=== PATIENT | male | born 1940 | race Caucasian/White ===

== ENCOUNTER 2016-10-28 19:19 | Inpatient (IN) | payer MEDICARE, OTHER ==
[2016-10-28] MEDS ORDERED: Aspirin Low Dose CHEW TAB* 81 MG PO ONE (19:44)
[2016-10-28] MEDS ORDERED: Nitroglycerin TAB 0.4 MG* 0.4 MG TAB SL ONE (19:52)
[2016-10-28] MEDS ORDERED: Nitroglycerin TAB 0.4 MG* 0.4 MG TAB ONE (19:53)
[2016-10-28 19:58] LABS: Hematocrit 48 % (42-52); Hemoglobin 15.9 g/dl (14.0-18.0); Mean Corpuscular HGB Conc 34 g/dl (31-36); Mean Corpuscular Hemoglobin 31 pg (27-31); Mean Corpuscular Volume 93 fL (80-94); Mean Platelet Volume 9 um3 (7.4-10.4); Red Blood Count 5.14 10^6/ul (4.0-5.4); Red Cell Distribution Width 14 % (10.5-15); White Blood Count 9.8 10^3/ul (3.5-10.8)
[2016-10-28] MEDS ORDERED: Nitroglycerin 2% OINT* 1 GM PAK TOPICAL ONE (19:59)
--- NOTE | 2016-10-28 20:11 | RAD ---
INDICATION: Chest pain. COMPARISON: Comparison is made with a prior study from December 14, 2010. TECHNIQUE: A portable view of the chest was obtained. FINDINGS: The patient appears to be status post coronary artery bypass surgery. The heart is within normal limits in size for this portable exam and unchanged from the prior exam. The lungs are clear. No pleural effusion is seen. IMPRESSION: POSTSURGICAL CHANGES, NO EVIDENCE FOR ACUTE FINDING.
[2016-10-28 20:13] LABS: BUN/Creatinine Ratio 23.7 (8-20); Calcium 9.1 mg/dL (8.6-10.3); EGFR Non-African American 75.5 (>60); Globulin 3.2 g/dL (2-4); Potassium 4.3 mmol/L (3.5-5.0); Total Bilirubin 0.9 mg/dL (0.2-1.0); Total Protein 7.2 g/dL (6.4-8.9)
[2016-10-28 20:16] LABS: Troponin I 0.01 ng/mL (<0.04)
[2016-10-28] MEDS ORDERED: Iodixanol* (CONTRAST) 320 MG/ML 100 ML SDV IV ONE (20:23)
--- NOTE | 2016-10-28 21:09 | RAD ---
INDICATION: Chest pain radiating to the back and jaw. COMPARISON: Comparison is made with a prior CT of the chest from December 14, 2010. TECHNIQUE: A CT scan of the chest was performed without intravenous contrast. Contiguous axial sections were obtained from the lung apices through the lung bases. Images were reconstructed in the coronal and sagittal planes. FINDINGS: There is mild to moderate centrilobular emphysematous change. There is a curvilinear irregular density present in the right upper lobe which is unchanged from the prior exam most consistent with parenchymal scarring. There are mild dependent bilateral lower lobe infiltrates most consistent with subsegmental atelectasis. No pleural effusion or pneumothorax is seen. No significant enlarged mediastinal or hilar lymph nodes are seen. The patient appears to be status post coronary artery bypass surgery. The heart is moderately enlarged. No pericardial effusion is present. The thoracic aorta is normal in caliber. There is mild calcific plaque present. Images of the upper abdomen demonstrate fatty infiltration of the liver. There is a filter partially visualized within the inferior vena cava. No significant focal osseous abnormality is seen. IMPRESSION: 1. STABLE RIGHT UPPER LOBE DENSITY CONSISTENT WITH PROBABLE SCARRING. 2. EMPHYSEMA. 3. POSTSURGICAL CHANGES AND CARDIOMEGALY, UNCHANGED. 4. HEPATIC STEATOSIS.
--- NOTE | 2016-10-28 21:10 | ED ---
Julee Fernando Rebecca, scribed for Alexandru Dubois MD on 10/28/16 at 1947 . HPI Chest Pain - HPI Summary HPI Summary: Pt is a 76 y/o M who presents to ED c/o CP. Pain began suddenly after eating and has been constant, waxing and waning in intensity. Pain is in the midsternum with radiation to the back, left arm and left jaw. Pain characterized as aching and ranges in intensity from 1/10 to 8/10. Sx aggravated and alleviated by nothing. Additionally c/o N/D. Denies cough. PMHx CAD (last catheterization and stress test many years ago). SHx former smoker. Pt takes Coumadin. Does not use O2 at home. Fusion Juncture Grinder is Dr. Amos. - History of Current Complaint Chief Complaint: EDChestPainROMI Time Seen by Provider: 10/28/16 19:44 Hx Obtained From: Patient Onset/Duration: Started Hours Ago, Still Present Time of Onset: 10:00 Timing: Constant Initial Severity: Moderate Current Severity: Mild Pain Intensity: 1 Pain Scale Used: 0-10 Numeric Chest Pain Location: Mid Sternal Chest Pain Radiates: Yes Chest Pain Radiates To:: Back, Arm - left, Jaw - left Character: Dull/Aching Aggravating Factor(s): Nothing Alleviating Factor(s): Nothing Associated Signs and Symptoms: Positive: Nausea, Other: - Diarrhea. Negative: Cough - Allergy/Home Medications Allergies/Adverse Reactions: Allergies Allergy/AdvReac Type Severity Reaction Status Date / Time Ciprofloxacin [From Cipro] Allergy Unknown Verified 10/28/16 20:25 Reaction Details Clarithromycin [From Biaxin] Allergy Unknown Verified 10/28/16 20:25 Reaction Details Heparin Allergy Unknown Verified 10/28/16 20:25 Reaction Details Iodine Allergy Unknown Verified 10/28/16 20:25 Reaction Details Mesalamine [From Asacol] Allergy Unknown Verified 10/28/16 20:25 Reaction Details Sulfamethoxazole Allergy Unknown Verified 10/28/16 20:25 w/Trimethoprim Reaction [From Bactrim] Details Home Medications: Home Medications Coumadin TAB(*) 6 mg PO SEE INSTRUCTIONS 10/28/16 [History Confirmed 10/28/16] PMH/Surg Hx/FS Hx/Imm Hx Endocrine/Hematology History: Reports: Hx Diabetes Denies: Hx Thyroid Disease Cardiovascular History: Reports: Hx Coronary Artery Disease, Hx Hypertension Respiratory History: Reports: Hx Asthma Denies: Hx Chronic Obstructive Pulmonary Disease (COPD) GI History: Denies: Hx Ulcer - Surgical History Surgery Procedure, Year, and Place: HEART CATH, PIECES BROKE OFF DURING, HAD TO OPEN UP TO GET PIECES OUT. RIGHT SIDE FACE RECONSTRUCTED. RIGHT ANKLE RECONSTRUCTION Infectious Disease History: No Infectious Disease History: Denies: Hx Hepatitis, Hx Human Immunodeficiency Virus (HIV), Traveled Outside the [place] in Last 30 Days - Social History Alcohol Use: None Substance Use Type: Reports: None Smoking Status (MU): Former Smoker Review of Systems Positive: Chest Pain Negative: Cough Positive: Diarrhea, Nausea All Other Systems Reviewed And Are Negative: Yes Physical Exam - Summary Physical Exam Summary: General: Comfortable, pleasant, alert, no distress currently HEENT: Moist mucosa, PERRL Neck: Soft, supple, no adenopathy, no edema Heart: S1, S2, RRR, no murmurs, rubs, or gallops, pulses equal and symmetric, heart sounds distant Lungs: Clear to auscultation, breathing comfortable, no wheezes or rales Abdominal: Soft, flat, nontender Extremities: No pitting edema, no calf tenderness Neuro: Alert and oriented x 3 Psych: Logical, coherent Triage Information Reviewed: Yes Vital Signs On Initial Exam: Initial Vitals Temp Pulse Resp BP Pulse Ox 99.6 F 95 16 125/57 100 10/28/16 19:22 10/28/16 19:22 10/28/16 19:22 10/28/16 19:22 10/28/16 19:22 Vital Signs Reviewed: Yes Diagnostics - Vital Signs Vital Signs Temp Pulse Resp BP Pulse Ox 10/28/16 19:22 99.6 F 95 16 125/57 100 - Laboratory Lab Results: Lab Results 10/28/16 10/28/16 Range/Units 19:45 19:45 WBC 9.8 (3.5-10.8) 10^3/ul RBC 5.14 (4.0-5.4) 10^6/ul Hgb 15.9 (14.0-18.0) g/dl Hct 48 (42-52) % MCV 93 (80-94) fL MCH 31 (27-31) pg MCHC 34 (31-36) g/dl RDW 14 (10.5-15) % Plt Count 134 L (150-450) 10^3/ul MPV 9 (7.4-10.4) um3 Neut % (Auto) 87.1 H (38-83) % Lymph % (Auto) 4.6 L (25-47) % [place] % (Auto) 5.2 (1-9) % Eos % (Auto) 2.7 (0-6) % Baso % (Auto) 0.4 (0-2) % Absolute Neuts (auto) 8.5 H (1.5-7.7) 10^3/ul Absolute Lymphs (auto) 0.5 L (1.0-4.8) 10^3/ul Absolute Monos (auto) 0.5 (0-0.8) 10^3/ul Absolute Eos (auto) 0.3 (0-0.6) 10^3/ul Absolute Basos (auto) 0 (0-0.2) 10^3/ul Absolute Nucleated RBC 0.02 10^3/ul Nucleated RBC % 0.2 Sodium 135 (133-145) mmol/L Potassium 4.3 (3.5-5.0) mmol/L Chloride 103 (101-111) mmol/L Carbon Dioxide 24 (22-32) mmol/L Anion Gap 8 (2-11) mmol/L BUN 23 (6-24) mg/dL Creatinine 0.97 (0.67-1.17) mg/dL Est GFR ( Amer) 97.0 (>60) Est GFR (Non-Af Amer) 75.5 (>60) BUN/Creatinine Ratio 23.7 H (8-20) Glucose 121 H (70-100) mg/dL Calcium 9.1 (8.6-10.3) mg/dL Total Bilirubin 0.90 (0.2-1.0) mg/dL AST 19 (13-39) U/L ALT 20 (7-52) U/L Alkaline Phosphatase 85 (34-104) U/L Troponin I 0.01 (<0.04) ng/mL Total Protein 7.2 (6.4-8.9) g/dL Albumin 4.0 (3.2-5.2) g/dL Globulin 3.2 (2-4) g/dL Albumin/Globulin Ratio 1.3 (1-3) Result Diagrams: 10/28/16 19:45 10/28/16 19:45 Lab Statement: Any lab studies that have been ordered have been reviewed, and results considered in the medical decision making process. - Radiology CXR Xray Interpretation: No Acute Changes - POSTSURGICAL CHANGES, NO EVIDENCE FOR ACUTE FINDING. Radiology Interpretation Completed By: Radiologist - EKG 1925 Cardiac Rate: NL - 89 bpm EKG Interpretation: Chronic RBBB EKG Comparison: No Significant Change - Unchanged from 2010 1955 Cardiac Rate: NL - 92 bpm EKG Rhythm: Sinus Rhythm - normal EKG Interpretation: Repeat EKG unchanged from EKG at 192 today Chest Pain Course/Dx - Course Assessment/Plan: He has many risk factors for heart and coronary artery disease. Has been doing well under the care of Dr. Amos and has not had a stress test or heart catheterization in many years. Has had no symptoms in preceding years but suddenly today developed CP. It involved the neck, shoulder and at one point radiated to the back. No SOB or tachycardia to warrant pursuit of PE. We did consider aneurysm of the aorta, but I obtain my widest dimension of the ascending aorta of 36 mm. Currently asymptomatic, no tearing pain to suggest dissection. Vital signs remain stable. Will be admitted to Dr. Larsen for further workup and to rule out CAD. - Chest Pain Differential Diagnosis/HQI/PQRI: Acute MO, ACS, Angina, Aortic Aneurysm, Chest Wall, GI Disease, Lower Respiratory Infection, Pulmonary Edema, Pulmonary Embolism - Diagnoses Provider Diagnoses: Chest pain - Provider Notifications Discussed Care Of Patient With: Dr. Larsen, hospitalist, who agrees to admit pt. Time Discussed With Above Provider: 21:01 Discharge - Discharge Plan Condition: Good Disposition: ADMITTED TO [facility] Referrals: Pam Perea MD [Primary Care Provider] - The documentation as recorded by the Julee levi Rebecca accurately reflects the service I personally performed and the decisions made by me, Alexandru Dubois MD.
[2016-10-28] MEDS ORDERED: Dextrose 50% Syringe 50 ML* 25 GM/50 ML SYRINGE IV PUSH PRN (21:58)
[2016-10-28] MEDS ORDERED: Acetaminophen TAB* 325 MG PO PRN (21:59)
[2016-10-28] MEDS ORDERED: NS 0.9% 1000 ML* 1,000 ML IV SCH (22:00)
--- NOTE | 2016-10-28 23:30 | HP ---
ADMISSION HISTORY AND PHYSICAL: DATE OF ADMISSION: 10/28/16 PRIMARY CARE PROVIDER: Pam Perea MD. PRIMARY WHARF LABORER: Olga Amos MD. ADMITTING PROVIDER: AMELIA Cruz. SUPERVISING PHYSICIAN: Dandy Larsen MD. * (DICTATED BY AMELIA CRUZ) CHIEF COMPLAINT: Chest pain. HISTORY OF PRESENT ILLNESS: This is a 76-year-old gentleman with extensive cardiac history as well as ulcerative colitis, history of DVTs, chronically anticoagulated on Coumadin, as well as non-insulin dependent diabetes who presented to the emergency department with complaints of chest pain that started earlier today. The patient states that he felt well when he awoke this morning and then became acutely ill after a ham and cheese omelet. The patient had sudden onset of abdominal pain and diarrhea as well as vomiting. The chest pain started a couple of hours later and waxed and waned throughout the day. He states that there were no specific inciting symptoms. He described an associated epigastric discomfort and described the chest pain as a pressure sensation. He became concerned when the chest pain began to radiate to his jaw and shoulder, which he has had similar experiences with his prior AZ's. He states that later in the day, he became short of breath with the chest pain and states that there was a somewhat pleuritic component to the chest pain with deep inspiration but those complaints have resolved with the use of nitroglycerin since arriving in the emergency department. The patient denies any other recent illness. He states that his last stress test was 1 [address] Amos's office and reportedly within normal limits. He denies any history of chronic angina. Today's symptoms are quite abnormal for him. PAST MEDICAL HISTORY: 1. Coronary artery disease status post 4 acute AZ's and prior CABG. He has had multiple complications surrounding prior catheterizations and his CABG procedure. 2. History of multiple DVT's for which he is anticoagulated with Coumadin and has a Berlin filter in place. 3. Ulcerative colitis. 4. Non-insulin dependent diabetes. 5. History of lung tumor. PAST SURGICAL HISTORY: 1. CABG. 2. Right ankle ORIF. 3. [place] filter. 4. Facial reconstruction. HOME MEDICATIONS: 1. Nitroglycerin 0.4 mg sublingual as needed for chest pain. 2. Coumadin 6 mg p.o. daily. 3. Lipitor 20 mg p.o. daily. 4. Lisinopril 5 mg p.o. daily. 5. Metoprolol succinate 25 mg p.o. daily. 6. Omeprazole 20 mg p.o. daily. 7. Glipizide 10 mg p.o. daily. SOCIAL HISTORY: The patient lives at home with his . He has a smoking history but quit in 1984. No regular alcohol consumption. REVIEW OF SYSTEMS: As noted above in the HPI, otherwise negative. PHYSICAL EXAMINATION GENERAL: This is a very pleasant elderly gentleman in no acute distress, accompanied by his and daughter. VITAL SIGNS: Temperature 99.6 degrees Fahrenheit, pulse 95 beats per minute, respiratory rate of 16 per minute, oxygen saturation is 100% on room air, blood pressure 125/57 mmHg. HEENT: Head is normocephalic and atraumatic. Mucous membranes are pink and moist. NECK: Supple and free of lymphadenopathy without evidence of JVD. RESPIRATORY: Lungs clear to auscultation without wheezes, crackles or rhonchi. CARDIOVASCULAR: Heart has a regular rate and rhythm without murmurs, rubs or gallops. ABDOMEN: Soft and nontender to palpation. Specifically no tenderness in the right upper quadrant. EXTREMITIES: No lower extremity edema. SKIN: Limited exam shows no rashes or lesions. PSYCH: The patient is alert and appropriately oriented. DIAGNOSTIC STUDIES/LAB DATA: CBC is unremarkable with a white blood cell count of 9800, hemoglobin 15.9 g/dL, platelet count slightly low at 134,000. Comprehensive metabolic panel is also unremarkable with the sodium of 135 mmol/L , potassium 4.3 mmol/L, BUN of 23, and creatinine of 0.97 with the respective estimated GFR of 75. Random glucose of 121 mg/dL. Total bilirubin and transaminases within normal limits. Troponin is negative at 0.01. IMAGING: Chest x-ray shows some mild cardiomegaly but no evidence of pulmonary venous congestion or other acute findings. EKG shows a sinus rhythm with the right bundle branch block unchanged from prior. CT of the chest without contrast shows emphysematous changes and scarring in the right upper lobe that seems to be chronic and stable. Last echocardiogram available for review is from 2003 and shows a preserved ejection fraction. Last nuclear stress test available for review is in 2007 and shows a fixed anterior wall defect but no reversible ischemia at that time. ASSESSMENT AND PLAN: This is a 76-year-old gentleman with extensive cardiac history as well as prior deep vein thrombosis for which he is chronically anticoagulated and non-insulin dependent diabetes mellitus who presents with complaints of chest pain, nausea, vomiting and diarrhea. 1. Chest pain. The patient is a high risk cardiac patient. No EKG changes or a more elevated troponin at this time. We will admit to observation for continuous telemetry and trending troponins. Continue home cardiac medications including aspirin, statin and beta jazmine. 2. Nausea, vomiting, and diarrhea. This could certainly be due to a cardiac cause that seems to be rather onset after having a fatty meal. Consider gallbladder pathology as an explanation for all of his symptoms. He is nontender on exam and transaminases and total bilirubin are within normal limits at this time. Obtain a gallbladder ultrasound. 3. History of deep vein thrombosis. Chronically anticoagulated on Coumadin and INR was not completed. This will be checked with tomorrow's labs. Plan to continue current dose of Coumadin. 4. Non-insulin dependent diabetes. We will plan to hold his glipizide at this time. Monitor mealtime glucose and cover with sliding scale insulin as necessary. 5. Ulcerative colitis. 6. DVT prophylaxis. The patient is anticoagulated with Coumadin and does not require further medical therapy. 7. Healthcare proxy is his . 8. Code status is full. 9. Disposition. The patient is being admitted to observation status for complaints of chest pain. If cycled troponins are negative, can likely be discharged tomorrow morning with close followup with Dr. Olga Amos, for repeat stress testing as an outpatient. AMELIA CRUZ CC: Olga Amos MD; Pam Perea MD * [id number]/[facility] #: [id number] MTDD
[2016-10-29] MEDS: Ondansetron INJ* 2 MG/ML VIAL IV PRN ×2 (00:13→08:34)
[2016-10-29 06:11] LABS: Albumin 3.4 g/dL (3.2-5.2); BUN/Creatinine Ratio 22.7 (8-20); Calcium 8.4 mg/dL (8.6-10.3); EGFR Non-African American 75.5 (>60); Globulin 2.7 g/dL (2-4); Potassium 4.1 mmol/L (3.5-5.0); Total Bilirubin 0.7 mg/dL (0.2-1.0); Total Protein 6.1 g/dL (6.4-8.9)
[2016-10-29] MEDS: Insulin LISPRO* 1 UNITS UNIT SUBCUT SCH ×3 (08:00→17:19)
[2016-10-29] MEDS: Omeprazole CAP* 20 MG PO SCH (08:37)
[2016-10-29] MEDS: Metoprolol Succinate XL TAB* 25 MG PO SCH (08:37)
[2016-10-29] MEDS: Lisinopril TAB* 5 MG PO SCH (08:37)
--- NOTE | 2016-10-29 09:49 | RAD ---
INDICATION: Nausea and vomiting. COMPARISON: Comparison is made with a prior right upper quadrant ultrasound from December 16, 2010 and in a prior CT of the chest from October 28, 2016. TECHNIQUE: Multiple real-time images of the right upper quadrant were obtained. FINDINGS: The gallbladder appear normal. No gallbladder wall thickening or pericholecystic fluid is present. No intra or extrahepatic ductal distention is present. The common bile duct measured 0.3 cm in diameter. The liver is normal in size and increased in echogenicity most consistent with fatty infiltration. No significant focal abnormality is seen. The pancreas is partially by overlying bowel gas. The right kidney is normal in size without evidence for hydronephrosis. There is a 4.0 x 3.6 cm cyst in the lower pole of the right kidney. IMPRESSION: 1. NO EVIDENCE FOR GALLBLADDER PATHOLOGY. 2. HEPATIC STEATOSIS. 3. RIGHT RENAL CYST.
[2016-10-29] MEDS ORDERED: Loperamide CAP* 2 MG PO PRN (16:21)
--- NOTE | 2016-10-29 16:26 | PN ---
Subjective Date of Service: 10/29/16 Interval History: Patient seen this morning and again in the evening. Chest pain resolved yesterday no recurrence overnight or today. Tolerated breakfast and lunch, however after lunch had 3 more episodes of diarrhea. Mild nausea. No vomiting. Family History: Unchanged from Admission Social History: Unchanged from Admission Past Medical History: Unchanged from Admission Objective Active Medications: Acetaminophen (Tylenol Tab*) 650 mg PO Q4H PRN Atorvastatin Calcium (Lipitor*) 20 mg PO 2100 [facility] Dextrose (D50w Syringe 50 Ml*) 12.5 gm IV PUSH .FOR FS < 60 - SS PRN Insulin Human Lispro (Humalog*) 0 units SUBCUT AC [facility] Lisinopril (Prinivil Tab*) 5 mg PO DAILY [facility] Metoprolol Succinate (Toprol Xl Tab*) 25 mg PO DAILY RED Omeprazole (Prilosec Cap*) 20 mg PO DAILY@0730 [facility] Ondansetron HCl (Zofran Inj*) 4 mg IV Q4H PRN Pharmacy Profile Note (Coumadin Daily Reminder*) 1 note FOLLOW UP 1700 [facility] Warfarin Sodium (Coumadin Tab(*)) 4 mg PO 1700 [facility] Vital Signs 10/28/16 10/28/16 10/29/16 23:27 23:40 04:00 Temperature 97.8 F 98.3 F Pulse Rate 88 78 Respiratory 18 16 16 Rate Blood Pressure 100/55 106/54 (mmHg) O2 Sat by Pulse 97 89 Oximetry 10/29/16 07:20 Temperature 98.4 F Pulse Rate 75 Respiratory 16 Rate Blood Pressure 102/46 (mmHg) O2 Sat by Pulse 97 Oximetry Oxygen Devices in Use Now: None Appearance: Elderly, M, laying in bed in NAD Eyes: No Scleral Icterus Ears/Nose/Mouth/Throat: Mucous Membranes Moist Neck: NL Appearance and Movements; NL JVP Respiratory: Symmetrical Chest Expansion and Respiratory Effort, Clear to Auscultation Cardiovascular: NL Sounds; No Murmurs; No JVD, RRR Abdominal: NL Sounds; No Tenderness; No Distention Lymphatic: No Cervical Adenopathy Extremities: No Edema Skin: No Rash or Ulcers Neurological: Alert and Oriented x 3 Result Diagrams: 10/28/16 19:45 10/29/16 05:30 Additional Lab and Data: Lab Results 10/28/16 10/28/16 Range/Units 19:45 19:45 WBC 9.8 (3.5-10.8) 10^3/ul RBC 5.14 (4.0-5.4) 10^6/ul Hgb 15.9 (14.0-18.0) g/dl Hct 48 (42-52) % MCV 93 (80-94) fL MCH 31 (27-31) pg MCHC 34 (31-36) g/dl RDW 14 (10.5-15) % Plt Count 134 L (150-450) 10^3/ul MPV 9 (7.4-10.4) um3 Neut % (Auto) 87.1 H (38-83) % Lymph % (Auto) 4.6 L (25-47) % [place] % (Auto) 5.2 (1-9) % Eos % (Auto) 2.7 (0-6) % Baso % (Auto) 0.4 (0-2) % Absolute Neuts (auto) 8.5 H (1.5-7.7) 10^3/ul Absolute Lymphs (auto) 0.5 L (1.0-4.8) 10^3/ul Absolute Monos (auto) 0.5 (0-0.8) 10^3/ul Absolute Eos (auto) 0.3 (0-0.6) 10^3/ul Absolute Basos (auto) 0 (0-0.2) 10^3/ul Absolute Nucleated RBC 0.02 10^3/ul Nucleated RBC % 0.2 Sodium 135 (133-145) mmol/L Potassium 4.3 (3.5-5.0) mmol/L Chloride 103 (101-111) mmol/L Carbon Dioxide 24 (22-32) mmol/L Anion Gap 8 (2-11) mmol/L BUN 23 (6-24) mg/dL Creatinine 0.97 (0.67-1.17) mg/dL Est GFR ( Amer) 97.0 (>60) Est GFR (Non-Af Amer) 75.5 (>60) BUN/Creatinine Ratio 23.7 H (8-20) Glucose 121 H (70-100) mg/dL Calcium 9.1 (8.6-10.3) mg/dL Total Bilirubin 0.90 (0.2-1.0) mg/dL AST 19 (13-39) U/L ALT 20 (7-52) U/L Alkaline Phosphatase 85 (34-104) U/L Troponin I 0.01 (<0.04) ng/mL Total Protein 7.2 (6.4-8.9) g/dL Albumin 4.0 (3.2-5.2) g/dL Globulin 3.2 (2-4) g/dL Albumin/Globulin Ratio 1.3 (1-3) Assess/Plan/Problems-Billing Assessment: Chest pain after nausea and diarrhea likely 2/2 viral gastroenteritis in a 76 yo M with hx of CAD s/p attempted stenting with multiple complications, CABG, DVTs on coumadin, UC, DM - Patient Problems (1) Viral gastroenteritis Current Visit: Yes Comment: Nausea seems improved but still with frequent diarrhea today. Will trial imodium. Continue IVF for now. Monitor I/O (2) Chest pain Current Visit: Yes Comment: Troponins negative x3, no events on tele. Will keep the patient an additional night and do stress test in AM if diarrhea improves. NPO after MN. (3) CAD (coronary artery disease) Current Visit: Yes Comment: Continue metoprolol, ACEI, statin (4) Diabetes Current Visit: Yes Comment: Continue HISS (5) DVT prophylaxis Current Visit: Yes Comment: Coumadin
[2016-10-29] MEDS ORDERED: Warfarin TAB(*) 4 MG PO SCH (17:00)
[2016-10-29] MEDS ORDERED: Atorvastatin* 20 MG TAB PO SCH (21:00)
[2016-10-30] MEDS: Insulin LISPRO* 1 UNITS UNIT SUBCUT SCH ×2 (07:55→14:31)
[2016-10-30 10:46] VITALS: BP 108/57
[2016-10-30] MEDS: Metoprolol Succinate XL TAB* 25 MG PO SCH (10:48)
[2016-10-30] MEDS: Lisinopril TAB* 5 MG PO SCH (10:48)
[2016-10-30] MEDS: Omeprazole CAP* 20 MG PO SCH (10:48)
--- NOTE | 2016-10-30 13:03 | RAD ---
Edited for charges. Indication: Chest pain. Myocardial perfusion scan was performed utilizing 1 day protocol. Rest myocardial perfusion was performed after intravenous injection of 10.04 mCi of technetium 99 and tetrofosmin. 25.5 mCi of technetium 99m tetrofosmin was then injected for the stress portion of the study. Pharmacological stress was used. There is photopenia in the anterior wall. This appears to reverse on the rest images and this may represent reversible change in the anterior wall. This is most prominent near the base of the heart. Otherwise the left ventricle is normal in size. There is a appears to be a short and septum noted. The ejection fraction at stress is 66%. Evaluation of wall motion demonstrates no focal wall motion abnormality. IMPRESSION: Reversible change in the anterior wall at the base of the heart. This is a small to moderate size. No other areas of reversible change is noted. ASSESSMENT: Intermediate risk Based on imaging criteria from ACC/AHA 2002 Guideline Update for the Management of Patients With Chronic Stable Angina Table 23. Noninvasive Risk Stratification. Reference. HIGH-RISK (GREATER THAN 3% ANNUAL MORTALITY RATE) - Severe resting left ventricular dysfunction (LVEF < 35%) - Severe exercise left ventricular dysfunction (exercise LVEF < 35%) - Stress-induced large perfusion defect (particularly if anterior) - Stress-induced multiple perfusion defects of moderate size - Large, fixed perfusion defect with LV dilation or increased lung uptake ( thallium-201) - Stress-induced moderate perfusion defect with LV dilation or increased lung uptake (thallium-201) INTERMEDIATE-RISK (1%-3% ANNUAL MORTALITY RATE) - Mild/moderate resting left ventricular dysfunction (LVEF = 35% to 49%) - Stress-induced moderate perfusion defect without LV dilation or increased lung intake (thallium-201) LOW-RISK (LESS THAN 1% ANNUAL MORTALITY RATE) - Normal or small myocardial perfusion defect at rest or with stress MTDD
[2016-10-30] MEDS ORDERED: Regadenoson* 0.4 MG/5 ML SYRINGE ONE (13:25)
--- NOTE | 2016-10-30 14:15 | DCNOTE ---
Patient seen this morning. Says he feels very well today. Diarrhea has resolved. Tolerated food last night. No further chest pain. On exam, RRR, s1 and s2 present, no m/g/r, abd soft, NTND, BS+, lungs CTA B/L, no w/r/r Stress test reviewed with Dr. Richard, did not feel any interventions or adjustments needed at this time. F/U with Dr. Amos as an outpatient.
--- NOTE | 2016-10-31 09:17 | DS ---
DISCHARGE SUMMARY: DATE OF ADMISSION: 10/28/16 DATE OF DISCHARGE: 10/30/16 PRIMARY CARE PROVIDER: Pam Perea MD CARDIOLOGY: Olga Amos MD PRINCIPAL DISCHARGE DIAGNOSES: 1. Viral gastroenteritis. 2. Chest pain. SECONDARY DIAGNOSES: 1. History of coronary artery disease, status post CABG. 2. Gastroesophageal reflux disease. 3. Diabetes. 4. Deep vein thromboses, on Coumadin. STUDIES DONE DURING HOSPITALIZATION: Chest x-ray, impression: Post-surgical changes. No evidence for acute findings. CT of the chest without contrast, impression: Stable right upper lobe density consistent with probable scarring, emphysema, post-surgical changes and cardiomegaly unchanged, hepatic steatosis. Gallbladder ultrasound, impression: No evidence for gallbladder pathology, hepatic steatosis, right renal cyst. Nuclear cardiac stress test, impression: Reversible change in the anterior wall at the base of the heart. This is a uxdeu-et-[id number] size. No other areas of reversible changes noted. Assessment: Intermediate risk. HISTORY OF PRESENT ILLNESS AND HOSPITAL SUMMARY: Please see the full history and physical by AMELIA Rey, for full details. Briefly, Mr. Calvo is a 76-year-old male with a past medical history as above who presented to the hospital after he developed mid sternal chest pain that radiated down the arm after a number of episodes of diarrhea earlier that day. The patient likely had a viral gastroenteritis. He was given IV fluids in the hospital and symptoms improved. In regards to his chest pain, his troponins were trended and all remained negative. He had no concerning changes on his EKG. The patient underwent a nuclear cardiac stress test as above. I discussed the findings with Dr. Richard who felt that there was no interventions or any changes in the patient's medications needed at this time. He will be continued on his previous medications and follow up with Dr. Amos as an outpatient. TIME SPENT: Total time spent on this discharge, 40 minutes. This is a summary of the hospitalization, please see full medical records for further details. CC: Dr. Perea; Olga Amos MD* [id number] #: [id number] MTDD
== END 2016-10-30 15:15 | disposition home or self-care (01) | DRG 392 ==
LOC: ED 19:19 → MEDTELE 21:59 → OBSVTOIN 10-29 16:20
PROVIDERS: ADMIT Hospitalist; ATTEND Hospitalist
DX: A08.4 Viral intestinal infection, unspecified (principal); K51.90 Ulcerative colitis, unspecified, without complications; K76.0 Fatty (change of) liver, not elsewhere classified; J43.9 Emphysema, unspecified; I25.10 Atherosclerotic heart disease of native coronary artery without angina pectoris; E11.9 Type 2 diabetes mellitus without complications; I10 Essential (primary) hypertension; J45.909 Unspecified asthma, uncomplicated; R07.9 Chest pain, unspecified; K21.9 Gastro-esophageal reflux disease without esophagitis; I51.7 Cardiomegaly; N28.1 Cyst of kidney, acquired; Z87.891 Personal history of nicotine dependence; Z88.1 Allergy status to other antibiotic agents; Z88.2 Allergy status to sulfonamides; Z88.8 Allergy status to other drugs, medicaments and biological substances; Z91.041 Radiographic dye allergy status; Z86.718 Personal history of other venous thrombosis and embolism; I25.2 Old myocardial infarction; Z95.1 Presence of aortocoronary bypass graft; Z95.828 Presence of other vascular implants and grafts; Z85.118 Personal history of other malignant neoplasm of bronchus and lung
CPT/HCPCS: 36415; 71010; 71250; 76705; 78452; 80053; 84484; 85025; 85610; 93005; 93017; A9270-GY; A9502; J2405; J2785

== ENCOUNTER 2017-02-03 04:26 | Emergency (ER) | payer MEDICARE, OTHER ==
[2017-02-03] MEDS ORDERED: Aspirin Low Dose CHEW TAB* 81 MG PO ONE (04:30)
[2017-02-03] MEDS ORDERED: Amiodarone 150 MG IVPREMIX* 150 MG/100 ML BAG IV ONE ×3 (04:43→05:38)
[2017-02-03 04:58] LABS: Hematocrit 48 % (42-52); Hemoglobin 15.5 g/dl (14.0-18.0); Mean Corpuscular HGB Conc 33 g/dl (31-36); Mean Corpuscular Hemoglobin 30 pg (27-31); Mean Corpuscular Volume 93 fL (80-94); Mean Platelet Volume 9 um3 (7.4-10.4); Red Blood Count 5.13 10^6/ul (4.0-5.4); Red Cell Distribution Width 14 % (10.5-15); White Blood Count 10.1 10^3/ul (3.5-10.8)
[2017-02-03] MEDS ORDERED: Amiodarone 360 MG IVPREMIX* 360 MG/200 ML BAG IV ONE (05:09)
[2017-02-03 05:12] LABS: Albumin 4.1 g/dL (3.2-5.2); BUN/Creatinine Ratio 20.8 (8-20); Calcium 9.8 mg/dL (8.6-10.3); EGFR African American 54.9 (>60); EGFR Non-African American 42.7 (>60); Globulin 3.3 g/dL (2-4); Potassium 4.6 mmol/L (3.5-5.0); Total Bilirubin 0.7 mg/dL (0.2-1.0); Total Protein 7.4 g/dL (6.4-8.9)
[2017-02-03] MEDS ORDERED: NS 0.9% 1000 ML* 250 ML IV ONE (05:14)
[2017-02-03] MEDS ORDERED: KCL 20 MEQ/100 ML IVPREMIX* 20 MEQ/100 ML BAG IV ONE (05:15)
[2017-02-03 05:16] LABS: Troponin I 0.59 ng/mL (<0.04)
[2017-02-03] MEDS ORDERED: Rivaroxaban TAB(*) 10 MG PO ONE (05:26)
[2017-02-03 05:28] LABS: Magnesium 2.1 mg/dL (1.9-2.7)
--- NOTE | 2017-02-03 05:56 | ED ---
Julee Fernando Rebecca, scribed for Janice Good MD on 02/03/17 at 0447 . Palpitations / Dysrhythmia - HPI Summary HPI Summary: Pt is a 76 y/o M who presents to ED c/o palpitations, SOB and CP. Sx began suddenly at 1900 tonight and have been constant since onset. Palpitations characterized as fast. CP is currently severe, ranked 7/10 and characterized as pressure. SOB characterized as dyspnea at rest. Sx aggravated and alleviated by nothing. Is on Coumadin for PE. PMHx CAD, [place], PE. Reports in 1998 he experienced a "sudden episode." - History of Current Complaint Chief Complaint: EDChestPainROMI Hx Obtained From: Patient Onset/Duration: Sudden Onset, Lasting Hours - 10 hours, Still Present Timing: Constant Severity Initially: Moderate Severity Currently: Moderate Character: Fast Aggravating: Nothing Alleviating: Nothing Associated Signs & Symptoms: Chest Pain, Shortness of Breath - Allergy/Home Medications Allergies/Adverse Reactions: Allergies Allergy/AdvReac Type Severity Reaction Status Date / Time Ciprofloxacin [From Cipro] Allergy Unknown Verified 10/28/16 20:25 Reaction Details Clarithromycin [From Biaxin] Allergy Unknown Verified 10/28/16 20:25 Reaction Details Heparin Allergy Unknown Verified 10/28/16 20:25 Reaction Details Iodine Allergy Unknown Verified 10/28/16 20:25 Reaction Details Mesalamine [From Asacol] Allergy Unknown Verified 10/28/16 20:25 Reaction Details Sulfamethoxazole Allergy Unknown Verified 10/28/16 20:25 w/Trimethoprim Reaction [From Bactrim] Details PMH/Surg Hx/FS Hx/Imm Hx Endocrine/Hematology History: Reports: Hx Blood Transfusions, Hx Diabetes Denies: Hx Thyroid Disease Cardiovascular History: Reports: Hx Angina, Hx Cardiac Arrest, Hx Coronary Artery Disease, Hx Hypercholesterolemia, Hx Hypertension, Hx Myocardial Infarction Denies: Hx Valvular Heart Disease Respiratory History: Reports: Hx Asthma, Hx Pulmonary Embolism - Right lung, Hx Seasonal Allergies, Other Respiratory Problems/Disorders - 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 RIGHT SIDE FACE RECONSTRUCTED. RIGHT ANKLE RECONSTRUCTION - Immunization History Date of Influenza Vaccine: Fall 2015 Infectious Disease History: Denies: Hx Hepatitis, Hx Human Immunodeficiency Virus (HIV), Traveled Outside the [place] in Last 30 Days - Family History Known Family History: Positive: Cardiac Disease - father (70 y/o) - Social History Lives: With Family Alcohol Use: None Substance Use Type: Reports: None Smoking Status (MU): Former Smoker Review of Systems Positive: Palpitations, Chest Pain Positive: Shortness Of Breath All Other Systems Reviewed And Are Negative: Yes Physical Exam - Summary Physical Exam Summary: General: Well appearing, no pain distress Skin: Warm, Skin Color Reflects Adequate Perfusion, Dry Eyes: EOMI, ALETHEA ENT: Pharynx normal, TMs normal Neck: Supple, nontender Respiratory: CTA, breath sounds present, no rhonchi, no wheezes, no rales Cardiovascular: RRR, no murmur, no rub, no gallop Abdomen: Soft, nontender, Non-distended, no guarding, no rebound Bowel: Present Musculoskeletal: REENA, No edema Neuro: Sensory/motor intact, A&Ox3, CN intact 2-12 Psych: Affect/mood appropriate Triage Information Reviewed: Yes Vital Signs On Initial Exam: Initial Vitals Temp Pulse Resp BP Pulse Ox 98 F 110 24 91/68 100 02/03/17 04:31 02/03/17 04:31 02/03/17 04:31 02/03/17 04:31 02/03/17 04:31 Vital Signs Reviewed: Yes Diagnostics - Vital Signs Vital Signs Temp Pulse Resp BP Pulse Ox 02/03/17 04:31 98 F 110 24 91/68 100 - Laboratory Lab Results: Lab Results 02/03/17 02/03/17 02/03/17 Range/Units 04:45 04:45 04:45 WBC 10.1 (3.5-10.8) 10^3/ul RBC 5.13 (4.0-5.4) 10^6/ul Hgb 15.5 (14.0-18.0) g/dl Hct 48 (42-52) % MCV 93 (80-94) fL MCH 30 (27-31) pg MCHC 33 (31-36) g/dl RDW 14 (10.5-15) % Plt Count 161 (150-450) 10^3/ul MPV 9 (7.4-10.4) um3 Neut % (Auto) 54.7 (38-83) % Lymph % (Auto) 27.5 (25-47) % [place] % (Auto) 12.8 H (1-9) % Eos % (Auto) 4.3 (0-6) % Baso % (Auto) 0.7 (0-2) % Absolute Neuts (auto) 5.5 (1.5-7.7) 10^3/ul Absolute Lymphs (auto) 2.8 (1.0-4.8) 10^3/ul Absolute Monos (auto) 1.3 H (0-0.8) 10^3/ul Absolute Eos (auto) 0.4 (0-0.6) 10^3/ul Absolute Basos (auto) 0.1 (0-0.2) 10^3/ul Absolute Nucleated RBC 0 10^3/ul Nucleated RBC % 0 INR (Anticoag Therapy) (0.89-1.11) Sodium 137 (133-145) mmol/L Potassium 4.6 (3.5-5.0) mmol/L Chloride 105 (101-111) mmol/L Carbon Dioxide 22 (22-32) mmol/L Anion Gap 10 (2-11) mmol/L BUN 33 H (6-24) mg/dL Creatinine 1.59 H (0.67-1.17) mg/dL Est GFR ( Amer) 54.9 (>60) Est GFR (Non-Af Amer) 42.7 (>60) BUN/Creatinine Ratio 20.8 H (8-20) Glucose 205 H (70-100) mg/dL Lactic Acid 2.3 H* (0.5-2.0) mmol/L Calcium 9.8 (8.6-10.3) mg/dL Magnesium 2.1 (1.9-2.7) mg/dL Total Bilirubin 0.70 (0.2-1.0) mg/dL AST 28 (13-39) U/L ALT 33 (7-52) U/L Alkaline Phosphatase 102 (34-104) U/L Troponin I 0.59 H* (<0.04) ng/mL Total Protein 7.4 (6.4-8.9) g/dL Albumin 4.1 (3.2-5.2) g/dL Globulin 3.3 (2-4) g/dL Albumin/Globulin Ratio 1.2 (1-3) // Range/Units 04:45 WBC (3.5-10.8) 10^3/ul RBC (4.0-5.4) 10^6/ul Hgb (14.0-18.0) g/dl Hct (42-52) % MCV (80-94) fL MCH (27-31) pg MCHC (31-36) g/dl RDW (10.5-15) % Plt Count (150-450) 10^3/ul MPV (7.4-10.4) um3 Neut % (Auto) (38-83) % Lymph % (Auto) (25-47) % [place] % (Auto) (1-9) % Eos % (Auto) (0-6) % Baso % (Auto) (0-2) % Absolute Neuts (auto) (1.5-7.7) 10^3/ul Absolute Lymphs (auto) (1.0-4.8) 10^3/ul Absolute Monos (auto) (0-0.8) 10^3/ul Absolute Eos (auto) (0-0.6) 10^3/ul Absolute Basos (auto) (0-0.2) 10^3/ul Absolute Nucleated RBC 10^3/ul Nucleated RBC % INR (Anticoag Therapy) 1.60 H (0.89-1.11) Sodium (133-145) mmol/L Potassium (3.5-5.0) mmol/L Chloride (101-111) mmol/L Carbon Dioxide (22-32) mmol/L Anion Gap (2-11) mmol/L BUN (6-24) mg/dL Creatinine (0.67-1.17) mg/dL Est GFR ( Amer) (>60) Est GFR (Non-Af Amer) (>60) BUN/Creatinine Ratio (8-20) Glucose (70-100) mg/dL Lactic Acid (0.5-2.0) mmol/L Calcium (8.6-10.3) mg/dL Magnesium (1.9-2.7) mg/dL Total Bilirubin (0.2-1.0) mg/dL AST (13-39) U/L ALT (7-52) U/L Alkaline Phosphatase (34-104) U/L Troponin I (<0.04) ng/mL Total Protein (6.4-8.9) g/dL Albumin (3.2-5.2) g/dL Globulin (2-4) g/dL Albumin/Globulin Ratio (1-3) Result Diagrams: 02/03/17 04:45 02/03/17 04:45 Lab Statement: Any lab studies that have been ordered have been reviewed, and results considered in the medical decision making process. - Radiology No standard instances Xray Interpretation: No Acute Changes Radiology Interpretation Completed By: ED Physician - EKG No standard instances Cardiac Rate: Tachycardia EKG Rhythm: V-Tachycardia Ectopy: None EKG Comparison: Other - wide complex tachycardia with left howe axis most consistent with vtach, but rapid aftib with abberrancy can not be excluded rate of 175 Course/Dx - Course Course Of Treatment: 76 yo male with cad hx with cabg as well as afib on coumadin (allergy to heparin) comes in with palpitations with wide complex tachycardia at a rate of 175. Pt given 150 mg IV bolus of amiodarone, (there was a concern at the end that there was some subcutaneous infitration) this was repeated and an order has been placed for 1mg/min of amiodarone. Pt has so far remained quite stable with a bp that has hovered in the low 90's, given his afib history at inr of only 1.6 after talking with Aniyah several times the decision was made to hold off on cardioversion in case the pt was in a fib with abberrancy, given that pt can not take heparin he was started on xarelto and he is currently awaiting the arrival of dr. Ayala - Diagnoses Provider Diagnoses: Wide QRS ventricular tachycardia - Physician Notifications Discussed Care Of Patient With: Dr. Larsen, hospitalist, who believes sx may be due to STEMI. Advised consult with Dr. Ayala. Dr. Ayala at 0503 who recommended the consideration of a cardioversion after an extensive duscission of the case. Dr. Ayala at 0520 who stated that he does not recommend cardioversion due to INR. States that he will admit pt. Time Discussed With Above Provider: 04:56 - Critical Care Time Critical Care Time: 30-74 min Discharge - Discharge Plan Condition: Fair Disposition: ADMITTED TO [facility] Referrals: Pam Perea MD [Primary Care Provider] - The documentation as recorded by the Julee levi Rebecca accurately reflects the service I personally performed and the decisions made by me, Janice Good MD.
[2017-02-03] MEDS ORDERED: Rivaroxaban TAB(*) 20 MG TAB PO ONE (06:00)
[2017-02-03] MEDS ORDERED: Midazolam concentrated* 5 MG/ML 1 ml VIAL ONE (06:21)
[2017-02-03] MEDS ORDERED: fentaNYL* 50 MCG/ML 2 ML VIAL (100 MCG VIAL) ONE (06:22)
[2017-02-03] MEDS ORDERED: Magnesium Sulfate 2 GM IV* 2 GM/50 ML BAG ONE (06:29)
--- NOTE | 2017-02-03 06:34 | ED ---
Julee Fernando Rebecca, scribed for Janice Good MD on 02/03/17 at 0608 . Progress - Progress Note Progress Note: Physical exam altered from previous PE: General: Well appearing, no pain distress Skin: Warm, Skin Color Reflects Adequate Perfusion, Dry Eyes: EOMI, ALETHEA ENT: Pharynx normal, TMs normal Neck: Supple, nontender Respiratory: CTA, breath sounds present, no rhonchi, no wheezes, no rales Cardiovascular: No murmur, no rub, no gallop. V tach - extremely regular heart rate but tachycardic Abdomen: Soft, nontender, Non-distended, no guarding, no rebound Bowel: Present Musculoskeletal: REENA, No edema Neuro: Sensory/motor intact, A&Ox3, CN intact 2-12 Psych: Affect/mood appropriate Course/Dx - Diagnoses Provider Diagnoses: Wide QRS ventricular tachycardia - Critical Care Time Critical Care Time: 30-74 min The documentation as recorded by the Julee levi Rebecca accurately reflects the service I personally performed and the decisions made by , Janice Good MD.
[2017-02-03] MEDS ORDERED: Magnesium Sulfate 2 GM IV* 2 GM/50 ML BAG IVPB ONE (07:03)
[2017-02-03] MEDS ORDERED: Midazolam* 1 MG/ML 5 ML VIAL (5 MG) SLOW PUSH ONE (07:04)
[2017-02-03] MEDS ORDERED: fentaNYL* 50 MCG/ML 2 ML VIAL (100 MCG VIAL) IV SCH (07:04)
--- NOTE | 2017-02-03 07:53 | PN ---
IFilomena SooYoung, scribed for Ovidio Fry MD on 02/03/17 at 0736 . Progress Note - Progress Note Note: SIGN-OUT FROM DR. ZAYAS DUE TO SHIFT CHANGE. PT WAS IN VT, HX: CORONARY ARTERY DIESEASE. PT WAS UNSTABLE AND CARDIOVERTED IN ED. PT SEEN BY DR. MCCANN, CARDIOLOGY, AND ARRANGED TO TRANS TO [facility] UNDER CARE OF DR. MURILLO. WILL RECEIVED ICD AND SEE AN CUSTOMER SOLUTIONS REPRESENTATIVE. DX: VT. The documentation as recorded by the Filomena levi SooYoung accurately reflects the service I personally performed and the decisions made by me, Ovidio Fry MD.
[2017-02-03 08:19] VITALS: BP 93/55
--- NOTE | 2017-02-03 09:45 | RAD ---
Indication: Tachycardia, shortness of breath, LEFT-sided jaw pain. History of coronary artery disease and LEFT lung carcinoma. Comparison: October 28, [address] and chest radiograph. Technique: Upright AP 0452 hours Report: Cardiomegaly. Mild prominence of the central pulmonary vasculature with cephalization. Grossly clear lungs and pleural spaces accounting for superimposed soft tissues with large body habitus. Negative for pneumothorax. Median sternotomy wires and mediastinal vascular clips. IMPRESSION: Probable mild pulmonary vascular congestion.
--- NOTE | 2017-02-03 11:57 | CARD ---
CC: Dr. Perea; Dr. Amos; Dr. Larsen; Dr. Ayala PROCEDURE REPORT: DATE OF PROCEDURE: 02/03/17 PROCEDURE: Cardioversion. INDICATION: The patient is a 76-year-old male patient with extensive cardiac history, coronary artery disease, CABG, history of PE, and right bundle branch block, who presented with wide-complex tachycardia consistent with ventricular tachycardia at heart rate of 175 beats per minute, systolic blood pressure 90 mmHg, and received bolus amiodarone and IV drip amiodarone without responding to amiodarone treatment. Based on the above, current cardioversion was further requested. DESCRIPTION OF PROCEDURE: After informed written consent had been obtained and with continuous blood pressure, pulse oximetry, and heart rate monitoring, after the patient received a total dose of Versed 4 mg intravenously and 50 mcg of fentanyl intravenously, synchronized biphasic 200 joules was delivered once at bedside in ER, and converted the patient successfully to normal sinus rhythm. There were no complications and the patient tolerated the procedure very well. CONCLUSION: Successful cardioversion as above for ventricular tachycardia. The patient is in normal sinus rhythm and right bundle branch block which is his baseline rhythm. [id number]/CPS #: [id number] MTDD
--- NOTE | 2017-02-03 13:29 | CONS ---
CC: Dr. Amos; Dr. Latisha Burrell; Dr. Perea, Dr. Larsen CARDIOLOGY CONSULTATION REPORT: DATE OF CONSULT: 02/03/17 PRIMARY CARE PHYSICIAN: Dr. Perea. ER PHYSICIAN: Dr. Good. HOSPITALIST: Dr. Larsen. REASON FOR CONSULT: I was asked to see this patient for ventricular tachycardia in the emergency room. HISTORY OF PRESENT ILLNESS: I was asked by Dr. Good and Dr. Larsen from the emergency room and hospitalist service respectively to see this 76-year -old male patient with complex and extensive cardiac history that goes back to 1998 when he had his coronary artery bypass grafting for severe coronary artery disease. Apparently, at that time, he had a cardiac catheterization and complications happened then. There were some reports of ruptured right coronary artery and underwent coronary artery bypass grafting there. The details of the information as per Dr. Amos's notes including ROMERO to the LAD and saphenous venous graft sequential to acute marginal and OM. 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 He cannot take heparin. He had a [place] filter and he is on Coumadin treatment. There were also some complications reported of the right ventricle. There is an echo from last one in the system from . At that time, his EF 55% to 60%, enlarged right ventricle, mild mitral insufficiency, mild tricuspid insufficiency, [id number] pulmonary insufficiency. In October of this year, he was hospitalized with symptoms of chest pain. He ruled out for myocardial infarction and he had and a nuclear Myoview stress test that was reported to have small-to- moderate size of reversible ischemia of the anterior wall. As I understand, that was discussed with Cardiology at that time with recommendation for medical treatment. No cardiac catheterization was done. The calculated ejection fraction by the nuclear was 66%. So, the patient apparently last night presented with symptoms of some chest pain , throat pain, tachycardia, palpitations. In the emergency room, he was found to be in wide complex tachycardia with a heart rate of 175 beats per minute. The morphology of it all consistent with ventricular tachycardia. The patient' s baseline EKG is sinus rhythm, right bundle branch block, and left posterior fascicular block. In the emergency room, he did receive loading with amiodarone , then IV drip, but he continued to be in the wide complex ventricular tachycardia with the heart rate of about 170. His blood pressure was about 85 to 90 systolic. Reviewing his labs, his magnesium was 2 or so, his potassium was 4.6, his troponin was 0.5, and Cardiology consult was further requested to evaluate and further management in his ventricular tachycardia. In the emergency room, upon arrival immediately after the call, he was alert, oriented. He had minimal episode of some what he called chest pressure and feeling in his throat, he is in wide complex tachycardia consistent with V-tach about 170 beats per minute. His blood pressure was 90 systolic. After further discussion with the patient and his who was available at the bedside and Dr. Larsen, hospitalist service; Dr. Good, ER physician, I decided to proceed with direct current cardioversion for this patient. I did after sedating him using synchronized 200 joules was delivered and successfully converted him to his baseline EKG with normal sinus rhythm, right bundle branch block, and left posterior fascicular block. He had no nausea, no vomiting, no hematochezia, no skin rash, no abdominal pain, no syncope, no swelling of the lower extremities, no hematochezia. He was supposed to follow up after [place] [facility] [place], but apparently that never occurred. His CABG and his cardiac cath were done at [facility] [place] at that time. 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 PAST SURGICAL HISTORY: Includes [place] filter, 1998; history of DVT and PE ; CABG on 06/09/99 at [facility], urgent from the pathology laboratory aide, ruptured right coronary artery; ROMERO to the LAD, sequential saphenous venous graft to acute marginal and OM. MEDICATIONS: As an outpatient include: 1. Lipitor 20 mg daily. 2. Coumadin adjusted to his INR. 3. Glipizide 10 mg twice a day. 4. Lisinopril 10 mg daily. 5. Metoprolol 25 mg daily. 6. He is also on nitro 0.4 mg sublingual p.r.n. 7. Omeprazole 1 p.o. daily. ALLERGIES: He had a history of allergies to HEPARIN, IODINE, CIPRO, PENICILLIN , BACTRIM, BETA BLOCKERS, BIAXIN. SOCIAL HISTORY: He used to smoke, he quit many years ago in March 1985. Rarely drinks alcohol. No history of illicit drug. He lives with his . PHYSICAL EXAM: He is awake, alert, and oriented. His blood pressure is 90 systolic. He is in a wide complex tachycardia consistent with V-tach. He is afebrile. Head and Neck Exam: Normocephalic, atraumatic head. Ears, nose, and throat essentially benign. Neck: Supple. JVP is not elevated. No carotid bruits. No masses in the neck are appreciated. Chest: Clear to auscultation. No rales, no wheeze, no added sounds appreciated. Heart: Normal. Regular S1, S2. No added sounds, no gallops, no rubs. Abdomen: Benign , soft. Positive bowel sounds. Extremities: No edema, no cyanosis, no clubbing. Skin exam is normal. Psych: Normal affect and mood. FLOOR COVERER APPRENTICE: No focal deficit is appreciated. DIAGNOSTIC STUDIES/LAB DATA: His EKG is as described. His labs showed the following: His CBC showed the following: , hemoglobin 15.5 , hematocrit 48, and platelets 161. His INR 1.60. His sodium 137, potassium 4.6, chloride 105, BUN 33, creatinine 1.59, glucose 205, lactic acid 2.3, magnesium 2.1. LFT is normal. Troponin 0.59. His chest x-ray: I do not have the report yet ready. IMPRESSION: The patient is a 76-year-old with: 1. Presentation with wide complex rapid tachycardia consistent with ventricular tachycardia, heart rate 175 beats per minute. 2. Known history of complex coronary artery disease with history of ruptured right coronary artery in the pathology laboratory aide, immediate CABG with ROMERO to the LAD, saphenous venous graft sequential to acute marginal and OM on 06/09/99, at [facility] in [place]. 3. Systemic arterial hypertension. 4. Hyperlipidemia. 5. Obesity. 6. 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 7. Complication after his coronary artery bypass graft with deep venous thrombosis, pulmonary embolism, he is on Coumadin treatment. 8. [place] filter insertion in 1998. 9. Abnormal baseline EKG with right bundle branch block, left posterior fascicular block. 10. Abnormal nuclear stress test, done October 2016 with aqvsk-zu-zsqiqfyt size of reversible ischemia of the anterior wall. 11. History of mild mitral insufficiency. 12. History of normal left ventricular systolic function; however, his last echo was in 2014. There is no followup echo since then. PLAN: This patient is very critical patient, very complex based on his comorbidities, complex CAD, and complications related to allergy to HEPARIN and DVT and pulmonary embolism. In the emergency room, I proceeded with cardioversion which successfully converted him to his baseline sinus rhythm, right bundle branch block, left posterior fascicular block. He is to continue on amiodarone IV drip. He is to have magnesium 2 g IV which we did. Regarding further management for this patient, I had lengthy discussion with the patient himself, his , as well as with the ER physician, the hospitalist service, and I did actually discuss him via phone with Dr. Ibarra, from the interventional cardiology services, who reviewed the patient's history and also the EKG presentation and the EKG after the cardioversion. After our lengthy talk and discussion with all of the above, the patient will be transferred to [facility] [place] for further evaluation and management based on his extensive complex cardiac history and ventricular tachycardia. I have discussed him with the Dr. Quintanilla at [facility], he is a waste minimization technician who kindly accepted him immediately. The patient will be transferred via ambulance by ACLS protocol. I have discussed him with Dr. Fry , the emergency room physician for today, who is aware of the transfer for this patient. I have discussed this again with the patient as well as the whom they also requested [facility] in [place], specifically, they asked for Dr. To at [facility], to see this patient. TIME SPENT: Total critical care time taking care of this patient and the emergency room physician managing him and making arrangements for his transfer is 2-1/2 hours without the cardioversion time for him. [id number]/CPS #: [id number] MTDD
== END 2017-02-03 07:52 | disposition short-term general hospital (02) ==
LOC: ED 04:26
DX: I47.2 Ventricular tachycardia (principal); R07.9 Chest pain, unspecified; R06.02 Shortness of breath; Z87.891 Personal history of nicotine dependence; R00.2 Palpitations
CPT/HCPCS: 36415; 71010; 80053; 83605; 83735; 84484; 85025; 85610; 93005; 96365; 96375; 99285; A9270-GY; J0282; J3010

== ENCOUNTER 2017-02-07 18:05 | Observation (INO) | payer MEDICARE, OTHER ==
[2017-02-07 19:19] LABS: Hematocrit 47 % (42-52); Hemoglobin 15.6 g/dl (14.0-18.0); Mean Corpuscular HGB Conc 33 g/dl (31-36); Mean Corpuscular Hemoglobin 31 pg (27-31); Mean Corpuscular Volume 93 fL (80-94); Mean Platelet Volume 10 um3 (7.4-10.4); Red Blood Count 5.08 10^6/ul (4.0-5.4); Red Cell Distribution Width 14 % (10.5-15); White Blood Count 11.5 10^3/ul (3.5-10.8)
[2017-02-07 19:34] LABS: Albumin 4.2 g/dL (3.2-5.2); BUN/Creatinine Ratio 20.8 (8-20); Calcium 9.9 mg/dL (8.6-10.3); EGFR African American 69.2 (>60); EGFR Non-African American 53.8 (>60); Globulin 3.9 g/dL (2-4); Total Bilirubin 0.9 mg/dL (0.2-1.0); Total Protein 8.1 g/dL (6.4-8.9)
[2017-02-07 19:37] LABS: Potassium 4.8 mmol/L (3.5-5.0)
--- NOTE | 2017-02-07 19:40 | RAD ---
INDICATION: Hemoptysis. COMPARISON: Comparison is made with a prior study from February 03, 2017. TECHNIQUE: Dual-energy PA and lateral views of the chest were obtained. FINDINGS: The patient is status post sternotomy. There is a transvenous cardiac pacemaker present. The heart is mildly enlarged and decreased in size from the prior study. The lungs are hyperinflated and clear with flattening of the diaphragms. No pleural effusion is seen. IMPRESSION: 1. FINDINGS CONSISTENT WITH COPD, NO EVIDENCE FOR ACUTE FINDING. 2. POSTSURGICAL CHANGES.
[2017-02-07 20:15] LABS: Troponin I 0.27 ng/mL (<0.04)
[2017-02-07] MEDS ORDERED: Acetaminophen TAB* 325 MG PO PRN (21:46)
[2017-02-07] MEDS ORDERED: Ondansetron INJ* 2 MG/ML VIAL IV PRN (21:46)
[2017-02-07] MEDS ORDERED: Dextrose 50% Syringe 50 ML* 25 GM/50 ML SYRINGE IV PUSH PRN (21:46)
[2017-02-07] MEDS ORDERED: Fondaparinux* 2.5 MG/0.5 ML SYRINGE SUBCUT SCH (23:00)
[2017-02-07] MEDS ORDERED: diPHENhydraMINE PO* 50 MG PO ONE (23:00)
[2017-02-07] MEDS ORDERED: predniSONE TAB* 50 MG PO ONE (23:00)
[2017-02-07] MEDS ORDERED: Enoxaparin(*) 30 MG/0.3 ML SYR SUBCUT SCH (23:00)
--- NOTE | 2017-02-07 23:10 | ED ---
Naveen Fernando Erika, scribed for Kelvin Hawley MD on 02/07/17 at 2048 . Complex/Multi-Sys Presentation - HPI Summary HPI Summary: Patient is a 76-year-old male presenting to the ED with a CC of hemoptysis. Patient reports that he was in the [facility] ED on 02/03/2017, and was in ventricular tachycardia so was cardioverted by Dr. Ayala then transferred to [facility]. Pt reports he had a cardiac catheterization and ICD placement at [facility]. He states he was discharged from [facility] today, but had a syncopal episode prior to discharge. He states he felt nauseated and weak at discharge. He reports en route home, he felt as if he was going to have diarrhea , but was unable to have a BM when he arrived home. He felt dehydrated, so drank Gatorade, and symptoms of nausea and weakness resolved. Then, pt states he coughed up 2 blood clots, the larger of which was about the size of his thumb nail. Pt reports SOB as well, and states he was started on Lasix a few days ago. Daughter reports that pt sounds like he has chest congestion. Currently, patient reports he feels sore and fatigued, but not as bad as earlier today. - History Of Current Complaint Chief Complaint: EDGeneral Time Seen by Provider: 02/07/17 18:23 Hx Obtained From: Patient, Family/Telegraphic Instrument Supervisor - Daughter Onset/Duration: Resolved Timing: Constant Severity Initially: Moderate Associated Signs And Symptoms: Positive: Weakness, Syncope, SOB, Hemoptysis, Nausea - Allergies/Home Medications Allergies/Adverse Reactions: Allergies Allergy/AdvReac Type Severity Reaction Status Date / Time Ciprofloxacin [From Cipro] Allergy Unknown Verified 10/28/16 20:25 Reaction Details Clarithromycin [From Biaxin] Allergy Unknown Verified 10/28/16 20:25 Reaction Details Heparin Allergy Unknown Verified 10/28/16 20:25 Reaction Details Iodine Allergy Unknown Verified 10/28/16 20:25 Reaction Details Mesalamine [From Asacol] Allergy Unknown Verified 10/28/16 20:25 Reaction Details Sulfamethoxazole Allergy Unknown Verified 10/28/16 20:25 w/Trimethoprim Reaction [From Bactrim] Details Home Medications: Home Medications Acetaminophen TAB* [Tylenol TAB*] 650 mg PO Q6H PRN 02/07/17 [History Confirmed 02/07/17] Aspirin EC Low Dose* [Ecotrin EC Low Dose 81 MG*] 81 mg PO DAILY 02/07/17 [ History Confirmed 02/07/17] Atorvastatin* [Lipitor*] 40 mg PO DAILY 02/07/17 [History Confirmed 02/07/17] Exenatide VIAL (NF) [Bydureon (NF)] 2 mg SUBCUT WEEKLY 02/07/17 [History Confirmed 02/07/17] Fexofenadine (NF) [Chloé 180 (NF)] 180 mg PO DAILY 02/07/17 [History Confirmed 02/07/17] Fluticasone NASAL SPRAY 50MCG* [Flonase NASAL SPRAY 50MCG*] 2 spray BOTH NARES DAILY PRN 02/07/17 [History Confirmed 02/07/17] Furosemide TAB* [Lasix TAB*] 20 mg PO DAILY PRN 02/07/17 [History Confirmed 12/22] Lisinopril TAB* [Prinivil TAB*] 10 mg PO DAILY 02/07/17 [History Confirmed 02/07] Metoprolol Tartrate TAB* [Lopressor TAB*] 25 mg PO BID 02/07/17 [History Confirmed 02/07/17] Pioglitazone HCl [Actos] 30 mg PO DAILY 02/07/17 [History Confirmed 02/07/17] Potassium Chlor TAB* [Klor Con ER TAB*] 20 meq PO DAILY PRN 02/07/17 [History Confirmed 02/07/17] PMH/Surg Hx/FS Hx/Imm Hx Endocrine/Hematology History: Reports: Hx Blood Transfusions, Hx Diabetes Denies: Hx Thyroid Disease Cardiovascular History: Reports: Hx Angina, Hx Cardiac Arrest, Hx Coronary Artery Disease, Hx Hypercholesterolemia, Hx Hypertension, Hx Myocardial Infarction, Hx Pacemaker/ICD Respiratory History: Reports: Hx Asthma, Hx Pulmonary Embolism - Right lung, Hx Seasonal Allergies, Other Respiratory Problems/Disorders - 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 RIGHT SIDE FACE RECONSTRUCTED. RIGHT ANKLE RECONSTRUCTION - Immunization History Date of Influenza Vaccine: Fall 2015 Infectious Disease History: Denies: Hx Hepatitis, Hx Human Immunodeficiency Virus (HIV), Traveled Outside the [place] in Last 30 Days - Family History Known Family History: Positive: Cardiac Disease - father (70 y/o) - Social History Alcohol Use: None Hx Substance Use: No Substance Use Type: Reports: None Hx Tobacco Use: Yes Smoking Status (MU): Former Smoker Review of Systems Positive: Fatigue Cardiovascular: Other - chest congestion Positive: Shortness Of Breath, Cough - with hemoptysis Positive: Nausea Positive: Myalgia Positive: Weakness, Syncope All Other Systems Reviewed And Are Negative: Yes Physical Exam Triage Information Reviewed: Yes Vital Signs On Initial Exam: Initial Vitals Temp Pulse Resp BP Pulse Ox 98.1 F 80 18 143/74 100 02/07/17 18:13 02/07/17 18:13 02/07/17 18:13 02/07/17 18:13 02/07/17 18:13 Vital Signs Reviewed: Yes Appearance: Positive: Well-Appearing, No Pain Distress Skin: Positive: Warm, Skin Color Reflects Adequate Perfusion, Dry Head/Face: Positive: Normal Head/Face Inspection Eyes: Positive: Normal ENT: Positive: Normal ENT inspection Neck: Positive: Supple, Nontender Respiratory/Lung Sounds: Positive: Breath Sounds Present, Other - Few crackles in the left upper lung field Cardiovascular: Positive: RRR Abdomen Description: Positive: Nontender, Soft Bowel Sounds: Positive: Present Musculoskeletal: Positive: Normal Neurological: Positive: Normal Psychiatric: Positive: Affect/Mood Appropriate Diagnostics - Vital Signs Vital Signs Temp Pulse Resp BP Pulse Ox 02/07/17 18:13 98.1 F 80 18 143/74 100 - Laboratory Lab Results: Lab Results 02/07/17 02/07/17 02/07/17 Range/Units 18:35 18:35 18:35 WBC 11.5 H (3.5-10.8) 10^3/ul RBC 5.08 (4.0-5.4) 10^6/ul Hgb 15.6 (14.0-18.0) g/dl Hct 47 (42-52) % MCV 93 (80-94) fL MCH 31 (27-31) pg MCHC 33 (31-36) g/dl RDW 14 (10.5-15) % Plt Count 168 (150-450) 10^3/ul MPV 10 (7.4-10.4) um3 Neut % (Auto) 71.8 (38-83) % Lymph % (Auto) 18.1 L (25-47) % [place] % (Auto) 8.9 (1-9) % Eos % (Auto) 0.9 (0-6) % Baso % (Auto) 0.3 (0-2) % Absolute Neuts (auto) 8.3 H (1.5-7.7) 10^3/ul Absolute Lymphs (auto) 2.1 (1.0-4.8) 10^3/ul Absolute Monos (auto) 1.0 H (0-0.8) 10^3/ul Absolute Eos (auto) 0.1 (0-0.6) 10^3/ul Absolute Basos (auto) 0 (0-0.2) 10^3/ul Absolute Nucleated RBC 0.01 10^3/ul Nucleated RBC % 0.1 INR (Anticoag Therapy) (0.89-1.11) APTT (26.0-36.3) seconds Sodium 133 (133-145) mmol/L Potassium 4.8 (3.5-5.0) mmol/L Chloride 100 L (101-111) mmol/L Carbon Dioxide 22 (22-32) mmol/L Anion Gap 11 (2-11) mmol/L BUN 27 H (6-24) mg/dL Creatinine 1.30 H (0.67-1.17) mg/dL Est GFR ( Amer) 69.2 (>60) Est GFR (Non-Af Amer) 53.8 (>60) BUN/Creatinine Ratio 20.8 H (8-20) Glucose 208 H (70-100) mg/dL Lactic Acid 2.2 H* (0.5-2.0) mmol/L Calcium 9.9 (8.6-10.3) mg/dL Total Bilirubin 0.90 (0.2-1.0) mg/dL AST 24 (13-39) U/L ALT 24 (7-52) U/L Alkaline Phosphatase 99 (34-104) U/L Troponin I 0.27 H* (<0.04) ng/mL Total Protein 8.1 (6.4-8.9) g/dL Albumin 4.2 (3.2-5.2) g/dL Globulin 3.9 (2-4) g/dL Albumin/Globulin Ratio 1.1 (1-3) 05/03/17 Range/Units 18:35 WBC (3.5-10.8) 10^3/ul RBC (4.0-5.4) 10^6/ul Hgb (14.0-18.0) g/dl Hct (42-52) % MCV (80-94) fL MCH (27-31) pg MCHC (31-36) g/dl RDW (10.5-15) % Plt Count (150-450) 10^3/ul MPV (7.4-10.4) um3 Neut % (Auto) (38-83) % Lymph % (Auto) (25-47) % [place] % (Auto) (1-9) % Eos % (Auto) (0-6) % Baso % (Auto) (0-2) % Absolute Neuts (auto) (1.5-7.7) 10^3/ul Absolute Lymphs (auto) (1.0-4.8) 10^3/ul Absolute Monos (auto) (0-0.8) 10^3/ul Absolute Eos (auto) (0-0.6) 10^3/ul Absolute Basos (auto) (0-0.2) 10^3/ul Absolute Nucleated RBC 10^3/ul Nucleated RBC % INR (Anticoag Therapy) 1.07 (0.89-1.11) APTT 28.9 (26.0-36.3) seconds Sodium (133-145) mmol/L Potassium (3.5-5.0) mmol/L Chloride (101-111) mmol/L Carbon Dioxide (22-32) mmol/L Anion Gap (2-11) mmol/L BUN (6-24) mg/dL Creatinine (0.67-1.17) mg/dL Est GFR ( Amer) (>60) Est GFR (Non-Af Amer) (>60) BUN/Creatinine Ratio (8-20) Glucose (70-100) mg/dL Lactic Acid (0.5-2.0) mmol/L Calcium (8.6-10.3) mg/dL Total Bilirubin (0.2-1.0) mg/dL AST (13-39) U/L ALT (7-52) U/L Alkaline Phosphatase (34-104) U/L Troponin I (<0.04) ng/mL Total Protein (6.4-8.9) g/dL Albumin (3.2-5.2) g/dL Globulin (2-4) g/dL Albumin/Globulin Ratio (1-3) Result Diagrams: 02/07/17 18:35 02/07/17 18:35 Lab Statement: Any lab studies that have been ordered have been reviewed, and results considered in the medical decision making process. - Radiology CXR Radiology Interpretation Completed By: Radiologist - IMPRESSION: 1. FINDINGS CONSISTENT WITH COPD, NO EVIDENCE FOR ACUTE FINDING. 2. POSTSURGICAL CHANGES. - EKG 18:20 Cardiac Rate: NL - at 72 bpm EKG Rhythm: Sinus Rhythm ST Segment: Non-Specific EKG Interpretation: RBBB EKG Comparison: No Significant Change - From 02/03/2017 Re-Evaluation - Re-Evaluation First Eval Re-Evaluation Time: 21:28 Comment: Discussed need for admission with patient. Complex Multi-Symp Course/Dx - Diagnoses Provider Diagnoses: Hemoptysis, Leukocytosis - Physician Notifications Discussed Care Of Patient With: Dr. Amos (cardiology) at 20:48 - discussed case. Recommends admission. Dr. Ochoa (hospitalist) at 21:09 - agrees to admit. Discharge - Discharge Plan Condition: Stable Disposition: ADMITTED TO [facility] documentation as recorded by the Naveen levi Erika accurately reflects the service I personally performed and the decisions made by me, Kelvin Hwaley MD.
[2017-02-08] MEDS: Metoprolol Tartrate TAB* 25 MG PO SCH ×2 (01:21→08:07)
--- NOTE | 2017-02-08 03:04 | HP ---
HISTORY AND PHYSICAL: DATE OF ADMISSION: 02/07/17 PRIMARY CARE PROVIDER: Dr. Perea. PRIMARY SCHOOL SPEECH THERAPIST: Dr. Amos. ATTENDING PHYSICIAN WHILE IN THE HOSPITAL: Dr. Mireya Ochoa *(report dictated by Preston Soliz NP). CHIEF COMPLAINT: 1. Hemoptysis. 2. Syncope. HISTORY OF PRESENTING ILLNESS: Mr. Calvo is a 76-year-old male patient, who was just here on 03 of February, unfortunately he was in ventricular tachycardia and required cardioversion and this was performed by Dr. Ayala. He was sent emergently to [facility]. He unfortunately was on Coumadin, so he could not have the ICD placed urgently. He was kept there until this morning when he was discharged. He underwent heart catheterization on Sunday. He was going to go down to have the ICD placed at [facility] and it was noted that his INR was supratherapeutic. This was reversed, yesterday he had the ICD placed and he was discharged today. Before being discharged, he was getting up to go to the bathroom and shave, while shaving he started feeling lightheaded, he felt tingling, he got sweaty, he started feeling like he was going to faint. He grabbed the towel bar in the bathroom, he went down, and then the next thing he knew, he was in his bed. He was evaluated at [facility] for this and was discharged home. Unfortunately, on his way home, he had 2 episodes where he was coughing quite significantly, he brought up two fresh blood clots. He was no longer on Coumadin and the Coumadin had been discontinued altogether in collaboration with his PCP and [facility]. The patient called his PCP, Dr. Perea, who was concerned and asked him to come to the ER to be evaluated. He denies any chest pain now. He denies having any abdominal discomfort. He denies having any shortness of breath. He states he is feeling better. He said he felt a little dehydrated at home today. He drank a bottle of Gatorade and since then, he has been feeling quite well. He denies having anymore episodes of feeling like he his lightheaded. He denies having any chest pain. He denies having any orthopnea. He was evaluated in the ED. It was noted that his troponin was mildly elevated, but it is trending down from the last troponin that we have. In addition to this, there was a concern because of the hemoptysis and we were asked to evaluate for admission. PAST MEDICAL HISTORY: Significant for: 1. Coronary artery disease. 2. VT. 3. History of CHF. 4. COPD. 5. Diabetes. 6. Ulcerative colitis. 7. History of DVTs. 8. Lung tumor. 9. Ventricular tachycardia. PAST SURGICAL HISTORY: 1. He just had an ICD placed over at [facility]. 2. CABG. 3. IVC. 4. ORIF, right ankle. 5. Facial reconstruction. MEDICATIONS: His home medications according to the discharge paperwork from [facility] include: 1. Lipitor 40 mg daily. 2. Actos 30 mg daily. 3. Lisinopril 10 mg daily. 4. Klor-Con 20 mEq p.o. daily as needed. 5. Lasix 20 mg p.o. daily as needed. 6. Tylenol 650 mg p.o. every 6 hours as needed. 7. Prilosec 20 mg daily. 8. Aspirin 81 mg daily. 9. Glipizide 10 mg p.o. b.i.d. 10. Nitro 0.4 sublingual q.5 minutes p.r.n. chest pain x3. 11. Flonase 2 sprays both nares daily as needed. 12. Fexofenadine 180 mg p.o. daily. 13. Exenatide 2 mg subcu weekly. 14. Lopressor 25 mg p.o. b.i.d. ALLERGIES TO MEDICATIONS: Include CIPRO, BIAXIN, HEPARIN, IODINE, MESALAMINE, and SULFA. FAMILY HISTORY: Reviewed and noncontributory. SOCIAL HISTORY: He is a former smoker. He does not drink alcohol. He lives with his . Surrogate decision maker is his . REVIEW OF SYSTEMS: There is no documented fever. He denied any significant weight change. There was no double vision. He denies having any ear discharge. There was no rhinorrhea. No sore throat. No thyroid enlargement. Denies having any chest pain. There was no orthopnea. No nocturnal dyspnea. There was no abdominal pain. There was no nausea, no vomiting. No dysuria, no frequency. No seizure. There was a loss of consciousness at [facility]. Review of 14 systems completed, all others negative. PHYSICAL EXAMINATION GENERAL: At this time, Mr. Calvo is a 76-year-old male patient; appears well- developed, well-nourished, sitting in the ER stretcher. VITAL SIGNS: Reveal blood pressure 135/72, pulse 76, respirations 22, O2 sat 96 %, temperature 98.3. HEENT: Head is atraumatic and normocephalic. Eyes: EOMs are intact. Sclerae anicteric and not pale. Throat: Oral mucosa appears to be moist. No oropharyngeal erythema. NECK: Supple. LUNGS: Clear to auscultation bilaterally. No wheezes, rales, or rhonchi. HEART: Sounds S1, S2. Regular rate and rhythm. No murmurs, rubs, or gallops were appreciated. ABDOMEN: Soft, flat, nontender. Bowel sounds present. EXTREMITIES: Pulses were 2+ throughout. NEUROLOGICAL: He is awake, he is alert, he is oriented x3. SKIN: Intact. He does have an incision noted to the left chest well, which was covered with a dressing. There does appear to be some old serosanguineous drainage, but otherwise there does not appear to be any erythema surrounding the site, I did not remove the dressing. DIAGNOSTIC STUDIES/LAB DATA: Today revealed WBC 11.5, RBC of 5.08, hemoglobin 15.6, hematocrit 47, and platelet count of 168. INR of 1.07, PTT of 28.9. Sodium 133; potassium 4.8; chloride 100; bicarb 22; BUN 27; creatinine 1.30, which is near his baseline; glucose 208; lactate 2.2; calcium 9.9. Total bili 0.9, AST 24, ALT 24, alk phos 99. Troponin 0.27, which is down from his last troponin of 0.50. His albumin was 4.2. The patient did have a chest x-ray obtained today, impression: Postsurgical changes, findings consistent with COPD. No evidence for acute finding. He had an EKG obtained today as well, which showed a right bundle branch block, it was a rate of 72, no ST elevations or T-wave inversions. It was reviewed to the previous EKG, it appears to be similar. Old medical records were reviewed. ASSESSMENT AND PLAN: Mr. Calvo is a 76-year-old male patient coming into the ER today with complaints of hemoptysis and a syncopal episode after implantable cardioverter-defibrillator placed. He will be admitted under observation status for: 1. Hemoptysis. Again, etiology is unclear. It could be simple trauma from him being possibly intubated from the implantable cardioverter-defibrillator placement. It could also be related to pulmonary embolism, although I suspect less likely, he was just on Coumadin. In addition to this, he does have a history of a lung tumor, so I think a CTA is appropriate following his H and H and continuing to follow him and monitor him overnight. 2. Syncope. He will be placed on telemetry. The patient was evaluated at [facility] , apparently had the implantable cardioverter-defibrillator interrogated over there. We are getting records to see what was done and I will check orthostatic blood pressures and we will continue to follow. 3. Coronary artery disease. He just had a heart catheterization over at [facility]. We will try to get those records they are being sent by Dr. Amos. We will continue his aspirin, statin, and beta jazmine. 4. History of chronic obstructive pulmonary disease. Currently not on any nebulizers, he does not wish to take any nebulizers as he feels that his gave him his tumor. We will continue to monitor. 5. History of deep venous thrombosis. He has a [place] filter while he is here. He will be placed on SCDs and I will place him on Lovenox. 6. Ulcerative colitis. Continue to follow. 7. History of diabetes. He will be on the lispro sliding scale. 8. History of lung tumor. Again, we will reevaluate with a CTA tomorrow. 9. History of ventricular tachycardia. He has an implantable cardioverter- defibrillator placed, we will follow. 10. History of congestive heart failure. We will diurese as needed. 11. Code status. Full code. 12. Fluid, electrolytes, and nutrition. He will continue with heart-healthy diet. 13. DVT prophylaxis. SCDs and Lovenox. TIME SPENT: On the admission was approximately 70 minutes, greater than half the time spent [id number] with the patient obtaining my history and physical, the other half the time was spent going over the plan of care with the patient and implementing plan of care. I did discuss the plan of care with my attending physician, Dr. Ochoa; she is in agreement. PRESTON SOLIZ NP CC: Dr. Perea; Dr. Amos* [id number]/CPS #: [id number] [email or web address]
[2017-02-08 04:15] LABS: Hematocrit 43 % (42-52); Hemoglobin 14.5 g/dl (14.0-18.0); Mean Corpuscular HGB Conc 34 g/dl (31-36); Mean Corpuscular Hemoglobin 31 pg (27-31); Mean Corpuscular Volume 92 fL (80-94); Mean Platelet Volume 9 um3 (7.4-10.4); Red Blood Count 4.71 10^6/ul (4.0-5.4); Red Cell Distribution Width 14 % (10.5-15); White Blood Count 10.1 10^3/ul (3.5-10.8)
[2017-02-08 04:29] LABS: BUN/Creatinine Ratio 20.4 (8-20); Calcium 9.4 mg/dL (8.6-10.3); EGFR African American 85.7 (>60); EGFR Non-African American 66.7 (>60); Potassium 4.8 mmol/L (3.5-5.0)
[2017-02-08 04:34] LABS: Troponin I 0.2 ng/mL (<0.04)
[2017-02-08] MEDS ORDERED: predniSONE TAB* 20 MG PO ONE (05:00)
[2017-02-08] MEDS ORDERED: diPHENhydraMINE PO* 25 MG PO ONE ×2 (05:00→11:00)
[2017-02-08] MEDS: Insulin LISPRO* 1 UNITS UNIT SUBCUT SCH ×2 (08:07→13:04)
[2017-02-08] MEDS ORDERED: Lisinopril TAB* 10 MG PO SCH (09:00)
[2017-02-08] MEDS ORDERED: Aspirin EC Low Dose* 81 MG TAB.EC PO SCH (09:00)
[2017-02-08] MEDS ORDERED: Atorvastatin* 40 MG TAB PO SCH (09:00)
[2017-02-08] MEDS ORDERED: Omeprazole CAP* 20 MG PO SCH (09:00)
[2017-02-08] MEDS ORDERED: predniSONE TAB* 10 MG PO ONE (11:00)
[2017-02-08] MEDS ORDERED: Iodixanol* (CONTRAST) 320 MG/ML 100 ML SDV IV ONE (12:24)
--- NOTE | 2017-02-08 12:59 | RAD ---
HISTORY: Cough, hemoptysis COMPARISONS: October 28, 2016 TECHNIQUE: Multiple contiguous axial CT scans of the chest were obtained after the administration of nonionic intravenous contrast, timed to the pulmonary arterial phase of contrast enhancement.. Coronal and sagittal multiplanar reformations are also submitted for review. FINDINGS: NECK AND THYROID: The lower neck and thyroid are unremarkable. CHEST WALL: There is no lower cervical, axillary, or supraclavicular lymphadenopathy by size criteria. HEART AND PERICARDIUM: The heart is unremarkable. AORTA AND PULMONARY VASCULATURE: There is no pulmonary arterial filling defect to suggest pulmonary embolism. There is no linear filling defect within the aorta to suggest aortic dissection. MEDIASTINUM: There is no mediastinal lymphadenopathy by size criteria. SARKIS: There is no hilar lymphadenopathy by size criteria. AIRWAY AND ESOPHAGUS: The airway is unremarkable, without endobronchial filling defect. The esophagus is grossly normal. LUNG PARENCHYMA: There is extensive centrilobular and panacinar emphysematous change. There is stable pleuroparenchymal scarring of the right upper lobe. PLEURA: No pleural abnormalities are noted. UPPER ABDOMEN: An IVC filter is noted BONES AND SOFT TISSUES: Degenerative changes are noted. There is a scoliotic curvature of the spine. The patient is status post median sternotomy. OTHER: A left-sided pacemaker is noted IMPRESSION: 1. EMPHYSEMA. 2. NO PULMONARY ARTERIAL FILLING DEFECT TO SUGGEST PULMONARY EMBOLISM.
[2017-02-08 13:51] VITALS: BP 127/58
--- NOTE | 2017-02-08 22:32 | DS ---
MEDICATION ADDENDUM NOW INCLUDED ON THIS REPORT DISCHARGE SUMMARY: DATE OF ADMISSION: 02/07/17 DATE OF DISCHARGE: 02/08/17 PRIMARY CARE PROVIDER: Dr. Perea. DISCHARGING PROVIDER: AMELIA Cruz. SUPERVISING PHYSICIAN: Basia Shen DO.* (DICTATED BY AMELIA CRUZ) PRIMARY DISCHARGE DIAGNOSES: 1. Syncope. 2. Acute kidney injury - prerenal. 3. Hemoptysis. SECONDARY DISCHARGE DIAGNOSES: 1. Coronary artery disease. 2. History of congestive heart failure - unknown ejection fraction. 3. Chronic obstructive pulmonary disease. 4. Diabetes. 5. Ulcerative colitis. 6. History of deep venous thrombosis. 7. History of lung tumor. 8. History of ventricular tachycardia. HOSPITAL IMAGIN. Chest x-ray demonstrated findings consistent with COPD. No other acute findings. Evidence of postsurgical changes. 2. CTA of the chest shows no evidence of PE. No mass or other acute changes. Diffuse emphysematous changes present. 3. EKG demonstrates a sinus rhythm with rather diffuse ST segment changes and a right bundle-branch block that appears unchanged from prior. HOSPITAL COURSE: This is a 76-year-old gentleman with an extensive cardiac history including prior RI, history of V-tach for which he was recently transferred to [facility] for ICD placement as well as history of CHF without known recent echocardiogram, diabetes, ulcerative colitis, history of prior DVTs who presented yesterday to the emergency department with complaints of syncope and hemoptysis. Approximately 3 days ago, the patient was seen in our emergency department with ventricular tachycardia that required cardioversion. The patient was emergently transferred to [facility] , at which point an ICD device was placed. The patient was discharged from [facility] yesterday, but prior to discharge he experienced a syncopal episode, but despite this, was discharged to home. The patient reported feeling very nauseated throughout the drive home and when he got to home he had 2 episodes of hemoptysis with a dark red clot that he coughed up. He contacted his primary care provider who recommended him to be evaluated in the emergency department. Initial labs demonstrated a mild leukocytosis with white blood cell count of 11, 000. Chemistries demonstrated BUN of 27 and creatinine of 1.3 with a lactic acid of 2.2 and an elevated troponin to 0.27. Of note, the patient's troponin from 4 days prior when he presented with V-tach was 0.5. The patient had multiple allergies listed prompting the necessity to pre-treat prior to CTA to avoid a potential contrast reaction. The patient was admitted to observation status and received IV fluids and appropriate pre-treatment regimen for CT contrast. He underwent CTA, which did not demonstrate a PE or recurrent lung mass. The patient reported that he had no further complaints of hemoptysis and his complaints of syncope, presyncope or generalized dizziness had resolved. The patient reported that during his 3-day stay at [facility], he had been treated with IV Lasix, which is a new medication for him and his episode of syncope occurred while in the standing position and he felt quietly lightheaded proceeding. The patient's syncopal episodes appeared to be secondary to orthostasis related to hypovolemia. His hemoptysis is most likely due to recent intubation as he did undergo general anesthesia for his ICD placement. He is asymptomatic at the time of discharge. Also of note, the patient has been on Coumadin therapy for approximately 17 years for history of multiple DVTs. Apparently, there was a conversation between [facility] physician and Dr. Pam Perea, his primary care provider, in regards to the necessity to continue his anticoagulation and the decision was made not to continue to anticoagulate him. The patient has multiple questions regarding this, but recommend that those be directed to Dr. Perea as her knowledge of his history of prior DVTs is superior. DISPOSITION: The patient is being discharged to home. Recommend no further use of Lasix. No other medication changes made. The patient is instructed to follow up with Dr. Perea in the near future regarding this hospitalization. ADDENDUM: DATE OF ADMISSION: 02/07/17 DATE OF DISCHARGE: 02/08/17 DISCHARGE MEDICATIONS: As follows: 1. Aspirin 81 mg p.o. daily. 2. Atorvastatin 40 mg p.o. daily. 3. Exenatide 2 mg subcu weekly. 4. Chloé 180 mg p.o. daily. 5. Fluticasone nasal spray 2 sprays in each nose daily. 6. Lisinopril 10 mg p.o. daily. 7. Metoprolol tartrate 25 mg p.o. twice daily. 8. Nitroglycerin 0.4 mg sublingual q.5 minutes as needed for chest pain. 9. Omeprazole 20 mg p.o. daily. 10. Actos 30 mg p.o. daily. 11. Glipizide 10 mg p.o. twice daily. MEDICATION CHANGES: Discontinue p.r.n. Lasix. AMELIA CRUZ CC: Dr. Perea* [id number]/CPS #: [id number]/CPS #: [id number] [facility]ITAL[facility]
--- NOTE | 2017-02-08 23:06 | DS ---
CC: Dr. Perea* DISCHARGE SUMMARY: ADDENDUM: DATE OF ADMISSION: 02/07/17 DATE OF DISCHARGE: 02/08/17 DISCHARGE MEDICATIONS: As follows: 1. Aspirin 81 mg p.o. daily. 2. Atorvastatin 40 mg p.o. daily. 3. Exenatide 2 mg subcu weekly. 4. Chloé 180 mg p.o. daily. 5. Fluticasone nasal spray 2 sprays in each nose daily. 6. Lisinopril 10 mg p.o. daily. 7. Metoprolol tartrate 25 mg p.o. twice daily. 8. Nitroglycerin 0.4 mg sublingual q.5 minutes as needed for chest pain. 9. Omeprazole 20 mg p.o. daily. 10. Actos 30 mg p.o. daily. 11. Glipizide 10 mg p.o. twice daily. MEDICATION CHANGES: Discontinue p.r.n. Lasix. AMELIA CRUZ [id number]/[facility] #: [id number] MTDD
== END 2017-02-08 14:30 | disposition home or self-care (01) ==
LOC: ED 18:05 → MEDTELE 21:44
PROVIDERS: ADMIT Pediatrics; ATTEND Hospitalist
DX: R55 Syncope and collapse (principal); N17.9 Acute kidney failure, unspecified; R04.2 Hemoptysis; I25.10 Atherosclerotic heart disease of native coronary artery without angina pectoris; J44.9 Chronic obstructive pulmonary disease, unspecified; E11.9 Type 2 diabetes mellitus without complications; Z86.718 Personal history of other venous thrombosis and embolism; I25.2 Old myocardial infarction; Z95.810 Presence of automatic (implantable) cardiac defibrillator; I50.9 Heart failure, unspecified; R94.31 Abnormal electrocardiogram [ECG] [EKG]; I45.10 Unspecified right bundle-branch block; Z87.891 Personal history of nicotine dependence; Z79.84 Long term (current) use of oral hypoglycemic drugs; Z79.899 Other long term (current) drug therapy; Z88.1 Allergy status to other antibiotic agents; Z88.8 Allergy status to other drugs, medicaments and biological substances; Z88.2 Allergy status to sulfonamides
CPT/HCPCS: 36415; 71020; 71275; 80048; 80053; 83605; 84484; 85025; 85610; 85730; 87040; 93005; 96372; 99284; A9270-GY; G0378; J7512; Q9967

== ENCOUNTER 2017-04-19 13:43 | Emergency (ER) | payer MEDICARE, OTHER ==
[2017-04-19 16:34] LABS: Hematocrit 43 % (42-52); Hemoglobin 14.6 g/dl (14.0-18.0); Mean Corpuscular HGB Conc 34 g/dl (31-36); Mean Corpuscular Hemoglobin 32 pg (27-31); Mean Corpuscular Volume 96 fL (80-94); Mean Platelet Volume 9 um3 (7.4-10.4); Red Cell Distribution Width 14 % (10.5-15); White Blood Count 7.8 10^3/ul (3.5-10.8)
[2017-04-19 16:49] LABS: BUN/Creatinine Ratio 17.9 (8-20); Calcium 9.6 mg/dL (8.6-10.3); EGFR African American 99.4 (>60); EGFR Non-African American 77.3 (>60); Globulin 3.1 g/dL (2-4); Potassium 4.2 mmol/L (3.5-5.0); Total Bilirubin 0.5 mg/dL (0.2-1.0); Total Protein 7.1 g/dL (6.4-8.9)
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
[2017-04-19 19:03] VITALS: BP 146/72
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
== END 2017-04-19 19:02 | disposition home or self-care (01) ==
LOC: ED 13:43
DX: R07.9 Chest pain, unspecified (principal); R51 Headache; Z87.891 Personal history of nicotine dependence; M54.2 Cervicalgia; Z04.1 Encounter for examination and observation following transport accident
CPT/HCPCS: 36415; 70450; 71020; 72125; 80053; 83605; 85025; 93005; 99283

== ENCOUNTER 2017-09-10 12:09 | Emergency (ER) | payer MEDICARE, OTHER ==
--- NOTE | 2017-09-10 13:11 | RAD ---
HISTORY: Chest pain COMPARISONS: April 19, 2017 VIEWS: 4: Frontal dual-energy and lateral views of the chest. FINDINGS: CARDIOMEDIASTINAL SILHOUETTE: The cardiomediastinal silhouette is normal. SARKIS: The sarkis are normal. PLEURA: The costophrenic angles are sharp. No pleural abnormalities are noted. LUNG PARENCHYMA: There is hyperinflation with flattening of the diaphragm and expansion of the AP diameter of the chest. ABDOMEN: The upper abdomen is clear. There is no subphrenic gas. BONES AND SOFT TISSUES: Degenerative changes are noted. The patient is status post median sternotomy. OTHER: An AICD is noted IMPRESSION: HYPERINFLATION. NO ACTIVE CARDIOPULMONARY DISEASE.
[2017-09-10 13:32] LABS: Hematocrit 44 % (42-52); Hemoglobin 14.6 g/dl (14.0-18.0); Mean Corpuscular HGB Conc 33 g/dl (31-36); Mean Corpuscular Hemoglobin 31 pg (27-31); Mean Corpuscular Volume 95 fL (80-94); Mean Platelet Volume 10 um3 (7.4-10.4); Red Blood Count 4.67 10^6/ul (4.0-5.4); Red Cell Distribution Width 14 % (10.5-15); White Blood Count 11.8 10^3/ul (3.5-10.8)
[2017-09-10 13:48] LABS: T4 6.87 mcg/mL (6.09-12.23)
[2017-09-10 13:52] LABS: TSH (Thyroid Stimulating Horm) 2.01 mcIU/mL (0.34-5.60)
[2017-09-10 14:19] LABS: Albumin 4.1 g/dL (3.2-5.2); BUN/Creatinine Ratio 23.1 (8-20); Calcium 9.5 mg/dL (8.6-10.3); EGFR African American 89.3 (>60); EGFR Non-African American 69.4 (>60); Globulin 2.7 g/dL (2-4); Potassium 4.5 mmol/L (3.5-5.0); Total Bilirubin 0.6 mg/dL (0.2-1.0); Total Protein 6.8 g/dL (6.4-8.9)
[2017-09-10 16:12] VITALS: BP 132/76
--- NOTE | 2017-09-11 15:30 | ED ---
Shavon Fernando Edward, scribed for Danilo Brunner MD on 09/10/17 at 1218 . HPI Chest Pain - HPI Summary HPI Summary: 77 y/o male presents to the ED c/o constant CP starting at 04:00 this morning. The pain is rated 5/10 in severity. The CP is aggravated with deep breaths. Associated sx: nausea, SOB, VUONG at the back of the head, and a pain behind his R ear. The pain awoke him from his sleep. PMHx pacemaker. Sx 2 open heart surgeries. - History of Current Complaint Hx Obtained From: Patient Onset/Duration: Started Hours Ago Timing: Constant Initial Severity: Moderate Current Severity: Moderate Pain Intensity: 5 Pain Scale Used: 0-10 Numeric Chest Pain Location: Mid Sternal Aggravating Factor(s): Deep Breaths Alleviating Factor(s): Nothing Associated Signs and Symptoms: Positive: Headaches, Shortness of Breath, Nausea , Other: - pain behind R ear - Additional Pertinent History Primary Care Physician: JOHNNY - Allergy/Home Medications Allergies/Adverse Reactions: Allergies Allergy/AdvReac Type Severity Reaction Status Date / Time Ciprofloxacin [From Cipro] Allergy Unknown Verified 10/28/16 20:25 Reaction Details Clarithromycin [From Biaxin] Allergy Unknown Verified 10/28/16 20:25 Reaction Details Heparin Allergy Unknown Verified 10/28/16 20:25 Reaction Details Iodine Allergy Unknown Verified 10/28/16 20:25 Reaction Details Mesalamine [From Asacol] Allergy Unknown Verified 10/28/16 20:25 Reaction Details Sulfamethoxazole Allergy Unknown Verified 10/28/16 20:25 w/Trimethoprim Reaction [From Bactrim] Details Home Medications: Home Medications Atorvastatin* [Lipitor*] 20 mg PO DAILY 09/10/17 [History Confirmed 09/10/17] Lisinopril TAB* [Prinivil TAB*] 5 mg PO DAILY 09/10/17 [History Confirmed ] Pioglitazone TAB* [Actos TAB*] 45 mg PO DAILY 09/10/17 [History Confirmed ] PMH/Surg Hx/FS Hx/Imm Hx Endocrine/Hematology History: Reports: Hx Blood Transfusions, Hx Diabetes Denies: Hx Thyroid Disease Cardiovascular History: Reports: Hx Angina, Hx Cardiac Arrest, Hx Coronary Artery Disease, Hx Hypercholesterolemia, Hx Hypertension, Hx Myocardial Infarction, Hx Pacemaker/ICD Denies: Hx Valvular Heart Disease Respiratory History: Reports: Hx Asthma, Hx Pulmonary Embolism - Right lung, Hx Seasonal Allergies, Other Respiratory Problems/Disorders - 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 RIGHT SIDE FACE RECONSTRUCTED. RIGHT ANKLE RECONSTRUCTION - Immunization History Date of Influenza Vaccine: Fall 2015 Infectious Disease History: Denies: Hx Hepatitis, Hx Human Immunodeficiency Virus (HIV) - Family History Known Family History: Positive: Cardiac Disease - father (70 y/o) - Social History Alcohol Use: None Hx Substance Use: No Substance Use Type: Reports: None Hx Tobacco Use: Yes Smoking Status (MU): Former Smoker Review of Systems Constitutional: Negative Eyes: Negative ENT: Negative Positive: Chest Pain Positive: Shortness Of Breath Positive: Nausea Genitourinary: Negative Musculoskeletal: Negative Skin: Negative Positive: Headache - back of head and pain behind R ear Psychological: Normal All Other Systems Reviewed And Are Negative: Yes Physical Exam - Summary Physical Exam Summary: VITAL SIGNS: Reviewed. GENERAL: ~Patient is a well-developed and nourished male who is lying comfortable in the stretcher. ~Patient is not in any acute respiratory distress. HEAD AND FACE: No signs of trauma. ~No ecchymosis, hematomas or skull depressions. No sinus tenderness. EYES: PERRLA, EOMI x 2, No injected conjunctiva, no nystagmus. EARS: Hearing grossly intact. Ear canals and tympanic membranes are within normal limits. MOUTH: Oropharynx within normal limits. NECK: Supple, trachea is midline, no adenopathy, no JVD, no carotid bruit, no c- spine tenderness, neck with full ROM. CHEST: Symmetric, no tenderness at palpation LUNGS: Clear to auscultation bilaterally. No wheezing or crackles. CVS: Regular rate and rhythm, S1 and S2 present, no murmurs or gallops appreciated. ABDOMEN: Soft, non-tender. No signs of distention. No rebound no guarding, and no masses palpated. Bowel sounds are normal. EXTREMITIES: FROM in all major joints, no edema, no cyanosis or clubbing. NEURO: Alert and oriented x 3. No acute neurological deficits. Speech is normal and follows commands. SKIN: Dry and warm Triage Information Reviewed: Yes Vital Signs Reviewed: Yes Diagnostics - Laboratory Result Diagrams: 09/10/17 12:28 09/10/17 12:28 Lab Statement: Any lab studies that have been ordered have been reviewed, and results considered in the medical decision making process. - Radiology CXR Xray Interpretation: Positive (See Comments) - HYPERINFLATION. NO ACTIVE CARDIOPULMONARY DISEASE. Radiology Interpretation Completed By: Radiologist - ED PHYSICIAN REVIEWS AND AGREES - EKG 1 EKG Interpretation: 12:28 - AFIB @ 79 BPM. RBBB. EKG Comparison: No Significant Change - 04/19/17 Chest Pain Course/Dx - Course Assessment/Plan: 77 y/o male presents to the ED c/o constant CP starting at 04: 00 this morning. The pain is rated 5/10 in severity. The CP is aggravated with deep breaths. Associated sx: nausea, SOB, VUONG at the back of the head, and a pain behind his R ear. The pain awoke him from his sleep. PMHx pacemaker. Sx 2 open heart surgeries. EKG @ 12:28 - AFIB @ 79 BPM. RBBB. CXR SHOWS HYPERINFLATION. NO ACTIVE CARDIOPULMONARY DISEASE. Test results without significant abnormalities except WBC 11.8. Trop 0.00. second troponin is also 0.00. The pt reports that he has a stress test tomorrow and wants to go home and doesnt want to stay in the hospital at his time. Therefore the pt wants to be d/c home and understand that if he develops other CP the pt must return for further workup and management. The pt is A&Ox3 and understands the plan. - Diagnoses Provider Diagnoses: Chest pain Discharge - Discharge Plan Condition: Stable Disposition: HOME Patient Education Materials: Chest Pain (ED) Referrals: Pam Perea MD [Primary Care Provider] - Additional Instructions: PLEASE F/U WITH YOUR ENVIRONMENTAL SAMPLING TECHNICIAN TOMORROW FOR YOUR STRESS TEST The documentation as recorded by the Shavon levi Edward accurately reflects the service I personally performed and the decisions made by me, Danilo Brunner MD.
== END 2017-09-10 16:11 | disposition home or self-care (01) ==
LOC: ED 12:09
DX: R07.9 Chest pain, unspecified (principal); R51 Headache; R06.02 Shortness of breath; R11.0 Nausea; H92.01 Otalgia, right ear; Z87.891 Personal history of nicotine dependence
CPT/HCPCS: 36415; 71020; 80053; 82550; 82553; 83605; 83735; 83880; 84436; 84443; 84484; 85025; 85730; 93005; 99282

== ENCOUNTER 2017-11-12 12:13 | Inpatient (IN) | payer MEDICARE, OTHER ==
[2017-11-12] MEDS ORDERED: Metoprolol Tartrate IV* 1 MG/ML 5 ML VIAL IV ONE (12:36)
[2017-11-12] MEDS ORDERED: NS 0.9% 1000 ML* 1,000 ML IV SCH (12:45)
[2017-11-12 13:03] LABS: ABS Basophils 0 10^3/ul (0-0.2); ABS Eosinophils 0.3 10^3/ul (0-0.6); ABS Lymphocytes 2.1 10^3/ul (1.0-4.8); ABS Monocytes 0.6 10^3/ul (0-0.8); ABS Neutrophils 3.7 10^3/ul (1.5-7.7); ABS Nucleated RBC 0 10^3/ul; Eosinophil % 4.4 % (0-6); Hematocrit 46 % (42-52); Hemoglobin 15.4 g/dl (14.0-18.0); Mean Corpuscular HGB Conc 34 g/dl (31-36); Mean Corpuscular Hemoglobin 32 pg (27-31); Mean Corpuscular Volume 95 fL (80-94); Mean Platelet Volume 9 um3 (7.4-10.4); Nucleated Red Blood Cells % 0.1; Platelet Count 147 10^3/ul (150-450); Red Blood Count 4.83 10^6/ul (4.0-5.4); Red Cell Distribution Width 14 % (10.5-15); White Blood Count 6.8 10^3/ul (3.5-10.8)
--- NOTE | 2017-11-12 13:03 | RAD ---
HISTORY: Syncope COMPARISONS: September 10, 2017 VIEWS: 1: frontal portable view of the chest at 12:44 PM FINDINGS: LINES AND TUBES: A left-sided pacemaker is noted. CARDIOMEDIASTINAL SILHOUETTE: The cardiomediastinal silhouette is stable. PLEURA: The costophrenic angles are sharp. No pleural abnormalities are noted. LUNG PARENCHYMA: There is hyperinflation. ABDOMEN: The upper abdomen is clear. There is no subphrenic gas. BONES AND SOFT TISSUES: The patient is status post median sternotomy. IMPRESSION: HYPERINFLATION. NO ACTIVE CARDIOPULMONARY DISEASE.
[2017-11-12 13:24] LABS: EGFR Non-African American 67.9 (>60)
[2017-11-12] MEDS ORDERED: Fluticasone NASAL SPRAY 50MCG* 16 gm SPRAY BTL BOTH NARES PRN (13:43)
[2017-11-12] MEDS ORDERED: Dextrose 50% Syringe 50 ML* 25 GM/50 ML SYRINGE IV PUSH PRN (14:59)
[2017-11-12] MEDS ORDERED: Acetaminophen TAB* 325 MG PO PRN (15:01)
[2017-11-12 16:04] LABS: INR 0.97 (0.77-1.02)
--- NOTE | 2017-11-12 16:15 | ED ---
Jerry Fernando Jennifer, scribed for Jad Foy MD on 11/12/17 at 1232 . HPI Cardiac - HPI Summary HPI Summary: The patient is a 77 year old male who was sent to the ED by Dr. Ulloa, cardiology, with ventricular tachycardia that caused him to faint three times today. His last syncope episode was about 45 minutes ago. The patient went to [place] last week but was unable to do an ablation because of a filter in his leg. Dr. Ulloa is trying to change the patients medications, but hes been off his current meds for two days now. - History of Current Complaint Chief Complaint: EDChestPainROMI Stated Complaint: FALL/SENT BY DR ULLOA Hx Obtained From: Patient Onset/Duration: Started Hours Ago, Still Present Timing: Constant Initial Severity: Mild Current Severity: Mild Pain Intensity: 0 Pain Scale Used: 0-10 Numeric Aggravating Factor(s): Nothing Alleviating Factor(s): Nothing Associated Signs and Symptoms: Positive: Chest Pain, Syncope - Additional Pertinent History Primary Care Physician: JOHNNY - Allergy/Home Medications Allergies/Adverse Reactions: Allergies Allergy/AdvReac Type Severity Reaction Status Date / Time heparin Allergy Severe Bleeding Verified 11/12/17 13:45 ciprofloxacin Allergy Unknown Unknown Verified 11/12/17 15:05 Reaction Details clarithromycin Allergy Unknown Verified 11/12/17 15:06 Reaction Details iodine Allergy Unknown Verified 11/12/17 15:07 Reaction Details mesalamine Allergy Unknown Verified 11/12/17 15:06 Reaction Details sulfamethoxazole Allergy Unknown Verified 11/12/17 15:08 [From Bactrim] Reaction Details trimethoprim [From Bactrim] Allergy Unknown Verified 11/12/17 15:08 Reaction Details PMH/Surg Hx/FS Hx/Imm Hx Endocrine/Hematology History: Reports: Hx Blood Transfusions, Hx Diabetes Denies: Hx Thyroid Disease Cardiovascular History: Reports: Hx Angina, Hx Cardiac Arrest, Hx Coronary Artery Disease, Hx Hypercholesterolemia, Hx Hypertension, Hx Myocardial Infarction, Hx Pacemaker/ICD Denies: Hx Valvular Heart Disease Respiratory History: Reports: Hx Asthma, Hx Pulmonary Embolism - Right lung, Hx Seasonal Allergies, Other Respiratory Problems/Disorders - 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 RIGHT SIDE FACE RECONSTRUCTED. RIGHT ANKLE RECONSTRUCTION - Immunization History Date of Influenza Vaccine: Fall 2015 Infectious Disease History: No Infectious Disease History: Denies: Hx Hepatitis, Hx Human Immunodeficiency Virus (HIV), Traveled Outside the [place] in Last 30 Days - Family History Known Family History: Positive: Cardiac Disease - father (70 y/o) - Social History Alcohol Use: None Hx Substance Use: No Substance Use Type: Reports: None Hx Tobacco Use: Yes Smoking Status (MU): Former Smoker Review of Systems Positive: Chest Pain Positive: Syncope All Other Systems Reviewed And Are Negative: Yes Physical Exam - Summary Physical Exam Summary: General: well-appearing, no pain distress Skin: warm, color reflects adequate perfusion, dry Head: normal Eyes: EOMI, ALETHEA ENT: normal Neck: supple, nontender Respiratory: CTA, breath sounds present Cardiovascular: RRR Abdomen: soft, nontender Bowel: present Musculoskeletal: normal, strength/ROM intact Neurological: normal, sensory/motor intact, A&O x3 Psychological: affect/mood appropriate Triage Information Reviewed: Yes Vital Signs On Initial Exam: Initial Vitals Temp Pulse Resp BP Pulse Ox 97.5 F 76 18 139/72 98 11/12/17 12:15 11/12/17 12:15 11/12/17 12:15 11/12/17 12:15 11/12/17 12:15 Vital Signs Reviewed: Yes Diagnostics - Vital Signs Vital Signs Temp Pulse Resp BP Pulse Ox 11/12/17 12:15 97.5 F 76 18 139/72 98 - Laboratory Lab Results: Lab Results 11/12/17 11/12/17 11/12/17 Range/Units 12:35 12:35 12:35 WBC 6.8 (3.5-10.8) 10^3/ul RBC 4.83 (4.0-5.4) 10^6/ul Hgb 15.4 (14.0-18.0) g/dl Hct 46 (42-52) % MCV 95 H (80-94) fL MCH 32 H (27-31) pg MCHC 34 (31-36) g/dl RDW 14 (10.5-15) % Plt Count 147 L (150-450) 10^3/ul MPV 9 (7.4-10.4) um3 Neut % (Auto) 54.3 (38-83) % Lymph % (Auto) 31.0 (25-47) % Cavalier % (Auto) 9.6 H (1-9) % Eos % (Auto) 4.4 (0-6) % Baso % (Auto) 0.7 (0-2) % Absolute Neuts (auto) 3.7 (1.5-7.7) 10^3/ul Absolute Lymphs (auto) 2.1 (1.0-4.8) 10^3/ul Absolute Monos (auto) 0.6 (0-0.8) 10^3/ul Absolute Eos (auto) 0.3 (0-0.6) 10^3/ul Absolute Basos (auto) 0 (0-0.2) 10^3/ul Absolute Nucleated RBC 0 10^3/ul Nucleated RBC % 0.1 Sodium 134 (133-145) mmol/L Potassium 4.3 (3.5-5.0) mmol/L Chloride 104 (101-111) mmol/L Carbon Dioxide 25 (22-32) mmol/L Anion Gap 5 (2-11) mmol/L BUN 28 H (6-24) mg/dL Creatinine 1.06 (0.67-1.17) mg/dL Est GFR ( Amer) 87.4 (>60) Est GFR (Non-Af Amer) 67.9 (>60) BUN/Creatinine Ratio 26.4 H (8-20) Glucose 152 H (70-100) mg/dL Lactic Acid (0.5-2.0) mmol/L Calcium 9.5 (8.6-10.3) mg/dL Magnesium 2.0 (1.9-2.7) mg/dL Total Bilirubin 0.40 (0.2-1.0) mg/dL AST 17 (13-39) U/L ALT 21 (7-52) U/L Alkaline Phosphatase 89 (34-104) U/L Total Creatine Kinase 52 (10-223) U/L CK-MB (CK-2) 1.4 (0.6-6.3) ng/mL Troponin I 0.01 (<0.04) ng/mL B-Natriuretic Peptide 54 ( - 100) pg/mL Total Protein 7.4 (6.4-8.9) g/dL Albumin 4.1 (3.2-5.2) g/dL Globulin 3.3 (2-4) g/dL Albumin/Globulin Ratio 1.2 (1-3) Lipase 63 (11.0-82.0) U/L TSH 3.28 (0.34-5.60) mcIU/mL 11/12/17 Range/Units 12:35 WBC (3.5-10.8) 10^3/ul RBC (4.0-5.4) 10^6/ul Hgb (14.0-18.0) g/dl Hct (42-52) % MCV (80-94) fL MCH (27-31) pg MCHC (31-36) g/dl RDW (10.5-15) % Plt Count (150-450) 10^3/ul MPV (7.4-10.4) um3 Neut % (Auto) (38-83) % Lymph % (Auto) (25-47) % Cavalier % (Auto) (1-9) % Eos % (Auto) (0-6) % Baso % (Auto) (0-2) % Absolute Neuts (auto) (1.5-7.7) 10^3/ul Absolute Lymphs (auto) (1.0-4.8) 10^3/ul Absolute Monos (auto) (0-0.8) 10^3/ul Absolute Eos (auto) (0-0.6) 10^3/ul Absolute Basos (auto) (0-0.2) 10^3/ul Absolute Nucleated RBC 10^3/ul Nucleated RBC % Sodium (133-145) mmol/L Potassium (3.5-5.0) mmol/L Chloride (101-111) mmol/L Carbon Dioxide (22-32) mmol/L Anion Gap (2-11) mmol/L BUN (6-24) mg/dL Creatinine (0.67-1.17) mg/dL Est GFR ( Amer) (>60) Est GFR (Non-Af Amer) (>60) BUN/Creatinine Ratio (8-20) Glucose (70-100) mg/dL Lactic Acid 1.2 (0.5-2.0) mmol/L Calcium (8.6-10.3) mg/dL Magnesium (1.9-2.7) mg/dL Total Bilirubin (0.2-1.0) mg/dL AST (13-39) U/L ALT (7-52) U/L Alkaline Phosphatase (34-104) U/L Total Creatine Kinase (10-223) U/L CK-MB (CK-2) (0.6-6.3) ng/mL Troponin I (<0.04) ng/mL B-Natriuretic Peptide ( - 100) pg/mL Total Protein (6.4-8.9) g/dL Albumin (3.2-5.2) g/dL Globulin (2-4) g/dL Albumin/Globulin Ratio (1-3) Lipase (11.0-82.0) U/L TSH (0.34-5.60) mcIU/mL Result Diagrams: 11/12/17 12:35 11/12/17 12:35 Lab Statement: Any lab studies that have been ordered have been reviewed, and results considered in the medical decision making process. - Radiology CXR Xray Interpretation: No Acute Changes - HYPERINFLATION. NO ACTIVE CARDIOPULMONARY DISEASE. Dr. Foy has reviewed this report. Radiology Interpretation Completed By: Radiologist - EKG 12:23 Cardiac Rate: NL EKG Rhythm: Sinus Rhythm - 75 BPM EKG Interpretation: Multipls PVCs, RBBB Disposition - Course Course Of Treatment: BP noted and advised to follow up with PCP. Allergies noted. Medications reviewed. [facility] PACEMAKER/DEFIBRILLATOR INTEROGATED SHOWING EPISODES OF VTACH. DISCUSSED WITH DR ULLOA AND DR HASSAN, CARDIOLOGY. ADMIT HOSPITALIST. CRITICAL CARE TIME LESS THAN 30 MINUTES. - Diagnoses Provider Diagnoses: Uncontrolled hypertension, Ventricular tachycardia, Syncope Discharge - Discharge Plan Condition: Stable Disposition: ADMITT[facility] TO [facility] The documentation as recorded by the Jerry levi Jennifer accurately reflects the service I personally performed and the decisions made by , Jad Foy MD.
[2017-11-12] MEDS: Insulin LISPRO* 1 UNITS UNIT SUBCUT SCH (18:28)
--- NOTE | 2017-11-12 20:57 | HP ---
CC: Dr. Perea * [facility] MEDICINE HISTORY AND PHYSICAL: DATE OF ADMISSION: 11/12/17 PRIMARY CARE PHYSICIAN: Dr. Perea. ATTENDING PHYSICIAN: Dr. Art Shook * (dictation provided by Gisella Chatman NP). HISTORY OF PRESENT ILLNESS: Mr. Calvo is a 77-year-old male with a past medical history of coronary artery disease with CABG in 1998, ischemic cardiomyopathy, history of V-tach with pacemaker ICD, diabetes, hypertension, who presents to the hospital today with concern for episodes of syncope. Mr. Calvo last followed up with Dr. Olmedo at the [facility] for his perianesthesia nurse. On 11/07/17, the patient was noted to have some episodes of lightheadedness though no brigitte syncope related to his V-tach. The patient had been on propafenone for control of V-tach, which appeared to be insufficient to manage symptoms. Recommendation from Dr. Olmedo was that the patient should be transitioned from propafenone over to sotalol. The patient followed up with Dr. Amos's office today regarding this transition. In the meantime, the patient had of his own accord stopped propafenone on Sunday, 11/11; therefore, his last dose of propafenone was actually Sunday morning, 12/23. With this, the patient had 3 syncopal episodes today, 2 of which were at home and 1 of which was at [facility] while he was waiting to hear back from Dr. Amos. The patient states he did not injure himself with any of these syncopal episodes. He does not think that his defibrillator went off, but he thinks that his pacemaker kicked in. He denies any other recent illnesses and states he has been feeling well. He has no fever, no chills, no chest pain, no shortness of breath. No nausea, vomiting, diarrhea, or abdominal pain. In the emergency room, Mr. Calvo had labs, which showed he had potassium of 4.3 and magnesium of 2.0. His TSH is 3.28. His chest x-ray showed no acute cardiopulmonary disease. Recommendation from Dr. Richard and Dr. Olmedo, his perianesthesia nurse, is to hold the propafenone with plans to start sotalol, I believe, after 4 days of propafenone washout. PAST MEDICAL HISTORY: 1. Coronary artery disease with CABG in 1998. 2. Ischemic cardiomyopathy with last known ejection fraction of 50% to 55%, January 2017. 3. COPD. 4. Type 2 diabetes, non-insulin dependent. 5. Ulcerative colitis. 6. History of DVT/PE, which were provoked, not currently on anticoagulation. 7. History of lung tumor. 8. History of V-tach with ICD. 9. History of heparin-induced thrombocytopenia. 10. Hypertension. 11. Hyperlipidemia. 12. Right bundle branch block. 13. History of basal cell carcinoma. MEDICATIONS: 1. Exenatide 2 mg subcutaneously weekly. 2. Glipizide 10 mg p.o. b.i.d. 3. Nitroglycerin sublingually as needed. 4. Pioglitazone 30 mg p.o. daily. 5. Aspirin 81 mg p.o. daily. 6. Atorvastatin 20 mg p.o. daily. 7. Flonase 2 sprays both nares daily p.r.n. 8. Lisinopril 5 mg p.o. daily. 9. Metoprolol tartrate 25 mg p.o. daily. 10. Omeprazole 20 mg p.o. daily. ALLERGIES: HEPARIN, CIPROFLOXACIN, CLARITHROMYCIN, IODINE, MESALAMINE, and SULFAMETHOXAZOLE with TRIMETHOPRIM. FAMILY HISTORY: The patient reports his mother and father are both alcoholics and mother in her 70s. She had multiple problems, which he is not able to define. His dad had heart trouble and carotid artery disease. SOCIAL HISTORY: The patient quit smoking in 1984. No report of alcohol or drug use. He lives with his who is healthcare proxy. REVIEW OF SYSTEMS: A 14-point review of systems was completed with Mr. Calvo and all those not mentioned above were negative. PHYSICAL EXAMINATION GENERAL: Mr. Calvo is sitting up in the bed. He is in no acute distress. VITAL SIGNS: Temperature 98, pulse rate 74, respiratory rate 16, O2 saturation 99% on 1 L nasal cannula, blood pressure 155/75. LUNGS: Clear to auscultation bilaterally with no accessory muscle use and good aeration. HEART: S1, S2. No murmur, rub, or gallop, and regular. ABDOMEN: Soft, nontender with bowel sounds positive x4. EXTREMITIES: No cyanosis or edema. NEURO: He is alert, he is oriented x3. He moves all extremities equally. There is no facial asymmetry or focal weakness. Extraocular movements are intact. SKIN: Intact. LABORATORY DATA: Sodium 134, potassium 4.3, chloride 104, serum bicarbonate 25 , BUN 28, creatinine 1.06, glucose 152, lactic acid 1.2. TSH 3.28. WBC 6.8, hemoglobin 15.4, hematocrit 46, platelet count 147. ASSESSMENT AND PLAN: Mr. Calvo is a 77-year-old male with a past medical history of coronary artery disease with coronary artery bypass grafting in 1998 as well as ischemic cardiomyopathy and episodes of ventricular tachycardia resulting in syncope, who presents today to hospital with the plan for washout of propafenone in preparation for starting sotalol. Our plans are for inpatient admission as expected length of stay to be greater than 2 days for the followin. Ventricular tachycardia with syncope: I appreciate the support from Dr. Richard. The patient has held propafenone and did not take a dose yesterday. His last dose was on 11/10/17 in the a.m. We will need to hold the propafenone for 3 days under direction of Dr. Richard and then start sotalol with monitoring for 3 days. The patient will be on the telemetry monitoring. His electrolytes are repleted appropriately with the potassium of 4.3 and a magnesium of 2.0. 2. Type 2 diabetes. Plan to hold his home medications of exenatide, glipizide , and pioglitazone. He will have blood glucoses q.a.c. with lispro sliding scale. 3. Hypertension. Plan to continue the patient's lisinopril and metoprolol. 4. Gastroesophageal reflux disease. Continue omeprazole. 5. Chronic obstructive pulmonary disease. No evidence of exacerbation. 6. Code status is DNR. MOLST form has been filled out with the patient. TIME SPENT: Approximately 60 minutes was spent on the admission of this patient , more than half the time was spent with patient at the bedside reviewing the events leading up to this hospitalization, performing the physical examination, and reviewing my plan of care. GISELLA CHATMAN, REBECCA [id number]/[facility] #: [id number] KENNETH
[2017-11-12] MEDS: Insulin GLARGINE(*) 1 UNITS UNIT SUBCUT SCH (21:11)
--- NOTE | 2017-11-13 00:27 | CONS ---
CC: Pam Perea MD; Olga Amos MD * CARDIOLOGY CONSULTATION: DATE OF CONSULT: 11/12/17 INDICATION FOR CONSULT: Ventricular tachycardia. HISTORY OF PRESENT ILLNESS: The patient is a 77-year-old gentleman with a history of ischemic cardiomyopathy, history of ICD implantation who has been having increasing episodes of ventricular tachycardia. The patient was seen by his primary vocational training teacher Dr. Amos who referred him out to Dr. Solange Olmedo, an street light lamp cleaner in [place]. The consultation was done on 11/07/17. At that time, he was fully evaluated, his ICD was interrogated, he has a [employer] single chamber ICD. At that time, the decision was to stop propafenone and start sotalol as an outpatient. The patient was at home this weekend. He stopped the propafenone on his own yesterday. This morning he had 2 episodes of feeling lightheaded and near syncopal and decided to come to the emergency room. His ICD interrogation demonstrates runs of ventricular tachycardia at a rate of 150. He was treated with antitachycardic pacing. The patient never received a full defibrillation from his ICD. In speaking with the patient today, he denies any symptoms. He denies any chest pain. He denies any orthopnea. He denies any anginal type symptoms. PAST MEDICAL HISTORY: Significant for: 1. Coronary artery disease. 2. Coronary artery bypass surgery in 1998. 3. Ischemic cardiomyopathy. 4. COPD. 5. ICD implantation for ventricular tachycardia. 6. Heparin-induced thrombocytopenia. 7. Hypertension. 8. Hyperlipidemia. PAST SURGICAL HISTORY: Coronary artery bypass surgery and ICD implantation. OUTPATIENT MEDICATIONS: 1. Exenatide 2 mg subcutaneously weekly. 2. Glipizide 10 mg b.i.d. 3. Actos 30 mg daily. 4. Aspirin 81 mg a day. 5. Simvastatin 20 mg a day. 6. Lisinopril 5 mg a day. 7. Metoprolol tartrate 25 mg b.i.d. 8. Omeprazole 20 mg a day. ALLERGIES: Deathly allergic to HEPARIN with heparin-induced thrombocytopenia. Also history of allergies to CIPRO, CLARITHROMYCIN, SULFA MEDICATIONS. FAMILY HISTORY: Mother in her 70s of liver cirrhosis. Father of heart attack in his 70s. SOCIAL HISTORY: The patient quit smoking in 1984, does not drink any alcohol. He is . He lives with his . He is retired. PHYSICAL EXAM: Vital Signs: Height is 5 feet 10 inches, weight is 198 pounds. Temperature is 97.1, heart rate is 78 and regular, blood pressure 136/58, respiratory rate is 16, and oxygen saturation is 95% on room air. Sclerae anicteric. Oropharynx is pink without erythema. Carotids are 2+ without any bruits. Lungs are clear to auscultation. There is no dullness to percussion. Cardiac Exam: S1 and S2 without any murmurs, rubs, or gallops. Extremities: Show no edema. He has 2+ pulses throughout. The patient is awake and alert and oriented. He moves all 4 extremities equally. He does have an ICD in his left upper chest. EKG demonstrates normal sinus rhythm with a right bundle branch block. IMPRESSION: This is a 77-year-old gentleman with a history of ischemic cardiomyopathy, history of ICD implantation who is now having increasing episodes of ventricular tachycardia. The patient was on propafenone for suppression of his arrhythmias; however, this appears to be less effective than it was before. PLAN/RECOMMENDATIONS: My recommendation is the patient be stopped off his propafenone. He will need at least 3 days off his propafenone before starting a new antiarrhythmic. My recommendation is the patient start sotalol 80 mg b.i.d. After a washout of his propafenone, the patient will be observed in the hospital for the sotalol initiation. He will get 5 doses with close observation of his QT intervals, his laboratory work, and his arrhythmias. [id number]/[facility] #: [id number] [facility]
[2017-11-13] MEDS: Insulin LISPRO* 1 UNITS UNIT SUBCUT SCH ×3 (08:57→16:54)
[2017-11-13] MEDS: Atorvastatin* 20 MG TAB PO SCH (08:58)
[2017-11-13] MEDS: Omeprazole CAP* 20 MG PO SCH (08:58)
[2017-11-13] MEDS: Lisinopril TAB* 5 MG PO SCH (08:58)
[2017-11-13] MEDS: Aspirin EC Low Dose* 81 MG TAB.EC PO SCH (08:58)
[2017-11-13] MEDS ORDERED: Metoprolol Tartrate TAB* 25 MG PO SCH (09:00)
[2017-11-13] MEDS ORDERED: Metoprolol Tartrate TAB* 25 MG PO ONE (11:30)
[2017-11-13] MEDS ORDERED: Sertraline* 50 MG TAB PO PRN (12:26)
--- NOTE | 2017-11-13 12:27 | PN ---
Subjective Date of Service: 11/13/17 Interval History: Mr. Calvo reports two episodes today where he felt a bit lightheaded and was noted to be in vtach. He denies any other complaint including chest pain, SOB, nausea, or abdominal pain. Objective Active Medications: Acetaminophen (Tylenol Tab*) 650 mg PO Q6H PRN Aspirin (Aspirin Ec Low Dose*) 81 mg PO DAILY [facility] Atorvastatin Calcium (Lipitor*) 20 mg PO DAILY [facility] Dextrose (D50w Syringe 50 Ml*) 12.5 gm IV PUSH .FOR FS < 60 - SS PRN Fluticasone Propionate (Flonase Nasal [place] 50mcg*) 2 spray BOTH NARES DAILY PRN Insulin Glargine (Lantus(*)) 10 units SUBCUT Q24H RED Insulin Human Lispro (Humalog*) 0 units SUBCUT AC RED Lisinopril (Prinivil Tab*) 5 mg PO DAILY [facility] Metoprolol Tartrate (Lopressor Tab*) 25 mg PO BID RED Omeprazole (Prilosec Cap*) 20 mg PO DAILY RED Vital Signs: Temp Pulse Resp BP Pulse Ox 98.4 F 85 16 105/86 96 11/13/17 11:37 11/13/17 11:37 11/13/17 11:37 11/13/17 11:37 11/13/17 11:37 Oxygen Devices in Use Now: None Appearance: Male sitting up in chair in NAD Eyes: No Scleral Icterus Ears/Nose/Mouth/Throat: Mucous Membranes Moist Neck: Trachea Midline Respiratory: Symmetrical Chest Expansion and Respiratory Effort, Clear to Auscultation Cardiovascular: NL Sounds; No Murmurs; No JVD, No Edema Abdominal: NL Sounds; No Tenderness; No Distention Lymphatic: No Cervical Adenopathy Extremities: No Edema Skin: No Rash or Ulcers Neurological: Alert and Oriented x 3, NL Muscle Strength and Tone Nutrition: Taking PO's Result Diagrams: 11/12/17 12:35 11/12/17 12:35 Additional Lab and Data: . Assess/Plan/Problems-Billing Assessment: Mr. Calvo is a 77 yo male with a PMH of CAD with CABG, ischemic cardiomyopathy, and vtach with pacemaker/ICD who was admitted on 11/12/17 after multiple syncopal episodes secondary to vtach with plan to switch from propafenone to sotalolol. - Patient Problems (1) V-tach Comment: - Appreciate cardiology consult. - Patient off propafenone since 11/11/17, Dr. Richard anticipates starting sotalol tonight. Will need approx 3 days of monitoring of qt intevals and labs. (2) CAD (coronary artery disease) Comment: - No symptoms of ischemia. - Continue metoprolol, lisinopril, aspirin, atorvastatin. (3) Diabetes Comment: - BGs 150s. - Continue lantus with lispro SSI coverage for meals. - Hold glipizide, pioglitazone, and exanitide. (4) GERD (gastroesophageal reflux disease) Comment: - Continue omeprazole. (5) DVT prophylaxis Comment: - History of heparin induced thrombocytopenia. - SCDs only. (6) DNR (do not resuscitate) Comment: Status and Disposition: Inpatient. Anticipate discharge to home when medically stable.
[2017-11-13] MEDS: Metoprolol Tartrate TAB* 25 MG PO SCH (20:43)
[2017-11-13] MEDS: Sotalol TAB* 80 MG PO SCH (20:43)
[2017-11-13] MEDS: Insulin GLARGINE(*) 1 UNITS UNIT SUBCUT SCH (20:43)
[2017-11-14 07:04] LABS: EGFR Non-African American 71.8 (>60)
[2017-11-14] MEDS: Insulin LISPRO* 1 UNITS UNIT SUBCUT SCH ×3 (09:14→17:15)
[2017-11-14] MEDS: Aspirin EC Low Dose* 81 MG TAB.EC PO SCH (09:14)
[2017-11-14] MEDS: Sotalol TAB* 80 MG PO SCH ×2 (09:15→20:41)
[2017-11-14] MEDS: Metoprolol Tartrate TAB* 25 MG PO SCH ×2 (09:15→20:41)
[2017-11-14] MEDS: Omeprazole CAP* 20 MG PO SCH (09:15)
[2017-11-14] MEDS: Atorvastatin* 20 MG TAB PO SCH (09:15)
[2017-11-14] MEDS: Lisinopril TAB* 5 MG PO SCH (09:15)
--- NOTE | 2017-11-14 18:47 | PN ---
Subjective Date of Service: 11/14/17 Interval History: Patient has no complaints except for occasional PVC and dizziness when leaning forward during exam. Patient denies F/C, CP, SOB, N/V, orthostasis, diarrhea, constipation, dysuria, abdominal pain, palpitations, or other pain. Family History: Unchanged from Admission Social History: Unchanged from Admission Past Medical History: Unchanged from Admission Objective Active Medications: Acetaminophen (Tylenol Tab*) 650 mg PO Q6H PRN PRN Reason: PAIN Aspirin (Aspirin Ec Low Dose*) 81 mg PO DAILY [facility] Last Admin: 11/14/17 09:14 Dose: 81 mg Atorvastatin Calcium (Lipitor*) 20 mg PO DAILY [facility] Last Admin: 11/14/17 09:15 Dose: 20 mg Dextrose (D50w Syringe 50 Ml*) 12.5 gm IV PUSH .FOR FS < 60 - SS PRN PRN Reason: FS < 60 Fluticasone Propionate (Flonase Nasal [place] 50mcg*) 2 spray BOTH NARES DAILY PRN PRN Reason: CONGESTION Insulin Glargine (Lantus(*)) 10 units SUBCUT Q24H [facility] Last Admin: 11/13/17 20:43 Dose: 10 unit Insulin Human Lispro (Humalog*) 0 units SUBCUT AC [facility] PRN Reason: Protocol Last Admin: 11/14/17 17:15 Dose: 1 units Lisinopril (Prinivil Tab*) 5 mg PO DAILY [facility] Last Admin: 11/14/17 09:15 Dose: 5 mg Metoprolol Tartrate (Lopressor Tab*) 25 mg PO BID [facility] Last Admin: 11/14/17 09:15 Dose: 25 mg Omeprazole (Prilosec Cap*) 20 mg PO DAILY [facility] Last Admin: 11/14/17 09:15 Dose: 20 mg Sertraline HCl (Zoloft*) 50 mg PO DAILY PRN PRN Reason: Deppresed Sotalol HCl (Betapace Tab*) 80 mg PO BID [facility] Last Admin: 11/14/17 09:15 Dose: 80 mg Vital Signs - 8 hr 11/14/17 11/14/17 10:58 15:14 Temperature 97.6 F Pulse Rate 68 65 Respiratory 20 20 Rate Blood Pressure 109/62 106/55 (mmHg) O2 Sat by Pulse 97 96 Oximetry Oxygen Devices in Use Now: None Appearance: Patient is a 77yo male who appears stated age and is sitting in the bed in NAD. Eyes: No Scleral Icterus, PERRLA Ears/Nose/Mouth/Throat: NL Teeth, Lips, Gums, Clear Oropharnyx, Mucous Membranes Moist Neck: NL Appearance and Movements; NL JVP, Trachea Midline Respiratory: Symmetrical Chest Expansion and Respiratory Effort, Clear to Auscultation Cardiovascular: NL Sounds; No Murmurs; No JVD, RRR, No Edema, - - Widely split S1 and S2. Abdominal: NL Sounds; No Tenderness; No Distention, No Hepatosplenomegaly Lymphatic: No Cervical Adenopathy Extremities: No Edema, No Clubbing, Cyanosis Skin: No Rash or Ulcers, No Nodules or Sclerosis Neurological: Alert and Oriented x 3, NL Sensation, NL Muscle Strength and Tone Result Diagrams: 11/12/17 12:35 11/14/17 06:34 Additional Lab and Data: . Assess/Plan/Problems-Billing Assessment: Mr. Calvo is a 77 yo male with a PMH of CAD with CABG, ischemic cardiomyopathy, and vtach with pacemaker/ICD who was admitted on 11/12/17 after multiple syncopal episodes secondary to vtach with plan to switch from propafenone to sotalol which he is currently tolerating well. - Patient Problems (1) V-tach Current Visit: Yes Status: Acute Code(s): I47.2 - VENTRICULAR TACHYCARDIA SNOMED Code(s): 12442685 Comment: Appreciate cardiology consult. Patient off propafenone since 11/11/17, Started Sotalol in PM of 11/13. Will need approx 3 days of monitoring of qt intevals and labs. Repeat BMP, Mag and EKG in AM. (2) Diabetes Current Visit: No Status: Acute Code(s): E11.9 - TYPE 2 DIABETES MELLITUS WITHOUT COMPLICATIONS SNOMED Code(s): 84047337 Comment: BGs 150s. Continue lantus with lispro SSI coverage for meals. Hold glipizide, pioglitazone, and exanitide. (3) GERD (gastroesophageal reflux disease) Current Visit: Yes Status: Acute Code(s): K21.9 - GASTRO-ESOPHAGEAL REFLUX DISEASE WITHOUT ESOPHAGITIS SNOMED Code(s): 533051657 Comment: Continue omeprazole. (4) CAD (coronary artery disease) Current Visit: No Status: Acute Code(s): I25.10 - ATHSCL HEART DISEASE OF [place] CORONARY ARTERY W/O ANG PCTRS SNOMED Code(s): 12950288 Comment: No symptoms of ischemia. Continue metoprolol, lisinopril, aspirin, atorvastatin. (5) Cardiomyopathy Current Visit: Yes Status: Acute Code(s): I42.9 - CARDIOMYOPATHY, UNSPECIFIED SNOMED Code(s): 29657222 Comment: Unknown EF, no signs of CHF exacerbation. (6) DVT prophylaxis Current Visit: No Status: Acute Code(s): [id number] - SNOMED Code(s): 125769589 Comment: History of heparin induced thrombocytopenia. SCDs only. (7) DNR (do not resuscitate) Current Visit: Yes Status: Acute Comment: Status and Disposition: Inpatient. Anticipate discharge to home when medically stable.
[2017-11-14] MEDS: Insulin GLARGINE(*) 1 UNITS UNIT SUBCUT SCH (20:42)
[2017-11-15 07:53] LABS: EGFR Non-African American 75.2 (>60)
[2017-11-15] MEDS: Lisinopril TAB* 5 MG PO SCH (08:35)
[2017-11-15] MEDS: Insulin LISPRO* 1 UNITS UNIT SUBCUT SCH ×3 (08:35→17:30)
[2017-11-15] MEDS: Metoprolol Tartrate TAB* 25 MG PO SCH (08:35)
[2017-11-15] MEDS: Aspirin EC Low Dose* 81 MG TAB.EC PO SCH (08:35)
[2017-11-15] MEDS: Atorvastatin* 20 MG TAB PO SCH (08:35)
[2017-11-15] MEDS: Omeprazole CAP* 20 MG PO SCH (08:36)
[2017-11-15] MEDS: Sotalol TAB* 80 MG PO SCH ×2 (08:36→22:59)
[2017-11-15] MEDS ORDERED: Potassium Chloride LIQUID* 20 MEQ PACKET PO ONE (11:00)
--- NOTE | 2017-11-15 12:38 | PN ---
Subjective Date of Service: 11/15/17 Interval History: Patient complains of occasional skipped beat sensation and one spisode of dizziness on standing. Patient states this is stable from yesterday and that he didn't feel like he was going to pass out. Patient denies CP, SOB, abdominal pain, diarrhea, constipation, dysuria, palpitations, or other pain. Patient's telemetry shows no Vtach and occasional PVCs. Family History: Unchanged from Admission Social History: Unchanged from Admission Past Medical History: Unchanged from Admission Objective Active Medications: Acetaminophen (Tylenol Tab*) 650 mg PO Q6H PRN PRN Reason: PAIN Aspirin (Aspirin Ec Low Dose*) 81 mg PO DAILY [facility] Last Admin: 11/15/17 08:35 Dose: 81 mg Atorvastatin Calcium (Lipitor*) 20 mg PO DAILY [facility] Last Admin: 11/15/17 08:35 Dose: 20 mg Dextrose (D50w Syringe 50 Ml*) 12.5 gm IV PUSH .FOR FS < 60 - SS PRN PRN Reason: FS < 60 Fluticasone Propionate (Flonase Nasal [place] 50mcg*) 2 spray BOTH NARES DAILY PRN PRN Reason: CONGESTION Insulin Glargine (Lantus(*)) 10 units SUBCUT Q24H [facility] Last Admin: 11/14/17 20:42 Dose: 10 unit Insulin Human Lispro (Humalog*) 0 units SUBCUT AC [facility] PRN Reason: Protocol Last Admin: 11/15/17 08:35 Dose: 1 units Lisinopril (Prinivil Tab*) 2.5 mg PO DAILY [facility] Metoprolol Succinate (Toprol Xl Tab*) 12.5 mg PO DAILY [facility] Omeprazole (Prilosec Cap*) 20 mg PO DAILY [facility] Last Admin: 11/15/17 08:36 Dose: 20 mg Sertraline HCl (Zoloft*) 50 mg PO DAILY PRN PRN Reason: Deppresed Sotalol HCl (Betapace Tab*) 80 mg PO BID [facility] Last Admin: 11/15/17 08:36 Dose: 80 mg Vital Signs - 8 hr 11/15/17 11/15/17 11/15/17 07:49 07:50 08:00 Temperature 97.2 F Pulse Rate 70 66 Respiratory 16 20 Rate Blood Pressure 115/65 (mmHg) O2 Sat by Pulse 98 Oximetry 11/15/17 11:51 Temperature Pulse Rate 69 Respiratory Rate Blood Pressure 111/56 (mmHg) O2 Sat by Pulse 96 Oximetry Oxygen Devices in Use Now: None Appearance: Patient is a 77yo male who appears stated age and is sitting in the bed in NAD. Eyes: No Scleral Icterus, PERRLA Ears/Nose/Mouth/Throat: NL Teeth, Lips, Gums, Clear Oropharnyx, Mucous Membranes Moist Neck: NL Appearance and Movements; NL JVP, Trachea Midline Respiratory: Symmetrical Chest Expansion and Respiratory Effort, Clear to Auscultation Cardiovascular: NL Sounds; No Murmurs; No JVD, RRR, No Edema Abdominal: NL Sounds; No Tenderness; No Distention, No Hepatosplenomegaly Lymphatic: No Cervical Adenopathy Extremities: No Edema, No Clubbing, Cyanosis Skin: No Rash or Ulcers, No Nodules or Sclerosis Neurological: Alert and Oriented x 3, NL Sensation, NL Muscle Strength and Tone Result Diagrams: 11/12/17 12:35 11/15/17 07:25 Additional Lab and Data: . Assess/Plan/Problems-Billing Assessment: Mr. Calvo is a 77 yo male with a PMH of CAD with CABG, ischemic cardiomyopathy, and vtach with pacemaker/ICD who was admitted on 11/12/17 after multiple syncopal episodes secondary to vtach with plan to switch from propafenone to sotalol which he is currently tolerating well. - Patient Problems (1) V-tach Current Visit: Yes Status: Acute Code(s): I47.2 - VENTRICULAR TACHYCARDIA SNOMED Code(s): 10397515 Comment: Appreciate cardiology consult. Patient off propafenone since 11/11/17, Started Sotalol in PM of 11/13. Plan for 5 doses of supervised sotalol. Fifth dose will be tonight. Plan for D/C in AM if stable. Repeat BMP, Mag and EKG in AM. All well WNL this AM. QTc 496. (2) Diabetes Current Visit: No Status: Acute Code(s): E11.9 - TYPE 2 DIABETES MELLITUS WITHOUT COMPLICATIONS SNOMED Code(s): 64033969 Comment: BGs 150s. Continue lantus with lispro SSI coverage for meals. Hold glipizide, pioglitazone, and exanitide. (3) GERD (gastroesophageal reflux disease) Current Visit: Yes Status: Acute Code(s): K21.9 - GASTRO-ESOPHAGEAL REFLUX DISEASE WITHOUT ESOPHAGITIS SNOMED Code(s): 785585792 Comment: Continue omeprazole. (4) CAD (coronary artery disease) Current Visit: No Status: Acute Code(s): I25.10 - ATHSCL HEART DISEASE OF [place] CORONARY ARTERY W/O ANG PCTRS SNOMED Code(s): 48286267 Comment: No symptoms of ischemia. Continue metoprolol, lisinopril, aspirin, atorvastatin. Decreased lisinopril due to relative hypotension. (5) Cardiomyopathy Current Visit: Yes Status: Acute Code(s): I42.9 - CARDIOMYOPATHY, UNSPECIFIED SNOMED Code(s): 48753390 Comment: Unknown EF, no signs of CHF exacerbation. (6) DVT prophylaxis Current Visit: No Status: Acute Code(s): CYC2600 - SNOMED Code(s): 720882208 Comment: History of heparin induced thrombocytopenia. SCDs only. (7) DNR (do not resuscitate) Current Visit: Yes Status: Acute Comment: Status and Disposition: Inpatient. Plan to discharge in AM if stable.
[2017-11-15] MEDS: Insulin GLARGINE(*) 1 UNITS UNIT SUBCUT SCH (22:59)
[2017-11-16 06:53] LABS: ABS Basophils 0 10^3/ul (0-0.2); ABS Eosinophils 0.4 10^3/ul (0-0.6); ABS Lymphocytes 2.3 10^3/ul (1.0-4.8); ABS Monocytes 0.9 10^3/ul (0-0.8); ABS Neutrophils 4.6 10^3/ul (1.5-7.7); ABS Nucleated RBC 0 10^3/ul; Eosinophil % 5.3 % (0-6); Hematocrit 44 % (42-52); Hemoglobin 15.4 g/dl (14.0-18.0); Lymphocyte % 27.6 % (25-47); Mean Corpuscular HGB Conc 35 g/dl (31-36); Mean Corpuscular Hemoglobin 32 pg (27-31); Mean Corpuscular Volume 93 fL (80-94); Mean Platelet Volume 9 um3 (7.4-10.4); Nucleated Red Blood Cells % 0.1; Platelet Count 133 10^3/ul (150-450); Red Blood Count 4.76 10^6/ul (4.0-5.4); Red Cell Distribution Width 13 % (10.5-15); White Blood Count 8.2 10^3/ul (3.5-10.8)
[2017-11-16] MEDS: Insulin LISPRO* 1 UNITS UNIT SUBCUT SCH ×2 (08:23→12:25)
[2017-11-16] MEDS: Atorvastatin* 20 MG TAB PO SCH (08:24)
[2017-11-16] MEDS: Sotalol TAB* 80 MG PO SCH (08:24)
[2017-11-16] MEDS: Omeprazole CAP* 20 MG PO SCH (08:24)
[2017-11-16] MEDS: Aspirin EC Low Dose* 81 MG TAB.EC PO SCH (08:25)
[2017-11-16] MEDS ORDERED: Metoprolol Succinate XL TAB* 25 MG PO SCH (09:00)
[2017-11-16] MEDS ORDERED: Lisinopril TAB* 5 MG PO SCH (09:00)
[2017-11-16] MEDS ORDERED: NS 0.9% 250 ML* 250 ML IV ONE ×2 (12:32→14:35)
[2017-11-16 16:05] VITALS: BP 131/50
--- NOTE | 2017-11-18 00:33 | DS ---
CC: Pam Perea MD; Eulogio Richard MD; Minh Ridley MD; Olga Amos MD * DISCHARGE SUMMARY: DATE OF ADMISSION: 11/12/17 DATE OF DISCHARGE: 11/16/17 PRIMARY CARE PROVIDER: Pam Perea MD MY ATTENDING WHILE IN THE HOSPITAL: Dr. Jessica Rhodes.* (DICTATED BY AMELIA KWON) CONSULTING CARDIOLOGISTS: Eulogio Richard MD, and Minh Ridley MD Patient's outpatient bureau chief is Dr. Olga Amos. PRIMARY DISCHARGE DIAGNOSIS: Ventricular tachycardia. SECONDARY DISCHARGE DIAGNOSES: 1. Coronary artery disease with CABG in 1998. 2. Ischemic cardiomyopathy, ejection fraction 50% to 55%, January 2017. 3. Chronic obstructive pulmonary disease. 4. Non-insulin dependent type 2 diabetes mellitus. 5. Ulcerative colitis. 6. History of deep vein thrombosis and pulmonary embolism, provoked. 7. Lung tumor. 8. Heparin-induced thrombocytopenia. 9. Hypertension. 10. Hyperlipidemia. 11. Right bundle branch block. 12. Basal cell carcinoma, recently removed. STUDIES DONE WHILE IN THE HOSPITAL: Chest x-ray from 11/12/17, read as hyperinflation, no active cardiopulmonary disease. EKG from 11/12/17 shows normal sinus rhythm, bundle branch block, multifocal PVCs. ST segments not interpretable due to right bundle branch block. QTc 465 . Normal axis. No other abnormalities. EKG from 11/13/17 shows frequent PVCs. No other significant changes from previous EKG, QTc of 472. EKG from 11/14/17 shows persistent PVCs. No other significant changes from previous exam, QTc of 495. EKG from 11/15/17, shows PVCs 2 on this 12- lead, QTc 494. No other significant changes. EKG from 11/16/17 shows single PVC, baseline wandering in the inferior leads, QTc of 474, no other abnormalities. MEDICATIONS: At discharge: 1. Glipizide 10 mg p.o. b.i.d. 2. Omeprazole 20 mg p.o. daily. 3. Nitroglycerin 0.4 mg sublingually q.5 minutes as needed for chest pain. 4. Aspirin 81 mg p.o. daily. 5. Fluticasone nasal spray 2 sprays both nares daily as needed. 6. Exenatide 2 mg subcutaneously weekly. 7. Atorvastatin 20 mg p.o. daily. 8. Pioglitazone 30 mg p.o. daily. 9. Sertraline 50 mg p.o. daily. 10. Gaviscon 2 tablets chew p.o. at bedtime. 11. Tylenol 650 mg p.o. q.6 hours as needed. 12. Sotalol 80 mg p.o. b.i.d. New medications at discharge: 1. Tylenol. 2. Sotalol. Medications discontinued at discharge. 1. Lisinopril. 2. Metoprolol. HOSPITAL COURSE: This is a brief summary of the patient's presentation. For more details, please see the history and physical from Gisella Chatman NP from 11/12. In brief, the patient is a 77-year-old male with a past medical history significant for the above, who presents with lightheadedness without brigitte syncope. The patient has a history of V-tach, has a pacemaker ICD and was previously on propafenone. The patient follows with Dr. Olmedo, an drafter heating and ventilating at [facility]. The patient was seen in Dr. Amos's office on 11/12/17, and had been having episodes of lightheadedness since 11/07/17. The plan was to switch patient from propafenone to sotalol. The patient stopped his propafenone of his own accord on 11/10/17 and then had 3 single episodes on 11/12/17. He had no injuries with these and did not feel his defibrillator go off, but felt his pacemaker kick in. This was confirmed on both interrogation of his pacemaker that he had antiarrhythmic pacing, but no defibrillation. The plan was to start sotalol after 4 days off of propafenone. The patient was seen in consultation by Dr. Richard. The patient's laboratory data while in the emergency department was negative for elevated troponins and no increased BNP. No anemia. Platelet count 147. Potassium 4.3 and magnesium of 2.0. The patient had his first dose of sotalol in the evening of 11/13/17 with a plan of 5 doses of close observation while in the hospital with EKG and BMPs, magnesium every morning. The patient's electrocardiograms every morning as above. His QTc stayed below 500. His potassium stayed above 4, and his magnesium stayed above 2 for the duration of his hospital stay. The patient had no other electrolyte abnormalities. The patient's blood sugars are well controlled between 135 and 223 on sliding scale insulin with 10 units of Lantus daily holding his home oral antihyperglycemic medications. The patient had several episodes of dizziness while in the hospital. The patient's systolic blood pressure occasionally dropped into the high 90s, usually staying between 100 and 120. The patient was occasionally dizzy upon standing. The patient's BUN and creatinine ratio was elevated. The patient's urine was dark colored. I believe the patient was dehydrated and he corroborated that he has not drank very much at home. The patient was encouraged to drink more. However, the patient continued to be mildly orthostatic in his blood pressure readings up until the day of discharge. The patient's metoprolol was initially increased to 25 mg p.o. b.i.d., but then was decreased to 12.5 mg b.i.d., and eventually stopped completely due to symptomatic orthostasis. The patient was not symptomatic with his orthostasis on the day of discharge. The plan was to stop patient's metoprolol entirely and his lisinopril, continue only on the Betapace and have him follow closely with his primary care provider and Dr. Amos to ensure that he is not having symptomatic orthostasis as this could confuse the picture of whether or not his ventricular tachycardia was well controlled, which had been on his telemetry monitoring with persistent ectopy but significantly decreased over the course of his hospitalization with no episodes of V-tach in the last 3 days of his hospitalization. The patient received 500 mL of fluid IV on his day of discharge which did not help with his orthostatic hypotension. PHYSICAL EXAM DAY OF DISCHARGE: General: The patient is 77-year-old male, who appears stated age and sitting comfortably in the chair in no acute distress. Vital signs at time of discharge, temperature 97.7, heart rate 56, respiratory rate 20, oxygen saturation 98% on room air, blood pressure 125/46. HEENT: Head normocephalic, atraumatic. Sclerae anicteric. No conjunctival injection. Nasal mucosa moist. Oral mucosa moist. No pharyngeal erythema, exudates or discharge. Neck: Supple, nontender, no lymphadenopathy. No carotid bruit auscultated. Cardiac: Regular rate and rhythm except for occasional irregular beats corresponding with known PVCs on telemetry. No clicks, murmurs, gallops or rubs. Pulse is 2+ in the bilateral dorsalis pedis, posterior tibialis and radial areas. No edema in bilateral lower extremities. Respiratory: Clear to auscultation bilaterally. No wheezes, rales or rhonchi. Good air exchange bilaterally. Abdomen: Soft, nontender, nondistended. Bowel sounds present. Normoactive in all 4 quadrants. No hepatospleno-megaly, no abdominal bruits auscultated. Genitourinary: No suprapubic tenderness or CVA tenderness. Skin: Clean, dry and intact except for an area of scabbing on his left chin which he states corresponds with a previous removal of a basal cell carcinoma. Neuro : Cranial nerves II through XII intact. Strength 5/5 in the upper and lower extremities distally and proximally. Sensation to light touch intact in bilateral upper and lower extremities. Normal gait. Alert and oriented x3. Psychiatric: Pleasant and cooperative. LABORATORY DATA ON DAY OF DISCHARGE: Hemoglobin 15.4, platelet count 133, potassium 4.6, chloride 104, carbon dioxide 23, anion gap 6, BUN 26, creatinine 0.94. Glucose 148, calcium 9.6, magnesium 2.0. DISCHARGE PLAN: The patient will be discharged home. The patient will have close followup regarding his orthostatic hypotension, which is asymptomatic at this time with his bureau chief, Dr. Olga Amos, and his primary care provider , Dr. Marguerite Sharp. The patient states understanding of this. The patient was instructed to sit for a little while before standing up and to stand still before walking to avoid symptomatic orthostatic hypotension and possible syncope and fall. The patient should follow up with his drafter heating and ventilating, continue management of his ventricular tachycardia as scheduled. The patient should be encouraged to drink significant fluids to avoid orthostatic hypotension. The patient should return to the hospital for any alarming symptoms such as chest pain, shortness of breath or syncope. The patient should engage in activities as tolerated with the above stipulations that he should be careful to avoid excessive exercise and standing up too quickly. The patient should have a heart healthy diet without caffeine. TIME SPENT: Approximately 60 minutes were spent on this discharge, 30 of which was spent [id number] with the patient obtaining history and physical and discussing the treatment plan. AMELIA KWON [id number]/HANNA #: [id number] KENNETH
== END 2017-11-16 14:00 | disposition home or self-care (01) | DRG 309 ==
LOC: ED 12:13 → MEDTELE 12:57
PROVIDERS: ADMIT Internal Medicine; ATTEND Internal Medicine
DX: I47.2 Ventricular tachycardia (principal); K51.90 Ulcerative colitis, unspecified, without complications; D69.59 Other secondary thrombocytopenia; I25.5 Ischemic cardiomyopathy; J44.9 Chronic obstructive pulmonary disease, unspecified; I25.10 Atherosclerotic heart disease of native coronary artery without angina pectoris; I95.1 Orthostatic hypotension; I11.9 Hypertensive heart disease without heart failure; E11.9 Type 2 diabetes mellitus without complications; C44.319 Basal cell carcinoma of skin of other parts of face; E78.5 Hyperlipidemia, unspecified; I45.10 Unspecified right bundle-branch block; Z66 Do not resuscitate; Z86.718 Personal history of other venous thrombosis and embolism; Z95.1 Presence of aortocoronary bypass graft; Z86.711 Personal history of pulmonary embolism; Z79.84 Long term (current) use of oral hypoglycemic drugs; Z95.810 Presence of automatic (implantable) cardiac defibrillator; Z79.82 Long term (current) use of aspirin; Z79.899 Other long term (current) drug therapy; Z88.1 Allergy status to other antibiotic agents; Z88.2 Allergy status to sulfonamides; Z88.8 Allergy status to other drugs, medicaments and biological substances; Z91.018 Allergy to other foods; Z81.1 Family history of alcohol abuse and dependence; Z82.49 Family history of ischemic heart disease and other diseases of the circulatory system; Z87.891 Personal history of nicotine dependence
CPT/HCPCS: 36415; 71045; 80048; 80053; 82550; 82553; 83605; 83690; 83735; 83880; 84443; 84484; 85025; 85610; 85730; 93005; 99284; A9270-GY; J3490

== ENCOUNTER 2017-11-21 08:41 | Inpatient (IN) | payer MEDICARE, OTHER ==
[2017-11-21] MEDS ORDERED: Nitroglycerin TAB 0.4 MG* 0.4 MG TAB SL ONE ×2 (09:08→09:16)
[2017-11-21 09:09] LABS: ABS Basophils 0.1 10^3/ul (0-0.2); ABS Eosinophils 0.4 10^3/ul (0-0.6); ABS Lymphocytes 2.1 10^3/ul (1.0-4.8); ABS Monocytes 0.6 10^3/ul (0-0.8); ABS Neutrophils 3.9 10^3/ul (1.5-7.7); ABS Nucleated RBC 0 10^3/ul; Eosinophil % 5.4 % (0-6); Hematocrit 45 % (42-52); Hemoglobin 15.3 g/dl (14.0-18.0); Lymphocyte % 29.2 % (25-47); Mean Corpuscular HGB Conc 34 g/dl (31-36); Mean Corpuscular Hemoglobin 32 pg (27-31); Mean Corpuscular Volume 94 fL (80-94); Mean Platelet Volume 9 um3 (7.4-10.4); Nucleated Red Blood Cells % 0; Platelet Count 145 10^3/ul (150-450); Red Blood Count 4.82 10^6/ul (4.0-5.4); Red Cell Distribution Width 13 % (10.5-15); White Blood Count 7.1 10^3/ul (3.5-10.8)
[2017-11-21] MEDS ORDERED: Nitroglycerin TAB 0.4 MG* 0.4 MG TAB ONE (09:09)
[2017-11-21] MEDS ORDERED: Morphine INJ* 2 MG/ML 1 ML CARPUJECT IV ONE (09:16)
[2017-11-21] MEDS ORDERED: NS 0.9% 500 ML* 500 ML IV ONE (09:17)
[2017-11-21 09:24] LABS: EGFR Non-African American 65.8 (>60)
[2017-11-21 09:31] LABS: INR 0.97 (0.77-1.02)
--- NOTE | 2017-11-21 11:15 | RAD ---
HISTORY: Chest pain COMPARISONS: November 12, 2017 VIEWS: 1: frontal portable view of the chest at 10:25 AM FINDINGS: LINES AND TUBES: A left-sided AICD is noted. CARDIOMEDIASTINAL SILHOUETTE: The cardiomediastinal silhouette is stable. PLEURA: The costophrenic angles are sharp. No pleural abnormalities are noted. LUNG PARENCHYMA: There is hyperinflation. ABDOMEN: The upper abdomen is clear. There is no subphrenic gas. BONES AND SOFT TISSUES: The patient is status post median sternotomy. IMPRESSION: NO ACTIVE CARDIOPULMONARY DISEASE.
[2017-11-21 11:26] LABS: Urine Appearance Clear; Urine Blood Negative (Negative); Urine Color Yellow; Urine Ketones Negative (Negative); Urine Protein Negative (Negative); Urine Urobilinogen Negative (Negative)
[2017-11-21] MEDS ORDERED: Fluticasone NASAL SPRAY 50MCG* 16 gm SPRAY BTL BOTH NARES PRN (11:46)
[2017-11-21] MEDS ORDERED: Acetaminophen TAB* 325 MG PO PRN (11:46)
[2017-11-21] MEDS ORDERED: Sertraline* 50 MG TAB PO PRN (11:46)
[2017-11-21] MEDS ORDERED: Dextrose 50% Syringe 50 ML* 25 GM/50 ML SYRINGE IV PUSH PRN (11:54)
[2017-11-21] MEDS: Atorvastatin* 20 MG TAB PO SCH (16:43)
[2017-11-21] MEDS: Insulin LISPRO* 1 UNITS UNIT SUBCUT SCH (17:22)
--- NOTE | 2017-11-21 18:31 | ED ---
Stephen Fernando Angela, scribed for Danilo Brunner MD on 11/21/17 at 0902 . HPI Chest Pain - HPI Summary HPI Summary: This pt is a 77 y/o male presenting to [facility] c/o chest pain and lightheadedness today. Pt reports he began to feel lightheaded last evening. This morning upon getting up pt had more episodes of lightheadedness accompanied by chest pain at approximately 07:30. He states it felt like he was going to pass out. Pt describes his chest pain as heaviness. He notes his chest pain lasted 40 minutes to 1 hour and it spontaneously resolved. Pt currently denies chest pain. Pt was given aspirin DIRECTOR GIFT. His form setter is Dr. Amos. - History of Current Complaint Time Seen by Provider: 11/21/17 08:45 Hx Obtained From: Patient Onset/Duration: Started Hours Ago, Resolved Timing: Lasting Minutes - 40 - 60 minutes Initial Severity: Moderate Current Severity: None Pain Intensity: 0 Pain Scale Used: 0-10 Numeric Chest Pain Location: Diffuse Chest Pain Radiates: No Character: Heaviness Aggravating Factor(s): Nothing Alleviating Factor(s): Spontaneous Resolution Associated Signs and Symptoms: Positive: Chest Pain, Lightheadedness - Additional Pertinent History Primary Care Physician: [id number] - Allergy/Home Medications Allergies/Adverse Reactions: Allergies Allergy/AdvReac Type Severity Reaction Status Date / Time heparin Allergy Severe Bleeding Verified 11/12/17 13:45 ciprofloxacin Allergy Unknown Unknown Verified 11/12/17 15:05 Reaction Details clarithromycin Allergy Unknown Verified 11/12/17 15:06 Reaction Details iodine Allergy Unknown Verified 11/12/17 15:07 Reaction Details mesalamine Allergy Unknown Verified 11/12/17 15:06 Reaction Details sulfamethoxazole Allergy Unknown Verified 11/12/17 15:08 [From Bactrim] Reaction Details trimethoprim [From Bactrim] Allergy Unknown Verified 11/12/17 15:08 Reaction Details PMH/Surg Hx/FS Hx/Imm Hx Endocrine/Hematology History: Reports: Hx Blood Transfusions, Hx Diabetes Denies: Hx Thyroid Disease Cardiovascular History: Reports: Hx Angina, Hx Cardiac Arrest, Hx Coronary Artery Disease, Hx Hypercholesterolemia, Hx Hypertension, Hx Myocardial Infarction, Hx Pacemaker/ICD Denies: Hx Valvular Heart Disease Respiratory History: Reports: Hx Asthma, Hx Pulmonary Embolism - Right lung, Hx Seasonal Allergies, Other Respiratory Problems/Disorders - 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 Denies: Hx Chronic Obstructive Pulmonary Disease (COPD) GI History: Reports: Hx Gastroesophageal Reflux Disease, Hx Ulcer Musculoskeletal History: Reports: Hx Arthritis, Hx Back Problems Sensory History: Reports: Hx Contacts or Glasses Denies: Hx Hearing Aid Opthamlomology History: Reports: Hx Contacts or Glasses Neurological History: Reports: 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 RIGHT SIDE FACE RECONSTRUCTED. RIGHT ANKLE RECONSTRUCTION - Immunization History Date of Influenza Vaccine: Fall 2015 Infectious Disease History: Reports: Hx Shingles Denies: Hx Hepatitis, Hx Human Immunodeficiency Virus (HIV), Hx of Known/ Suspected MRSA, Hx Known/Suspected VRE - Family History Known Family History: Positive: Cardiac Disease - father (70 y/o) - Social History Alcohol Use: None Hx Substance Use: No Substance Use Type: Reports: None Hx Tobacco Use: Yes Smoking Status (MU): Former Smoker Have You Smoked in the Last Year: No Review of Systems Negative: Fever, Chills Positive: Chest Pain - now resolved Neurological: Other - lightheadedness All Other Systems Reviewed And Are Negative: Yes Physical Exam - Summary Physical Exam Summary: VITAL SIGNS: Reviewed. GENERAL: Patient is a well-developed and nourished male who is lying comfortable in the stretcher. Patient is not in any acute respiratory distress. HEAD AND FACE: No signs of trauma. No ecchymosis, hematomas or skull depressions. No sinus tenderness. EYES: PERRLA, EOMI x 2, No injected conjunctiva, no nystagmus. EARS: Hearing grossly intact. Ear canals and tympanic membranes are within normal limits. MOUTH: Oropharynx within normal limits. NECK: Supple, trachea is midline, no adenopathy, no JVD, no carotid bruit, no c- spine tenderness, neck with full ROM. CHEST: Symmetric, no tenderness at palpation LUNGS: Clear to auscultation bilaterally. No wheezing or crackles. CVS: Regular rate and rhythm, S1 and S2 present, no murmurs or gallops appreciated. ABDOMEN: Soft, non-tender. No signs of distention. No rebound no guarding, and no masses palpated. Bowel sounds are normal. EXTREMITIES: FROM in all major joints, no edema, no cyanosis or clubbing. NEURO: Alert and oriented x 3. No acute neurological deficits. Speech is normal and follows commands. SKIN: Dry and warm Triage Information Reviewed: Yes Vital Signs Reviewed: Yes Diagnostics - Laboratory Result Diagrams: 11/21/17 08:59 11/21/17 08:59 Lab Statement: Any lab studies that have been ordered have been reviewed, and results considered in the medical decision making process. - Radiology Chest XR Xray Interpretation: No Acute Changes - IMPRESSION: No active cardiopulmonary disease. Dr. Brunner has reviewed this radioloy report. Radiology Interpretation Completed By: Radiologist - EKG 08:41 Cardiac Rate: NL EKG Rhythm: Sinus Rhythm - at 64 bpm EKG Interpretation: Right bundle branch block. EKG Comparison: No Significant Change - unchanged from prior EKG on 11/16/17. Chest Pain Course/Dx - Course Assessment/Plan: This pt is a 77 y/o male presenting to [facility] c/o chest pain and lightheadedness today. Pt reports he began to feel lightheaded last evening. This morning upon getting up pt had more episodes of lightheadedness accompanied by chest pain at approximately 07:30. He states it felt like he was going to pass out. Pt describes his chest pain as heaviness. He notes his chest pain lasted 40 minutes to 1 hour and it spontaneously resolved. Pt currently denies chest pain. Pt was given aspirin DIRECTOR GIFT. His form setter is Dr. Amos. Test results without any significant abnormalities except for glucose of 163. Urinalysis is negative for UTI. Chest XR: No active cardiopulmonary disease. In the ED course the pt was having more chest pain and therefore was given nitroglycerin and morphine. After these medications his symptoms improved. I discussed the pts case with Dr. Lu, hospitalist, who accepted the pt for further work up and management. Pt is hemodynamically stable, alert and oriented x3. - Diagnoses Provider Diagnoses: Chest pain, rule out ACS - Provider Notifications Discussed Care Of Patient With: Miguel Angel Lu Time Discussed With Above Provider: 10:10 Instructed by Provider To: Other - I discussed pt care with Dr. Lu, hospitalist, who has accepted the pt for admission. Discharge - Discharge Plan Condition: Stable Disposition: ADMITTED TO [facility] documentation as recorded by the Stephen levi Angela accurately reflects the service I personally performed and the decisions made by , Danilo Brunner MD.
[2017-11-21] MEDS: Sotalol TAB* 80 MG PO SCH (20:55)
[2017-11-21] MEDS ORDERED: Gaviscon CHEW TAB* 1 TAB PO SCH (21:00)
[2017-11-21] MEDS ORDERED: glipiZIDE TAB* 5 MG PO SCH (21:00)
[2017-11-21] MEDS ORDERED: Sotalol TAB* 80 MG PO SCH (21:00)
--- NOTE | 2017-11-21 21:12 | HP ---
CC: Pam Perea MD; Olga Amos MD * HISTORY AND PHYSICAL: DATE OF ADMISSION: 11/21/17 PRIMARY CARE PROVIDER: Pam Perea MD PRIVATE DETECTIVE: Olga Amos MD ATTENDING PHYSICIAN: Miguel Angel Lu MD * (dictated by Aden Palomo NP). CHIEF COMPLAINT: Near syncopal episode with chest pain. HISTORY OF PRESENT ILLNESS: Mr. Calvo is a 77-year-old male with past medical history significant for coronary artery disease, ischemic cardiomyopathy with last EF of 50% to 55%, history of V-tach, diabetes mellitus, hypertension, COPD , ulcerative colitis, heparin-induced thrombocytopenia, hyperlipidemia, right bundle- branch block, who was recently hospitalized from 11/12/17 to 11/17/17 after 3 syncopal episodes in 1 day. According to the patient, he had been seen by rug inspector in [place] and had discussed taking him off his propafenone. The patient took himself off the propafenone when he started having the syncopal episodes. He was admitted to the hospital and Dr. Richard consulted. His propafenone was stopped and he was started on sotalol during his hospitalization. During that hospitalization, the patient was also noted to have orthostatic hypotension and was encouraged to drink fluids at discharge. The patient states that he has not yet seen Dr. Amos as an outpatient, as he has an appointment on 11/23/17. The patient states that he has been in his usual state of health with the exception of some intermittent lightheadedness when he stands up since his discharge. He denies any recent fever, chills, cough, nausea, vomiting, diarrhea, urinary symptoms. He states this morning he was standing in his living room and felt very lightheaded and dizzy with facial numbness. He was able to get seated in a chair. The patient's says he did not lose consciousness, but he states that for approximately 30 minutes he would feel better, then feel lightheaded, feel better, then feel lightheaded as though he was going to pass out. Due to these symptoms, he called EMS. When EMS arrived the patient was found on the couch pale, weak, diaphoretic and complaining of chest pain. He received aspirin and was transported to the emergency room. While in the emergency room, the patient's blood pressures were very labile, they were from the low 100s to the 150s. His oxygen saturation was in the high 90s to 100 on 2 L via nasal cannula. He had an EKG showing sinus rhythm, right bundle- branch block and PVCs. The patient states that he can often feel palpitations when he has an episode of V-tach. He reports that he did not feel this, this morning. He also denies having his usual tunnel vision with his episodes of V-tach. He had labs that were unremarkable with an initial troponin of 0.00, a chest x-ray with no signs of active disease. Based on the patient's history and presenting symptoms, the hospitalists were asked to evaluate the patient for admission. PAST MEDICAL HISTORY: 1. Coronary artery disease. 2. Ischemic cardiomyopathy, last known EF 50% to 55% in January 2017. 3. History of V-tach. 4. Diabetes mellitus type 2. 5. Basal cell carcinoma. 6. Hypertension. 7. Chronic obstructive pulmonary disease. 8. Ulcerative colitis. 9. Possible lung tumor. 10. Heparin-induced thrombocytopenia. 11. Hyperlipidemia. 12. Right bundle-branch block. PAST SURGICAL HISTORY: 1. Status post right ankle reconstruction. 2. Status post pacemaker ICD insertion. 3. Status post coronary artery bypass graft, three-vessel in 1998. 4. Status post excision of basal cell carcinoma from his legs. 5. Status post right sided facial reconstruction. HOME MEDICATIONS: Include: 1. Exenatide 2 mg subcutaneous weekly. 2. Atorvastatin 20 mg oral daily. 3. Aspirin 81 mg oral daily. 4. Acetaminophen 650 mg oral every 6 hours as needed for fever or pain. 5. Sotalol 80 mg oral twice daily. 6. Sertraline 50 mg oral daily as needed for depression. 7. Actos 30 mg oral daily. 8. Omeprazole 20 mg oral daily. 9. Nitroglycerin 0.4 mg sublingual every 5 minutes as needed for chest pain. 10. Gaviscon 2 tablets oral at bedtime. 11. Flonase nasal spray 50 mcg 2 sprays to both nares daily as needed for nasal congestion. 12. Glipizide 10 mg oral twice daily. ALLERGIES: HEPARIN, CIPRO, CLARITHROMYCIN, IODINE, MESALAMINE, and BACTRIM. FAMILY HISTORY: The patient's father had a history of coronary artery disease and carotid artery disease. Denies any family history of diabetes mellitus or cancer. SOCIAL HISTORY: The patient is a former smoker, he quit smoking in 1984. He denies alcohol or recreational drug use. He lives with his . His , Nery Calvo, will be his surrogate decision maker in the event he is unable to make decisions for himself. REVIEW OF SYSTEMS: I performed an 11-point review of systems. All the pertinent positives and negatives are mentioned in the history of present illness and remaining review of systems are negative. PHYSICAL EXAMINATION GENERAL APPEARANCE: The patient is alert, pleasant, and appears to be in no acute distress. VITAL SIGNS: Temperature 98.1, heart rate 59, respiratory rate 15, O2 sat 98% on 2 L via nasal cannula, blood pressure 130/68. HEENT: Normocephalic, atraumatic. Pupils are equal and reactive to light. Extraocular movements are intact. RESPIRATORY: Lungs are clear to auscultation bilaterally. CARDIOVASCULAR: Regular rate and rhythm. S1 and S2 are present. There are no murmurs, rubs, or gallops heard. ABDOMEN: Soft, nontender, nondistended. There are bowel sounds present x4. EXTREMITIES: There is no lower extremity edema. DP and PT pulses are 2+ and symmetric. MUSCULOSKELETAL: There is no clubbing or cyanosis noted. The patient exhibits good strength in all extremities. NEUROLOGICAL: The patient is alert and oriented x4. Cranial nerves II through XII are grossly intact. PSYCHOLOGICAL: The patient is calm and cooperative. SKIN: There is no rashes or abnormalities seen. DIAGNOSTIC STUDIES/LAB DATA: Sodium 133, potassium 4.6, chloride 102, CO2 is 26, BUN 20, creatinine 1.09, and glucose 163. White blood cell count 7.1, hemoglobin 15.3, hematocrit 45, platelet count 145,000. Troponin is 0.00. Urinalysis is negative. EKG shows a normal sinus rhythm and a rate of 64. There is a right bundle- branch block and PVC. There is T-wave inversions in leads V3, aVF and II, III, and IV. In lead II, the T-wave is flat. This EKG is similar to previous EKG from 11/17/17. Chest x-ray from today. Radiologist's impression: No active cardiopulmonary disease. IMPRESSION: Mr. Calvo is a 77-year-old male with past medical history significant for coronary artery disease, ischemic cardiomyopathy, history of ventricular tachycardia, diabetes mellitus, hypertension, chronic obstructive pulmonary disease, ulcerative colitis, heparin-induced thrombocytopenia, hyperlipidemia, and right bundle-branch block, who presented to the emergency room with complaints of chest heaviness and near syncope. He will be admitted as an observation for chest pain and a near syncopal episode. ASSESSMENT/PLAN: 1. Near syncopal episode with associated chest pain. I suspect that this could represent an episode of ventricular tachycardia. The patient had not taken his sotalol yet this morning and his symptoms with the facial numbness and near syncope correlate to what his typical syncopal episodes are with his episodes of ventricular tachycardia. Dr. Amos will see the patient in consultation. We will monitor him on telemetry. We will trend his troponins. I have asked the emergency room to interrogate the patient's pacemaker. He has no signs of infection. His initial troponin was 0.00. We will hold on any further cardiac workup and do further recommendations per Cardiology. 2. History of ventricular tachycardia. The patient will be continued on his home sotalol. 3. Diabetes mellitus type 2. We will hold the patient's glipizide, exenatide, and Actos. We will place him on a lispro sliding scale with glucose checks a.c. and h.s. 4. Hypertension. The patient will be continued on his home sotalol. 5. Depression. The patient will be continued on his home sertraline. 6. Chronic obstructive pulmonary disease. The patient does not appear to be in a chronic obstructive pulmonary disease exacerbation. He is not on any maintenance medications at home. 7. History of heparin-induced thrombocytopenia. We will avoid heparin based products for the patient as an inpatient. 8. Coronary artery disease. The patient will be continued on his statin, sotalol and aspirin. 9. Fluids, electrolytes, and nutrition. The patient will be on a heart- healthy diet. 10. Code status. Do not resuscitate. 11. DVT prophylaxis. The patient is at highest risk. He will be encouraged to ambulate and have SCDs. 12. Disposition. Observation. TIME SPENT: Time for this admission was approximately 60 minutes, greater than half of that was spent with the patient and his family discussing medications, past medical history, and the events leading up to his arrival today and performing a physical examination. The case has been reviewed with the attending, Dr. Lu, who agrees with the plan of care. Reviewed by ADEN PALOMO, SILVESTRE-[employer]i 11/26/17 1816 [id number]/[facility] #: [id number] MTDD
--- NOTE | 2017-11-21 23:58 | CONS ---
CC: Hospitalist Service; Dr. Pam Perea * CARDIOLOGY CONSULTATION: DATE OF CONSULT: 11/21/17 REASON FOR CONSULTATION: Near syncope. HISTORY OF PRESENT ILLNESS: Mr. Calvo is a 77-year-old gentleman who I have followed for many years with a history of coronary artery disease and ischemic cardiomyopathy and a defibrillator for ventricular tachycardia. Several weeks ago, the patient described episodes of losing consciousness and interrogation of his defibrillator in the office confirmed that he was having multiple episodes of ventricular tachycardia for which he was getting paced out. The patient was initially started on propafenone and underwent electrophysiology evaluation. It was recommended he be converted to sotalol and he was admitted last week, 11/12/17 through 11/16/17 for this purpose. He was discharged on 11/16/17 on sotalol 80 mg b.i.d. I talked to the patient earlier this week. He had some concerns that his medications were not the same, but was feeling well. We had scheduled an outpatient visit this week. This morning, the patient had near syncopal dizzy episodes and he presented to the emergency department. Interrogation of his ICD confirmed that he was continuing to go in and out of ventricular tachycardia and continuing to be successfully paced out (ATP). The patient denied any side effects from the medication. No fatigue or shortness of breath and until this morning, he had not missed any doses. He was dizzy at 7 in the morning and due for his morning sotalol at 9; but on presentation in the emergency room, he missed 9 in the morning dose. PAST MEDICAL HISTORY: The patient has a past medical history of: 1. Coronary artery disease with bypass surgery in 1998. 2. Ischemic cardiomyopathy (ejection fraction 50% to 55% in January 2017 with focal area of inferior wall hypo to akinesis). 3. Ventricular tachycardia with ICD. 4. COPD. 5. Heparin-induced thrombocytopenia in 1998. 6. Hypertension. 7. Dyslipidemia. 8. He had DVT and pulmonary embolism in 1998. 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 11. Type 2 diabetes. 12. Ulcerative colitis. 13. Lung tumor. 14. Right bundle branch block. 15. Basal cell carcinoma. PAST SURGICAL HISTORY: 1. IVC filter in 1998. 2. ICD. 3. Bypass surgery. 4. Right ankle ORIF. 5. Facial reconstruction. ALLERGIES: Include HEPARIN due to HIT and secondary clot found in his right ventricle and allergic to CIPRO, CLARITHROMYCIN, and SULFA. MEDICATIONS: Inpatient medications include: 1. Tylenol p.r.n. 2. Gaviscon p.r.n. 3. Aspirin 81 mg a day. 4. Lipitor 20 mg a day. 5. Flonase spray b.i.d. 6. Lispro. 7. Humalog insulin. 8. Prilosec 20 mg a day. 9. Zoloft 50 mg a day. 10. Sotalol 80 mg b.i.d. FAMILY HISTORY: Both parents were alcoholics and in their 70s. Father had a history of heart disease and carotid disease. SOCIAL HISTORY: The patient is a nonsmoker and nondrinker and lives with his supportive . REVIEW OF SYSTEMS: The patient was feeling well post discharge. He denies fevers, chills, sweats, missed meds, change in bowel or bladder habits or change in functional ability. He denied orthopnea, PND, chest pain, pressure heaviness. He is not aware of palpitations or pounding of the heart, just feeling dizzy and woozy. PHYSICAL EXAM: On exam, the patient is 5 feet 9 inches, weighs 192 pounds with a BMI of 28. Blood pressure ranging 120/60 to 144/65, pulse of 60 to 70s, sinus rhythm, occasional PVCs, temperature 98.2, oxygen saturation on room air 96% to 97%. General appearance: Centripetally overweight older gentleman, in no acute distress. Psychologically, pleasant and cooperative. Neurologically, awake, alert and oriented to person, place and time. Cranial nerves II through XII intact. Grossly normal sensory and motor function in the upper and lower extremities and normal gait. Skin: Warm, dry. ICD pocket on the left intact. Midline sternotomy scar well healed. HEENT: Pupils are equal and round. Mucous membranes moist. Lungs: Somewhat distant, but clear. No wheezes, rales or rhonchi. Coronary: S1, S2, regular. No murmurs or rubs. No extra systoles heard. Abdomen: Active bowel sounds, soft and nontender. Lower extremities are free of edema. DIAGNOSTIC STUDIES/LAB DATA: A 12-lead ECG from this morning at 8:41 shows normal sinus rhythm with a right bundle branch block, inverted T waves in the inferior leads and precordial leads, V1 through V3 and a QT interval with 468 milliseconds. ICD interrogation done today confirms he had a run of ventricular tachycardia at 6:57 this morning appropriately diagnosed and treated with ATP. This is his first ventricular tachycardic episode since 11/13/17 at the time of his last admission. White count 7.1, hemoglobin 15.3, hematocrit 45, and platelet 145. INR 0.97. Sodium 133, potassium 4.6, chloride 102, bicarb 26, BUN 20, creatinine 1.09, glucose 163, lactic acid 1.1, magnesium 2.3, ALT 27, alk phos 106. Troponin #1 0.00, troponin #2 0.00, troponin #3 0.00. BNP is 66. TSH 2.58, thyroxine 6.41. Urinalysis unremarkable. IMPRESSION AND PLAN: In summary, Daren Calvo is a 77-year-old gentleman with known coronary disease and an old inferior scar, but good left ventricular systolic function with recent escalation in his ventricular tachycardia. He was initially started on propafenone, but did breakthrough this with a syncopal episode from ventricular tachycardia. It was felt sotalol will be a better medication with an ischemic cardiomyopathy and he just underwent sotalol loading at 80 b.i.d. and then had another tachycardic episode this morning. In the short term, I will try increasing the sotalol to 100 mg b.i.d. to see if we get better control. The patient is consulted with Electrophysiology (Dr. Solange Olmedo at [facility]) and he has concerns about ablation in the setting of the IVC filter. This was originally put in 1998 for HIT. It may be in the patient's best interest to get a surgical consultation to see if the IVC filter can be safely removed to allow for the possibility of catheter based ventricular tachycardia ablation. Alternatively, there are additional medications that could be tried such as dofetilide or amiodarone; but with his multiple allergies, we would review his pharmacy first. The fact that this happened at very early this morning does raise the possibility of sleep disordered issues or possibly diabetic triggers could be contributing and optimization of these issues should be considered as well. Additional recommendations will be made pending his response to higher dose of sotalol. We will check daily EKGs to follow QT intervals. Thank you for allowing me to assist in this nice gentleman's care. [id number]/[facility] #: [id number] KENNETH
[2017-11-22] MEDS: Aspirin EC Low Dose* 81 MG TAB.EC PO SCH (08:20)
[2017-11-22] MEDS: Insulin LISPRO* 1 UNITS UNIT SUBCUT SCH ×3 (08:20→17:10)
[2017-11-22] MEDS: Omeprazole CAP* 20 MG PO SCH (08:20)
[2017-11-22] MEDS ORDERED: Sotalol TAB* 80 MG PO ONE (09:00)
[2017-11-22] MEDS ORDERED: Atorvastatin* 20 MG TAB PO SCH (09:00)
[2017-11-22] MEDS ORDERED: Pioglitazone TAB* 30 MG PO SCH (09:00)
[2017-11-22] MEDS: Sotalol TAB* 80 MG PO SCH ×2 (09:01→20:48)
--- NOTE | 2017-11-22 09:57 | PN ---
Subjective Date of Service: 11/22/17 Interval History: Patient seen and examined at bedside. Denies fever, chills, shortness of breath , chest discomfort, N/V/D. Tele: Sinus rhythm, rate 60-70's. Pt noted to have trigeminy Family History: Unchanged from Admission Social History: Unchanged from Admission Past Medical History: Unchanged from Admission Objective Active Medications: Acetaminophen (Tylenol Tab*) 650 mg PO Q6H PRN Reason: PAIN Al Hydroxide/Mg Trisilicate (Gaviscon Chew Tab*) 2 tab.chew PO DAILY@1700 RED Aspirin (Aspirin Ec Low Dose*) 81 mg PO DAILY RED Atorvastatin Calcium (Lipitor*) 20 mg PO 1700 RED Dextrose (D50w Syringe 50 Ml*) 12.5 gm IV PUSH .FOR FS < 60 - SS PRN Reason: FS < 60 Fluticasone Propionate (Flonase Nasal [place] 50mcg*) 2 spray BOTH NARES DAILY PRN Reason: CONGESTION Insulin Human Lispro (Humalog*) 0 - 10 units SUBCUT AC [facility] Omeprazole (Prilosec Cap*) 20 mg PO DAILY RED Sertraline HCl (Zoloft*) 50 mg PO DAILY PRN Reason: Deppresed Sotalol HCl (Betapace Tab*) 120 mg PO BID [facility] Vital Signs - 8 hr 11/22/17 11/22/17 11/22/17 03:30 05:59 06:45 Temperature 97.2 F 97.2 F Pulse Rate 73 Respiratory 16 16 16 Rate Blood Pressure 119/56 119/56 (mmHg) O2 Sat by Pulse 93 93 Oximetry 11/22/17 08:03 Temperature 97.6 F Pulse Rate 66 Respiratory 16 Rate Blood Pressure 129/63 (mmHg) O2 Sat by Pulse 96 Oximetry Oxygen Devices in Use Now: None Appearance: NAD, laying in bed Ears/Nose/Mouth/Throat: Mucous Membranes Moist Respiratory: Symmetrical Chest Expansion and Respiratory Effort, Clear to Auscultation Cardiovascular: NL Sounds; No Murmurs; No JVD, RRR Abdominal: NL Sounds; No Tenderness; No Distention Extremities: No Edema Skin: No Rash or Ulcers Neurological: Alert and Oriented x 3, NL Muscle Strength and Tone Lines/Tubes/Other Access: Clean, Dry and Intact Peripheral IV - site benign Nutrition: Taking PO's - , occasional irregular beat Result Diagrams: 11/21/17 08:59 11/21/17 08:59 Assess/Plan/Problems-Billing Assessment: - Patient Problems (1) Syncope Code(s): R55 - SYNCOPE AND COLLAPSE SNOMED Code(s): 249138852 Comment: - Near syncope - Suspect secondary to v-tach captured on pacer - No orthostasis noted - Cardiology consult, input appreciated - Continue Sotolol (increased per cardiology) (2) Chest pain Code(s): R07.9 - CHEST PAIN, UNSPECIFIED SNOMED Code(s): 48359166 Comment: - Resolved - Troponins negative x3, no events on tele. - Low risk stress test 10/2017 (3) V-tach Code(s): I47.2 - VENTRICULAR TACHYCARDIA SNOMED Code(s): 84004164 Comment: - Appreciate cardiology consult - Patient off propafenone since 11/11/17, Started Sotalol 11/13 - Plan for 5 doses of supervised increased sotalol. Fifth dose will be 11/23 evening - Pt with prolonged QtC at 508 this AM, will receive decreased Sotalol dose this AM - Plan for AM 11/24 if stable - Daily EKGs, MG and BMP (4) CAD (coronary artery disease) Code(s): I25.10 - ATHSCL HEART DISEASE OF [place] CORONARY ARTERY W/O ANG PCTRS SNOMED Code(s): 76342987 Comment: - No symptoms of ischemia - Continue metoprolol, lisinopril, aspirin, atorvastatin (5) Cardiomyopathy Code(s): I42.9 - CARDIOMYOPATHY, UNSPECIFIED SNOMED Code(s): 31652544 Comment: - Unknown EF, no signs of CHF exacerbation. (6) Diabetes Code(s): E11.9 - TYPE 2 DIABETES MELLITUS WITHOUT COMPLICATIONS SNOMED Code(s) : 02461814 Comment: - Glucose 130-160's - Hold glipizide, pioglitazone, and exanitide - Continue lantus with lispro SSI coverage for meals (7) GERD (gastroesophageal reflux disease) Code(s): K21.9 - GASTRO-ESOPHAGEAL REFLUX DISEASE WITHOUT ESOPHAGITIS SNOMED Code(s): 514839244 Comment: - Continue omeprazole. (8) COPD (chronic obstructive pulmonary disease) Code(s): J44.9 - CHRONIC OBSTRUCTIVE PULMONARY DISEASE, UNSPECIFIED SNOMED Code(s): 39975852 Comment: - No signs of acute exacerbation (9) Depression Code(s): F32.9 - MAJOR DEPRESSIVE DISORDER, SINGLE EPISODE, UNSPECIFIED SNOMED Code(s): 17902564 Comment: - Continue sertraline (10) DVT prophylaxis Code(s): RBZ3018 - SNOMED Code(s): 362955779 Comment: - History of heparin induced thrombocytopenia - SCDs only (11) DNR (do not resuscitate) Status and Disposition: OBV to Inpatient. Pt will need to be hospitalized for 5 doses of increased sotolol prior to discharge. Suspect Pt will be discharged to home Sunday morning.
[2017-11-22 11:19] LABS: EGFR Non-African American 77.1 (>60)
[2017-11-22] MEDS: Atorvastatin* 20 MG TAB PO SCH (16:24)
[2017-11-22] MEDS: Gaviscon CHEW TAB* 1 TAB PO SCH (16:24)
[2017-11-22] MEDS ORDERED: Polyethylene Glycol 3350* 17 GM PACKET PO PRN (16:41)
[2017-11-23] MEDS ORDERED: Magnesium Sulfate 2 GM IV IVPB ONE (02:00)
[2017-11-23] MEDS: Insulin LISPRO* 1 UNITS UNIT SUBCUT SCH ×3 (08:31→17:20)
[2017-11-23] MEDS: Sotalol TAB* 80 MG PO SCH ×2 (08:31→21:31)
[2017-11-23] MEDS: Omeprazole CAP* 20 MG PO SCH (08:32)
[2017-11-23] MEDS: Aspirin EC Low Dose* 81 MG TAB.EC PO SCH (08:32)
--- NOTE | 2017-11-23 13:23 | PN ---
Subjective Date of Service: 11/23/17 Interval History: Patient seen and examined at bedside. Denies fever, chills, lightheadedness, shortness of breath, chest discomfort, N/V/D. Pt states that when he was woken up during his episode of v tach he felt nauseous and slight chest pressure, that quickly went away. Denies further discomfort. Tele: Sinus rhythm, rate 60-70's. Pt noted to have PVCs and an episode of non- sustained V tach overnight. Family History: Unchanged from Admission Social History: Unchanged from Admission Past Medical History: Unchanged from Admission Objective Active Medications: Acetaminophen (Tylenol Tab*) 650 mg PO Q6H PRN Reason: PAIN Al Hydroxide/Mg Trisilicate (Gaviscon Chew Tab*) 2 tab.chew PO DAILY@1700 RED Aspirin (Aspirin Ec Low Dose*) 81 mg PO DAILY RED Atorvastatin Calcium (Lipitor*) 20 mg PO 1700 RED Dextrose (D50w Syringe 50 Ml*) 12.5 gm IV PUSH .FOR FS < 60 - SS PRN Reason: FS < 60 Fluticasone Propionate (Flonase Nasal [place] 50mcg*) 2 spray BOTH NARES DAILY PRN Reason: CONGESTION Insulin Human Lispro (Humalog*) 0 - 10 units SUBCUT AC RED Omeprazole (Prilosec Cap*) 20 mg PO DAILY RED Polyethylene Glycol/Electrolytes (Miralax*) 17 gm PO DAILY PRN Reason: CONSTIPATION Sertraline HCl (Zoloft*) 50 mg PO DAILY PRN Reason: Deppresed Sotalol HCl (Betapace Tab*) 120 mg PO BID [facility] Vital Signs - 8 hr 11/23/17 11/23/17 11/23/17 07:37 08:00 11:22 Temperature 97.8 F 97.4 F Pulse Rate 67 70 Respiratory 20 18 18 Rate Blood Pressure 139/62 129/65 (mmHg) O2 Sat by Pulse 96 97 Oximetry Oxygen Devices in Use Now: None Appearance: NAD, sitting up in a chair. Ears/Nose/Mouth/Throat: Mucous Membranes Moist Respiratory: Symmetrical Chest Expansion and Respiratory Effort, Clear to Auscultation Cardiovascular: NL Sounds; No Murmurs; No JVD, RRR - , occational irregular beat Extremities: No Edema Skin: No Rash or Ulcers Neurological: Alert and Oriented x 3, NL Muscle Strength and Tone Lines/Tubes/Other Access: Clean, Dry and Intact Peripheral IV - site benign Nutrition: Taking PO's Result Diagrams: 11/21/17 08:59 11/23/17 05:26 Assess/Plan/Problems-Billing Assessment: Mr. Calvo is a 77 yo male with PMH significant for Vtach, CAD, ischemic cardiomyopathy, DM, basal cell CA, HTN, COPD, ulcerative colitis, HIT, HLD, RBBB who presented to the emergency room after a near syncopal episode. - Patient Problems (1) Syncope Code(s): R55 - SYNCOPE AND COLLAPSE SNOMED Code(s): 473283568 Comment: - Near syncope - Suspect secondary to v-tach captured on pacer - No orthostasis noted - Cardiology consult, input appreciated - Continue Sotolol (increased per cardiology) (2) Chest pain Code(s): R07.9 - CHEST PAIN, UNSPECIFIED SNOMED Code(s): 73499222 Comment: - Resolved - Troponins negative x3, no events on tele. - Low risk stress test 10/2017 (3) V-tach Code(s): I47.2 - VENTRICULAR TACHYCARDIA SNOMED Code(s): 13063948 Comment: - Appreciate cardiology consult - Patient off propafenone since 11/11/17, Started Sotalol 11/13 - Plan for 5 doses of supervised increased sotalol. Fifth dose will be 11/23 evening - Pt with prolonged QtC at 508 this AM, will receive decreased Sotalol dose this AM - Plan for AM 11/24 if stable - Daily EKGs, MG and BMP (4) CAD (coronary artery disease) Code(s): I25.10 - ATHSCL HEART DISEASE OF [place] CORONARY ARTERY W/O ANG PCTRS SNOMED Code(s): 64822934 Comment: - No symptoms of ischemia - Continue metoprolol, lisinopril, aspirin, atorvastatin (5) Cardiomyopathy Code(s): I42.9 - CARDIOMYOPATHY, UNSPECIFIED SNOMED Code(s): 03657595 Comment: - Unknown EF, no signs of CHF exacerbation. (6) Diabetes Code(s): E11.9 - TYPE 2 DIABETES MELLITUS WITHOUT COMPLICATIONS SNOMED Code(s) : 61678975 Comment: - Glucose 140-210's - Hold glipizide, pioglitazone, and exanitide - Continue lantus with lispro SSI coverage for meals (7) GERD (gastroesophageal reflux disease) Code(s): K21.9 - GASTRO-ESOPHAGEAL REFLUX DISEASE WITHOUT ESOPHAGITIS SNOMED Code(s): 948216485 Comment: - Continue omeprazole. (8) COPD (chronic obstructive pulmonary disease) Code(s): J44.9 - CHRONIC OBSTRUCTIVE PULMONARY DISEASE, UNSPECIFIED SNOMED Code(s): 29591487 Comment: - No signs of acute exacerbation (9) Depression Code(s): F32.9 - MAJOR DEPRESSIVE DISORDER, SINGLE EPISODE, UNSPECIFIED SNOMED Code(s): 70158792 Comment: - Continue sertraline (10) DVT prophylaxis Code(s): YVZ8795 - SNOMED Code(s): 120117069 Comment: - History of heparin induced thrombocytopenia - SCDs only (11) DNR (do not resuscitate) Status and Disposition: Inpatient. Pt will need to be hospitalized for 5 doses of increased sotolol prior to discharge. Suspect Pt will be discharged to home Sunday morning.
[2017-11-23] MEDS: Atorvastatin* 20 MG TAB PO SCH (18:11)
[2017-11-23] MEDS: Gaviscon CHEW TAB* 1 TAB PO SCH (18:11)
[2017-11-23] MEDS: Magnesium Oxide TAB* 400 MG PO SCH (21:30)
[2017-11-24 06:43] LABS: EGFR Non-African American 73.5 (>60)
[2017-11-24] MEDS: Aspirin EC Low Dose* 81 MG TAB.EC PO SCH (08:31)
[2017-11-24] MEDS: Sotalol TAB* 80 MG PO SCH (08:31)
[2017-11-24] MEDS: Magnesium Oxide TAB* 400 MG PO SCH (08:31)
[2017-11-24] MEDS: Omeprazole CAP* 20 MG PO SCH (08:31)
[2017-11-24] MEDS: Insulin LISPRO* 1 UNITS UNIT SUBCUT SCH ×2 (08:31→13:09)
--- NOTE | 2017-11-24 11:58 | PN ---
Subjective Date of Service: 11/24/17 - CC: dizzy Interval History: Per patient did not feel so well yesterday, but back to normal today. Medications Active Medications: Acetaminophen (Tylenol Tab*) 650 mg PO Q6H PRN PRN Reason: PAIN Al Hydroxide/Mg Trisilicate (Gaviscon Chew Tab*) 2 tab.chew PO DAILY@1700 [facility] Last Admin: 11/23/17 18:11 Dose: 2 tab.chew Aspirin (Aspirin Ec Low Dose*) 81 mg PO DAILY [facility] Last Admin: 11/24/17 08:31 Dose: 81 mg Atorvastatin Calcium (Lipitor*) 20 mg PO 1700 [facility] Last Admin: 11/23/17 18:11 Dose: 20 mg Dextrose (D50w Syringe 50 Ml*) 12.5 gm IV PUSH .FOR FS < 60 - SS PRN PRN Reason: FS < 60 Fluticasone Propionate (Flonase Nasal [place] 50mcg*) 2 spray BOTH NARES DAILY PRN PRN Reason: CONGESTION Insulin Human Lispro (Humalog*) 0 - 10 units SUBCUT AC [facility] PRN Reason: Protocol Last Admin: 11/24/17 08:31 Dose: 2 units Magnesium Oxide (Magox 400 Tab*) 400 mg PO BID [facility] Last Admin: 11/24/17 08:31 Dose: 400 mg Omeprazole (Prilosec Cap*) 20 mg PO DAILY [facility] Last Admin: 11/24/17 08:31 Dose: 20 mg Polyethylene Glycol/Electrolytes (Miralax*) 17 gm PO DAILY PRN PRN Reason: CONSTIPATION Last Admin: 11/22/17 17:10 Dose: 17 gm Sertraline HCl (Zoloft*) 50 mg PO DAILY PRN PRN Reason: Deppresed Sotalol HCl (Betapace Tab*) 120 mg PO BID [facility] Last Admin: 11/24/17 08:31 Dose: 120 mg Objective Vital Signs: Temp Pulse Resp BP Pulse Ox 98.0 F 67 18 124/71 99 11/24/17 08:13 11/24/17 08:13 11/24/17 08:13 11/24/17 08:13 11/24/17 08:13 Oxygen Devices in Use Now: None Appearance: Centripitally obese male, appears in usual state of health, walking in room. Eyes: No Scleral Icterus, PERRLA Ears/Nose/Mouth/Throat: Clear Oropharnyx, Mucous Membranes Moist Neck: Trachea Midline, No Thyroid Enlargement, Masses Respiratory: Symmetrical Chest Expansion and Respiratory Effort, Clear to Auscultation Cardiovascular: RRR - ICD pocket L intact, mid line sternotomy scars old, healed. Abdominal: NL Sounds; No Tenderness; No Distention, No Hepatosplenomegaly Extremities: No Edema Skin: No Rash or Ulcers Neurological: Alert and Oriented x 3, NL Gait, NL Muscle Strength and Tone Lines/Tubes/Other Access: Clean, Dry and Intact Peripheral IV Laboratory Results: 11/24/17 06:12 INR (Anticoag Therapy) 0.97 (0.77-1.02) 11/21/17 08:59 APTT 33.2 seconds (26.0-36.3) 11/21/17 08:59 Total Bilirubin 0.50 mg/dL (0.2-1.0) 11/21/17 08:59 AST 21 U/L (13-39) 11/21/17 08:59 ALT 27 U/L (7-52) 11/21/17 08:59 Alkaline Phosphatase 106 U/L (34-104) H 11/21/17 08:59 CK-MB (CK-2) 1.3 ng/mL (0.6-6.3) 11/21/17 08:59 B-Natriuretic Peptide 66 pg/mL (-100) 11/21/17 08:59 Total Protein 7.1 g/dL (6.4-8.9) 11/21/17 08:59 Albumin 4.2 g/dL (3.2-5.2) 11/21/17 08:59 Globulin 2.9 g/dL (2-4) 11/21/17 08:59 Albumin/Globulin Ratio 1.4 (1-3) 11/21/17 08:59 TSH 2.58 mcIU/mL (0.34-5.60) 11/21/17 08:59 EKG Data: NSR, RBBB, QTC 505, but QRS duration 160 ms with RBBB, if correct for RBBB, QTc is well under 500 ms. Assessment/Plan 77 yo male with CAD, CABG, ICD, small inferior scar, good EF, recent recurrent VT, ATP and syncope and near syncope. Admitted to increase sotalol dose and tolerating dose increase to 120 mg BID. D/C on Sotalol 120 mg BID and other prior medications. Follow up with me, Dr. Amos in 5-10 days in office.
[2017-11-24 12:09] VITALS: BP 121/65
--- NOTE | 2017-11-25 11:38 | DS ---
DISCHARGE SUMMARY: DATE OF ADMISSION: 11/21/17 DATE OF DISCHARGE: 11/24/17 ADMITTING PROVIDER: Renata Klein NP PRIMARY CARE PHYSICIAN: Dr. Pam Perea. PRIMARY SERVICE MEMBER: Dr. Olga Amos. ATTENDING PHYSICIAN: Art Shook M.D. PRINCIPAL COMPLAINT: Near syncopal event. PRINCIPAL DIAGNOSIS: Ventricular tachycardia causing presyncope, recovered with antitachycardia pacing of ICD. 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 At that time for 3 syncopal events in the setting of having stopped his propafenone. At that time, he had been started on sotalol monitored while inpatient initially 80 mg twice a day. He did not yet follow with Dr. Amos. On the day of admission he had intermittent lightheadedness when standing and that morning he felt very lightheaded, dizzy with facial numbness. He did not lose conscious for approximately 30 minutes. He would intermittently get lightheaded again. He felt like he would pass out. EMS brought him to the emergency room found him to be pale, weak, diaphoretic and complaining of chest pain. Blood pressure is initially labile between 100s and 150 systolically. EKG showed normal sinus rhythm with right bundle branch block and PVCs. He denies feeling palpitations sometimes which he can sometimes feel associated with his ventricular tachycardia. Dr. Olga Amos of Cardiology saw patient in consultation. His ICD was interrogated and confirmed that he was going in and out of ventricular tachycardia with successful antitachycardic pacing. Recommendation was to titrate sotalol from 80 mg b.i.d. to 120 mg b.i.d. Of note he had 3 troponins of 0.00. He started on the 120 mg sotalol that night of admission 11/21. He got 80 mg the next morning and then he has now received 4 more doses 120 mg b.i.d. QTc has been monitored twice daily. It has been ranging between 483 and 513, on date of discharge 505. Overnight 11/22/17 to 11/23/17, he did have an initial episode of V-tach. His daily. His QTc was within normal limits given his right bundle branch morphology. He is going to schedule a followup with Dr. Amos within 5 days. He is being started on magnesium supplementation, although his electrolytes were stable while in house. 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 Solange Olmedo in [facility]. DISCHARGE MEDICATIONS: Include : 1. Magnesium oxide 400 mg p.o. b.i.d. (new) 2. Sotalol 120 mg p.o. b.i.d. (uptitrated from 80 mg p.o. b.i.d.) 3. Atorvastatin 20 mg p.o. daily (old). 4 Aspirin 81 mg daily (old). 5. Acetaminophen 650 mg p.o. q. 6 hours (old). 6. Flonase 2 sprays both nares daily p.r.n. for congestion (old). 7. Gaviscon 2 tabs chew p.o. at bedtime. 8. Omeprazole 20 mg p.o. daily (old). 9. Sertraline 50 mg p.o. daily (old). 10. Exenatide 2 mg subcutaneous weekly (Bydureon old). 11. Glipizide 10 mg p.o. b.i.d. (old). 12. Nitroglycerin 0.4 mg sublingual q. 5 minutes p.r.n. chest pain (old). 13. Pioglitazone 38 mg p.o. daily (Actos). DISCHARGE DIET: Heart healthy, carbohydrate consistent unchanged. ACTIVITY LEVEL: No restrictions. FOLLOWUP: Please follow up with Dr. Olga Amos within 5 days of discharge and Dr. Pam Perea within 5 days of discharge. TIME SPENT: Time spent on this discharge 40 minutes. [id number]/[facility] #: [id number] [facility]
== END 2017-11-24 13:47 | disposition home or self-care (01) | DRG 309 ==
LOC: ED 08:41 → MEDTELE 12:07 → INTOOBSV 12:07 → OBSVTOIN 18:44
PROVIDERS: ADMIT Internal Medicine; ATTEND Internal Medicine
DX: I47.2 Ventricular tachycardia (principal); K51.90 Ulcerative colitis, unspecified, without complications; I25.5 Ischemic cardiomyopathy; E11.9 Type 2 diabetes mellitus without complications; J44.9 Chronic obstructive pulmonary disease, unspecified; D75.82 Heparin induced thrombocytopenia (HIT); I25.10 Atherosclerotic heart disease of native coronary artery without angina pectoris; K21.9 Gastro-esophageal reflux disease without esophagitis; I11.9 Hypertensive heart disease without heart failure; E78.5 Hyperlipidemia, unspecified; I45.10 Unspecified right bundle-branch block; F32.9 Major depressive disorder, single episode, unspecified; R91.8 Other nonspecific abnormal finding of lung field; Z66 Do not resuscitate; Z95.810 Presence of automatic (implantable) cardiac defibrillator; Z85.828 Personal history of other malignant neoplasm of skin; Z79.84 Long term (current) use of oral hypoglycemic drugs; Z95.1 Presence of aortocoronary bypass graft; Z79.1 Long term (current) use of non-steroidal anti-inflammatories (NSAID); Z79.82 Long term (current) use of aspirin; Z79.899 Other long term (current) drug therapy; Z88.1 Allergy status to other antibiotic agents; Z88.8 Allergy status to other drugs, medicaments and biological substances; Z91.048 Other nonmedicinal substance allergy status; Z82.49 Family history of ischemic heart disease and other diseases of the circulatory system; Z87.891 Personal history of nicotine dependence; Z86.718 Personal history of other venous thrombosis and embolism; Z86.711 Personal history of pulmonary embolism; Z81.1 Family history of alcohol abuse and dependence; Z96.89 Presence of other specified functional implants
CPT/HCPCS: 36415; 71045; 80048; 80053; 81003; 82550; 82553; 83605; 83735; 83874; 83880; 84436; 84443; 84484; 85025; 85610; 85730; 86850; 86900; 86901; 93005; 99284; A9270-GY; J3475

== ENCOUNTER 2017-12-04 13:39 | Emergency (ER) | payer MEDICARE, OTHER ==
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
[2017-12-04] MEDS ORDERED: oxyCODONE/Acetamin 5/325 MG* TAB PO ONE (15:30)
[2017-12-04] MEDS ORDERED: NS 0.9% 1000 ML* 1,000 ML IV SCH (15:30)
[2017-12-04 16:37] LABS: ABS Basophils 0 10^3/ul (0-0.2); ABS Eosinophils 0.4 10^3/ul (0-0.6); ABS Lymphocytes 2.3 10^3/ul (1.0-4.8); ABS Monocytes 0.7 10^3/ul (0-0.8); ABS Neutrophils 3.6 10^3/ul (1.5-7.7); ABS Nucleated RBC 0 10^3/ul; Eosinophil % 5.1 % (0-6); Hematocrit 43 % (42-52); Hemoglobin 14.5 g/dl (14.0-18.0); Mean Corpuscular HGB Conc 34 g/dl (31-36); Mean Corpuscular Hemoglobin 32 pg (27-31); Mean Corpuscular Volume 94 fL (80-94); Mean Platelet Volume 9 um3 (7.4-10.4); Nucleated Red Blood Cells % 0.1; Platelet Count 136 10^3/ul (150-450); Red Blood Count 4.56 10^6/ul (4.0-5.4); Red Cell Distribution Width 14 % (10.5-15); White Blood Count 6.9 10^3/ul (3.5-10.8)
[2017-12-04 16:40] LABS: INR 0.88 (0.77-1.02)
[2017-12-04 17:05] LABS: EGFR Non-African American 66.5 (>60)
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
[2017-12-04 17:29] VITALS: BP 157/64
== END 2017-12-04 17:29 | disposition home or self-care (01) ==
LOC: ED 13:39
DX: I10 Essential (primary) hypertension (principal); S16.1XXA Strain of muscle, fascia and tendon at neck level, initial encounter; R51 Headache; Z87.891 Personal history of nicotine dependence; M54.2 Cervicalgia; V49.9XXA Car occupant (driver) (passenger) injured in unspecified traffic accident, initial encounter; Y92.9 Unspecified place or not applicable
CPT/HCPCS: 36415; 70450; 72040; 72125; 80053; 85025; 85610; 85730; 99282; A9270-GY

== ENCOUNTER 2017-12-18 08:43 | Emergency (ER) | payer MEDICARE, OTHER ==
[2017-12-18] MEDS ORDERED: NS 0.9% 1000 ML* 1,000 ML IV ONE (09:03)
[2017-12-18 09:37] LABS: ABS Basophils 0 10^3/ul (0-0.2); ABS Eosinophils 0.3 10^3/ul (0-0.6); ABS Lymphocytes 2.1 10^3/ul (1.0-4.8); ABS Monocytes 0.6 10^3/ul (0-0.8); ABS Neutrophils 3.7 10^3/ul (1.5-7.7); ABS Nucleated RBC 0 10^3/ul; Eosinophil % 5.1 % (0-6); Hematocrit 43 % (42-52); Hemoglobin 14.6 g/dl (14.0-18.0); Lymphocyte % 31.6 % (25-47); Mean Corpuscular HGB Conc 34 g/dl (31-36); Mean Corpuscular Hemoglobin 32 pg (27-31); Mean Corpuscular Volume 93 fL (80-94); Mean Platelet Volume 9 um3 (7.4-10.4); Nucleated Red Blood Cells % 0; Platelet Count 142 10^3/ul (150-450); Red Blood Count 4.61 10^6/ul (4.0-5.4); Red Cell Distribution Width 14 % (10.5-15); White Blood Count 6.8 10^3/ul (3.5-10.8)
[2017-12-18 09:48] LABS: EGFR Non-African American 76.2 (>60); INR 0.92 (0.77-1.02)
[2017-12-18 11:58] LABS: Urine Appearance Clear; Urine Blood Negative (Negative); Urine Color Yellow; Urine Ketones Negative (Negative); Urine Protein Negative (Negative); Urine Urobilinogen Negative (Negative)
--- NOTE | 2017-12-18 12:56 | ED ---
Stephen Fernando Angela, scribed for Danilo Brunner MD on 12/18/17 at 0916 . Palpitations / Dysrhythmia - HPI Summary HPI Summary: This pt is a 77 y/o male, accompanied by his daughter, presenting to [facility] c/o palpitations since this morning. Pt reports he has had multiple episodes of ventricular tachycardia since approximately 07:30 this morning. He denies any chest pain, SOB. Pt notes his ICD pacemaker was placed in February 2017. He states he called Dr. Amos and advised him to come to the ED for ventricular tachycardia and to be transferred to [facility]. Pt reports he has seen Dr. Solange Olmedo at [facility]. Pt states he had been admitted twice before to [facility] for the same, ventricular tachycardia. He has hx of 2 failed ablations. - History of Current Complaint Chief Complaint: EDDysrhythmPalp Time Seen by Provider: 12/18/17 09:02 Hx Obtained From: Patient Onset/Duration: Lasting Hours, Still Present Timing: Constant Severity Currently: Moderate Character: Fast Aggravating: Nothing Alleviating: Nothing Associated Signs & Symptoms: Negative - Allergy/Home Medications Allergies/Adverse Reactions: Allergies Allergy/AdvReac Type Severity Reaction Status Date / Time heparin Allergy Severe Bleeding Verified 11/12/17 13:45 ciprofloxacin Allergy Unknown Unknown Verified 11/12/17 15:05 Reaction Details clarithromycin Allergy Unknown Verified 11/12/17 15:06 Reaction Details iodine Allergy Unknown Verified 11/12/17 15:07 Reaction Details mesalamine Allergy Unknown Verified 11/12/17 15:06 Reaction Details sulfamethoxazole Allergy Unknown Verified 11/12/17 15:08 [From Bactrim] Reaction Details trimethoprim [From Bactrim] Allergy Unknown Verified 11/12/17 15:08 Reaction Details PMH/Surg Hx/FS Hx/Imm Hx Endocrine/Hematology History: Reports: Hx Blood Transfusions, Hx Diabetes Denies: Hx Thyroid Disease Cardiovascular History: Reports: Hx Angina, Hx Cardiac Arrest, Hx Coronary Artery Disease, Hx Hypercholesterolemia, Hx Hypertension, Hx Myocardial Infarction, Hx Pacemaker/ICD Denies: Hx Valvular Heart Disease Respiratory History: Reports: Hx Asthma, Hx Pulmonary Embolism - Right lung, Hx Seasonal Allergies, Other Respiratory Problems/Disorders - 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 Denies: Hx Chronic Obstructive Pulmonary Disease (COPD) GI History: Reports: Hx Gastroesophageal Reflux Disease, Hx Ulcer Musculoskeletal History: Reports: Hx Arthritis, Hx Back Problems Sensory History: Reports: Hx Contacts or Glasses Denies: Hx Hearing Aid Opthamlomology History: Reports: Hx Contacts or Glasses Neurological History: Reports: 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 RIGHT SIDE FACE RECONSTRUCTED. RIGHT ANKLE RECONSTRUCTION - Immunization History Date of Influenza Vaccine: Fall 2015 Infectious Disease History: No Infectious Disease History: Reports: Hx Shingles Denies: Hx Hepatitis, Hx Human Immunodeficiency Virus (HIV), Hx of Known/ Suspected MRSA, Hx Known/Suspected VRE, Traveled Outside the [place] in Last 30 Days - Family History Known Family History: Positive: Cardiac Disease - father (70 y/o) - Social History Alcohol Use: None Hx Substance Use: No Substance Use Type: Reports: None Hx Tobacco Use: Yes Smoking Status (MU): Former Smoker Have You Smoked in the Last Year: No Review of Systems Negative: Fever, Chills Eyes: Negative Positive: Palpitations. Negative: Chest Pain Negative: Shortness Of Breath Musculoskeletal: Negative Skin: Negative Neurological: Negative All Other Systems Reviewed And Are Negative: Yes Physical Exam - Summary Physical Exam Summary: VITAL SIGNS: Reviewed. GENERAL: Patient is a well-developed and nourished male who is lying comfortable in the stretcher. Patient is not in any acute respiratory distress. HEAD AND FACE: No signs of trauma. No ecchymosis, hematomas or skull depressions. No sinus tenderness. EYES: PERRLA, EOMI x 2, No injected conjunctiva, no nystagmus. EARS: Hearing grossly intact. Ear canals and tympanic membranes are within normal limits. MOUTH: Oropharynx within normal limits. NECK: Supple, trachea is midline, no adenopathy, no JVD, no carotid bruit, no c- spine tenderness, neck with full ROM. CHEST: Symmetric, no tenderness at palpation. ICD pacemaker on the left side of the chest. LUNGS: Clear to auscultation bilaterally. No wheezing or crackles. CVS: Regular rate and rhythm, S1 and S2 present, no murmurs or gallops appreciated. ABDOMEN: Soft, non-tender. No signs of distention. No rebound no guarding, and no masses palpated. Bowel sounds are normal. EXTREMITIES: FROM in all major joints, no edema, no cyanosis or clubbing. NEURO: Alert and oriented x 3. No acute neurological deficits. Speech is normal and follows commands. SKIN: Dry and warm Triage Information Reviewed: Yes Vital Signs On Initial Exam: Initial Vitals Temp Pulse Resp BP Pulse Ox 98.3 F 71 18 142/85 96 12/18/17 08:46 12/18/17 08:46 12/18/17 08:46 12/18/17 08:46 12/18/17 08:46 Vital Signs Reviewed: Yes Diagnostics - Vital Signs Vital Signs Temp Pulse Resp BP Pulse Ox 12/18/17 08:46 98.3 F 71 18 142/85 96 - Laboratory Lab Results: Lab Results 12/18/17 12/18/17 12/18/17 Range/Units 09:20 09:20 09:20 WBC (3.5-10.8) 10^3/ul RBC (4.0-5.4) 10^6/ul Hgb (14.0-18.0) g/dl Hct (42-52) % MCV (80-94) fL MCH (27-31) pg MCHC (31-36) g/dl RDW (10.5-15) % Plt Count (150-450) 10^3/ul MPV (7.4-10.4) um3 Neut % (Auto) (38-83) % Lymph % (Auto) (25-47) % Ness % (Auto) (0-7) % Eos % (Auto) (0-6) % Baso % (Auto) (0-2) % Absolute Neuts (auto) (1.5-7.7) 10^3/ul Absolute Lymphs (auto) (1.0-4.8) 10^3/ul Absolute Monos (auto) (0-0.8) 10^3/ul Absolute Eos (auto) (0-0.6) 10^3/ul Absolute Basos (auto) (0-0.2) 10^3/ul Absolute Nucleated RBC 10^3/ul Nucleated RBC % INR (Anticoag Therapy) 0.92 (0.77-1.02) APTT 30.7 (26.0-36.3) seconds Sodium (133-145) mmol/L Potassium (3.5-5.0) mmol/L Chloride (101-111) mmol/L Carbon Dioxide (22-32) mmol/L Anion Gap (2-11) mmol/L BUN (6-24) mg/dL Creatinine (0.67-1.17) mg/dL Est GFR ( Amer) (>60) Est GFR (Non-Af Amer) (>60) BUN/Creatinine Ratio (8-20) Glucose (70-100) mg/dL Lactic Acid (0.5-2.0) mmol/L Calcium (8.6-10.3) mg/dL Total Bilirubin (0.2-1.0) mg/dL AST (13-39) U/L ALT (7-52) U/L Alkaline Phosphatase (34-104) U/L Total Creatine Kinase (10-223) U/L CK-MB (CK-2) (0.6-6.3) ng/mL Troponin I (<0.04) ng/mL B-Natriuretic Peptide 63 ( - 100) pg/mL Total Protein (6.4-8.9) g/dL Albumin (3.2-5.2) g/dL Globulin (2-4) g/dL Albumin/Globulin Ratio (1-3) TSH 4.78 (0.34-5.60) mcIU/mL Urine Color Urine Appearance Urine pH (5-9) Ur Specific [place] (1.010-1.030) Urine Protein (Negative) Urine Ketones (Negative) Urine Blood (Negative) Urine Nitrate (Negative) Urine Bilirubin (Negative) Urine Urobilinogen (Negative) Ur Leukocyte Esterase (Negative) Urine Glucose (Negative) 12/18/17 12/18/17 12/18/17 Range/Units 09:20 09:20 09:20 WBC 6.8 (3.5-10.8) 10^3/ul RBC 4.61 (4.0-5.4) 10^6/ul Hgb 14.6 (14.0-18.0) g/dl Hct 43 (42-52) % MCV 93 (80-94) fL MCH 32 H (27-31) pg MCHC 34 (31-36) g/dl RDW 14 (10.5-15) % Plt Count 142 L (150-450) 10^3/ul MPV 9 (7.4-10.4) um3 Neut % (Auto) 54.5 (38-83) % Lymph % (Auto) 31.6 (25-47) % Ness % (Auto) 8.3 H (0-7) % Eos % (Auto) 5.1 (0-6) % Baso % (Auto) 0.5 (0-2) % Absolute Neuts (auto) 3.7 (1.5-7.7) 10^3/ul Absolute Lymphs (auto) 2.1 (1.0-4.8) 10^3/ul Absolute Monos (auto) 0.6 (0-0.8) 10^3/ul Absolute Eos (auto) 0.3 (0-0.6) 10^3/ul Absolute Basos (auto) 0 (0-0.2) 10^3/ul Absolute Nucleated RBC 0 10^3/ul Nucleated RBC % 0 INR (Anticoag Therapy) (0.77-1.02) APTT (26.0-36.3) seconds Sodium 132 L (133-145) mmol/L Potassium 4.2 (3.5-5.0) mmol/L Chloride 104 (101-111) mmol/L Carbon Dioxide 23 (22-32) mmol/L Anion Gap 5 (2-11) mmol/L BUN 19 (6-24) mg/dL Creatinine 0.96 (0.67-1.17) mg/dL Est GFR ( Amer) 97.9 (>60) Est GFR (Non-Af Amer) 76.2 (>60) BUN/Creatinine Ratio 19.8 (8-20) Glucose 185 H (70-100) mg/dL Lactic Acid 1.4 (0.5-2.0) mmol/L Calcium 9.7 (8.6-10.3) mg/dL Total Bilirubin 0.60 (0.2-1.0) mg/dL AST 18 (13-39) U/L ALT 25 (7-52) U/L Alkaline Phosphatase 109 H (34-104) U/L Total Creatine Kinase 44 (10-223) U/L CK-MB (CK-2) 1.2 (0.6-6.3) ng/mL Troponin I 0.00 (<0.04) ng/mL B-Natriuretic Peptide ( - 100) pg/mL Total Protein 7.0 (6.4-8.9) g/dL Albumin 3.9 (3.2-5.2) g/dL Globulin 3.1 (2-4) g/dL Albumin/Globulin Ratio 1.3 (1-3) TSH (0.34-5.60) mcIU/mL Urine Color Urine Appearance Urine pH (5-9) Ur Specific [place] (1.010-1.030) Urine Protein (Negative) Urine Ketones (Negative) Urine Blood (Negative) Urine Nitrate (Negative) Urine Bilirubin (Negative) Urine Urobilinogen (Negative) Ur Leukocyte Esterase (Negative) Urine Glucose (Negative) 12/18/17 12/18/17 Range/Units 10:30 11:35 WBC (3.5-10.8) 10^3/ul RBC (4.0-5.4) 10^6/ul Hgb (14.0-18.0) g/dl Hct (42-52) % MCV (80-94) fL MCH (27-31) pg MCHC (31-36) g/dl RDW (10.5-15) % Plt Count (150-450) 10^3/ul MPV (7.4-10.4) um3 Neut % (Auto) (38-83) % Lymph % (Auto) (25-47) % Ness % (Auto) (0-7) % Eos % (Auto) (0-6) % Baso % (Auto) (0-2) % Absolute Neuts (auto) (1.5-7.7) 10^3/ul Absolute Lymphs (auto) (1.0-4.8) 10^3/ul Absolute Monos (auto) (0-0.8) 10^3/ul Absolute Eos (auto) (0-0.6) 10^3/ul Absolute Basos (auto) (0-0.2) 10^3/ul Absolute Nucleated RBC 10^3/ul Nucleated RBC % INR (Anticoag Therapy) (0.77-1.02) APTT (26.0-36.3) seconds Sodium (133-145) mmol/L Potassium (3.5-5.0) mmol/L Chloride (101-111) mmol/L Carbon Dioxide (22-32) mmol/L Anion Gap (2-11) mmol/L BUN (6-24) mg/dL Creatinine (0.67-1.17) mg/dL Est GFR ( Amer) (>60) Est GFR (Non-Af Amer) (>60) BUN/Creatinine Ratio (8-20) Glucose (70-100) mg/dL Lactic Acid (0.5-2.0) mmol/L Calcium (8.6-10.3) mg/dL Total Bilirubin (0.2-1.0) mg/dL AST (13-39) U/L ALT (7-52) U/L Alkaline Phosphatase (34-104) U/L Total Creatine Kinase (10-223) U/L CK-MB (CK-2) (0.6-6.3) ng/mL Troponin I 0.00 (<0.04) ng/mL B-Natriuretic Peptide ( - 100) pg/mL Total Protein (6.4-8.9) g/dL Albumin (3.2-5.2) g/dL Globulin (2-4) g/dL Albumin/Globulin Ratio (1-3) TSH (0.34-5.60) mcIU/mL Urine Color Yellow Urine Appearance Clear Urine pH 7.0 (5-9) Ur Specific [place] 1.010 (1.010-1.030) Urine Protein Negative (Negative) Urine Ketones Negative (Negative) Urine Blood Negative (Negative) Urine Nitrate Negative (Negative) Urine Bilirubin Negative (Negative) Urine Urobilinogen Negative (Negative) Ur Leukocyte Esterase Negative (Negative) Urine Glucose Negative (Negative) Result Diagrams: 12/18/17 09:20 12/18/17 09:20 Lab Statement: Any lab studies that have been ordered have been reviewed, and results considered in the medical decision making process. - EKG 09:07 Cardiac Rate: NL EKG Rhythm: Sinus Rhythm - at 67 bpm EKG Interpretation: No ST elevation. EKG Comparison: No Significant Change - similar to prior EKG on 11/24/17. Re-Evaluation - Re-Evaluation First Eval Re-Evaluation Time: 12:34 Comment: I discussed with the pt that he has a bed assignment at [facility]. Course/Dx - Course Assessment/Plan: This pt is a 77 y/o male, accompanied by his daughter, presenting to [facility] c/o palpitations since this morning. Pt reports he has had multiple episodes of ventricular tachycardia since approximately 07:30 this morning. He denies any chest pain, SOB. Pt notes his ICD pacemaker was placed in February 2017. He states he called Dr. Amos and advised him to come to the ED for ventricular tachycardia and be transferred to [facility]. Pt reports he has seen Dr. Solange Olmedo at [facility]. Pt states he had been admitted twice before to [facility] for the same, ventricular tachycardia. Test results without any significant abnormalities except for glucose of 185. The pt is having intermittent frequent ventricular tachycardia episodes captured in the ICD and by his signal repairer at [facility], Dr. Solange Olmedo, the pt is unable to take amiodarone due to an allergy. Pt is already in 2 antiarrhythmics and has failed twice to ablations. At this time I discussed the case with Dr. Amos who strongly recommends for the pt to be transferred to pt supervisor farm equipment maintenance signal repairer in [facility]. I discussed the test results and findings with Dr. Cali, from [facility], who accepted the pt for transfer. At this point, the pt is hemodynamically stable, alert and oriented x3. - Diagnoses Differential Diagnosis/HQI/PQRI: Positive: Paroxymal SVT, V-Tach Provider Diagnoses: Episodes of ventricular tachycardia - Physician Notifications Discussed Care Of Patient With: Olga Amos Time Discussed With Above Provider: 09:31 Instructed by Provider To: Other - I discussed pt care with Dr. Amos, signal repairer, who reports the pt needs to be transferred to his signal repairer in [facility], Dr. Solange Olmedo. [10:22] I spoke with Dr. Cali, [facility], who accepted the pt for transfer. Discharge - Discharge Plan Condition: Stable Disposition: TRANS HIGHER LVL OF CARE FAC Discharge Disposition Comment: [facility] Referrals: Pam Perea MD [Primary Care Provider] - The documentation as recorded by the Stephen levi Angela accurately reflects the service I personally performed and the decisions made by me, Danilo Brunner MD.
[2017-12-18 15:53] VITALS: BP 133/76
== END 2017-12-18 15:50 | disposition short-term general hospital (02) ==
LOC: ED 08:43
DX: I47.2 Ventricular tachycardia (principal); I25.10 Atherosclerotic heart disease of native coronary artery without angina pectoris; Z86.79 Personal history of other diseases of the circulatory system; Z87.891 Personal history of nicotine dependence
CPT/HCPCS: 36415; 80053; 81003; 82550; 82553; 83605; 83880; 84443; 84484; 85025; 85610; 85730; 93005; 96360; 99285

== ENCOUNTER 2018-01-02 11:13 | Inpatient (IN) | payer MEDICARE, OTHER ==
[2018-01-02 12:07] LABS: ABS Basophils 0 10^3/ul (0-0.2); ABS Eosinophils 0.3 10^3/ul (0-0.6); ABS Lymphocytes 2.2 10^3/ul (1.0-4.8); ABS Monocytes 0.6 10^3/ul (0-0.8); ABS Neutrophils 3.6 10^3/ul (1.5-7.7); ABS Nucleated RBC 0 10^3/ul; Eosinophil % 5.1 % (0-6); Hematocrit 44 % (42-52); Lymphocyte % 32.7 % (25-47); Mean Corpuscular HGB Conc 34 g/dl (31-36); Mean Corpuscular Hemoglobin 32 pg (27-31); Mean Corpuscular Volume 94 fL (80-94); Mean Platelet Volume 9.2 um3 (7.4-10.4); Nucleated Red Blood Cells % 0.1; Platelet Count 148 10^3/ul (150-450); Red Cell Distribution Width 14 % (10.5-15); White Blood Count 6.8 10^3/ul (3.5-10.8)
[2018-01-02 12:25] LABS: EGFR Non-African American 66.5 (>60)
[2018-01-02 16:51] LABS: Urine Appearance Clear; Urine Blood Negative (Negative); Urine Color Yellow; Urine Ketones Negative (Negative); Urine Protein Negative (Negative); Urine Specific Gravity 1.011 (1.010-1.030); Urine Urobilinogen Negative (Negative)
--- NOTE | 2018-01-02 17:47 | CONS ---
CC: Dr. Solange Olmedo; Pam Perea MD EMERGENCY DEPARTMENT CONSULTATION and ADMISSION H+P DATE OF CONSULT: 01/02/18 REASON FOR CONSULT: Ventricular tachycardia. CHIEF COMPLAINT: Dizziness. HISTORY OF PRESENT ILLNESS: Mr. Calvo is a very nice 77-year-old gentleman who I have followed for many years with atherosclerotic heart disease and old inferior wall [place], preserved LV systolic function, but a history of ventricular tachycardia and ICD. Around the of the year 2017, the patient developed intermittent dizziness and was found to have monomorphic ventricular tachycardia. He has been tried on propafenone and then sotalol and then higher dose sotalol plus beta-jazmine for difficult to control ventricular tachycardia. He was referred to Electrophysiology (Dr. Solange Olmedo, [facility]), who agreed that the ventricular tachycardia would be a good candidate for ablation, but because of prior IVC filter it would be technically difficult. The patient had initially done well on sotalol 160 b.i.d. and metoprolol 25 mg a day, but this morning while he was making soup, he developed dizziness and he literally could not even stand up without feeling dizzy. We interrogated his defibrillator in the emergency department and found that starting around 5 o'clock this morning until 11 this morning, he was having either constant or recurrent intermittent episodes of monomorphic ventricular tachycardia with rates between 137 to 142 beats a minute. His programming was to deliver therapy at 150 beats per minute or higher (monitoring at 134 beats a minute to 149 beats a minute). The patient denies any chest pain, shortness of breath, any exogenous substances such as alcohol or caffeine and activity was low level just trying to make soup. PAST MEDICAL HISTORY: The patient has a past medical history of: 1. Coronary artery disease, bypass surgery in 1998. 2. Ischemic cardiomyopathy, focal area of inferior wall akinesis, ejection fraction in 2017 of 50% to 55%. 3. 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 4. Heparin-induced thrombocytopenia in 1998, post CABG. 5. COPD. 6. Hypertension. 7. Dyslipidemia. 8. Pulmonary embolism in 1998, post CABG. 9. Ulcerative proctitis in 2003. 10. Type 2 diabetes. 11. Ulcerative colitis. 12. Right bundle branch block. 13. Lung tumor. 14. Basal cell carcinoma. PAST SURGICAL HISTORY: Includes: 1. Bypass surgery in 1998. 2. IVC filter in 1998. 3. Defibrillator. 4. Right ankle ORIF. 5. Facial reconstruction. MEDICATIONS: Current outpatient medications include: 1. Sotalol 160 mg b.i.d. 2. Metoprolol 25 mg a day. 3. Gaviscon Chew tab 2 tabs q.h.s. 4. Fluticasone nasal spray 2 sprays daily p.r.n. 5. Bydureon 2 mg subcu weekly. 6. Nexium 20 mg a day. 7. Actos 30 mg a day. 8. Glipizide 10 mg b.i.d. 9. Magnesium oxide 400 mg b.i.d. 10. Atorvastatin 20 mg a day. 11. Enteric-coated aspirin 81 mg a day. ALLERGIES: Include HEPARIN (HIT in 1998, clot seen on right ventricle on echo) . Other allergies include CIPRO, CLARITHROMYCIN, and SULFA. FAMILY HISTORY: Significant that his father had coronary artery disease and carotid disease. Both parents in their 70s. SOCIAL HISTORY: The patient is , nonsmoker, nondrinker. Had a daughter in the room with him. REVIEW OF SYSTEMS: Negative for recent fevers, chills, sweats, change in bowel or bladder habits. No orthopnea, no PND, and no chest pain. No exogenous ingestions. All other review of systems were unremarkable. PHYSICAL EXAM: On exam, the patient is 5 feet 9 inches, weighs 198 pounds with a BMI of 29. Vitals: Blood pressure 151/67, pulse of 73, sinus rhythm, oxygen saturation 97% on room air, and temperature 97.7. General Appearance: Centripetally overweight older gentleman, lying at 45 degrees, appears comfortable, present with his and daughter. Psychologically, pleasant and cooperative. Neurologically, awake, alert and oriented to person, place and time. Cranial nerves II through XII intact. Grossly normal sensory and motor function of the upper and lower extremities. Gait not checked, but moves well in the bed. Skin: Defibrillator pocket in the left intact. Midline sternotomy scar is well healed. No appreciable cyanosis. HEENT: Pupils were equal and round. Mucous membranes moist. Neck: Without increased JVP appreciated. Good carotid pulses and no lymphadenopathy or thyromegaly. Lungs were clear with good effort. No wheezes, rales, or rhonchi. Coronary: S1, S2, regular without murmurs or rubs. Abdomen: Overweight, active bowel sounds, soft, nontender. No hepatosplenomegaly or masses. Lower extremities were warm and free of edema. DIAGNOSTIC STUDIES/LAB DATA: ICD interrogation confirmed he has a Susanna Gallo [id number] ICD, serial #[id number]. This revealed battery life of over 5 years, vannessa programming with VVI at 40 beats a minute, tachy programming was VT1 monitor only 134 to 149 beats per minute, VT2 150 to 199 beats per minute for ATP x3 followed by sequential shocks and the VF zone is 200 beats per minute or greater with ATP x1 followed by sequential shocks. The patient had 38 episodes in the VT1 (monitor) zone and 2 in the VT zone for which he received appropriate ATP. Intracardiac electrocardiograms were reviewed and do show monomorphic wide complex rhythm consistent with ventricular tachycardia with a cycle length of approximately 400 milliseconds in the VT1 zone. Labs show white count 6.8, hemoglobin 15, platelets 148,000. Sodium 135, potassium 4.3, chloride 103, bicarb 23, BUN 21, creatinine 1.08, glucose 206, lactic acid 2.0, magnesium 2.0, ALT of 25. Troponin 0.00. TSH 3.01. A 12-lead ECG shows normal sinus rhythm, 64 beats per minute with a right bundle branch block, inverted T-waves V1 through V4, flattened T-waves in the lateral leads V5 and V6, and flattened inverted T-waves in the inferior leads. He has Q's noted in leads III and aVF. His QT interval is 498 milliseconds. When this EKG is compared with his ECG of 12/18/17, the right bundle branch block is new and the ST and T-wave changes are new. IMPRESSION AND PLAN: In summary, Mr. Calvo is a 77-year-old gentleman with an inferior wall scar and monomorphic ventricular tachycardia, which for the last 3 months has been not able to be optimally managed with medical management. He now presents with recurrent monomorphic ventricular tachycardia at a lower rate , which I feel is likely due to a combination of increased sotalol dose and addition of metoprolol. The patient's device is working well, but not programmed to deliver therapy at the ventricular tachycardic rates he was having. For the ventricular tachycardia and defibrillator, I reprogrammed the device for the monitor zone to occur from 120 to 129 beats per minute. The VT zone that delivers therapy will be from 130 to 214 beats per minute and then it will hit the VF zone. Additionally, his corrected QT interval is a bit longer, although this includes the right bundle branch block. I feel the patient does need VT ablation and communicated this to the patient and his and his daughter. His daughter expressed her frustration and anxiety over this problem not being stabilized to date, over my using the assistance of the [employer] technical product manager for reprogramming and she said she is very frustrated that I brought up ablation again because her impression was that this was not at all an option based on a recent [place] admission. I spent 30 minutes with the patient and his family reviewing the complexity of dysrhythmia in devices and multiple variations between companies and within companies and hence the industry standard to have technical commercial representative available to physicians 30/04 and that this was not an uncommon practice. I also explained that as we have reached the limits of our medical management that we needed to revisit the option of ventricular tachycardic ablation even if the approach would need to be nonstandard, either from the vessels in the upper part of the body or surgical approach. After this, I conferred with Dr. Olmedo, who felt he needed ablation and that it would entail a complex evaluation including a KYLE to examine the aorta as well as Hematology evaluation to allow for recommendations on anticoagulation during and after the procedure that would be safe for the patient with his history of heparin- induced thrombocytopenia. Potential options would be elective admission to [facility] for ablation next week versus transfer to [place] and initiate the above workup. After discussion with Dr. Olmedo and [place] [facility] center, the current plan is to admit to [facility] with the aim of transfer to [place] when a bed is available, possibly tomorrow. Additional recommendations will be made pending his clinical course and any other communications with Electrophysiology. Thank you for allowing me to assist in this nice, but complex gentleman's care. [id number]/[facility] #: [id number] KENNETH
[2018-01-02] MEDS ORDERED: Fluticasone NASAL SPRAY 50MCG* 16 gm SPRAY BTL BOTH NARES PRN (18:46)
[2018-01-02] MEDS ORDERED: Acetaminophen TAB* 325 MG PO ONE (18:53)
[2018-01-02] MEDS: Metoprolol Succinate XL TAB* 25 MG PO SCH (19:19)
--- NOTE | 2018-01-02 19:52 | ED ---
Minh Fernando Julia, scribed for Garo Conway on 01/02/18 at 1156 . Syncope/Near Syncope - HPI Summary HPI Summary: This patient is a 77 year old M presenting to [facility] with a chief complaint of intermittent near syncopal episodes lasting a few minutes occurring about times today. Patient states episodes have been gradually increasing in frequency for months. Patient reports SOB and dizziness with these episodes. Patient reports current headache, rating the pain 8/10 in severity. Patient denies LOC, CP, and lower extremity edema. He states he has been here previously for similar symptoms. - History Of Current Complaint Chief Complaint: EDChestPainROMI Time Seen by Provider: 01/02/18 11:41 Hx Obtained From: Patient Onset/Duration: Gradual Onset, Other - months Timing: Intermittent Episode Lasting - a few minutes Associated Head Trauma: No Associated Signs And Symptoms: Dizzy, Shortness Of Breath, Other - headache - Allergies/Home Medications Allergies/Adverse Reactions: Allergies Allergy/AdvReac Type Severity Reaction Status Date / Time heparin Allergy Severe Bleeding Verified 01/02/18 11:53 ciprofloxacin Allergy Unknown Unknown Verified 01/02/18 11:53 Reaction Details clarithromycin Allergy Unknown Verified 01/02/18 11:53 Reaction Details iodine Allergy Unknown Verified 01/02/18 11:53 Reaction Details mesalamine Allergy Unknown Verified 01/02/18 11:53 Reaction Details sulfamethoxazole Allergy Unknown Verified 01/02/18 11:53 [From Bactrim] Reaction Details trimethoprim [From Bactrim] Allergy Unknown Verified 01/02/18 11:53 Reaction Details Home Medications: Home Medications Esomeprazole(NF) [NEXium(NF)] 20 mg PO DAILY 01/02/18 [History Confirmed ] Metoprolol Succinate XL TAB* [Toprol XL TAB*] 25 mg PO DAILY 01/02/18 [History Confirmed 01/02/18] Sotalol TAB* [Betapace 80 MG TAB*] 160 mg PO BID 01/02/18 [History Confirmed ] PMH/Surg Hx/FS Hx/Imm Hx Endocrine/Hematology History: Reports: Hx Blood Transfusions, Hx Diabetes Denies: Hx Thyroid Disease Cardiovascular History: Reports: Hx Angina, Hx Cardiac Arrest, Hx Coronary Artery Disease, Hx Hypercholesterolemia, Hx Hypertension, Hx Myocardial Infarction, Hx Pacemaker/ICD Denies: Hx Valvular Heart Disease Respiratory History: Reports: Hx Asthma, Hx Pulmonary Embolism - Right lung, Hx Seasonal Allergies, Other Respiratory Problems/Disorders - 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 Denies: Hx Chronic Obstructive Pulmonary Disease (COPD) GI History: Reports: Hx Gastroesophageal Reflux Disease, Hx Ulcer Musculoskeletal History: Reports: Hx Arthritis, Hx Back Problems Sensory History: Reports: Hx Contacts or Glasses Denies: Hx Hearing Aid Opthamlomology History: Reports: Hx Contacts or Glasses Neurological History: Reports: 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 RIGHT SIDE FACE RECONSTRUCTED. RIGHT ANKLE RECONSTRUCTION - Immunization History Date of Influenza Vaccine: Fall 2015 Infectious Disease History: No Infectious Disease History: Reports: Hx Shingles Denies: Hx Hepatitis, Hx Human Immunodeficiency Virus (HIV), Hx of Known/ Suspected MRSA, Hx Known/Suspected VRE, Traveled Outside the [place] in Last 30 Days - Family History Known Family History: Positive: Cardiac Disease - father (70 y/o) - Social History Alcohol Use: None Hx Substance Use: No Substance Use Type: Reports: None Hx Tobacco Use: Yes Smoking Status (MU): Former Smoker Have You Smoked in the Last Year: No Review of Systems Negative: Chest Pain Positive: Shortness Of Breath Negative: Edema Neurological: Other - dizziness Positive: Headache, Syncope - near All Other Systems Reviewed And Are Negative: Yes Physical Exam - Summary Physical Exam Summary: Appearance: Well appearing, no pain distress Skin: warm, dry, reflects adequate perfusion Head/face: normal Eyes: EOMI, ALETHEA ENT: normal Neck: supple, non-tender Respiratory: CTA, breath sounds present Cardiovascular: RRR, pulses symmetrical Abdomen: non-tender, soft Bowel: present Musculoskeletal: normal, strength/ROM intact Neuro: normal, sensory motor intact, A&Ox3 Triage Information Reviewed: Yes Vital Signs On Initial Exam: Initial Vitals Temp Pulse Resp BP Pulse Ox 97.7 F 73 22 151/67 97 01/02/18 11:14 01/02/18 11:14 01/02/18 11:14 01/02/18 11:14 01/02/18 11:14 Vital Signs Reviewed: Yes Diagnostics - Vital Signs Vital Signs Temp Pulse Resp BP Pulse Ox 01/02/18 11:14 97.7 F 73 22 151/67 97 - Laboratory Result Diagrams: 01/02/18 11:34 01/02/18 11:34 Lab Statement: Any lab studies that have been ordered have been reviewed, and results considered in the medical decision making process. - EKG 1140 Cardiac Rate: NL - at 64 BPM EKG Rhythm: Sinus Rhythm EKG Interpretation: RBBB, no new changes Course/Dx Course Of Treatment: Patient present c/o intermittent near syncopal episodes lasting a few minutes occurring about times today. Patient states episodes have been gradually increasing in frequency for months. Patient reports SOB and dizziness with these episodes. EKG reveals no significant changes from previous EKGs. Patient is given Tylenol and Metoporol. Bloodwork is WNL. Dr. Amos reviewed pt's case and agrees to admit patient. - Diagnoses Differential Diagnosis/HQI/PQRI: Positive: Coronary Artery Disease, Dysrhythmia , Myocardial Infarction, Vasovagal Episode Provider Diagnoses: Dizziness, History of ventricular tachycardia - Critical Care Time Critical Care Time: 30-74 min Discharge - Sign-Out/Discharge Documenting (check all that apply): Discharge - Discharge Plan Condition: Stable Disposition: ADMITTED TO [facility] Referrals: Pam Perea MD [Primary Care Provider] - - Billing Disposition and Condition Condition: STABLE [place] [facility] [place] Consult: at 13:20 Dr. Amos, senior industrial engineer, states she will call back after reviewing reports. At 18:00, Dr. Amos agrees to admit patient. The documentation as recorded by the Minh levi Julia accurately reflects the service I personally performed and the decisions made by , Garo Conway.
[2018-01-02] MEDS: glipiZIDE TAB* 5 MG PO SCH (20:36)
[2018-01-02] MEDS: Magnesium Oxide TAB* 400 MG PO SCH (20:37)
[2018-01-02] MEDS: Sotalol TAB* 80 MG PO SCH (20:42)
[2018-01-02] MEDS ORDERED: Gaviscon CHEW TAB* 1 TAB PO SCH (21:00)
[2018-01-03] MEDS ORDERED: Omeprazole CAP* 20 MG PO SCH (09:00)
[2018-01-03] MEDS ORDERED: Atorvastatin* 20 MG TAB PO SCH (09:00)
[2018-01-03] MEDS ORDERED: Pioglitazone TAB* 30 MG PO SCH (09:00)
[2018-01-03] MEDS ORDERED: Aspirin EC TAB* 81 MG TAB.EC PO SCH (09:00)
[2018-01-03] MEDS: Sotalol TAB* 80 MG PO SCH (09:09)
[2018-01-03] MEDS: Magnesium Oxide TAB* 400 MG PO SCH (09:10)
[2018-01-03] MEDS: Metoprolol Succinate XL TAB* 25 MG PO SCH (09:10)
[2018-01-03] MEDS: glipiZIDE TAB* 5 MG PO SCH (09:10)
--- NOTE | 2018-01-03 12:17 | PN ---
Subjective Date of Service: 01/03/18 - CC: dizzy Interval History: The patient has had some lightheaded spells, otherwise stable. PVC's and PAC's on monitor. No VT. Medications Active Medications: Al Hydroxide/Mg Trisilicate (Gaviscon Chew Tab*) 2 tab.chew PO BEDTIME [facility] Last Admin: 01/02/18 20:42 Dose: 2 tab.chew Aspirin (Aspirin Ec Low Dose*) 81 mg PO DAILY [facility] Last Admin: 01/03/18 09:10 Dose: 81 mg Atorvastatin Calcium (Lipitor*) 20 mg PO DAILY [facility] Last Admin: 01/03/18 09:10 Dose: 20 mg Exenatide (Bydureon (Nf)) 2 mg SUBCUT WEEKLY [facility] Fluticasone Propionate (Flonase Nasal [place] 50mcg*) 2 spray BOTH NARES DAILY PRN PRN Reason: CONGESTION Last Admin: 01/03/18 09:09 Dose: 2 spray Glipizide (Glucotrol Tab*) 10 mg PO BID [facility] Last Admin: 01/03/18 09:10 Dose: 10 mg Magnesium Oxide (Magox 400 Tab*) 400 mg PO BID [facility] Last Admin: 01/03/18 09:10 Dose: 400 mg Metoprolol Succinate (Toprol Xl Tab*) 25 mg PO DAILY [facility] Last Admin: 01/03/18 09:10 Dose: 25 mg Omeprazole (Prilosec Cap*) 20 mg PO DAILY [facility] PRN Reason: Protocol Last Admin: 01/03/18 09:10 Dose: 20 mg Pioglitazone HCl (Actos Tab*) 30 mg PO DAILY [facility] Last Admin: 01/03/18 09:09 Dose: 30 mg Sotalol HCl (Betapace Tab*) 160 mg PO BID [facility] Last Admin: 01/03/18 09:09 Dose: 160 mg Objective Vital Signs: Temp Pulse Resp BP Pulse Ox 98.0 F 64 16 119/65 97 01/03/18 07:25 01/03/18 07:25 01/03/18 08:00 01/03/18 07:25 01/03/18 07:25 Oxygen Devices in Use Now: None Appearance: older gentleman, no distress, seated with . Eyes: No Scleral Icterus, PERRLA Ears/Nose/Mouth/Throat: NL Teeth, Lips, Gums, Clear Oropharnyx, Mucous Membranes Moist Neck: NL Appearance and Movements; NL JVP, No Thyroid Enlargement, Masses Respiratory: Symmetrical Chest Expansion and Respiratory Effort, Clear to Auscultation Cardiovascular: RRR Abdominal: NL Sounds; No Tenderness; No Distention Lymphatic: No Cervical Adenopathy Extremities: No Edema, No Clubbing, Cyanosis Skin: No Rash or Ulcers - ICD pocket L. unremarkable. Neurological: Alert and Oriented x 3, NL Muscle Strength and Tone Lines/Tubes/Other Access: Clean, Dry and Intact Peripheral IV Laboratory Results: Total Bilirubin 0.60 mg/dL (0.2-1.0) 01/02/18 11:34 AST 21 U/L (13-39) 01/02/18 11:34 ALT 25 U/L (7-52) 01/02/18 11:34 Alkaline Phosphatase 98 U/L (34-104) 01/02/18 11:34 Total Protein 7.1 g/dL (6.4-8.9) 01/02/18 11:34 Albumin 4.0 g/dL (3.2-5.2) 01/02/18 11:34 Globulin 3.1 g/dL (2-4) 01/02/18 11:34 Albumin/Globulin Ratio 1.3 (1-3) 01/02/18 11:34 TSH 3.01 mcIU/mL (0.34-5.60) 01/02/18 11:34 01/02/18 01/03/18 01/03/18 20:33 00:36 04:54 Troponin I 0.00 0.01 0.01 Lab Results 01/02/18 01/02/18 01/02/18 Range/Units 11:34 11:34 11:34 WBC 6.8 (3.5-10.8) 10^3/ul RBC 4.70 (4.0-5.4) 10^6/ul Hgb 15.0 (14.0-18.0) g/dl Hct 44 (42-52) % MCV 94 (80-94) fL MCH 32 H (27-31) pg MCHC 34 (31-36) g/dl RDW 14 (10.5-15) % Plt Count 148 L (150-450) 10^3/ul MPV 9.2 (7.4-10.4) um3 Neut % (Auto) 52.7 (38-83) % Lymph % (Auto) 32.7 (25-47) % [place] % (Auto) 8.8 H (0-7) % Eos % (Auto) 5.1 (0-6) % Baso % (Auto) 0.7 (0-2) % Absolute Neuts (auto) 3.6 (1.5-7.7) 10^3/ul Absolute Lymphs (auto) 2.2 (1.0-4.8) 10^3/ul Absolute Monos (auto) 0.6 (0-0.8) 10^3/ul Absolute Eos (auto) 0.3 (0-0.6) 10^3/ul Absolute Basos (auto) 0 (0-0.2) 10^3/ul Absolute Nucleated RBC 0 10^3/ul Nucleated RBC % 0.1 Sodium 135 L (139-145) mmol/L Potassium 4.3 (3.5-5.0) mmol/L Chloride 103 (101-111) mmol/L Carbon Dioxide 23 (22-32) mmol/L Anion Gap 9 (2-11) mmol/L BUN 21 (6-24) mg/dL Creatinine 1.08 (0.67-1.17) mg/dL Est GFR ( Amer) 85.5 (>60) Est GFR (Non-Af Amer) 66.5 (>60) BUN/Creatinine Ratio 19.4 (8-20) Glucose 206 H (70-100) mg/dL Lactic Acid 2.0 (0.5-2.0) mmol/L Calcium 9.7 (8.6-10.3) mg/dL Magnesium 2.0 (1.9-2.7) mg/dL Total Bilirubin 0.60 (0.2-1.0) mg/dL AST 21 (13-39) U/L ALT 25 (7-52) U/L Alkaline Phosphatase 98 (34-104) U/L Troponin I 0.00 (<0.04) ng/mL Total Protein 7.1 (6.4-8.9) g/dL Albumin 4.0 (3.2-5.2) g/dL Globulin 3.1 (2-4) g/dL Albumin/Globulin Ratio 1.3 (1-3) TSH 3.01 (0.34-5.60) mcIU/mL Urine Color Urine Appearance Urine pH (5-9) Ur Specific [place] (1.010-1.030) Urine Protein (Negative) Urine Ketones (Negative) Urine Blood (Negative) Urine Nitrate (Negative) Urine Bilirubin (Negative) Urine Urobilinogen (Negative) Ur Leukocyte Esterase (Negative) Urine Glucose (Negative) 01/02/18 01/02/18 01/03/18 Range/Units 16:42 20:33 00:36 WBC (3.5-10.8) 10^3/ul RBC (4.0-5.4) 10^6/ul Hgb (14.0-18.0) g/dl Hct (42-52) % MCV (80-94) fL MCH (27-31) pg MCHC (31-36) g/dl RDW (10.5-15) % Plt Count (150-450) 10^3/ul MPV (7.4-10.4) um3 Neut % (Auto) (38-83) % Lymph % (Auto) (25-47) % [place] % (Auto) (0-7) % Eos % (Auto) (0-6) % Baso % (Auto) (0-2) % Absolute Neuts (auto) (1.5-7.7) 10^3/ul Absolute Lymphs (auto) (1.0-4.8) 10^3/ul Absolute Monos (auto) (0-0.8) 10^3/ul Absolute Eos (auto) (0-0.6) 10^3/ul Absolute Basos (auto) (0-0.2) 10^3/ul Absolute Nucleated RBC 10^3/ul Nucleated RBC % Sodium (139-145) mmol/L Potassium (3.5-5.0) mmol/L Chloride (101-111) mmol/L Carbon Dioxide (22-32) mmol/L Anion Gap (2-11) mmol/L BUN (6-24) mg/dL Creatinine (0.67-1.17) mg/dL Est GFR ( Amer) (>60) Est GFR (Non-Af Amer) (>60) BUN/Creatinine Ratio (8-20) Glucose (70-100) mg/dL Lactic Acid (0.5-2.0) mmol/L Calcium (8.6-10.3) mg/dL Magnesium (1.9-2.7) mg/dL Total Bilirubin (0.2-1.0) mg/dL AST (13-39) U/L ALT (7-52) U/L Alkaline Phosphatase (34-104) U/L Troponin I 0.00 0.01 (<0.04) ng/mL Total Protein (6.4-8.9) g/dL Albumin (3.2-5.2) g/dL Globulin (2-4) g/dL Albumin/Globulin Ratio (1-3) TSH (0.34-5.60) mcIU/mL Urine Color Yellow Urine Appearance Clear Urine pH 7.0 (5-9) Ur Specific [place] 1.011 (1.010-1.030) Urine Protein Negative (Negative) Urine Ketones Negative (Negative) Urine Blood Negative (Negative) Urine Nitrate Negative (Negative) Urine Bilirubin Negative (Negative) Urine Urobilinogen Negative (Negative) Ur Leukocyte Esterase Negative (Negative) Urine Glucose 1+(50 mg/dl) A (Negative) 01/03/18 Range/Units 04:54 WBC (3.5-10.8) 10^3/ul RBC (4.0-5.4) 10^6/ul Hgb (14.0-18.0) g/dl Hct (42-52) % MCV (80-94) fL MCH (27-31) pg MCHC (31-36) g/dl RDW (10.5-15) % Plt Count (150-450) 10^3/ul MPV (7.4-10.4) um3 Neut % (Auto) (38-83) % Lymph % (Auto) (25-47) % [place] % (Auto) (0-7) % Eos % (Auto) (0-6) % Baso % (Auto) (0-2) % Absolute Neuts (auto) (1.5-7.7) 10^3/ul Absolute Lymphs (auto) (1.0-4.8) 10^3/ul Absolute Monos (auto) (0-0.8) 10^3/ul Absolute Eos (auto) (0-0.6) 10^3/ul Absolute Basos (auto) (0-0.2) 10^3/ul Absolute Nucleated RBC 10^3/ul Nucleated RBC % Sodium (139-145) mmol/L Potassium (3.5-5.0) mmol/L Chloride (101-111) mmol/L Carbon Dioxide (22-32) mmol/L Anion Gap (2-11) mmol/L BUN (6-24) mg/dL Creatinine (0.67-1.17) mg/dL Est GFR ( Amer) (>60) Est GFR (Non-Af Amer) (>60) BUN/Creatinine Ratio (8-20) Glucose (70-100) mg/dL Lactic Acid (0.5-2.0) mmol/L Calcium (8.6-10.3) mg/dL Magnesium (1.9-2.7) mg/dL Total Bilirubin (0.2-1.0) mg/dL AST (13-39) U/L ALT (7-52) U/L Alkaline Phosphatase (34-104) U/L Troponin I 0.01 (<0.04) ng/mL Total Protein (6.4-8.9) g/dL Albumin (3.2-5.2) g/dL Globulin (2-4) g/dL Albumin/Globulin Ratio (1-3) TSH (0.34-5.60) mcIU/mL Urine Color Urine Appearance Urine pH (5-9) Ur Specific [place] (1.010-1.030) Urine Protein (Negative) Urine Ketones (Negative) Urine Blood (Negative) Urine Nitrate (Negative) Urine Bilirubin (Negative) Urine Urobilinogen (Negative) Ur Leukocyte Esterase (Negative) Urine Glucose (Negative) EKG Data: Monitor: PAC's and PVC's. 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 Has IVC filter still in. Hx MM VT and ICD. Since October pt c/o dizzy spells and due to MM VT. Has been on propafanone and Sotalol and metoprolol and breaking through. Not a candidate for amioddarone with iodine allergy. Yesterday more VT that did not get therapy as rate was below the programmed rate for therapy. The device was reprogrammed yesterday. No further VT since admission. Plan: Continue current medications. Needs VT ablation, complex procedure due to IVC filter, hx HIT and need to approach from above and possibly aorta and venous access. Dr. Solange Olmedo at [facility] () has accepted the patient in transfer, awaiting a bed.
[2018-01-03 15:05] VITALS: BP 122/79
--- NOTE | 2018-01-04 07:58 | DS ---
CC: Dr. Solange Olmedo; Pam Perea MD. DISCHARGE SUMMARY: DATE OF ADMISSION: 01/02/18 DATE OF DISCHARGE: Yet to be determined, anticipated 01/03/18 or 01/04/18. HISTORY OF PRESENT ILLNESS: See detailed H and P. The patient is a 77-year-old gentleman with an ol d inferior wall myocardial infarction and focal scar with a history of monomorphic ventricular tachyc ardia with AICD. The patient did well with medical management until October of this year when he began having lighthea dedness and syncopal and near-syncopal episodes, and was found to have monomorphic ventricular tachyc ardia. He has been treated with propafenone and converted to sotalol, and doses of sotalol have been increased and beta-jazmine added. But yesterday, he presented with recurrent dizziness and near syn cope, and was found to have again have prolonged recurrent episodes of monomorphic ventricular tachyc ardia between 5:00 a.m. and 11:00 a.m., at rates that were lower than the rates programmed for therap y on his defibrillator. The defibrillator was re-programmed to deliver therapy for ventricular tachycardia rates as low as 13 0 beats a minute and faster, and he was left on his current medications. The patient ruled out for myocardial infarction. Electrolytes were checked and found to be good and stable. Discussion were had with the patient's board mixer tender, Dr. Solange Olmedo, about additional managemen t issues for his ventricular ectopy. 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 The current plan is to transfer the patient to [place] for VT ablation using a superior approach, and may well anticipate transesophageal echo to look at his aorta for plaque and hematology evaluation fo r appropriate anticoagulation periprocedurally for this patient. Today, the patient is feeling well; see the progress note. Vital signs are stable, and he is having PVCs and PACs, but no sustained dysrhythmias. The patient will be discharged on current medications: 1. Gaviscon two tablets p.o. q.h.s. 2. Aspirin 81 mg a day. 3. Lipitor 20 mg a day. 4. Bydureon 2 mg subcu weekly. 5. Flonase propionate 50 mcg two sprays p.r.n. congestion. 6. Glipizide 10 mg p.o. b.i.d. 7. Magnesium oxide 400 mg p.o. b.i.d. 8. Toprol XL 25 mg a day. 9. Pioglitazone 30 mg a day. 10. Sotalol 160 mg b.i.d. [id number]/[id number] #: [id number]
[2018-01-06] MEDS ORDERED: EXENATIDE 2 MG SUBCUT SCH (09:00)
== END 2018-01-03 17:55 | disposition short-term general hospital (02) | DRG 309 ==
LOC: ED 11:13 → MEDTELE 18:37
PROVIDERS: ADMIT Specialist; ATTEND Specialist
PROC: 4B02XTZ Measurement of Cardiac Defibrillator, External Approach (ICD-10-PCS; principal; 2018-01-03)
DX: I47.2 Ventricular tachycardia (principal); K51.90 Ulcerative colitis, unspecified, without complications; E11.9 Type 2 diabetes mellitus without complications; I25.10 Atherosclerotic heart disease of native coronary artery without angina pectoris; E78.00 Pure hypercholesterolemia, unspecified; K21.9 Gastro-esophageal reflux disease without esophagitis; M19.90 Unspecified osteoarthritis, unspecified site; F32.9 Major depressive disorder, single episode, unspecified; I10 Essential (primary) hypertension; I25.5 Ischemic cardiomyopathy; J44.9 Chronic obstructive pulmonary disease, unspecified; I49.3 Ventricular premature depolarization; R55 Syncope and collapse; I49.1 Atrial premature depolarization; I45.10 Unspecified right bundle-branch block; Z88.8 Allergy status to other drugs, medicaments and biological substances; Z88.1 Allergy status to other antibiotic agents; Z88.2 Allergy status to sulfonamides; I25.2 Old myocardial infarction; Z86.711 Personal history of pulmonary embolism; Z82.49 Family history of ischemic heart disease and other diseases of the circulatory system; Z87.891 Personal history of nicotine dependence; Z95.1 Presence of aortocoronary bypass graft; Z86.718 Personal history of other venous thrombosis and embolism; Z95.810 Presence of automatic (implantable) cardiac defibrillator; Z79.82 Long term (current) use of aspirin; Z79.84 Long term (current) use of oral hypoglycemic drugs; Z95.828 Presence of other vascular implants and grafts; Z85.828 Personal history of other malignant neoplasm of skin
CPT/HCPCS: 36415; 80053; 81003; 83605; 83735; 84443; 84484; 85025; 93005; 99283; A9270-GY

== ENCOUNTER 2018-01-26 10:47 | Emergency (ER) | payer MEDICARE, OTHER ==
[2018-01-26 12:12] LABS: ABS Basophils 0.1 10^3/ul (0-0.2); ABS Eosinophils 0.2 10^3/ul (0-0.6); ABS Monocytes 0.9 10^3/ul (0-0.8); ABS Neutrophils 8.2 10^3/ul (1.5-7.7); ABS Nucleated RBC 0 10^3/ul; Eosinophil % 1.9 % (0-6); Hematocrit 41 % (42-52); Hemoglobin 13.7 g/dl (14.0-18.0); Lymphocyte % 17.7 % (25-47); Mean Corpuscular HGB Conc 34 g/dl (31-36); Mean Corpuscular Hemoglobin 31 pg (27-31); Mean Corpuscular Volume 92 fL (80-94); Mean Platelet Volume 8.9 um3 (7.4-10.4); Nucleated Red Blood Cells % 0; Platelet Count 160 10^3/ul (150-450); Red Blood Count 4.39 10^6/ul (4.0-5.4); Red Cell Distribution Width 14 % (10.5-15); White Blood Count 11.4 10^3/ul (3.5-10.8)
[2018-01-26 12:18] LABS: INR 0.94 (0.77-1.02)
[2018-01-26 12:29] LABS: EGFR Non-African American 77.1 (>60)
[2018-01-26 13:47] LABS: Urine Appearance Clear; Urine Blood Negative (Negative); Urine Color Yellow; Urine Ketones Negative (Negative); Urine Protein Negative (Negative); Urine Specific Gravity 1.026 (1.010-1.030); Urine Urobilinogen Negative (Negative)
[2018-01-26 15:09] VITALS: BP 143/96
--- NOTE | 2018-01-26 15:41 | ED ---
Yamilex Fernando Thomas, scribed for Kelvin Hawley MD on 01/26/18 at 1159 . Palpitations / Dysrhythmia - HPI Summary HPI Summary: The patient is a 77 year old male presenting to the emergency department after he had several episodes of V-Tach this morning between 09:00 and 10:00. His pacemaker/defibrillator resolved the episodes. He denies chest pain, shortness of breath, cough, cold symptoms, and congestion. He is on Amiodarone and Metoprolol. His metoprolol was increased yesterday from 25 mg to 50 mg. The patient [place] [facility] ago and he was transferred to [place], where an ablation was attempted but not successful. - History of Current Complaint Chief Complaint: EDDysrhythmPalp Time Seen by Provider: 01/26/18 11:10 Hx Obtained From: Patient Onset/Duration: Lasting Minutes, Resolved Timing: Intermittent Episodes Lasting: - episodes over the course of an hour Severity Initially: Moderate Severity Currently: None Character: Fast Aggravating: Nothing Alleviating: Other - Pacemaker defibrillator Related History: Similar Episode/Dx as - prior V-Tach - Allergy/Home Medications Allergies/Adverse Reactions: Allergies Allergy/AdvReac Type Severity Reaction Status Date / Time heparin Allergy Severe Bleeding Verified 01/26/18 11:01 ciprofloxacin Allergy Unknown Unknown Verified 01/26/18 11:01 Reaction Details clarithromycin Allergy Unknown Verified 01/26/18 11:01 Reaction Details iodine Allergy Unknown Verified 01/26/18 11:01 Reaction Details mesalamine Allergy Unknown Verified 01/26/18 11:01 Reaction Details sulfamethoxazole Allergy Unknown Verified 01/26/18 11:01 [From Bactrim] Reaction Details trimethoprim [From Bactrim] Allergy Unknown Verified 01/26/18 11:01 Reaction Details Home Medications: Home Medications Aspirin EC TAB* [Ecotrin EC Low Dose 81 MG*] 81 mg PO DAILY 01/26/18 [History Confirmed 01/26/18] Atorvastatin* [Lipitor*] 40 mg PO DAILY 01/26/18 [History Confirmed 01/26/18] Fluticasone NASAL SPRAY 50MCG* [Flonase NASAL SPRAY 50MCG*] 1 spray BOTH NARES DAILY PRN 01/26/18 [History Confirmed 01/26/18] Magnesium Oxide TAB* [MagOx 400 TAB*] 400 mg PO BID 01/26/18 [History Confirmed 01/26/18] Metoprolol Succinate XL TAB* [Toprol XL TAB*] 50 mg PO DAILY 01/26/18 [History Confirmed 01/26/18] Nitroglycerin TAB 0.4 MG* 0.4 mg SL Q5M PRN 01/26/18 [History Confirmed 01/26/18 ] Omeprazole CAP* [Prilosec CAP* 20 MG] 20 mg PO DAILY 01/26/18 [History Confirmed 01/26/18] Pioglitazone TAB* [Actos TAB*] 30 mg PO DAILY 01/26/18 [History Confirmed ] Sotalol TAB* [Betapace 80 MG TAB*] 160 mg PO BID 01/26/18 [History Confirmed ] glipiZIDE TAB* [Glucotrol TAB*] 10 mg PO BID 01/26/18 [History Confirmed ] PMH/Surg Hx/FS Hx/Imm Hx Endocrine/Hematology History: Reports: Hx Blood Transfusions, Hx Diabetes Denies: Hx Thyroid Disease Cardiovascular History: Reports: Hx Angina, Hx Auto Implanted Cardiovert Defib, Hx Cardiac Arrest, Hx Coronary Artery Disease, Hx Hypercholesterolemia, Hx Hypertension, Hx Myocardial Infarction, Hx Pacemaker/ICD, Hx Syncope, Other Cardiovascular Problems/Disorders - Hx V-Tach Denies: Hx Valvular Heart Disease Respiratory History: Reports: Hx Asthma, Hx Pulmonary Embolism - Right lung, Hx Seasonal Allergies, Other Respiratory Problems/Disorders - 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 Denies: Hx Chronic Obstructive Pulmonary Disease (COPD) GI History: Reports: Hx Gastroesophageal Reflux Disease, Hx Ulcer Musculoskeletal History: Reports: Hx Arthritis, Hx Back Problems Sensory History: Reports: Hx Contacts or Glasses, Hx Hearing Aid Opthamlomology History: Reports: Hx Contacts or Glasses Neurological History: Reports: 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 RIGHT SIDE FACE RECONSTRUCTED. RIGHT ANKLE RECONSTRUCTION. Pacemaker with internal defibrillator placement. CABG. open heart surgery x2 1998. cataract removal - Immunization History Date of Influenza Vaccine: Fall 2015 Infectious Disease History: No Infectious Disease History: Reports: Hx Shingles Denies: Hx Hepatitis, Hx Human Immunodeficiency Virus (HIV), Hx of Known/ Suspected MRSA, Hx Known/Suspected VRE, Traveled Outside the [place] in Last 30 Days - Family History Known Family History: Positive: Cardiac Disease - father (70 y/o) - Social History Alcohol Use: None Hx Substance Use: No Substance Use Type: Reports: None Hx Tobacco Use: Yes Smoking Status (MU): Former Smoker Type: Cigarettes Have You Smoked in the Last Year: No Review of Systems Negative: Fever Negative: Other - congestion, cold symptoms Positive: Palpitations. Negative: Chest Pain Negative: Shortness Of Breath, Cough All Other Systems Reviewed And Are Negative: Yes Physical Exam - Summary Physical Exam Summary: Appearance: The patient is well-nourished in no acute distress and in no acute pain. Skin: The skin is warm and dry and skin color reflects adequate perfusion. HEENT: The head is normocephalic and atraumatic. The pupils are equal and reactive. The conjunctivae are clear and without drainage. Nares are patent and without drainage. Mouth reveals moist mucous membranes and the throat is without erythema and exudate. The external ears are intact. The ear canals are patent and without drainage. The tympanic membranes are intact. Neck: the neck is supple with full range of motion and non-tender. There are no carotid bruits. There is no neck vein distension. Respiratory: Chest is non-tender. Lungs are clear to auscultation and breath sounds are symmetrical and equal. Cardiovascular: Heart is regular rate and rhythm. There is no murmur or rub auscultated. There is no peripheral edema and pulses are symmetrical and equal. Abdomen: The abdomen is soft and non-tender. There are normal bowel sounds heard in all four quadrants and there is no organomegaly palpated. Musculoskeletal: There is no back tenderness noted. Extremities are non-tender with full range of motion. There is good capillary refill. There is no peripheral edema or calf tenderness elicited. Neurological: Patient is alert and oriented to person, place and time. The patient has symmetrical motor strength in all four extremities. Cranial nerves are grossly intact. Deep tendon reflexes are symmetrical and equal in all four extremities. Psychiatric: The patient has an appropriate affect and does not exhibit any anxiety or depression. Triage Information Reviewed: Yes Vital Signs On Initial Exam: Initial Vitals Pulse Resp BP Pulse Ox 68 22 112/68 96 01/26/18 10:53 01/26/18 10:53 01/26/18 10:53 01/26/18 10:53 Vital Signs Reviewed: Yes Diagnostics - Vital Signs Vital Signs Temp Pulse Resp BP Pulse Ox 01/26/18 11:05 70 18 124/72 95 01/26/18 10:56 97.1 F 69 17 112/68 96 01/26/18 10:53 68 22 112/68 96 - Laboratory Lab Results: Lab Results 01/26/18 01/26/18 01/26/18 Range/Units 12:03 12:03 12:03 WBC 11.4 H (3.5-10.8) 10^3/ul RBC 4.39 (4.0-5.4) 10^6/ul Hgb 13.7 L (14.0-18.0) g/dl Hct 41 L (42-52) % MCV 92 (80-94) fL MCH 31 (27-31) pg MCHC 34 (31-36) g/dl RDW 14 (10.5-15) % Plt Count 160 (150-450) 10^3/ul MPV 8.9 (7.4-10.4) um3 Neut % (Auto) 72.4 (38-83) % Lymph % (Auto) 17.7 L (25-47) % Weld % (Auto) 7.5 H (0-7) % Eos % (Auto) 1.9 (0-6) % Baso % (Auto) 0.5 (0-2) % Absolute Neuts (auto) 8.2 H (1.5-7.7) 10^3/ul Absolute Lymphs (auto) 2.0 (1.0-4.8) 10^3/ul Absolute Monos (auto) 0.9 H (0-0.8) 10^3/ul Absolute Eos (auto) 0.2 (0-0.6) 10^3/ul Absolute Basos (auto) 0.1 (0-0.2) 10^3/ul Absolute Nucleated RBC 0 10^3/ul Nucleated RBC % 0 INR (Anticoag Therapy) 0.94 (0.77-1.02) Sodium 134 L (139-145) mmol/L Potassium 4.3 (3.5-5.0) mmol/L Chloride 104 (101-111) mmol/L Carbon Dioxide 23 (22-32) mmol/L Anion Gap 7 (2-11) mmol/L BUN 23 (6-24) mg/dL Creatinine 0.95 (0.67-1.17) mg/dL Est GFR ( Amer) 99.1 (>60) Est GFR (Non-Af Amer) 77.1 (>60) BUN/Creatinine Ratio 24.2 H (8-20) Glucose 292 H (70-100) mg/dL Lactic Acid (0.5-2.0) mmol/L Calcium 9.0 (8.6-10.3) mg/dL Magnesium 2.1 (1.9-2.7) mg/dL Total Bilirubin 0.40 (0.2-1.0) mg/dL AST 18 (13-39) U/L ALT 25 (7-52) U/L Alkaline Phosphatase 114 H (34-104) U/L Troponin I 0.01 (<0.04) ng/mL Total Protein 6.5 (6.4-8.9) g/dL Albumin 3.5 (3.2-5.2) g/dL Globulin 3.0 (2-4) g/dL Albumin/Globulin Ratio 1.2 (1-3) TSH 1.84 (0.34-5.60) mcIU/mL Urine Color Urine Appearance Urine pH (5-9) Ur Specific [place] (1.010-1.030) Urine Protein (Negative) Urine Ketones (Negative) Urine Blood (Negative) Urine Nitrate (Negative) Urine Bilirubin (Negative) Urine Urobilinogen (Negative) Ur Leukocyte Esterase (Negative) Urine WBC (Auto) (Absent) Urine RBC (Auto) (Absent) Urine Bacteria (Absent) Urine Glucose (Negative) 01/26/18 01/26/18 Range/Units 12:03 13:25 WBC (3.5-10.8) 10^3/ul RBC (4.0-5.4) 10^6/ul Hgb (14.0-18.0) g/dl Hct (42-52) % MCV (80-94) fL MCH (27-31) pg MCHC (31-36) g/dl RDW (10.5-15) % Plt Count (150-450) 10^3/ul MPV (7.4-10.4) um3 Neut % (Auto) (38-83) % Lymph % (Auto) (25-47) % Weld % (Auto) (0-7) % Eos % (Auto) (0-6) % Baso % (Auto) (0-2) % Absolute Neuts (auto) (1.5-7.7) 10^3/ul Absolute Lymphs (auto) (1.0-4.8) 10^3/ul Absolute Monos (auto) (0-0.8) 10^3/ul Absolute Eos (auto) (0-0.6) 10^3/ul Absolute Basos (auto) (0-0.2) 10^3/ul Absolute Nucleated RBC 10^3/ul Nucleated RBC % INR (Anticoag Therapy) (0.77-1.02) Sodium (139-145) mmol/L Potassium (3.5-5.0) mmol/L Chloride (101-111) mmol/L Carbon Dioxide (22-32) mmol/L Anion Gap (2-11) mmol/L BUN (6-24) mg/dL Creatinine (0.67-1.17) mg/dL Est GFR ( Amer) (>60) Est GFR (Non-Af Amer) (>60) BUN/Creatinine Ratio (8-20) Glucose (70-100) mg/dL Lactic Acid 1.8 (0.5-2.0) mmol/L Calcium (8.6-10.3) mg/dL Magnesium (1.9-2.7) mg/dL Total Bilirubin (0.2-1.0) mg/dL AST (13-39) U/L ALT (7-52) U/L Alkaline Phosphatase (34-104) U/L Troponin I (<0.04) ng/mL Total Protein (6.4-8.9) g/dL Albumin (3.2-5.2) g/dL Globulin (2-4) g/dL Albumin/Globulin Ratio (1-3) TSH (0.34-5.60) mcIU/mL Urine Color Yellow Urine Appearance Clear Urine pH 6.0 (5-9) Ur Specific [place] 1.026 (1.010-1.030) Urine Protein Negative (Negative) Urine Ketones Negative (Negative) Urine Blood Negative (Negative) Urine Nitrate Negative (Negative) Urine Bilirubin Negative (Negative) Urine Urobilinogen Negative (Negative) Ur Leukocyte Esterase Trace A (Negative) Urine WBC (Auto) 2+(11-20/hpf) A (Absent) Urine RBC (Auto) Trace(0-2/hpf) (Absent) Urine Bacteria Absent (Absent) Urine Glucose 3+(>=500 mg/dl) A (Negative) Result Diagrams: 01/26/18 12:03 01/26/18 12:03 Lab Statement: Any lab studies that have been ordered have been reviewed, and results considered in the medical decision making process. - EKG 11:47 Cardiac Rate: NL EKG Rhythm: Atrial Fibrillation - at 66 BPM Ectopy: PVCs EKG Interpretation: RBBB. No change from EKG on 01/02/18. Re-Evaluation - Re-Evaluation First Eval Re-Evaluation Time: 15:16 Comment: Results discussed. Patient will be discharged. Course/Dx - Course Course Of Treatment: Mr. Calvo has been fighting with bouts of V-Tach for a couple months and 2 days ago had his dose of metoprolol increased from 25 mg q AM to 50 mg. This AM he had several episodes of feeling like he was going to faint which he says is the exact same symptoms he has been dealing with. We do not have the capability of interrogating his ICD/pacer today. His WBCs are slightly elevated consistent with the physiological stress. I spoke with Dr. Portillo in [place]. I think it likely that these are episodes of V-Tach again although it is possible that his pressure is not standing up to the increased metoprolol. I recommended that he take it 25 mgs BID instead of 50 Q AM and F/ U with Dr. Amos or Honorio on Sunday. He was able to ambulate around the department 3 times on the monitor without symptoms. - Diagnoses Provider Diagnoses: Near syncope - Physician Notifications Discussed Care Of Patient With: Jacob Ramirez MD Time Discussed With Above Provider: 14:40 Instructed by Provider To: Other - Dr. Ramirez, who is covering for Dr. Solange Olmedo , recommends increasing metoprolol. Discharge - Sign-Out/Discharge Documenting (check all that apply): Discharge - Discharge Plan Condition: Stable Disposition: HOME Patient Education Materials: Near Syncope (ED) Referrals: Olga Amos MD [Medical Doctor] - 01/28/18 Pam Perea MD [Primary Care Provider] - If Needed Additional Instructions: Follow up with Dr. Amos on 01/28/18. Take metoprolol 25 mg BID (twice a day) Return to the emergency department for any new or worsening symptoms. - Billing Disposition and Condition Condition: STABLE Disposition: HOME The documentation as recorded by the Yamilex levi Thomas accurately reflects the service I personally performed and the decisions made by , Kelvin Hawley MD.
--- NOTE | 2018-01-29 08:06 | PN ---
Progress Note - Progress Note Date of Service: 01/26/18 Note: Urine culture final Staphylococcus epidermidis Patient was not placed on antibiotics prior to discharge [place] count 75-100,000 Due to no symptoms, we will at this time to for any antibiotic use as this is a likely contaminant due to skin pili Nothing further at this time
== END 2018-01-26 15:25 | disposition home or self-care (01) ==
LOC: ED 10:47
DX: R55 Syncope and collapse (principal); Z95.810 Presence of automatic (implantable) cardiac defibrillator; Z87.891 Personal history of nicotine dependence; Z79.82 Long term (current) use of aspirin; F32.9 Major depressive disorder, single episode, unspecified; C76.52 Malignant neoplasm of left lower limb; Z95.1 Presence of aortocoronary bypass graft; I45.10 Unspecified right bundle-branch block
CPT/HCPCS: 36415; 80053; 81003; 81015; 83605; 83735; 84443; 84484; 85025; 85610; 87077; 87086; 87186; 93005; 99283

== ENCOUNTER 2018-02-08 16:00 | Inpatient (IN) | payer MEDICARE, OTHER ==
[2018-02-08] MEDS ORDERED: Nitroglycerin TAB 0.4 MG* 0.4 MG TAB SL PRN (17:34)
[2018-02-08] MEDS ORDERED: Fluticasone NASAL SPRAY 50MCG* 16 gm SPRAY BTL BOTH NARES PRN (17:34)
[2018-02-08] MEDS ORDERED: NS 0.9% 500 ML* 500 ML IV ONE (18:05)
[2018-02-08 18:11] LABS: Hematocrit 45 % (42-52); Hemoglobin 15.1 g/dl (14.0-18.0); Mean Corpuscular HGB Conc 34 g/dl (31-36); Mean Corpuscular Hemoglobin 31 pg (27-31); Mean Corpuscular Volume 94 fL (80-94); Mean Platelet Volume 9.6 um3 (7.4-10.4); Platelet Count 155 10^3/ul (150-450); Red Blood Count 4.82 10^6/ul (4.0-5.4); Red Cell Distribution Width 14 % (10.5-15); White Blood Count 8.6 10^3/ul (3.5-10.8)
--- NOTE | 2018-02-08 18:12 | CONSULT ---
Subjective Date of Service: 02/08/18 Interval History: Admission and consult date 02/08/2018 PMD Pam Perea MD Manager Merchandise: Dr. Amos Service Hospitalist CC: Syncope Reason for consult: VT HPI Mr. Daren Calvo is a 77 year old man with with ischemic cardiomyopathy, symptomatic ventricular tachycardia and ICD. He was most recently had a VT ablation 01/07/2018 and was on sotalol, mexilitene and metoprolol. He stopped mexilitene due to GI side effects. Discussing with Dr. Amos it was felt his VT is epicardial and this would be a very complex ablation that he would have. He has not been on amiodarone because of an iodine allergy. He is now admitted with more frequent symptomatic VT (syncope) that is ATP terminated. Denies any ICD discharges. He is admitted for sotalol de-escalation Allergies: Heparin 09/09/13 Iodine 09/09/13 Cipro 09/09/13 Penicillin 09/09/13 Bactrim 09/09/13 Beta Adrenergic Blockers 09/09/13 Asacol 09/09/13 Biaxin 09/09/13 Mesalamine 09/09/13 Metilitene PMH: Medical Problems: Coronary Artery Disease (CAD) - Angina: jaw pain. Also presents with collapse IWMI complicated by complete heart block. 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 SVG to acute marginal and OM. FH: non-contributory SH: Marital: .Lives With: .Occupation: Retired Currently Working - [employer] Smoking: Patient is a former smoker - smoked cigarettes for 20 years, quit March 1985.Cigarette Use: Quit 32 Years Ago.Alcohol: Denies alcohol use.Drug Use: Denies Drug Use.Daily Caffeine: Comsumes on average 1 cup of decaff coffee per day.Exercise Type: Does not exercise. Medications Active Medications: Aspirin (Aspirin Ec Tab*) 81 mg PO DAILY RED Atorvastatin Calcium (Lipitor*) 20 mg PO DAILY RED Fluticasone Propionate (Flonase Nasal [place] 50mcg*) 1 spray BOTH NARES DAILY PRN PRN Reason: CONGESTION Sodium Chloride (Ns 0.9% 500 Ml*) 500 mls @ 60 mls/hr IV ONCE ONE Stop: 02/09/18 02:24 Magnesium Oxide (Magox 400 Tab*) 400 mg PO BID RED Metoprolol Tartrate (Lopressor Tab*) 50 mg PO Q8HR RED Nitroglycerin (Nitroglycerin Tab 0.4 Mg*) 0.4 mg SL Q5M PRN PRN Reason: PAIN - CHEST Omeprazole (Prilosec Cap*) 20 mg PO BEDTIME RED Pioglitazone HCl (Actos Tab*) 45 mg PO BEDTIME [facility] Home Medications: Aspirin EC TAB* [Ecotrin EC Low Dose 81 MG*] 81 mg PO DAILY 01/26/18 [History Confirmed 02/08/18] Atorvastatin* [Lipitor*] 20 mg PO DAILY 01/26/18 [History Confirmed 02/08/18] Fluticasone NASAL SPRAY 50MCG* [Flonase NASAL SPRAY 50MCG*] 1 spray BOTH NARES DAILY PRN 01/26/18 [History Confirmed 02/08/18] Magnesium Oxide TAB* [MagOx 400 TAB*] 400 mg PO BID 01/26/18 [History Confirmed 02/08/18] Nitroglycerin TAB 0.4 MG* 0.4 mg SL Q5M PRN 01/26/18 [History Confirmed 02/08/18 ] Omeprazole CAP* [Prilosec CAP* 20 MG] 20 mg PO BEDTIME 01/26/18 [History Confirmed 02/08/18] Pioglitazone TAB* [Actos TAB*] 45 mg PO BEDTIME 01/26/18 [History Confirmed 01/23] Sotalol TAB* [Betapace 80 MG TAB*] 160 mg PO BID 01/26/18 [History Confirmed 01/23] glipiZIDE TAB* [Glucotrol TAB*] 10 mg PO BID 01/26/18 [History Confirmed ] Exenatide Microspheres [Bydureon] 2 mg INJ WEEKLY 02/08/18 [History Confirmed ] Gaviscon CHEW TAB* 2 tab PO BEDTIME 02/08/18 [History Confirmed 02/08/18] Metoprolol Tartrate TAB* [Lopressor TAB*] 1.5 tab PO BID 02/08/18 [History Confirmed 02/08/18] Review of Systems - Review of Systems Constitutional Symptoms: Negative: Weight Gain, Weight Loss, Weakness, Fatigue, Fever Dermatology: Negative: Rash, Skin Lesions HEENT: Negative: Change in Hearing, Vertigo Eyes: Negative: Change in Vision, Double Vision Thyroid: Negative: Cold Intolerance, Heat Intolerance, Tremor, Frequent Defecation, Primary Hypothyroidism, Primary Hyperthyroidism, Weight Loss, Weight Gain Pulmonary: Negative: Cough, Sputum, Hemoptysis, Wheezing, Respiratory Distress, Shortness of Breath Cardiology: Positive: Faintness, Syncope Negative: Chest Pain, Shortness of Breath, Swelling of Ankles, Peripheral Vascular Dis, Edema, Claudication, Paroxysmal Nocturnal Dyspnea, Orthopnea Gastroenterology: Negative: Nausea, Vomiting, Anorexia Genital - Urinary: Negative: Dysuria, Hematuria Musculoskeletal: Negative: Joint Pain, Joint Stiffness Endocrinology: Negative: Obesity, Diabetes, Hyperglycemia, Hypoglycemia, Polydipsia, Polyuria Hematologic/Lymphatic: Negative: Use of Anticoagulant, Use of Antiplatelet Drugs Neurology: Negative: Change in Speech, Change in Sphincter Function, Change in Walking Psychiatry: Negative: Unusual Anxiety, Suicidal Ideation Allergic/Immunologic: Negative: Hx Environmental Allergies, Hx HIV, Immunocompromise Review of Systems Statement: All other review of systems negative, unless stated above. Objective Vital Signs: Temp Pulse Resp BP Pulse Ox 97.4 F 66 16 142/76 100 02/08/18 16:32 02/08/18 16:32 02/08/18 16:32 02/08/18 16:32 02/08/18 16:32 Oxygen Devices in Use Now: None Appearance: nad, pleasant Ears/Nose/Mouth/Throat: Clear Oropharnyx, Mucous Membranes Moist Neck: NL Appearance and Movements; NL JVP, Trachea Midline Respiratory: Symmetrical Chest Expansion and Respiratory Effort, Clear to Auscultation Cardiovascular: NL Sounds; No Murmurs; No JVD, RRR, No Edema Abdominal: NL Sounds; No Tenderness; No Distention Extremities: No Edema Skin: No Rash or Ulcers Neurological: Alert and Oriented x 3 Laboratory Results: 02/09/18 05:04 02/09/18 05:04 Total Bilirubin 0.70 mg/dL (0.2-1.0) 02/09/18 05:04 AST 23 U/L (13-39) 02/09/18 05:04 ALT 30 U/L (7-52) 02/09/18 05:04 Alkaline Phosphatase 106 U/L (34-104) H 02/09/18 05:04 Total Protein 6.4 g/dL (6.4-8.9) 02/09/18 05:04 Albumin 3.6 g/dL (3.2-5.2) 02/09/18 05:04 Globulin 2.8 g/dL (2-4) 02/09/18 05:04 Albumin/Globulin Ratio 1.3 (1-3) 02/09/18 05:04 Triglycerides 255 mg/dL 02/09/18 05:04 Cholesterol 123 mg/dL 02/09/18 05:04 LDL Cholesterol 38 mg/dL 02/09/18 05:04 HDL Cholesterol 34.4 mg/dL 02/09/18 05:04 TSH 3.15 mcIU/mL (0.34-5.60) 02/08/18 16:47 02/08/18 02/09/18 02/09/18 16:47 00:42 05:04 Troponin I 0.01 0.01 0.00 mg 2.2 Diagnostic Imaging: Stress Test - (09/21/2017) decreased exercise capacity. Progressive MENDOZA, fatigue. Normal resting BP. appropriate respnse to exercise. maximal exercis. resting EKG shows a paced rhythm RBBB. w/testing, no significant ST changes, occassional PVC's and V paced beats. resting echo shows septal hypokinesis and EF lower normal. Post exercise septum dyskinetic/hypokinetic, other areas improved in contractility. resting MR mild, post Ex, Mild +. resting TR trace, mild post. mild to moderate resting PApr 23.6 mmHg + RA 32 mmHg+Ra non-diagnostic study as target HR not achieved at workload achieved (81% of max achieved, 3.5 METS). throat discomfort, no significant ECG changes and abnormal septal motion rest/post with [place] QRS, TR increased w/ exercise. no significant increase in PA pr, no clear cut inducable ischemia. Echocardiogram - (02/04/2017) Mild to moderate TR MR.LLVEF 50-55%. Moderate RVE and hypokinesis. Cardiac Procedures: Cardiac Catheterization - (02/03/2017) 50% LM, 100% RCA mid vessel, 95% OM2 Patient ROMERO, Patent SVT to RV branch and OM ICD Implantation - (02/06/2017) single-chamber ICD for VT ekg this admission: NSR, RBBB Assessment/Plan Mr. Calvo is a 77 year old old man post-bypass with refractory symptomatic VT highly ATP responsive. He had an endocardial ablation 01/07/2018 although his clinical VT is apparently felt to be epicardial based per my conversation with Dr. Amos. He is admitted now with more frequent symptomatic arrhythmias to have monitored d/c sotalol and increase metoprolol dosing. He has an anaphylactic iodine allergy so amiodarone has not been used. - Continue cardiac monitoring and daily EKG. - On metoprolol (changed to succinate) 50 mg po TID - Last dose sotalol high dose 160 mg po bid was Sunday AM. Would assume 60 hours for elimination of 5 half-lives would be Sunday night. His arrhythmias on telemetry have been monomorphic so these changes may not address the problem adequately. Thank you for allowing me to participate in the cardiovascular care of this patient. Please do not hesitate to contact me with questions or concerns.
[2018-02-08] MEDS: Magnesium Oxide TAB* 400 MG PO SCH (21:24)
[2018-02-08] MEDS: Omeprazole CAP* 20 MG PO SCH (21:25)
[2018-02-08] MEDS: Pioglitazone TAB* 15 MG PO SCH (21:25)
[2018-02-08] MEDS: Metoprolol Tartrate TAB* 50 mg PO SCH (21:26)
[2018-02-08] MEDS ORDERED: Heparin VIAL(*) 5000 UNITS/ML VIAL (FIVE THOUSAND) SUBCUT SCH ×2 (22:00)
[2018-02-09] MEDS ORDERED: Ondansetron 40 MG VIAL* 2 MG/ML 20 ML VIAL IV PRN (00:31)
[2018-02-09] MEDS ORDERED: diPHENhydraMINE PO* 25 MG PO PRN (00:32)
[2018-02-09] MEDS ORDERED: Al Hydrox/Mg Hydrox/Simet LIQ* 30 ML UDC PO PRN (04:20)
[2018-02-09 05:33] LABS: Hematocrit 41 % (42-52); Hemoglobin 14.1 g/dl (14.0-18.0); Mean Corpuscular HGB Conc 34 g/dl (31-36); Mean Corpuscular Hemoglobin 32 pg (27-31); Mean Corpuscular Volume 93 fL (80-94); Mean Platelet Volume 9.1 um3 (7.4-10.4); Platelet Count 120 10^3/ul (150-450); Red Blood Count 4.46 10^6/ul (4.0-5.4); Red Cell Distribution Width 14 % (10.5-15); White Blood Count 8.1 10^3/ul (3.5-10.8)
[2018-02-09 05:48] LABS: EGFR Non-African American 75.2 (>60)
[2018-02-09] MEDS: Metoprolol Tartrate TAB* 50 mg PO SCH (05:57)
[2018-02-09] MEDS: Atorvastatin* 20 MG TAB PO SCH (07:42)
[2018-02-09] MEDS: Aspirin EC TAB* 81 MG TAB.EC PO SCH (07:42)
[2018-02-09] MEDS: Magnesium Oxide TAB* 400 MG PO SCH ×2 (07:42→21:15)
--- NOTE | 2018-02-09 13:36 | PN ---
Subjective Date of Service: 02/09/18 Interval History: f/u VT Several pace terminated symptomatic VT episodes since yesterday Otherwise no complaints or issues is visiting. Medications Active Medications: Al Hydrox/Mg Hydrox/Simethicone (Maalox Plus*) 30 ml PO Q4H PRN PRN Reason: INDIGESTION Aspirin (Aspirin Ec Tab*) 81 mg PO DAILY [facility] Last Admin: 02/09/18 07:42 Dose: 81 mg Atorvastatin Calcium (Lipitor*) 20 mg PO DAILY [facility] Last Admin: 02/09/18 07:42 Dose: 20 mg Diphenhydramine HCl (Benadryl Po*) 25 mg PO Q6H PRN PRN Reason: ITCHING Last Admin: 02/09/18 00:51 Dose: 25 mg Fluticasone Propionate (Flonase Nasal [place] 50mcg*) 1 spray BOTH NARES DAILY PRN PRN Reason: CONGESTION Magnesium Oxide (Magox 400 Tab*) 400 mg PO BID [facility] Last Admin: 02/09/18 07:42 Dose: 400 mg Metoprolol Succinate (Toprol Xl Tab*) 50 mg PO TID [facility] Nitroglycerin (Nitroglycerin Tab 0.4 Mg*) 0.4 mg SL Q5M PRN PRN Reason: PAIN - CHEST Last Admin: 02/09/18 03:47 Dose: 0.4 mg Omeprazole (Prilosec Cap*) 20 mg PO BEDTIME [facility] Last Admin: 02/08/18 21:25 Dose: 20 mg Ondansetron HCl (Zofran Inj*) 4 mg IV Q6H PRN PRN Reason: NAUSEA Last Admin: 02/09/18 00:51 Dose: 4 mg Pioglitazone HCl (Actos Tab*) 45 mg PO BEDTIME [facility] Last Admin: 02/08/18 21:25 Dose: 45 mg Objective Vital Signs: Temp Pulse Resp BP Pulse Ox 97.5 F 68 16 120/64 93 02/09/18 11:17 02/09/18 11:17 02/09/18 11:17 02/09/18 11:17 02/09/18 11:17 Oxygen Devices in Use Now: None Appearance: nad, pleasant Ears/Nose/Mouth/Throat: Clear Oropharnyx, Mucous Membranes Moist Neck: NL Appearance and Movements; NL JVP, Trachea Midline Respiratory: Symmetrical Chest Expansion and Respiratory Effort, Clear to Auscultation Cardiovascular: NL Sounds; No Murmurs; No JVD, RRR, No Edema Abdominal: NL Sounds; No Tenderness; No Distention Extremities: No Edema Skin: No Rash or Ulcers Neurological: Alert and Oriented x 3 Laboratory Results: 02/09/18 05:04 02/09/18 05:04 Total Bilirubin 0.70 mg/dL (0.2-1.0) 02/09/18 05:04 AST 23 U/L (13-39) 02/09/18 05:04 ALT 30 U/L (7-52) 02/09/18 05:04 Alkaline Phosphatase 106 U/L (34-104) H 02/09/18 05:04 Total Protein 6.4 g/dL (6.4-8.9) 02/09/18 05:04 Albumin 3.6 g/dL (3.2-5.2) 02/09/18 05:04 Globulin 2.8 g/dL (2-4) 02/09/18 05:04 Albumin/Globulin Ratio 1.3 (1-3) 02/09/18 05:04 Triglycerides 255 mg/dL 02/09/18 05:04 Cholesterol 123 mg/dL 02/09/18 05:04 LDL Cholesterol 38 mg/dL 02/09/18 05:04 HDL Cholesterol 34.4 mg/dL 02/09/18 05:04 TSH 3.15 mcIU/mL (0.34-5.60) 02/08/18 16:47 02/08/18 02/09/18 02/09/18 16:47 00:42 05:04 Troponin I 0.01 0.01 0.00 Diagnostic Imaging: Stress Test - (09/21/2017) decreased exercise capacity. Progressive MENDOZA, fatigue. Normal resting BP. appropriate respnse to exercise. maximal exercis. resting EKG shows a paced rhythm RBBB. w/testing, no significant ST changes, occassional PVC's and V paced beats. resting echo shows septal hypokinesis and EF lower normal. Post exercise septum dyskinetic/hypokinetic, other areas improved in contractility. resting MR mild, post Ex, Mild +. resting TR trace, mild post. mild to moderate resting PApr 23.6 mmHg + RA 32 mmHg+Ra non-diagnostic study as target HR not achieved at workload achieved (81% of max achieved, 3.5 METS). throat discomfort, no significant ECG changes and abnormal septal motion rest/post with [place] QRS, TR increased w/ exercise. no significant increase in PA pr, no clear cut inducable ischemia. Echocardiogram - (02/04/2017) Mild to moderate TR MR.LLVEF 50-55%. Moderate RVE and hypokinesis. Cardiac Procedures: Cardiac Catheterization - (02/03/2017) 50% LM, 100% RCA mid vessel, 95% OM2 Patient ROMERO, Patent SVT to RV branch and OM ICD Implantation - (02/06/2017) single-chamber ICD for VT ekg this admission: NSR, RBBB Assessment/Plan Mr. Calvo is a 77 year old old man post-bypass with refractory symptomatic VT highly ATP responsive. He had an endocardial ablation 01/07/2018 although his clinical VT is apparently felt to be epicardial based per my conversation with Dr. Amos. He is admitted now with more frequent symptomatic arrhythmias to have monitored d/c sotalol and increase metoprolol dosing. He has an anaphylactic iodine allergy so amiodarone has not been used. - Continue cardiac monitoring and daily EKG. - On metoprolol succinate 50 mg po TID - Last dose sotalol high dose 160 mg po bid was Sunday AM. Would assume 60 hours for elimination of 5 half-lives would be Sunday night. His arrhythmias on telemetry have been monomorphic so these changes may not address the problem adequately. Thank you for allowing me to participate in the cardiovascular care of this patient. Please do not hesitate to contact me with questions or concerns.
[2018-02-09] MEDS ORDERED: Metoprolol Succinate XL TAB* 50 MG PO SCH ×2 (14:00→15:00)
[2018-02-09] MEDS ORDERED: Metoprolol Succinate XL TAB* 50 MG PO ONE (16:00)
--- NOTE | 2018-02-09 16:14 | PN ---
Cardiology Progress Note Date of Service: 02/09/18 02/09/2018 Patient with recurrent symptomatic pace-terminated VT Discussed with Dr. Gonzalez, Speed Operator. Patients prior contrast anaphylactic- like reaction and shellfish allergy should not cause an amiodarone allergy. It is not a true iodine reaction. Will decrease toprol to 50 mg po bid Will transfer to ICU for close monitor for adverse reaction and start amiodarone 400 mg po bid
[2018-02-09] MEDS ORDERED: diPHENhydraMINE IV* 50 MG/ML 1 ml VIAL (BENADRYL) ONE (16:56)
[2018-02-09] MEDS ORDERED: Amiodarone TAB* 400 MG ONE (17:03)
[2018-02-09] MEDS ORDERED: EPINEPHRINE 1 MG/ML 1 ML VIAL ONE (17:14)
[2018-02-09] MEDS: Amiodarone TAB* 400 MG PO SCH ×2 (17:17→23:16)
--- NOTE | 2018-02-09 17:40 | PN ---
Subjective Date of Service: 02/09/18 Interval History: HOSPITALIST PROGRESS NOTE Patient seen and examined at bedside. He offers no complaints at this time, but had some chest pain and near syncope with episodes of Vtach. Family History: Unchanged from Admission Social History: Unchanged from Admission Past Medical History: Unchanged from Admission Objective Active Medications: Al Hydrox/Mg Hydrox/Simethicone (Maalox Plus*) 30 ml PO Q4H PRN PRN Reason: INDIGESTION Amiodarone HCl (Cordarone Tab*) 400 mg PO BID [facility] Last Admin: 02/09/18 17:17 Dose: 400 mg Aspirin (Aspirin Ec Tab*) 81 mg PO DAILY [facility] Last Admin: 02/09/18 07:42 Dose: 81 mg Atorvastatin Calcium (Lipitor*) 20 mg PO DAILY [facility] Last Admin: 02/09/18 07:42 Dose: 20 mg Diphenhydramine HCl (Benadryl Po*) 25 mg PO Q6H PRN PRN Reason: ITCHING Last Admin: 02/09/18 00:51 Dose: 25 mg Fluticasone Propionate (Flonase Nasal [place] 50mcg*) 1 spray BOTH NARES DAILY PRN PRN Reason: CONGESTION Magnesium Oxide (Magox 400 Tab*) 400 mg PO BID [facility] Last Admin: 02/09/18 07:42 Dose: 400 mg Metoprolol Succinate (Toprol Xl Tab*) 50 mg PO BID [facility] Omeprazole (Prilosec Cap*) 20 mg PO BEDTIME [facility] Last Admin: 02/08/18 21:25 Dose: 20 mg Ondansetron HCl (Zofran Inj*) 4 mg IV Q6H PRN PRN Reason: NAUSEA Last Admin: 02/09/18 00:51 Dose: 4 mg Pioglitazone HCl (Actos Tab*) 45 mg PO BEDTIME [facility] Last Admin: 02/08/18 21:25 Dose: 45 mg Vital Signs - 8 hr 02/09/18 02/09/18 11:17 16:50 Temperature 97.5 F 98.3 F Pulse Rate 68 67 Respiratory 16 19 Rate Blood Pressure 120/64 145/85 (mmHg) O2 Sat by Pulse 93 95 Oximetry Oxygen Devices in Use Now: None Appearance: Pleasant elderly male sitting up in a chair in NAD. 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 - Patient Problems (1) V-tach Comment: - Multiple symptomatic episodes today with chest pain and near syncope. - Was on propafenone, changed to Sotalol. - Had ablation done at [place] with Dr. Solange Olmedo, but his focus seems to be epicardial. Continued to have episodes of Vtach despite high dose Sotalol. - Cardiology input appreciated - Dr. Cardozo discussed with [facility] - will transfer to ICU to start Amiodarone. If not successful will consider transfer to Higher Level of Care. - Continue Metoprolol. (2) CAD (coronary artery disease) Comment: - Negative troponins. - Continue metoprolol, aspirin, atorvastatin (3) Diabetes Comment: - Continue pioglitazone. - Glipizide and exanitide on hold. - FS with lispro SSI. (4) DVT prophylaxis Comment: - Heparin contraindicated due to history of HIT, but high VTE risk - start prophylactic Fondaparinux and SCDs. (5) DNR (do not resuscitate) Comment: Status and Disposition: Inpatient for management of Vtach.
[2018-02-09] MEDS ORDERED: Dextrose 50% Syringe 50 ML* 25 GM/50 ML SYRINGE IV PUSH PRN (17:49)
[2018-02-09] MEDS: Fondaparinux* 2.5 MG/0.5 ML SYRINGE SUBCUT SCH (18:46)
[2018-02-09] MEDS ORDERED: Metoprolol Succinate XL TAB* 100 MG PO SCH (21:00)
--- NOTE | 2018-02-09 21:06 | HP ---
ADMISSION HISTORY AND PHYSICAL: DATE OF ADMISSION: 02/08/18 being dictated today, 02/09/18 at 5:04 p.m., given dictation system was not functioning at the time of admission. CHIEF COMPLAINT: Palpitations. HISTORY OF PRESENT ILLNESS: The patient is a 77-year-old gentleman with history of CAD, status post CABG back in 1990 with ICD placement, single chamber, and ischemic cardiomyopathy including PE back in 1998 who around the first year of 2018 developed intermittent dizziness and was found to have monomorphic ventricular tachycardia. He had been tried on propafenone and subsequently was placed on sotalol and then higher doses of sotalol, but beta- blockers were prescribed due to difficulty in controlling his ventricular tachycardia. He was then referred to an magnet placer, Dr. Solange Olmedo of [facility] who then agreed that with ventricular tachycardia, he would be a good candidate for ablation, but declined due to prior IVC filter that would be technically difficult. The patient had initially done well on sotalol at 160 mg b.i.d. and metoprolol 25 mg p.o. daily. Subsequently, his metoprolol was increased to b.i.d. and mentions that despite that change since November 2017, the patient mentions that the addition of sotalol and metoprolol made him feel unwell and subsequently further increasing the medications made him feel unwell. The case has been discussed with Dr. Amos, who mentioned that previous plan for ablation was complicated by possible epicardial scarring that makes it difficult to access the source of ectopic beats. Dr. Amos mentions that he should be stabilized and subsequently further transition him to higher level of care subsequently thereafter. PAST MEDICAL AND SURGICAL HISTORY: 1. Coronary artery disease status, post bypass in 1998. 2. Ischemic cardiomyopathy, focal area of inferior wall akinesis with an EF in 2017 of 50% to 55%, status post ICD single chamber for monomorphic ventricular tachycardia. 3. 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 4. COPD. 5. Hypertension. 6. Dyslipidemia. 7. Pulmonary embolism in 1998 post CABG. 8. Ulcerative proctitis in 2003. 9. Type 2 diabetes. 10. Ulcerative colitis. 11. Right bundle-branch block. 12. Lung tumor. 13. Basal cell carcinoma. 14. Status post CABG back in 1998. 15. Status post ICD placement. 16. Status post right ankle ORIF. 17. Status post facial reconstruction. MEDICATIONS: His home medications are: 1. Exenatide 2. Atorvastatin. 3. Gaviscon. 4. Fluticasone. 5. Pioglitazone. 6. Omeprazole. 7. Aspirin. 8. Glipizide. 9. Nitroglycerin. 10. Magnesium oxide. 11. Sotalol. ALLERGIES: Include HEPARIN due to HIT in 1998, clot seen in the right ventricle on echocardiogram. Other allergies include CIPROFLOXACIN, CLARITHROMYCIN, and SULFA as well as IODINE. However, he mentions that he has received CT contrast in the past and that he is okay with contrast exposure. FAMILY HISTORY: Significant that his father had coronary artery disease and carotid disease. Both parents in their 70s. SOCIAL HISTORY: The patient is , nonsmoker and nondrinker. REVIEW OF SYSTEMS: The patient mentions that he has had some intermittent chest pain and palpitations since the morning of his admission and has been in touch with both his primary care and Dr. Amos, who advised him to be admitted to the hospital and hence this admission. The rest of the 14-point review of systems are otherwise unremarkable. Denied any headache, dizziness, fevers, chills, nausea, vomiting, shortness of breath, abdominal pain, diarrhea , constipation, pain and/or increased frequency on urination, myalgias, arthralgias, throat pain, or new skin lesions. PHYSICAL EXAMINATION GENERAL APPEARANCE: The patient is awake, alert, and oriented x3, not in acute distress. VITAL SIGNS: On admission revealed blood pressure of 142/76, saturating at 100 % room air, 97.4 degrees Fahrenheit, 60 beats per minute heart rate, 16 per minute respiratory rate. HEENT: Normocephalic, atraumatic. PERRLA. Extraocular muscles intact. Negative for icterus. Moist oral mucosa. Negative throat erythema. NECK: Supple with no cervical lymphadenopathy. No JVD. CHEST: Clear to auscultation bilaterally. Good air entry. No wheezes, rales, or rhonchi. HEART: S1, S2 within normal limits. Regular rate and rhythm. No murmurs, rubs , or gallops. ABDOMEN: Soft, nondistended, nontender. Normoactive bowel sounds . EXTREMITIES: No cyanosis, clubbing, or edema. PSYCHIATRIC: No active psychosis, depression, suicidal or homicidal ideations. SKIN: Warm to touch. ASSESSMENT AND PLAN: As follows: 1. Ventricular tachycardia. I have spoken at length with Dr. Amos who mentioned that due to a possible epicardial scarring due to multiple procedures in the past, it was very difficult to ablate any ectopic beats that leads to his ventricular tachycardia. At this time, we will give the patient mild fluid hydration, especially in the setting of mild hypotension that I was called for a few minutes after admission. He had been given 1 time bolus, which maintained his systolics in the mid 90s to low 100s. Sotalol was held and per Dr. Amos, his metoprolol was increased to 50 mg p.o. t.i.d. initially. We will defer with further titration with cardiology service. 2. Diabetes mellitus. Continue pioglitazone and we will hold glipizide. Consider insulin sliding scale in a.m. if needed once appropriate fingerstick data is available. 3. Chest pain, likely secondary to ventricular tachycardia and we will trend troponins x3. 4. DVT prophylaxis. The patient has had history of HIV and hence we will place the patient at this time on SCDs. If needed, the patient can be placed on fondaparinux but at this time the patient is ambulating well and encouraged to ambulate with assistance at least from bed to his bathroom. 5. Disposition. We will defer with any further plans with cardiology and/or possible ICU consultation. [id number]/[facility] #: [id number] KENNETH
[2018-02-09] MEDS: Omeprazole CAP* 20 MG PO SCH (21:15)
[2018-02-09] MEDS: Insulin LISPRO* 1 UNITS UNIT SUBCUT SCH (21:15)
[2018-02-09] MEDS: Metoprolol Succinate XL TAB* 50 MG PO SCH (21:15)
[2018-02-09] MEDS: Pioglitazone TAB* 15 MG PO SCH (21:15)
[2018-02-10] MEDS ORDERED: Amiodarone 150 MG IVPREMIX* 150 MG/100 ML BAG IV ONE (07:57)
--- NOTE | 2018-02-10 08:02 | PN ---
Subjective Date of Service: 02/10/18 Interval History: f/u VT Tolerated oral amiodarone well NO cp or dyspnea Multiple pace-terminated VT overnight, has received 800 mg oral amiodarone so far Medications Active Medications: Al Hydrox/Mg Hydrox/Simethicone (Maalox Plus*) 30 ml PO Q4H PRN PRN Reason: INDIGESTION Aspirin (Aspirin Ec Tab*) 81 mg PO DAILY [facility] Last Admin: 02/09/18 07:42 Dose: 81 mg Atorvastatin Calcium (Lipitor*) 20 mg PO DAILY [facility] Last Admin: 02/09/18 07:42 Dose: 20 mg Dextrose (D50w Syringe 50 Ml*) 12.5 gm IV PUSH .FOR FS < 60 - SS PRN PRN Reason: FS < 60 Diphenhydramine HCl (Benadryl Po*) 25 mg PO Q6H PRN PRN Reason: ITCHING Last Admin: 02/09/18 00:51 Dose: 25 mg Fluticasone Propionate (Flonase Nasal [place] 50mcg*) 1 spray BOTH NARES DAILY PRN PRN Reason: CONGESTION Fondaparinux (Arixtra*) 2.5 mg SUBCUT DAILY [facility] Last Admin: 02/09/18 18:46 Dose: 2.5 mg Amiodarone HCl (Nexterone Drip*) 150 mg in 100 mls @ 600 mls/hr IV ONCE ONE Stop: 02/10/18 08:06 Amiodarone HCl (Nexterone 360 Mg/200 Ml Ivpremix*) 360 mg in 200 mls @ 33.333 mls/hr IV ONCE ONE PRN Reason: 1 MG/MIN Stop: 02/10/18 13:56 Amiodarone HCl (Nexterone 360 Mg/200 Ml Ivpremix*) 360 mg in 200 mls @ 16.667 mls/hr IV .SEE PROTOCOL [facility] PRN Reason: 0.5 MG/MIN Insulin Human Lispro (Humalog*) 0 units SUBCUT ACHS [facility] PRN Reason: Protocol Last Admin: 02/09/18 21:15 Dose: 6 units Magnesium Oxide (Magox 400 Tab*) 400 mg PO BID [facility] Last Admin: 02/09/18 21:15 Dose: 400 mg Metoprolol Succinate (Toprol Xl Tab*) 50 mg PO BID [facility] Last Admin: 02/09/18 21:15 Dose: 50 mg Omeprazole (Prilosec Cap*) 20 mg PO BEDTIME [facility] Last Admin: 02/09/18 21:15 Dose: 20 mg Ondansetron HCl (Zofran Inj*) 4 mg IV Q6H PRN PRN Reason: NAUSEA Last Admin: 02/09/18 00:51 Dose: 4 mg Pioglitazone HCl (Actos Tab*) 45 mg PO BEDTIME [facility] Last Admin: 02/09/18 21:15 Dose: 45 mg Objective Vital Signs: Temp Pulse Resp BP Pulse Ox 98.2 F 69 18 130/67 98 02/10/18 07:23 02/10/18 07:01 02/10/18 07:33 02/10/18 07:01 02/10/18 07:01 Oxygen Devices in Use Now: None Appearance: nad, pleasant Ears/Nose/Mouth/Throat: Clear Oropharnyx, Mucous Membranes Moist Neck: NL Appearance and Movements; NL JVP, Trachea Midline Respiratory: Symmetrical Chest Expansion and Respiratory Effort, Clear to Auscultation Cardiovascular: NL Sounds; No Murmurs; No JVD, RRR, No Edema Abdominal: NL Sounds; No Tenderness; No Distention Extremities: No Edema Skin: No Rash or Ulcers Neurological: Alert and Oriented x 3 Laboratory Results: 02/09/18 05:04 02/09/18 05:04 Total Bilirubin 0.70 mg/dL (0.2-1.0) 02/09/18 05:04 AST 23 U/L (13-39) 02/09/18 05:04 ALT 30 U/L (7-52) 02/09/18 05:04 Alkaline Phosphatase 106 U/L (34-104) H 02/09/18 05:04 Total Protein 6.4 g/dL (6.4-8.9) 02/09/18 05:04 Albumin 3.6 g/dL (3.2-5.2) 02/09/18 05:04 Globulin 2.8 g/dL (2-4) 02/09/18 05:04 Albumin/Globulin Ratio 1.3 (1-3) 02/09/18 05:04 Triglycerides 255 mg/dL 02/09/18 05:04 Cholesterol 123 mg/dL 02/09/18 05:04 LDL Cholesterol 38 mg/dL 02/09/18 05:04 HDL Cholesterol 34.4 mg/dL 02/09/18 05:04 TSH 3.15 mcIU/mL (0.34-5.60) 02/08/18 16:47 02/08/18 02/09/18 02/09/18 16:47 00:42 05:04 Troponin I 0.01 0.01 0.00 Diagnostic Imaging: Stress Test - (09/21/2017) decreased exercise capacity. Progressive MENDOZA, fatigue. Normal resting BP. appropriate respnse to exercise. maximal exercis. resting EKG shows a paced rhythm RBBB. w/testing, no significant ST changes, occassional PVC's and V paced beats. resting echo shows septal hypokinesis and EF lower normal. Post exercise septum dyskinetic/hypokinetic, other areas improved in contractility. resting MR mild, post Ex, Mild +. resting TR trace, mild post. mild to moderate resting PApr 23.6 mmHg + RA 32 mmHg+Ra non-diagnostic study as target HR not achieved at workload achieved (81% of max achieved, 3.5 METS). throat discomfort, no significant ECG changes and abnormal septal motion rest/post with [place] QRS, TR increased w/ exercise. no significant increase in PA pr, no clear cut inducable ischemia. Echocardiogram - (02/04/2017) Mild to moderate TR MR.LLVEF 50-55%. Moderate RVE and hypokinesis. Cardiac Procedures: Cardiac Catheterization - (02/03/2017) 50% LM, 100% RCA mid vessel, 95% OM2 Patient ROMERO, Patent SVT to RV branch and OM ICD Implantation - (02/06/2017) single-chamber ICD for VT ekg this admission: NSR, RBBB Assessment/Plan Mr. Calvo is a 77 year old old hx [place]/CAD man post-bypass with refractory symptomatic VT highly ATP responsive, unable to endocardial ablate, mexilitene was effective but stopped due to side effects, sotalol not effective. - Stop oral amiodarone and start 24 hour IV protocol as ordered then will restart oral load afterwards - Continue toprol 50 mg po bid - Daily EKG - Keep in ICU today Thank you for allowing me to participate in the cardiovascular care of this patient. Please do not hesitate to contact me with questions or concerns.
[2018-02-10] MEDS: Metoprolol Succinate XL TAB* 50 MG PO SCH ×2 (08:31→21:09)
[2018-02-10] MEDS: Magnesium Oxide TAB* 400 MG PO SCH ×2 (08:32→21:09)
[2018-02-10] MEDS: Atorvastatin* 20 MG TAB PO SCH (08:32)
[2018-02-10] MEDS: Aspirin EC TAB* 81 MG TAB.EC PO SCH (08:32)
[2018-02-10] MEDS: Amiodarone 360 MG IVPREMIX* 360 MG/200 ML BAG IV ONE ×2 (08:40→13:38)
[2018-02-10] MEDS: Fondaparinux* 2.5 MG/0.5 ML SYRINGE SUBCUT SCH (08:49)
[2018-02-10] MEDS: Insulin LISPRO* 1 UNITS UNIT SUBCUT SCH ×4 (10:06→21:09)
[2018-02-10] MEDS: Amiodarone 360 MG IVPREMIX* 360 MG/200 ML BAG IV SCH (14:31)
--- NOTE | 2018-02-10 15:27 | PN ---
Subjective Date of Service: 02/10/18 Interval History: HOSPITALIST PROGRESS NOTE Patient seen and examined at bedside. Care reviewed and d/w Ne Hennessy RN. He feels well today, offers no complaints even when he had episodes of Vtach last night. Tolerated Amiodarone well. Family History: Unchanged from Admission Social History: Unchanged from Admission Past Medical History: Unchanged from Admission Objective Active Medications: Al Hydrox/Mg Hydrox/Simethicone (Maalox Plus*) 30 ml PO Q4H PRN PRN Reason: INDIGESTION Amiodarone HCl (Cordarone Tab*) 400 mg PO BID [facility] Aspirin (Aspirin Ec Tab*) 81 mg PO DAILY [facility] Last Admin: 02/10/18 08:32 Dose: 81 mg Atorvastatin Calcium (Lipitor*) 20 mg PO DAILY [facility] Last Admin: 02/10/18 08:32 Dose: 20 mg Dextrose (D50w Syringe 50 Ml*) 12.5 gm IV PUSH .FOR FS < 60 - SS PRN PRN Reason: FS < 60 Diphenhydramine HCl (Benadryl Po*) 25 mg PO Q6H PRN PRN Reason: ITCHING Last Admin: 02/09/18 00:51 Dose: 25 mg Fluticasone Propionate (Flonase Nasal [place] 50mcg*) 1 spray BOTH NARES DAILY PRN PRN Reason: CONGESTION Fondaparinux (Arixtra*) 2.5 mg SUBCUT DAILY [facility] Last Admin: 02/10/18 08:49 Dose: 2.5 mg Amiodarone HCl (Nexterone 360 Mg/200 Ml Ivpremix*) 360 mg in 200 mls @ 16.667 mls/hr IV Q12H [facility] PRN Reason: 0.5 MG/MIN Stop: 02/11/18 14:29 Last Admin: 02/10/18 14:31 Dose: 16.667 mls/hr Insulin Human Lispro (Humalog*) 0 units SUBCUT ACHS [facility] PRN Reason: Protocol Last Admin: 02/10/18 13:06 Dose: 4 units Magnesium Oxide (Magox 400 Tab*) 400 mg PO BID [facility] Last Admin: 02/10/18 08:32 Dose: 400 mg Metoprolol Succinate (Toprol Xl Tab*) 50 mg PO BID [facility] Last Admin: 02/10/18 08:31 Dose: 50 mg Omeprazole (Prilosec Cap*) 20 mg PO BEDTIME [facility] Last Admin: 02/09/18 21:15 Dose: 20 mg Ondansetron HCl (Zofran Inj*) 4 mg IV Q6H PRN PRN Reason: NAUSEA Last Admin: 02/09/18 00:51 Dose: 4 mg Pioglitazone HCl (Actos Tab*) 45 mg PO BEDTIME [facility] Last Admin: 02/09/18 21:15 Dose: 45 mg Vital Signs - 8 hr 02/10/18 02/10/18 02/10/18 07:23 07:33 08:00 Temperature 98.2 F Pulse Rate 67 Respiratory 18 23 Rate Blood Pressure 123/68 (mmHg) O2 Sat by Pulse 95 Oximetry 02/10/18 02/10/18 02/10/18 13:45 14:00 14:01 Temperature Pulse Rate 69 67 68 Respiratory 18 21 19 Rate Blood Pressure 143/87 107/87 (mmHg) O2 Sat by Pulse 96 97 98 Oximetry 02/10/18 02/10/18 14:15 14:30 Temperature Pulse Rate 62 65 Respiratory 17 18 Rate Blood Pressure 133/63 128/80 (mmHg) O2 Sat by Pulse 95 95 Oximetry Oxygen Devices in Use Now: None Appearance: Pleasant elderly male lying in bed in NAD. 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 - Patient Problems (1) V-tach Comment: - Multiple symptomatic episodes today with chest pain and near syncope. - Was on propafenone, changed to Sotalol. - Had ablation done at [place] with Dr. Solange Olmedo, but his focus seems to be epicardial. Continued to have episodes of Vtach despite high dose Sotalol. - Cardiology input appreciated - change Amiodarone to IV. - Continue Metoprolol. (2) CAD (coronary artery disease) Comment: - Negative troponins. - Continue metoprolol, aspirin, atorvastatin (3) Diabetes Comment: - Continue pioglitazone. - Glipizide and exanitide on hold. - FS with lispro SSI. (4) DVT prophylaxis Comment: - Heparin contraindicated due to history of HIT, but high VTE risk - prophylactic Fondaparinux and SCDs. (5) DNR (do not resuscitate) Comment: Status and Disposition: Inpatient for management of Vtach.
[2018-02-10] MEDS: Pioglitazone TAB* 15 MG PO SCH (21:09)
[2018-02-10] MEDS: Omeprazole CAP* 20 MG PO SCH (22:12)
[2018-02-11] MEDS: Amiodarone 360 MG IVPREMIX* 360 MG/200 ML BAG IV SCH (01:09)
[2018-02-11] MEDS ORDERED: Insulin GLARGINE(*) 1 UNITS UNIT SUBCUT SCH (08:00)
--- NOTE | 2018-02-11 08:41 | PN ---
Subjective Date of Service: 02/11/18 Interval History: HOSPITALIST PROGRESS NOTE Patient seen and examined at bedside. Care reviewed and d/w Helene Levnie RN. He's feeling better this AM, but had a difficult night due to episodes of Vtach , symptomatic. This is taking an emotional toll on him, as he "just wants to get this resolved." Family History: Unchanged from Admission Social History: Unchanged from Admission Past Medical History: Unchanged from Admission Objective Active Medications: Al Hydrox/Mg Hydrox/Simethicone (Maalox Plus*) 30 ml PO Q4H PRN PRN Reason: INDIGESTION Amiodarone HCl (Cordarone Tab*) 400 mg PO BID [facility] Aspirin (Aspirin Ec Tab*) 81 mg PO DAILY [facility] Last Admin: 02/10/18 08:32 Dose: 81 mg Atorvastatin Calcium (Lipitor*) 20 mg PO DAILY [facility] Last Admin: 02/10/18 08:32 Dose: 20 mg Dextrose (D50w Syringe 50 Ml*) 12.5 gm IV PUSH .FOR FS < 60 - SS PRN PRN Reason: FS < 60 Diphenhydramine HCl (Benadryl Po*) 25 mg PO Q6H PRN PRN Reason: ITCHING Last Admin: 02/09/18 00:51 Dose: 25 mg Fluticasone Propionate (Flonase Nasal [place] 50mcg*) 1 spray BOTH NARES DAILY PRN PRN Reason: CONGESTION Fondaparinux (Arixtra*) 2.5 mg SUBCUT DAILY [facility] Last Admin: 02/10/18 08:49 Dose: 2.5 mg Amiodarone HCl (Nexterone 360 Mg/200 Ml Ivpremix*) 360 mg in 200 mls @ 16.667 mls/hr IV Q12H [facility] PRN Reason: 0.5 MG/MIN Stop: 02/11/18 14:29 Last Admin: 02/11/18 01:09 Dose: 16.667 mls/hr Insulin Glargine (Lantus(*)) 10 units SUBCUT Q24H [facility] Insulin Human Lispro (Humalog*) 0 units SUBCUT ACHS [facility] PRN Reason: Protocol Last Admin: 02/10/18 21:09 Dose: 4 units Magnesium Oxide (Magox 400 Tab*) 400 mg PO BID [facility] Last Admin: 02/10/18 21:09 Dose: 400 mg Metoprolol Succinate (Toprol Xl Tab*) 50 mg PO BID [facility] Last Admin: 02/10/18 21:09 Dose: 50 mg Omeprazole (Prilosec Cap*) 20 mg PO BEDTIME [facility] Last Admin: 02/10/18 22:12 Dose: 20 mg Ondansetron HCl (Zofran Inj*) 4 mg IV Q6H PRN PRN Reason: NAUSEA Last Admin: 02/09/18 00:51 Dose: 4 mg Pioglitazone HCl (Actos Tab*) 45 mg PO BEDTIME [facility] Last Admin: 02/10/18 21:09 Dose: 45 mg Vital Signs - 8 hr 02/11/18 02/11/18 02/11/18 00:46 01:00 01:16 Temperature Pulse Rate 69 65 65 Respiratory 20 20 22 Rate Blood Pressure 115/57 116/65 120/63 (mmHg) O2 Sat by Pulse 93 95 93 Oximetry 02/11/18 02/11/18 02/11/18 07:15 07:30 07:45 Temperature Pulse Rate 54 59 64 Respiratory 25 16 19 Rate Blood Pressure 121/71 138/47 101/68 (mmHg) O2 Sat by Pulse 93 95 95 Oximetry Oxygen Devices in Use Now: None Appearance: Pleasant elderly gentleman lying in bed in [facility]. 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 - Patient Problems (1) V-tach Comment: - Multiple symptomatic episodes today with chest pain and near syncope. - Was on propafenone, changed to Sotalol. - Had ablation done at [place] with Dr. Solange Olmedo, but his focus seems to be epicardial. Continued to have episodes of Vtach despite high dose Sotalol. - Complete Amiodarone load and continue Amiodarone PO. - Continue Metoprolol. - Awaiting Cardiology follow up. (2) CAD (coronary artery disease) Comment: - Negative troponins. - Continue metoprolol, aspirin, atorvastatin (3) Diabetes Comment: - Continue pioglitazone. - Glipizide and exanitide on hold. - Add Lantus. - FS with lispro SSI. (4) DVT prophylaxis Comment: - Heparin contraindicated due to history of HIT, but high VTE risk - prophylactic Fondaparinux and SCDs. (5) DNR (do not resuscitate) Comment: Status and Disposition: Inpatient for management of Vtach.
[2018-02-11] MEDS: Fondaparinux* 2.5 MG/0.5 ML SYRINGE SUBCUT SCH (08:48)
[2018-02-11] MEDS: Insulin LISPRO* 1 UNITS UNIT SUBCUT SCH ×4 (08:49→20:22)
[2018-02-11] MEDS: Magnesium Oxide TAB* 400 MG PO SCH ×2 (08:50→20:14)
[2018-02-11] MEDS: Amiodarone TAB* 400 MG PO SCH ×2 (08:50→20:14)
[2018-02-11] MEDS: Metoprolol Succinate XL TAB* 50 MG PO SCH ×2 (08:51→20:14)
[2018-02-11] MEDS: Aspirin EC TAB* 81 MG TAB.EC PO SCH (08:51)
[2018-02-11] MEDS: Atorvastatin* 20 MG TAB PO SCH (08:51)
[2018-02-11] MEDS ORDERED: Polyethylene Glycol 3350* 17 GM PACKET PO PRN (16:34)
[2018-02-11] MEDS ORDERED: Polyethylene Glycol 3350* 17 GM PACKET ONE (16:49)
--- NOTE | 2018-02-11 18:27 | PN ---
Cardiology Progress Note Date of Service: 02/11/18 - CC: MM VT I have been updated on the patient's hospital course by Dr Cardozo over the weekend and Dr. Richard and ICU nurses today. Frequent symptomatic MM NSVT until about 3 AM today. At admission after extensive discussions with EP in [facility] it was felt he would benefit from epicardial ablation. Sotalol was stopped, metoprolol increased, but VT persisted. After extensive discussions including with Allergy, amiodarone initiated in ICU for VT. I called [facility] and talked with the cardiology "Quarterback" Dr. Brian Mcgregor who accepted the patient in transfer for 4 months MM VT refractory to medications and to VT ablation (endocardial). I sent from the office multiple records to be sent with the patient includin Cardiac cath Franco Calderón 2017 EP note and ICD implant, Franco Calderón Multiple office notes Stress test September 2017 Ablation note January 2018, [facility] (Dr Olmedo). ICD interogation from Sunday was previously sent to [facility] and should be sent with the patient.
[2018-02-11] MEDS ORDERED: LORazepam TAB(*) 1 MG PO PRN (18:36)
[2018-02-11] MEDS ORDERED: LORazepam TAB(*) 1 MG ONE (19:21)
[2018-02-11] MEDS: Omeprazole CAP* 20 MG PO SCH (20:15)
[2018-02-11] MEDS: Pioglitazone TAB* 15 MG PO SCH (20:15)
[2018-02-11 20:40] VITALS: BP 131/93
--- NOTE | 2018-02-12 09:21 | DS ---
CC: Dr. Perea; Dr. Amos DISCHARGE SUMMARY: DATE OF ADMISSION: 02/08/18 DATE OF DISCHARGE: 02/11/18 PRIMARY CARE PROVIDER: Dr. Perea. WATER MAIN INSTALLER HELPER: Dr. Amos. CONSULTING CARDIOLOGISTS: Dr. Cardozo and Dr. Richard. ACCEPTING PHYSICIAN: Dr. Brian Mendez, ribbon hanking machine operator at the [facility]. DISCHARGE DIAGNOSIS: Refractory monomorphic ventricular tachycardia. SECONDARY DIAGNOSES: 1. Coronary artery disease. 2. Ventricular tachycardia, status post implantable cardioverter device. 3. Pulmonary embolism with deep vein thrombosis after coronary artery bypass graft, complicated by h eparin-induced thrombocytopenia. 4. Right ventricular damage secondary to pulmonary embolism. 5. Supraventricular tachycardia. 6. Type 2 diabetes. 7. Hypertension. 8. Status post [place] filter. MEDICATION LIST: At the time of transfer: 1. Maalox Plus 30 mL p.o. q.4 hours p.r.n. indigestion. 2. Amiodarone 400 mg p.o. b.i.d. 3. Aspirin 81 mg p.o. daily. 4. Atorvastatin 20 mg p.o. daily. 5. Benadryl 25 mg p.o. q.6 hours p.r.n. itching. 6. Flonase nasal spray 50 mcg 1 spray both nares daily p.r.n. allergies. 7. Arixtra 2.5 mg subcutaneously daily. 8. Lantus 10 mg subcutaneously daily. 9. Lispro sliding scale. 10. Magnesium oxide 400 mg p.o. b.i.d. 11. Metoprolol succinate 50 mg p.o. b.i.d. 12. Omeprazole 20 mg p.o. at bedtime. 13. Ondansetron 4 mg IV q.6 hours p.r.n., nausea. 14. Pioglitazone 45 mg p.o. at bedtime. 15. MiraLAX 17 g p.o. daily as needed for constipation. HOSPITAL COURSE: Mr. Calvo is a 77-year-old male with a past medical history as stated above that was admitted due to symptomatic V-tach. He has a complex history that includes a CABG done in 1988 with ruptured RCA, ROMERO to LAD, SVG to acute marginal and OM. The patient has had issues with ventricula r tachycardia and had evaluation by ribbon hanking machine operator and ICD implanted at [facility] and ablati on done at [facility] in January [address] Olmedo and he has persistent episodes despite all that. He was on high dose sotalol, still having episodes. So, he was admitted for washout and he was sta rted on amiodarone. Of note, the patient has a history of "iodine allergy". This was discussed with copra sampler, Dr. Roseanna dinero and he states that this reaction to iodine contrast is actually related to the size of the molecu les and mastocyte degranulation. This is not antibody mediated and is not a true allergy. He states this should not preclude use of amiodarone. The patient tolerated the medication well, but despite amiodarone load, he continues to have frequent episodes of symptomatic V-tach associated with chest p ain, near syncope, and facial numbness. Dr. Amos contacted the [facility] and discussed the case with Dr. Brian kuo, who accepted the patient in transfer for 4 months of monomorphic VT refractory to medications and to endocardial VT ablation done at [facility]. The plan is for him to be evaluated for poss ible epicardial ablation. PHYSICAL EXAMINATION: Vital Signs: Temperature 98.9, heart rate is 61, respiratory rate is 21, oxyg en saturation 97% on room air, blood pressure is 151/87. General: This patient is a pleasant elderl y male, sitting up in the chair, in no acute distress. CVS: Normal S1, S2. Regular rate and rhythm . Chest: Breath sounds present bilaterally with no added sounds. Extremities: No edema. Neuro: H e is alert and oriented x3. He moves all 4 extremities. Please keep in mind this is a summarized version of this patient's hospital stay. Extensive Cardiolog y workup and recommendations will be sent with the patient. If you need more information, please fee l free to call me at [phone]. TIME SPENT: Approximately 50 minutes were spent to complete this discharge. [id number]/[facility] #: [id number]
--- NOTE | 2018-02-12 11:35 | DS ---
DISCHARGE SUMMARY: DATE OF ADMISSION: 02/08/18 DATE OF DISCHARGE: 02/11/18 ADDENDUM: Patient is a 77-year-old gentleman with a history of ischemic cardiomyopathy, symptomatic ventricular tachycardiac, was admitted to the hospital on 02/08/18 for his tachycardia and ICD discharge. The patient was started on amiodarone drip. The patient had another episode of tachycardia last night at 3 o'clock in the morning, which was treated with anti-tachycardic pacing. Please see Dr. Cardozo's history and physical for details of the patient's presentation and past cardiac testing. After discussions with Dr. Cardozo, Dr. Amos, and Dr. Olmedo, the decision was that the patient go to a quaternary care facility for his epicardial ventricular tachycardia. The patient will be transferred to the [facility], Dr. Amos spoke directly to a physician at [facility], I do not have that physician's name. The patient will be transferred by ambulance. The patient did get a full gram of IV amiodarone and has continued on 400 mg b.i.d. DISCHARGE MEDICATIONS: 1. Amiodarone 400 mg b.i.d. 2. Aspirin 81 mg a day. 3. Lipitor 20 mg a day. 4. Flonase nasal spray. 5. Fondaparinux 2.5 mg subcu. 6. Daily insulin as directed. 7. Magnesium oxide 400 mg b.i.d. 8. Toprol-XL 50 mg b.i.d. 9. Omeprazole 20 mg a day. 10. Actos 45 mg a day. 11. MiraLAX p.r.n. ALLERGIES: He is intolerant to HEPARIN, CIPROFLOXACIN, , IV CONTRAST DYE, MESALAMINE. PHYSICAL EXAMINATION: Temperature is afebrile, heart rate is 61, blood pressure 131/87, respiratory rate is 20, oxygen saturation 97% on room air. Carotids are 2+ without bruits. JVD is normal. Thyroid is normal. Cardiac Exam: S1, S2 without any murmurs, rubs, or gallops. Lungs are clear to auscultation. Extremity showed no edema. LABORATORY STUDIES: CBC within normal limits. Chemistries within normal limits. IMPRESSION: A 77-year-old gentleman with a history of ischemic cardiomyopathy, now with recurrent ventricular tachycardia that has failed traditional electrophysiology ablation. The patient will be discharged on amiodarone. The patient will be transferred to the [facility] for quaternary care of his electrophysiology issue. [id number]/[facility] #: [id number] KENNETH
== END 2018-02-11 21:00 | disposition short-term general hospital (02) | DRG 309 ==
LOC: OBSVTOIN 16:02 → MEDTELE 16:02 → INTOOBSV 02-09 11:05 → OBSVTOIN 02-09 11:05 → ICU 02-09 16:36
PROVIDERS: ADMIT Internal Medicine; ATTEND Internal Medicine
DX: I47.2 Ventricular tachycardia (principal); K51.90 Ulcerative colitis, unspecified, without complications; I25.5 Ischemic cardiomyopathy; I25.10 Atherosclerotic heart disease of native coronary artery without angina pectoris; I11.9 Hypertensive heart disease without heart failure; J44.9 Chronic obstructive pulmonary disease, unspecified; E78.5 Hyperlipidemia, unspecified; E11.9 Type 2 diabetes mellitus without complications; I47.1 Supraventricular tachycardia; Z66 Do not resuscitate; I95.9 Hypotension, unspecified; I45.10 Unspecified right bundle-branch block; D49.1 Neoplasm of unspecified behavior of respiratory system; Z86.718 Personal history of other venous thrombosis and embolism; Z95.810 Presence of automatic (implantable) cardiac defibrillator; Z95.1 Presence of aortocoronary bypass graft; Z85.828 Personal history of other malignant neoplasm of skin; Z79.82 Long term (current) use of aspirin; Z79.899 Other long term (current) drug therapy; Z88.1 Allergy status to other antibiotic agents; Z88.2 Allergy status to sulfonamides; Z88.8 Allergy status to other drugs, medicaments and biological substances; Z91.048 Other nonmedicinal substance allergy status; Z82.49 Family history of ischemic heart disease and other diseases of the circulatory system; Z79.4 Long term (current) use of insulin
CPT/HCPCS: 36415; 80048; 80053; 80061; 83735; 84439; 84443; 84484; 85027; 93005; A9270-GY; J0282; J1200; J2405

== ENCOUNTER 2018-05-21 10:07 | Observation (INO) | payer MEDICARE, OTHER ==
[~2018-05-21 10:07] MED LIST: Buffered Lidocaine 0.9% SYRIN* 5 ML/SYR SYRINGE INTRADERM ONE; Sodium Citrate/Citric Acid* 15 ML UDC PO ONE
[2018-05-21] MEDS ORDERED: Sodium Citrate/Citric Acid* 15 ML UDC ONE (10:28)
[2018-05-21] MEDS ORDERED: ceFAZolin VIAL 1 GM in NS *SYRINGE * * 10 ML ONE (12:00)
[2018-05-21] MEDS ORDERED: ceFAZolin 2 GM in NS PREMIX(*) 2 GM/100 ML BAG IVPB ONE (12:00)
[2018-05-21] MEDS ORDERED: fentaNYL* 50 MCG/ML 2 ML VIAL (100 MCG VIAL) ONE (12:07)
[2018-05-21] MEDS ORDERED: Midazolam* 1 MG/ML 2 ML VIAL (2 MG) ONE (12:07)
[2018-05-21] MEDS ORDERED: Lidocaine 1%* 5 ML VIAL ONE ×2 (12:09→12:11)
[2018-05-21] MEDS ORDERED: Iodixanol* (CONTRAST) 320 MG/ML 100 ML SDV ONE (12:36)
[2018-05-21] MEDS ORDERED: Acetaminophen TAB* 325 MG PO PRN (13:25)
[2018-05-21] MEDS ORDERED: oxyCODONE/Acetamin 5/325 MG* TAB PO PRN (13:25)
[2018-05-21] MEDS ORDERED: Lidocaine 2% PF * 5 ML VIAL ONE (14:00)
[2018-05-21] MEDS ORDERED: Propofol* 10 MG/ML 20 ML BTL IV PUSH ONE (14:00)
[2018-05-21] MEDS ORDERED: Dextrose 50% Syringe 50 ML* 25 GM/50 ML SYRINGE IV PUSH PRN (16:35)
[2018-05-21] MEDS ORDERED: Nitroglycerin TAB 0.4 MG* 0.4 MG TAB SL PRN (16:36)
--- NOTE | 2018-05-21 16:50 | RAD ---
INDICATION: Chest pain COMPARISON: November 21, 2017 TECHNIQUE: An AP portable view obtained at 1620 hours is submitted. FINDINGS: Bones/Soft Tissues: There are no acute bony findings. There is CABG. There is left-sided cardiac pacemaker Cardiomediastinal: The cardiomediastinal silhouette is normal. Lungs: There are no infiltrates. Pleura: There are no pleural effusions. Other: None IMPRESSION: POSTOPERATIVE CHANGE. NO ACTIVE DISEASE
[2018-05-21] MEDS ORDERED: Pioglitazone TAB* 30 MG PO SCH (18:00)
[2018-05-21] MEDS ORDERED: Atorvastatin* 40 MG TAB PO SCH (21:00)
[2018-05-21] MEDS: ceFAZolin 1 GM VIAL(*) 1 GM in NS 0.9% 50 ML* 50 ML IVPB SCH (21:17)
[2018-05-21] MEDS: Insulin LISPRO* 1 UNITS UNIT SUBCUT SCH (21:38)
[2018-05-21] MEDS: glipiZIDE TAB* 5 MG PO SCH (21:39)
[2018-05-21] MEDS: Metoprolol Succinate XL TAB* 25 MG PO SCH (21:39)
[2018-05-21] MEDS: Omeprazole CAP* 20 MG PO SCH (21:39)
--- NOTE | 2018-05-22 02:42 | OP ---
CC: Dr. Amos* OPERATIVE NOTE: DATE OF OPERATION: 05/21/18 - Inpatient, room 452-01 DATE OF : 42 SURGEON: Eulogio Richard MD ANESTHESIOLOGIST: Dr. Ortega. ANESTHESIA: MAC anesthesia with local sedation. PRE-OP DIAGNOSES: Ischemic cardiomyopathy, ventricular tachycardia, symptomatic bradycardia. POST-OP DIAGNOSES: Ischemic cardiomyopathy, ventricular tachycardia, symptomatic bradycardia. OPERATIVE PROCEDURE: Addition of an atrial lead to a single-chamber ICD and upgrade of single-chamber ICD to a dual-chamber ICD. ESTIMATED BLOOD LOSS: Nil. COMPLICATIONS: None. INDICATIONS: The patient is a 77-year-old gentleman with a history of coronary artery disease, history of ischemic cardiomyopathy and ventricular tachycardia. The patient has a single-chamber ICD for prevention of sudden cardiac . The patient has had significant ventricular tachycardia. He is on both amiodarone and beta-blockers and has had symptomatic bradycardia. Addition of an atrial lead was recommended for maximization of medical therapy. DESCRIPTION OF PROCEDURE: The patient was brought to the cardiac catheterization lab in a fasting state. Informed consent had been obtained prior to procedure. All labs had been reviewed. A venogram of the left shoulder demonstrated patency of the axillary and innominate vein. The patient' s left anterior chest was prepped and draped in the usual fashion. 1% lidocaine was used for local anesthesia. A 4- cm incision was made on the previous incision line and blunt dissection was carried down to the ICD. The ICD fiber sheath was opened and the ICD was removed from the pocket. The ICD was attached from the single-chamber as a single ventricular lead. Under ultrasound guidance, the axillary vein was entered by a modified Seldinger technique and a guidewire was placed. Over the guidewire, an 8-Faroese sheath introducer was placed through which a right atrial lead was advanced to the high right atrium. The right atrial lead is a [employer], model 1200, serial number [id number]. It had a P-wave sensitivity of 1.9, impedance 677 ohms , threshold 1.5 volts at 0.5 milliseconds. The ventricular lead was then tested and noted to be functioning normally. The atrial lead was sutured to the pectoral fascia. The pocket was flushed with antibiotic-infused normal saline. The single- chamber ICD was removed from the field. A new dual- chamber ICD was attached appropriately to the atrial and ventricular leads. The new generator is a [employer], model CR4091, serial number [id number]. The device was placed in the pocket and the surgical incision was closed in 3 layers. The patient was returned to the holding area in stable condition. [id number]/[facility] #: [id number] MTDEstrella
[2018-05-22] MEDS: ceFAZolin 1 GM VIAL(*) 1 GM in NS 0.9% 50 ML* 50 ML IVPB SCH (03:17)
--- NOTE | 2018-05-22 07:44 | RAD ---
INDICATION: Status post device implant. Lung tumor. Cardiac disease. Asthma. COMPARISON: May 21, 2018 TECHNIQUE: Dual energy PA and routine lateral views of the chest were obtained. REPORT: Unchanged RIGHT atrial and RIGHT ventricular level pacemaker leads. Cutaneous ritesh remain over the LEFT chest wall control device. Median sternotomy wires and mediastinal vascular clips. Mild cardiomegaly. Unremarkable central pulmonary vasculature and mediastinal contours. Elevated lung volumes and both diffuse mild prominence of the interstitial markings and patchy rarefaction of the mid to upper lung zone interstitial markings. No focal pulmonary lesion, compelling alveolar consolidation, pleural effusion, pneumothorax. IMPRESSION: #. Unchanged RIGHT atrial and RIGHT ventricular level positions of the pacemaker leads. #. Negative for pulmonary edema or pneumothorax. #. Stigmata of obstructive lung disease. No acute pulmonary or cardiac process evident.
[2018-05-22 08:17] VITALS: BP 132/65
[2018-05-22] MEDS ORDERED: Aspirin EC TAB* 81 MG TAB.EC PO SCH (09:00)
[2018-05-22] MEDS ORDERED: Amiodarone TAB* 200 MG PO SCH (09:00)
[2018-05-22] MEDS: Insulin LISPRO* 1 UNITS UNIT SUBCUT SCH (09:32)
[2018-05-22] MEDS: glipiZIDE TAB* 5 MG PO SCH (09:33)
[2018-05-22] MEDS: Metoprolol Succinate XL TAB* 25 MG PO SCH (09:33)
[2018-05-22] MEDS: Omeprazole CAP* 20 MG PO SCH (09:34)
--- NOTE | 2018-05-22 16:53 | DS ---
CC: Dr. Pam Perea. DISCHARGE SUMMARY: DATE OF ADMISSION/DISCHARGE: 05/22/18 HISTORY OF PRESENT ILLNESS AND HOSPITAL COURSE: The patient is a 77-year-old gentleman with a long c ardiac history including bypass surgery and ventricular tachycardia. He developed more and more freq uent ventricular tachycardia and is not a good candidate for ablation. He was recently started on am iodarone and his sinus rates get quite low. He currently has a single chamber device and a moderate to severe ischemic cardiomyopathy and we are trying to avoid ventricular pacing. For this reason, a d ecision was made to add an atrial lead to his defibrillator. The patient underwent atrial lead implantation yesterday, 05/21/18, with a [employer] lead and an upg raded defibrillator to AV sequential. The patient states immediately once the atrial lead was in, he was feeling better. He has walked matt ral times around the floor this morning and feels great. The patient's daughter and were in the room and concurred he is doing well. The patient denied shortness of breath, incisional tenderness, orthopnea or PND. PAST MEDICAL HISTORY: The patient has a past medical history of: 1. Coronary artery disease. 2. 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 3. Ischemic cardiomyopathy. 4. Ventricular tachycardia with ICD. 5. History of distant pulmonary embolism from DVT post CABG. 6. History of HIT (heparin-induced thrombocytopenia) with pulmonary embolism. 7. Right ventricular hypokinesis secondary to pulmonary embolism. 8. Supraventricular tachycardia. 9. Diabetes type 2. 10. Hypertension. 11. Centripetal obesity. 12. COPD/emphysema. PAST SURGICAL HISTORY: Includes: 1. Bypass surgery in 1998(ROMERO to the LAD, saphenous vein graft to acute marginal and OM branch). 2. Green field filter in 1998. 3. ICD implantation, single chamber 2016. 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 Former smoker. PHYSICAL EXAMINATION: On exam, the patient is 5 feet 9 inches, weighs 191 pounds with a BMI of 28. Vital signs on discharge, blood pressure 132/65, pulse is 60 and regular, oxygen saturation 95% on ro om air and he is afebrile. General Appearance: Centripetally overweight older gentleman seated with his family, in no distress, smiling. Psychologically, pleasant and cooperative. Neurologically, ezekiel ke, alert, oriented to person, place and time. Cranial nerves II through XII grossly intact. I did n ot watch him ambulate, but no gross motor or sensory deficits. Skin: Warm and dry. Incision in the subclavian fossa without evidence of erythema, hematoma, or ecchymosis. No cyanosis. HEENT: Mucous membranes moist. Neck: Without increased JVP. Lungs are clear with good effort. No wheezes, rale s or rhonchi. Coronary: S1, S2 regular. No murmurs. Distant. Abdomen: Overweight, nontender. The lower extremities are free of edema and warm. DIAGNOSTIC STUDIES/LAB DATA: The patient's chest x-ray from this morning showed good atrial and vent ricular lead placement and no pneumothorax. It did show some stigmata of chronic COPD. Pacemaker interrogation showed excellent and stable pacing and sensing threshold of the atrial and ve ntricular/defibrillator lead ([employer] atrial lead and [employer] model [id number] device). MEDICATION ALLERGIES: Include CIPRO, HEPARIN, SHELLFISH, BACTRIM, IODINE, CLARITHROMYCIN, and MESALA MINE. DISCHARGE MEDICATIONS: As follows: 1. Tylenol p.r.n. 2. Amiodarone 200 mg a day. 3. Aspirin 81 mg a day. 4. Lipitor 40 mg a day. 5. Keflex 500 mg t.i.d. for 4 days. 6. Glucotrol 10 mg b.i.d. 7. Humulin, Lispro insulin. 8. Toprol XL 25 mg b.i.d. 9. Nitroglycerin p.r.n. 10. Prilosec 20 mg b.i.d. 11. Actos 30 mg a day. The patient was hemodynamically stable throughout the hospital stay. He is feeling much better than prior to his atrial lead implantation. Written and verbal instructions were provided to the patient about care of the new lead and incision and he has followup scheduled in our office in 1 week's time. [id number]/[facility] #: [id number]
== END 2018-05-22 11:00 | disposition home or self-care (01) ==
LOC: CHICATH 10:07 → MEDTELE 15:11
PROVIDERS: ADMIT Specialist; ATTEND Specialist
DX: I25.5 Ischemic cardiomyopathy (principal); I47.2 Ventricular tachycardia; R00.1 Bradycardia, unspecified; I25.10 Atherosclerotic heart disease of native coronary artery without angina pectoris; I25.2 Old myocardial infarction; Z86.711 Personal history of pulmonary embolism; Z86.718 Personal history of other venous thrombosis and embolism; I47.1 Supraventricular tachycardia; I10 Essential (primary) hypertension; J43.9 Emphysema, unspecified; Z79.82 Long term (current) use of aspirin; Z86.73 Personal history of transient ischemic attack (TIA), and cerebral infarction without residual deficits; Z95.0 Presence of cardiac pacemaker; R06.02 Shortness of breath; R06.83 Snoring; E66.09 Other obesity due to excess calories
CPT/HCPCS: 33216; 33263; 71045; 71046; 88300; 96374; A9270-GY; C1721; C1898; G0378; J0690; J2250; J2704; J3010

== ENCOUNTER 2018-10-17 12:52 | Emergency (ER) | payer MEDICARE, OTHER ==
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
[2018-10-17 14:02] LABS: ABS Basophils 0 10^3/ul (0-0.2); ABS Eosinophils 0.2 10^3/ul (0-0.6); ABS Lymphocytes 1.7 10^3/ul (1.0-4.8); ABS Monocytes 0.7 10^3/ul (0-0.8); ABS Nucleated RBC 0 10^3/ul; Eosinophil % 2.4 %; Hematocrit 44 % (42-52); Hemoglobin 14.5 g/dl (14.0-18.0); Lymphocyte % 26.2 %; Mean Corpuscular HGB Conc 33 g/dl (31-36); Mean Corpuscular Hemoglobin 32 pg (27-31); Mean Corpuscular Volume 95 fL (80-94); Mean Platelet Volume 8.8 fL (7.4-10.4); Nucleated Red Blood Cells % 0.1; Platelet Count 133 10^3/ul (150-450); Red Blood Count 4.59 10^6/ul (4.00-5.40); Red Cell Distribution Width 15 % (10.5-15); White Blood Count 6.6 10^3/ul (3.5-10.8)
[2018-10-17 14:09] LABS: INR 0.95 (0.77-1.02)
--- OUTSIDE RECORDS SUMMARY | 2018-10-17 14:17 | XMS REPORT | Continuity of Care Document ---
:1940 External Reference #:[id number] Author Name Nanci Wells Care Team Providers Name Role Phone Pam Perea MD Primary Care Physician Unavailable Payers Type Date Identification Numbers Payment Provider Subscriber Effective: 1989 Policy Number: [id number] Medicare Daren Calvo PayID: [id number] [address] [place] [address] Effective: 2016 Policy Number: [id number] [employer] Daren Calvo Group Number: [id number] [address] PayID: [id number] [place] [address] Effective: 2017 Policy Number: [id number] [employer] Daren Calvo Expires: 2019 Group Number: [id number] PayID: [id number] [address] Effective: 2012 Policy Number: [id number] [employer] Nery B Calvo Expires: 2013 Group Number: [id number] [address] PayID: [id number] [place] [address] Advance Directives Description No Information Available Problems Date Description Provider Status Onset: 09/10/2013 Benign essential hypertension Olga Amos M.D. 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 Active Onset: 04/16/2015 Mixed hyperlipidemia Olga Amos M.D. 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 Active Onset: 06/26/2017 Tricuspid valve disorder, non-rheumatic Olga Amos M.D. Active Onset: 10/26/2017 Syncope and collapse Olga Amos M.D. Active Onset: 02/08/2018 Chronic ischemic heart disease Olga Amos M.D. Active Onset: 08/23/2018 Multi vessel coronary artery disease Olga Amos M.D. Active Onset: 08/23/2018 Cardiomyopathy Olga Amos M.D. Active Family History Date Family Member(s) Problem(s) Comments Father Heart Disease Father due to [place] () Father Coronary Artery Disease (CAD) Father Alcoholism Mother Alcoholism Mother due to Pneumonia () Siblings 3 1 and 2 living Social History Type Date Description Comments Sex Unknown Marital Status Lives With Occupation Retired Occupation Currently Working Manage [employer] Cigarette Use Quit 32 Years Ago Smoked 1 ppd ETOH Use Denies alcohol use Tobacco Use Start: Unknown Patient is a former smoked cigarettes for End: Unknown smoker 20 years, quit March 1985 Recreational Drug Use Denies Drug Use Smoking Status Reviewed: 09/27/18 Patient is a former smoked cigarettes for smoker 20 years, quit March 1985 Exercise Type/Frequency Exercises rarely Allergies, Adverse Reactions, Alerts Date Description Reaction Status Severity Comments 09/09/2013 Heparin Active 09/09/2013 Cipro Active 09/09/2013 Penicillin Active 09/09/2013 Bactrim Active 09/09/2013 Beta Adrenergic Blockers decreased heart rate Active 09/09/2013 Asacol Active 09/09/2013 Biaxin Active 09/09/2013 Mesalamine Active 09/27/2018 Shellfish-Derived Products Active Medications Medication Date Status Form Strength Qnty SIG Indications Ordering Provider Metoprolol 12/17/ Active Tablets ER 25mg 90tab 1 by mouth Loga Succinate ER 2018 24HR s in Am and 2 [place], tabs in PM M.D. Glipizide 10/17/ Active Tablets 10mg 1 tablet po Crepet, 2018 bid MD Pam Actos 10/17/ Active Tablets 30mg 1 by mouth Crepet, 2018 every day ( MD Pam Med change decrease from 45mg per Dr. Perea) Atorvastatin 06/18/ Active Tablets 40mg 1 by mouth Crepeabhijeet, Calcium 2017 every day MD Pam Nitrostat / Active Tablets Sub 0.4mg 25tab one sl Olga 0000 s q5min up to [place], 3 doses as M.D. needed Fluticasone / Active Suspension 50mcg/Act 3unit 1 spray Unknown Propionate 0000 s each nostril daily as needed Aspirin / Active Tablets DR 81mg 1 by mouth Unknown 0000 every day Am Amiodarone HCL / Active Tablets 200mg 1 /2 tablet Olga 0000 by mouth [place], twice per M.D. day ( 1/2 tablet of 400mg tablet taking 200mg in the Am only ) Pantoprazole / Active Tablets DR 20mg 1 by mouth Unknown Sodium 0000 twice daily Levothyroxine / Active Tablets 25mcg 2 tablet po Unknown Sodium 0000 daily ( medication increase 25mcg to 50mcg per Dr. Perea as of 09/26/18) Victoza / Active Solution 18mg/3ML inject 1.8 Unknown 0000 Pen-Inject mg daily ( started today 09/27/[address] Perea) Sotalol HCL 12/21/ Hx Tablets 80mg 360ta 2 tabs by Olga (AF) 2018 - bs mouth twice Dandre, 02/03/ a day M.D. 2017 Propafenone HCL 10/26/ Hx Tablets 150mg 180ta 1 by mouth I47.2 Olga 2018 - bs twice a day Dandre, 12/12/ M.D. 2017 Keflex 03/07/ Hx Capsules 500mg 9caps 1 by mouth Eulogio 2016 - three times D. Brand, 03/19/ a day for 3 M.D. 2017 days Metoprolol 04/01/ Hx Tablets ER 25mg 90tab 1 tab by Olga Succinate ER 2012 - 24HR s mouth every Dandre, 02/12/ day M.D. 2016 Spiriva / Hx Capsules 18mcg 30cap 1 Unknown Handihaler 0000 - s inhalation 03/27/ po qam 2013 Byetta / Hx Solution 10mcg 1unit bid Unknown 0000 - s 2014 Omeprazole 00/00/ Hx 20mg 1 po qd Unknown 0000 - 2017 Coumadin 00/00/ Hx 4mg as directed Unknown 0000 - (domínguez) 02/08/ On Hold 2017 since 02/08/17 [facility] discharge) Lisinopril 00/00/ Hx Tablets 5mg 90tab 1 po qd Unknown 0000 - s 2012 Atorvastatin 00/00/ Hx Tablets 20mg 90tab 1 tablet po Unknown Calcium 0000 - s daily Am ( 2018 after 30 days of taking 40mg daily) Chloé Allergy 00/00/ Hx Tablets 180mg 30tab 1 po as Unknown 0000 - s needed 2017 Lisinopril 00/00/ Hx Tablets 5mg 1 po daily Unknown 0000 - 2017 Bydureon / Hx Pen 2mg inj once a Unknown 0000 - week 2017 Acetaminophen /00/ Hx Tablets 325mg 2 tablets Unknown 0000 - by mouth 03/19/ every 6 2017 hours as needed for pain/fever Furosemide /00/ Hx Tablets 20mg 1 by mouth Unknown 0000 - every day 10/25/ as needed 2017 (patient does not take, has not needed) Metoprolol 00/ Hx Tablets 25mg 180ta 1 by mouth Olga Tartrate 0000 - bs daily ( Tim Amos, 12/12/ Change per M.D. 2017 patient sunday10/22/17 , was taking 1 tablet po bid) Potassium 00/00/ Hx Tablets ER 20Meq 1 by mouth Unknown Chloride ER 0000 - as needed ( 03/06/ take only 2016 if you have taken a lasix) Last taken 02/08/17 Actos 0000/ Hx Tablets 45mg 1 by mouth Unknown 0000 - every day( resume 201702/09/17 [facility] discharge ) I Cap Eye 0000/ Hx Capsules 1 by mouth Unknown Vitamin 0000 - every day 2017 Gaviscon Extra / Hx Chewtabs 160-105mg 2 tabs a Unknown Strength 0000 - day at 02/03/ bedtime 2017 (not taking) Lisinopril 0000/ Hx Tablets 10mg 1 by mouth Olga 0000 - every day Dandre, 12/12/ M.D. 2017 Sotalol HCL 00/ Hx Tablets 120mg one by Unknown 0000 - mouth twice day 2017 Magnesium-Oxide / Hx Tablets 400(241.3 180ta 1 by mouth Olga 0000 - mg) mg bs twice a day Dandre, 02/03/ M.DEly 2017 Metoprolol / Hx Tablets ER 25mg 1 by mouth Unknown Succinate ER 0000 - 24HR every day 2017 Trulicity / Hx 1.5mg/ml one Unknown 0000 - injection 2017 Jardiance / Hx Tablets 10mg 1 by mouth Unknown 0000 - every night 2017 Medications Administered in Office Medication Date Status Form Strength Qnty SIG Indications Ordering Provider Inj, Administered Injection Olga Regadenoson, 013 [place], 0.1 MG M.D. Technetium TC Administered Injection Olga 99M 013 [place], Tetrofosmin, M.D. Per Unit Dose Up To 40 Millicuries Immunizations Description No Information Available Vital Signs Date Vital Result Comment 09/27/2018 12:47pm Height 69 inches 5'9" Weight 191.00 lb with out shoes Heart Rate 60 /min BP Systolic Sitting 120 mmHg Lue reg cuff BP Diastolic Sitting 70 mmHg Lue reg cuff BP Systolic Standing 114 mmHg Lue reg cuff BP Diastolic Standing 70 mmHg Lue reg cuff Respiratory Rate 16 /min BMI (Body Mass Index) 28.2 kg/m2 08/23/2018 2:32pm Height 69 inches 5'9" Weight 189.00 lb Heart Rate 72 /min BP Systolic Sitting 120 mmHg Lue reg cuff BP Diastolic Sitting 68 mmHg Lue reg cuff BP Systolic Standing 116 mmHg Lue BP Diastolic Standing 70 mmHg Lue Respiratory Rate 18 /min BMI (Body Mass Index) 27.9 kg/m2 Ejection Fraction 47% 02/12/18 07/12/2018 10:09am Height 69 inches 5'9" Weight 190.00 lb Heart Rate 62 /min BP Systolic Sitting 120 mmHg Lue reg cuff BP Diastolic Sitting 70 mmHg Lue reg cuff BP Systolic Standing 122 mmHg Lue BP Diastolic Standing 74 mmHg Lue Respiratory Rate 16 /min BMI (Body Mass Index) 28.1 kg/m2 Ejection Fraction 47% as of 02/12/18 echo 06/04/2018 10:44am Height 69 inches 5'9" Weight 189.12 lb Heart Rate 60 /min BP Systolic Sitting 130 mmHg Rue regular cuff BP Diastolic Sitting 74 mmHg Rue regular cuff Respiratory Rate 12 /min O2 % BldC Oximetry 94 % BMI (Body Mass Index) 27.9 kg/m2 05/29/2018 9:33am Height 69 inches 5'9" Weight 189.00 lb Heart Rate 64 /min BP Systolic Sitting 110 mmHg rue reg cuff BP Diastolic Sitting 62 mmHg rue reg cuff BP Systolic Standing 115 mmHg BP Diastolic Standing 64 mmHg Respiratory Rate 16 /min BMI (Body Mass Index) 27.9 kg/m2 05/02/2018 8:59am Height 69 inches 5'9" Weight 193.00 lb Heart Rate 56 /min BP Systolic Sitting 112 mmHg BP Diastolic Sitting 60 mmHg Respiratory Rate 14 /min O2 % BldC Oximetry 95 % BMI (Body Mass Index) 28.5 kg/m2 Neck Circumference in inches 15.5 04/04/2018 10:06am Height 69 inches 5'9" Weight 195.00 lb w/ shoes Heart Rate 58 /min BP Systolic Sitting 128 mmHg lue lg cuff BP Diastolic Sitting 62 mmHg lue lg cuff BP Systolic Standing 112 mmHg lue lg cuff BP Diastolic Standing 58 mmHg lue lg cuff Respiratory Rate 18 /min BMI (Body Mass Index) 28.8 kg/m2 Ejection Fraction 47% echo 02/12/18 03/05/2018 11:14am Height 69 inches 5'9" Weight 195.00 lb w/ shoes Heart Rate 56 /min reg BP Systolic Sitting 130 mmHg Rue, reg cuff BP Diastolic Sitting 74 mmHg Rue, reg cuff BP Systolic Standing 122 mmHg Rue BP Diastolic Standing 70 mmHg Rue Respiratory Rate 14 /min BMI (Body Mass Index) 28.8 kg/m2 Ejection Fraction 50-55% as of 01/2017 echo 02/08/2018 1:37pm Height 69 inches 5'9" Weight 199.00 lb Heart Rate 64 /min BP Systolic Sitting 124 mmHg Rue reg cuff BP Diastolic Sitting 66 mmHg Rue reg cuff BP Systolic Standing 116 mmHg Rue BP Diastolic Standing 74 mmHg Rue Respiratory Rate 16 /min BMI (Body Mass Index) 29.4 kg/m2 Ejection Fraction 50-55% as of 02/04/17 echo 01/16/2018 3:37pm Height 69 inches 5'9" Weight 297.00 lb Heart Rate 84 /min BP Systolic Sitting 140 mmHg Rue reg cuff BP Diastolic Sitting 70 mmHg Rue reg cuff BP Systolic Standing 122 mmHg Rue reg cuff BP Diastolic Standing 72 mmHg Rue reg cuff Respiratory Rate 18 /min BMI (Body Mass Index) 43.9 kg/m2 Ejection Fraction 50-55% date 02/04/17 ECHO 12/25/2017 11:34am Height 69 inches 5'9" Weight 297.00 lb Heart Rate 65 /min BP Systolic Sitting 130 mmHg lue reg cuff BP Diastolic Sitting 60 mmHg lue reg cuff BP Systolic Standing 120 mmHg lue reg cuff BP Diastolic Standing 60 mmHg lue reg cuff Respiratory Rate 17 /min BMI (Body Mass Index) 43.9 kg/m2 Ejection Fraction 50-55% 02/04/2017 echo 12/21/2017 11:07am Height 69 inches 5'9" Weight 197.00 lb with shoes Heart Rate 66 /min BP Systolic Sitting 110 mmHg Lue reg cuff BP Diastolic Sitting 60 mmHg Lue reg cuff BP Systolic Standing 110 mmHg Lue reg cuff BP Diastolic Standing 70 mmHg Lue reg cuff Respiratory Rate 17 /min BMI (Body Mass Index) 29.1 kg/m2 Ejection Fraction 50-55% 02/04/2017-echo 11/01/2017 1:34pm Height 69 inches 5'9" Weight 203.00 lb Heart Rate 60 /min BP Systolic Sitting 150 mmHg Lue reg cuff BP Diastolic Sitting 74 mmHg Lue reg cuff BP Systolic Standing 138 mmHg Lue BP Diastolic Standing 70 mmHg Lue Respiratory Rate 16 /min BMI (Body Mass Index) 30.0 kg/m2 Ejection Fraction 50-55% 02/04/17 10/26/2017 8:22am Height 69 inches 5'9" Weight 202.00 lb with shoes BP Systolic Sitting 130 mmHg Lue reg cuff BP Diastolic Sitting 60 mmHg Lue reg cuff BP Systolic Standing 130 mmHg Lue reg cuff BP Diastolic Standing 78 mmHg Lue reg cuff BMI (Body Mass Index) 29.8 kg/m2 Ejection Fraction 50-55% date 02/04/17 ECHO 06/26/2017 12:35pm Height 69 inches 5'9" Weight 205.00 lb with shoes Heart Rate 76 /min BP Systolic Sitting 120 mmHg Lue reg cuff BP Diastolic Sitting 50 mmHg Lue reg cuff BP Systolic Standing 116 mmHg Lue reg cuff BP Diastolic Standing 50 mmHg Lue reg cuff Respiratory Rate 17 /min BMI (Body Mass Index) 30.3 kg/m2 Ejection Fraction 50-55% date 02/04/17 ECHO 03/20/2017 9:07am Height 69 inches 5'9" Weight 205.00 lb with shoes Heart Rate 66 /min BP Systolic Sitting 120 mmHg Lue reg cuff BP Diastolic Sitting 60 mmHg Lue reg cuff BP Systolic Standing 116 mmHg Lue reg cuff BP Diastolic Standing 60 mmHg Lue reg cuff Respiratory Rate 16 /min BMI (Body Mass Index) 30.3 kg/m2 Ejection Fraction 50-55% date 02/04/17 ECHO 03/07/2017 11:18am Heart Rate 66 /min BP Systolic Sitting 122 mmHg LA BP Diastolic Sitting 64 mmHg LA 02/13/2017 8:41am Height 69 inches 5'9" Weight 201.00 lb without shoes Heart Rate 88 /min BP Systolic Sitting 124 mmHg right arm, reg cuff BP Diastolic Sitting 72 mmHg right arm, reg cuff BP Systolic Standing 112 mmHg right arm, reg cuff BP Diastolic Standing 66 mmHg right arm, reg cuff Respiratory Rate 17 /min BMI (Body Mass Index) 29.7 kg/m2 04/16/2015 10:41am Height 72 inches 6'0" Weight 199.00 lb no shoes Heart Rate 62 /min BP Systolic Sitting 120 mmHg LA, reg cuff BP Diastolic Sitting 76 mmHg LA, reg cuff BP Systolic Standing 112 mmHg LA BP Diastolic Standing 72 mmHg LA Respiratory Rate 14 /min BMI (Body Mass Index) 27.0 kg/m2 Ejection Fraction 55-60% 03/24/2014 03/30/2014 1:10pm Height 610.0 inches 50'10" Weight 188.00 lb without shoes Heart Rate 70 /min BP Systolic Sitting 110 mmHg Ra reg cuff BP Diastolic Sitting 62 mmHg Ra reg cuff BP Systolic Standing 108 mmHg Ra reg cuff BP Diastolic Standing 70 mmHg Ra reg cuff Respiratory Rate 17 /min BMI (Body Mass Index) 0.4 kg/m2 09/10/2013 12:02pm Height 69.5 inches 5'9.50" Weight 193.50 lb Heart Rate 72 /min BP Systolic Sitting 118 mmHg Ra reg cuff BP Diastolic Sitting 60 mmHg Ra reg cuff BP Systolic Standing 126 mmHg Ra BP Diastolic Standing 69 mmHg Ra Respiratory Rate 18 /min BMI (Body Mass Index) 28.2 kg/m2 Results Test Date Facility Test Result H/L Range Note Laboratory test 05/21/2018 [facility] Point of Care 189 mg/dL High 70-100 1 finding 101 [facility] [place] [address] [phone] Laboratory test 05/21/2018 [facility] Point of Care 213 mg/dL High 70-100 2 finding 101 [facility] [place] [address] [phone] Order 05/02/2018 [employer] In-House 6 Minute Walk <pending> Laboratory test 04/04/2018 [facility] Free T4 (Free 1.00 ng/dL N 0.61-1.12 finding 101 [facility] Thyroxine) [place] [address] [phone] TSH (Thyroid Stim Horm) 7.59 mcIU/mL High 0.34-5.60 Laboratory test 04/04/2018 [facility] T3 Total 78 ng/dL Low 87 -178 finding [address] [place] [address] [phone] Comp Metabolic 04/04/2018 [facility] Sodium 139 mmol/L N 135- 145 Panel [address] [place] [address] [phone] Potassium 4.7 mmol/L N 3.5-5.0 Chloride 106 mmol/L N 101-111 Co2 Carbon Dioxide 22 mmol/L N 22-32 Anion Gap 11 mmol/L N 2-11 Glucose 195 mg/dL High 70-100 Blood Urea Nitrogen 27 mg/dL High 6-24 Creatinine 1.16 mg/dL N 0.67-1.17 BUN/Creatinine Ratio 23.3 High 8-20 Calcium 9.7 mg/dL N 8.6-10.3 Total Protein 6.9 g/dL N 6.4-8.9 Albumin 4.3 g/dL N 3.2-5.2 Globulin 2.6 g/dL N 2-4 Albumin/Globulin Ratio 1.7 N 1-3 Total Bilirubin 0.60 mg/dL N 0.2-1.0 Alkaline Phosphatase 130 U/L High 34-104 Alt 38 U/L N 7-52 Ast 24 U/L N 13-39 Egfr Non- 61.2 >60 Egfr 74.1 >60 3 Laboratory test 11/21/2017 [facility] Troponin-I (TnI) 0.00 ng/ mL <0.04 finding [address] [place] [address] [phone] Comp Metabolic 10/26/2017 [facility] Sodium 136 mmol/L N 133- 145 Panel [address] [place] [address] [phone] Potassium 4.1 mmol/L N 3.5-5.0 Chloride 103 mmol/L N 101-111 Co2 Carbon Dioxide 27 mmol/L N 22-32 Anion Gap 6 mmol/L N 2-11 Glucose 123 mg/dL High 70-100 Blood Urea Nitrogen 23 mg/dL N 6-24 Creatinine 0.88 mg/dL N 0.67-1.17 BUN/Creatinine Ratio 26.1 High 8-20 Calcium 9.6 mg/dL N 8.6-10.3 Total Protein 7.5 g/dL N 6.4-8.9 Albumin 4.4 g/dL N 3.2-5.2 Globulin 3.1 g/dL N 2-4 Albumin/Globulin Ratio 1.4 N 1-3 Total Bilirubin 0.50 mg/dL N 0.2-1.0 Alkaline Phosphatase 123 U/L High 34-104 Alt 25 U/L N 7-52 Ast 24 U/L N 13-39 Egfr Non- 84.2 >60 Egfr 108.3 >60 4 Laboratory test 10/26/2017 [facility] Magnesium 2.1 mg/dL N 1.9-2.7 finding [address] [place] [address] [phone] Laboratory test 02/07/2017 [facility] Troponin-I 0.27 ng/mL High <0.04 [address] [place] [address] (TnI) [place] [address] [phone] Blood Culture SEE RESULT BELOW 6 Comp Metabolic Panel 02/07/2017 [facility] Sodium 133 mmol/L N 133-145 [address] [place] [address] [phone] Chloride 100 mmol/L Low 101-111 Co2 Carbon Dioxide 22 mmol/L N 22-32 Glucose 208 mg/dL High 70-100 Blood Urea Nitrogen 27 mg/dL High 6-24 Creatinine 1.30 mg/dL High 0.67-1.17 BUN/Creatinine Ratio 20.8 High 8-20 Calcium 9.9 mg/dL N 8.6-10.3 Total Protein 8.1 g/dL N 6.4-8.9 Albumin 4.2 g/dL N 3.2-5.2 Globulin 3.9 g/dL N 2-4 Albumin/Globulin Ratio 1.1 N 1-3 Total Bilirubin 0.90 mg/dL N 0.2-1.0 Alkaline Phosphatase 99 U/L N 34-104 Alt 24 U/L N 7-52 Egfr Non- 53.8 N >60 Egfr 69.2 N >60 7 Potassium 4.8 mmol/L N 3.5-5.0 8 Anion Gap 11 mmol/L N 2-11 Ast 24 U/L N 13-39 9 CBC Auto 02/07/2017 [facility] White Blood 11.5 10^3/uL High 3.5-10.[address] [place] [address] ([phone]) [phone] Red Blood Count 5.08 10^6/uL N 4.0-5.4 Hemoglobin 15.6 g/dL N 14.0-18.0 Hematocrit 47 % N 42-52 Mean Corpuscular Volume 93 fL N 80-94 Mean Corpuscular Hemoglobin 31 pg N 27-31 Mean Corpuscular HGB Conc 33 g/dL N 31-36 Red Cell Distribution Width 14 % N 10.5-15 Platelet Count 168 10^3/uL N 150-450 Mean Platelet Volume 10 um3 N 7.4-10.4 Abs Neutrophils 8.3 10^3/uL High 1.5-7.7 Abs Lymphocytes 2.1 10^3/uL N 1.0-4.8 Abs Monocytes 1.0 10^3/uL High 0-0.8 Abs Eosinophils 0.1 10^3/uL N 0-0.6 Abs Basophils 0 10^3/uL N 0-0.2 Abs Nucleated RBC 0.01 10^3/uL N Granulocyte % 71.8 % N 38-83 Lymphocyte % 18.1 % Low 25-47 Monocyte % 8.9 % N 1-9 Eosinophil % 0.9 % N 0-6 Basophil % 0.3 % N 0-2 Nucleated Red Blood Cells % 0.1 N Laboratory test 02/07/2017 [facility] Partial 28.9 seconds N 26.0-36.[address] [place] [address] PTT [phone] Lactic Acid 2.2 mmol/L High 0.5-2.0 10 Inr/Protime 02/07/2017 [facility] Inr 1.07 N 0.89-1.[address] [place] [address] [phone] 1 [employer]: [id number] [employer]: [id number] 3 Because ethnic data is not always readily available, this report includes an eGFR for both -Americans and non- Americans. The National Kidney Disease Education Program (NKDEP) does not endorse the use of the MDRD equation for patients that are not between the ages of 18 and 70, are , have extremes of body size, muscle mass, or nutritional status, or are non- or non-. According to the National Kidney Foundation, irrespective of diagnosis, the stage of the disease is based on the level of kidney function: Stage Description GFR(mL/min/1.73 m(2)) 1 Kidney damage with normal or decreased GFR 90 2 Kidney damage with mild decrease in GFR 60-89 3 Moderate decrease in GFR 30-59 4 Severe decrease in GFR 15-29 5 Kidney failure <15 (or dialysis) 4 Because ethnic data is not always readily available, this report includes an eGFR for both -Americans and non- Americans. The National Kidney Disease Education Program (NKDEP) does not endorse the use of the MDRD equation for patients that are not between the ages of 18 and 70, are , have extremes of body size, muscle mass, or nutritional status, or are non- or non-. According to the National Kidney Foundation, irrespective of diagnosis, the stage of the disease is based on the level of kidney function: Stage Description GFR(mL/min/1.73 m(2)) 1 Kidney damage with normal or decreased GFR 90 2 Kidney damage with mild decrease in GFR 60-89 3 Moderate decrease in GFR 30-59 4 Severe decrease in GFR 15-29 5 Kidney failure <15 (or dialysis) 5 Result TnIDx:0.27 Called to [id number] at: 20:14:47 by:[email or web address] Read back by: AMERICO 99th percentile=0.04 ng/mL Troponin results at [facility] and [facility] are not interchangeable. 6 SEE RESULT BELOW Name: DAREN CALVO : [address]: Basia Shen DO Acct: [id number] Unit: [id number] AGE: 76 Location: [place] [address] Re02/07/17 Dis: 02/08/17 SEX: M Status: DIS Woo SPEC: [id number] FRANCES: 02/07/[address]: Kelvin Hawley MD REQ: [id number] RECD: 02/07/17 STATUS: JONNY MONROY DR: Olga Perea MD _ SOURCE: BLOOD,VENO SPDESC: ORDERED: Blood Cult Procedure Result Reported Site Aerobic Culture Bottle Final 02/12/17- 2046 ML No Growth Day 5 Anaerobic Culture Bottle Final 02/12/17- 2046 ML No Growth Day 5 * ML - MAIN LAB ([facility]) . END OF REPORT * ML=Testing performed at Main Lab DEPARTMENT OF PATHOLOGY, [address] [place] [address] Wade Long M.D. Director [facility] # [id number] 7 Because ethnic data is not always readily available, this report includes an eGFR for both -Americans and non- Americans. The National Kidney Disease Education Program (NKDEP) does not endorse the use of the MDRD equation for patients that are not between the ages of 18 and 70, are , have extremes of body size, muscle mass, or nutritional status, or are non- or non-. According to the National Kidney Foundation, irrespective of diagnosis, the stage of the disease is based on the level of kidney function: Stage Description GFR(mL/min/1.73 m(2)) 1 Kidney damage with normal or decreased GFR 90 2 Kidney damage with mild decrease in GFR 60-89 3 Moderate decrease in GFR 30-59 4 Severe decrease in GFR 15-29 5 Kidney failure <15 (or dialysis) 8 Unable to report test result due to hemolysis. 9 Unable to report test result due to hemolysis. 10 Critical Result LACT:2.2 Called to NATAN at: 19:38:48 by:[id number] Read back by:NATAN BRYAN Severe Sepsis and Septic Shock Management Bundle Measure requires all lactic acids initially measuring >2.0 mmol/L be repeated. Procedures Date Code Description Status 08/23/2018 24847 Icd Eval With Inerative Adjustmt Dual Lead System Completed 08/23/2018 95781 Icd Eval With Inerative Adjustmt Dual Lead System Completed 08/23/2018 43232 EKG Tracing & Interpretation Completed 07/22/2018 49543 Icd Eval With Inerative Adjustmt Dual Lead System Completed 07/22/2018 92080 Icd Eval With Inerative Adjustmt Dual Lead System Completed 07/12/2018 41939 EKG Tracing & Interpretation Completed 06/26/2018 55789 Interrogation Implant Cardiovasc Monitor System Incl Completed Analysis Int 06/26/2018 84334 Interrogation Implant Cardiovasc Monitor System Incl Completed Analysis Int 06/26/2018 41657 Icd Eval With Inerative Adjustmt Dual Lead System Completed 06/26/2018 43014 Icd Eval With Inerative Adjustmt Dual Lead System Completed 05/28/2018 71898 Pulmonary Function><Bronchodil Completed 05/28/2018 16386 Plethysmography Determination Lung Volumes & Per Airway Completed Resist 05/28/2018 79800 Diffusing Capacity Completed 05/21/2018 35807 Insert/Replace Icd W/Generator Completed 05/21/2018 62756 Removal Icd Generator Only Completed 05/10/2018 56949 Interrogation Implant Cardiovasc Monitor System Incl Completed Analysis Int 05/10/2018 72313 Interrogation Implant Cardiovasc Monitor System Incl Completed Analysis Int 05/10/2018 46725 Icd eval w/iterative adjment single lead Icd Completed 05/10/2018 84341 Icd eval w/iterative adjment single lead Icd Completed 05/02/2018 03297 Pulmonary Stress Testing, Inc Measurement Heart Rate, Completed Oximetry 04/04/2018 43152 EKG Tracing & Interpretation Completed 04/02/2018 83625 Icd Check Single,Dual Or Multiple In Person W/DR Incl Completed Heart Rhyth 04/02/2018 53176 Icd Check Single,Dual Or Multiple In Person W/DR Incl Completed Heart Rhyth 04/02/2018 60087 Interrogation Implant Cardiovasc Monitor System Incl Completed Analysis Int 04/02/2018 98228 Interrogation Implant Cardiovasc Monitor System Incl Completed Analysis Int 03/21/2018 28388 Diffusing Capacity Completed 03/21/2018 06350 Plethysmography Determination Lung Volumes & Per Airway Completed Resist 03/21/2018 79418 Pulmonary Function><Bronchodil Completed 03/06/2018 87410 Interrogation Implant Cardiovasc Monitor System Incl Completed Analysis Int 03/06/2018 56981 Interrogation Implant Cardiovasc Monitor System Incl Completed Analysis Int 03/06/2018 60996 Icd Check Single,Dual Or Multiple In Person W/DR Incl Completed Heart Rhyth 03/06/2018 86218 Icd Check Single,Dual Or Multiple In Person W/DR Incl Completed Heart Rhyth 03/05/2018 02193 EKG Tracing & Interpretation Completed 02/11/2018 15535 EKG, Interpretation Only Completed 02/10/2018 83566 EKG, Interpretation Only Completed 02/09/2018 54433 EKG, Interpretation Only Completed 02/08/2018 23580 Icd eval w/iterative adjment single lead Icd Completed 02/08/2018 36989 Icd eval w/iterative adjment single lead Icd Completed 02/08/2018 45457 Interrogation Implant Cardiovasc Monitor System Incl Completed Analysis Int 02/08/2018 54087 Interrogation Implant Cardiovasc Monitor System Incl Completed Analysis Int 02/01/2018 07409 Interrogation Implant Cardiovasc Monitor System Incl Completed Analysis Int 02/01/2018 58678 Interrogation Implant Cardiovasc Monitor System Incl Completed Analysis Int 02/01/2018 24281 Icd eval w/iterative adjment single lead Icd Completed 02/01/2018 79573 Icd eval w/iterative adjment single lead Icd Completed 01/23/2018 32886 Interrogation Implant Cardiovasc Monitor System Incl Completed Analysis Int 01/23/2018 77034 Interrogation Implant Cardiovasc Monitor System Incl Completed Analysis Int 01/23/2018 97118 Icd eval w/iterative adjment single lead Icd Completed 01/23/2018 23818 Icd eval w/iterative adjment single lead Icd Completed 01/16/2018 53847 EKG Tracing & Interpretation Completed 01/02/2018 38229 Icd Eval W/Iterative Adjustmnt Single Lead Icd Completed 12/25/2017 15056 Icd eval w/iterative adjment single lead Icd Completed 12/25/2017 60867 Icd eval w/iterative adjment single lead Icd Completed 12/25/2017 05297 EKG Tracing & Interpretation Completed 12/21/2017 72822 EKG Tracing & Interpretation Completed 12/12/2017 32703 Interrogation Implant Cardiovasc Monitor System Incl Completed Analysis Int 12/12/2017 47921 Interrogation Implant Cardiovasc Monitor System Incl Completed Analysis Int 12/12/2017 70073 Icd Eval W/Iterative Adjustmnt Single Lead Icd Completed 12/12/2017 98371 Icd Eval W/Iterative Adjustmnt Single Lead Icd Completed 11/24/2017 95731 EKG, Interpretation Only Completed 11/23/2017 90309 EKG, Interpretation Only Completed 11/23/2017 47306 EKG, Interpretation Only Completed 11/22/2017 98545 EKG, Interpretation Only Completed 11/22/2017 46022 EKG, Interpretation Only Completed 11/22/2017 92061 EKG, Interpretation Only Completed 11/16/2017 36631 EKG, Interpretation Only Completed 11/15/2017 07228 EKG, Interpretation Only Completed 11/14/2017 97691 EKG, Interpretation Only Completed 11/13/2017 72965 EKG, Interpretation Only Completed 11/01/2017 63549 EKG Tracing & Interpretation Completed 10/31/2017 00157 Interrogation Implant Cardiovasc Monitor System Incl Completed Analysis Int 10/31/2017 45670 Interrogation Implant Cardiovasc Monitor System Incl Completed Analysis Int 10/31/2017 69544 Icd eval w/iterative adjment single lead Icd Completed 10/31/2017 63597 Pace Maker Eval W/Iterative Adjustment Single Lead Completed 10/26/2017 55211 Icd eval w/iterative adjment single lead Icd Completed 09/21/2017 77325 ECHO Stress Test Incl Perf Contiuous ekg Monitoring W/Phys Completed Superv 08/14/2017 08718 Interrogation Implant Cardiovasc Monitor System Incl Completed Analysis Int 08/14/2017 86331 Interrogation Implant Cardiovasc Monitor System Incl Completed Analysis Int 08/14/2017 21029 Icd Eval W/Iterative Adjustmnt Single Lead Icd Completed 08/14/2017 58671 Icd Eval W/Iterative Adjustmnt Single Lead Icd Completed 06/26/2017 83232 EKG Tracing & Interpretation Completed 06/13/2017 46547 Interrogation Implant Cardiovasc Monitor System Incl Completed Analysis Int 06/13/2017 01984 Icd Eval W/Iterative Adjustmnt Single Lead Icd Completed 03/07/2017 74074 Icd eval w/iterative adjment single lead Icd Completed 02/13/2017 16189 EKG Tracing & Interpretation Completed 02/08/2017 74731 EKG, Interpretation Only Completed 02/03/2017 74227 Cardioversion Completed 10/30/2016 56608 Stress Test Supervsn W/Out I/R Completed 10/30/2016 46026 Treadmill Interp/Report Only Completed 10/29/2016 75511 EKG, Interpretation Only Completed 04/16/2015 53172 EKG Tracing & Interpretation Completed 03/24/2014 45129 ECHO Transthoracic, Real-Time 2D With Doppler And Color Completed Flow 09/10/2013 90518 EKG Tracing & Interpretation Completed 04/22/2013 77716 ECHO Transthoracic, Real-Time 2D With Doppler And Color Completed Flow 04/18/2013 18510 Extremity Studies-Bilateral Completed 04/03/2013 22734 Stress Test Completed 04/03/2013 91171 Myocardial Perfusion Imaging Tomographic (Spect) Multiple Completed Studies 04/01/2013 03990 EKG Tracing & Interpretation Completed 03/28/2013 57017 Holter Monitoring 24 HR New Completed 12/15/2010 72141 EKG, Interpretation Only Completed Encounters Type Date Location Provider Dx Diagnosis Office Visit 07/12/2018 [facility] Olga Amos, I25.5 Ischemic 10:20a Of Front End Software Engineer AT [facility].D. cardiomyopathy Z95.810 Presence of automatic (implantable) cardiac defibrillator J43.9 Emphysema, unspecified I25.810 Atherosclerosis of CABG w/o angina pectoris I47.2 Ventricular tachycardia Office Visit 06/04/2018 11:15a [facility]monology And Natty J98.4 Other disorders Sleep Services Of MD Dhiraj of lung [facility] J43.9 Emphysema, unspecified Office Visit 05/02/2018 9:30a Pulmonology And Natty J98.4 Other disorders Sleep Services Of MD Dhiraj of lung [facility] J43.9 Emphysema, unspecified R06.02 Shortness of breath R06.83 Snoring E66.09 Other obesity due to excess calories Z68.28 Body mass index (BMI) 28.0-28.9, adult Office Visit 04/04/2018 10:00a [facility] Olga Amos, R42 Dizziness and Of Front End Software Engineer AT [facility] M.D. giddiness R06.02 Shortness of breath I47.2 Ventricular tachycardia Z95.810 Presence of automatic (implantable) cardiac defibrillator I25.5 Ischemic cardiomyopathy I25.810 Atherosclerosis of CABG w/o angina pectoris Office Visit 03/05/2018 11:30a [facility] Olga Amos I47.2 Ventricular Of Front End Software Engineer M.D. tachycardia I25.5 Ischemic cardiomyopathy R06.02 Shortness of breath I25.810 Atherosclerosis of CABG w/o angina pectoris Office Visit 02/11/2018 12:14p [facility] Eulogio Foster I47.2 Ventricular Of Alexys Richard M.D. tachycardia I25.10 Athscl heart disease of [place] coronary artery w/o ang pctrs Office Visit 02/11/2018 9:32a [facility] Eulogio Foster I25.5 Ischemic Cardiology Of Arianna Richard cardiomyopathy Front End Software Engineer I47.2 Ventricular tachycardia Office Visit 02/11/2018 11:06a [facility] Celsa I47.2 Ventricular Assoc,maynor Balbuena M.D. tachycardia Hospitalists E11.9 Type 2 diabetes mellitus without complications R07.89 Other chest pain Office Visit 02/10/2018 9:06a [facility] Juan Francisco Mead I47.2 Ventricular Of Front End Software Engineer Cardozo, DO tachycardia FACC Office Visit 02/10/2018 11:05a [facility] Celsa I47.2 Ventricular Assoc,maynor Balbuena M.D. tachycardia Hospitalists E11.9 Type 2 diabetes mellitus without complications Office Visit 02/09/2018 11:05a [facility] Celsa I47.2 Ventricular Assoc,maynor Balbuena M.D. tachycardia Hospitalists E11.9 Type 2 diabetes mellitus without complications R07.89 Other chest pain Office Visit 02/09/2018 8:57a [facility] Juan Francisco Mead I47.2 Ventricular Of Front End Software Engineer Cardozo, DO tachycardia FACC I25.10 Athscl heart disease of [place] coronary artery w/o ang pctrs I25.2 Old myocardial infarction Z95.1 Presence of aortocoronary bypass graft Z95.810 Presence of automatic (implantable) cardiac defibrillator Office Visit 02/08/2018 [facility] Christofer Zheng I47.2 Ventricular 11:04a Assoc,maynor De Los Santos MD tachycardia Hospitalists E11.9 Type 2 diabetes mellitus without complications R07.89 Other chest pain Office Visit 02/08/2018 1:45p [facility] Olga Amos I47.2 Ventricular Of Front End Software Engineer M.D. tachycardia R55 Syncope and collapse Z95.810 Presence of automatic (implantable) cardiac defibrillator I25.5 Ischemic cardiomyopathy Office Visit 02/08/2018 8:59a [facility] Juan Francisco S. I47.2 Ventricular Of Front End Software Engineer Cardozo, DO tachycardia FACC I25.5 Ischemic cardiomyopathy Z95.810 Presence of automatic (implantable) cardiac defibrillator Office Visit 01/16/2018 4:00p [facility] Eulogio D. I47.2 Ventricular Of Front End Software Engineer Brand, M.D. tachycardia Z95.810 Presence of automatic (implantable) cardiac defibrillator R55 Syncope and collapse I42.9 Cardiomyopathy, unspecified Office Visit 01/03/2018 2:30p [facility] Olga Amos I47.2 Ventricular Of Front End Software Engineer M.D. tachycardia Office Visit 01/02/2018 3:01p [facility] Olga Amos I47.2 Ventricular Of Front End Software Engineer M.D. tachycardia Office Visit 12/25/2017 12:30p [facility] Olga Amos I47.2 Ventricular Of Front End Software Engineer M.D. tachycardia Z95.810 Presence of automatic (implantable) cardiac defibrillator Office Visit 12/21/2017 11:30a [facility] Cristin S. I47.2 Ventricular Of Front End Software Engineer Foster, N.P. tachycardia Z95.810 Presence of automatic (implantable) cardiac defibrillator R55 Syncope and collapse Office Visit 11/24/2017 1:35p [facility] Art Shook MD R55 Syncope and Assoc,pc Hospitalists collapse R07.9 Chest pain, unspecified E11.9 Type 2 diabetes mellitus without complications Z86.79 Personal history of other diseases of the circulatory system Office Visit 11/24/2017 2:38p [facility] Olga Amos I47.2 Ventricular Of Front End Software Engineer M.D. tachycardia Z95.810 Presence of automatic (implantable) cardiac defibrillator Office Visit 11/23/2017 1:34p [facility] Renata Correia R55 Syncope and Assoc,pc REBECCA Palomo collapse Hospitalists R07.9 Chest pain, unspecified E11.9 Type 2 diabetes mellitus without complications Z86.79 Personal history of other diseases of the circulatory system Office Visit 11/23/2017 3:24p [facility] SEly I47.2 Ventricular Cardiology Arianna Ayala tachycardia I42.9 Cardiomyopathy, unspecified Z95.810 Presence of automatic (implantable) cardiac defibrillator Office Visit 11/22/2017 1:32p [facility] Renata Correia R55 Syncope and Assoc,maynor Palomo NP collapse Hospitalists R07.9 Chest pain, unspecified E11.9 Type 2 diabetes mellitus without complications Z86.79 Personal history of other diseases of the circulatory system Office Visit 11/22/2017 [facility] Mead I42.9 Cardiomyopathy, 2:56p Cardiology Arianna Ayala unspecified I47.2 Ventricular tachycardia Office Visit 11/21/2017 1:46p [facility] Olga Amos I47.2 Ventricular Of Front End Software Engineer MElyDEly tachycardia I25.5 Ischemic cardiomyopathy I25.10 Athscl heart disease of [place] coronary artery w/o ang pctrs Z95.810 Presence of automatic (implantable) cardiac defibrillator Office Visit 11/21/2017 1:29p [facility] Masood R55 Syncope and Assoc,maynor Palomo NP collapse Hospitalists R07.9 Chest pain, unspecified E11.9 Type 2 diabetes mellitus without complications Z86.79 Personal history of other diseases of the circulatory system Office Visit 11/16/2017 1:26p [facility] Jad I47.2 Ventricular Assoc,AMELIA Matthews tachycardia Hospitalists I25.5 Ischemic cardiomyopathy E11.9 Type 2 diabetes mellitus without complications I95.1 Orthostatic hypotension Office Visit 11/15/2017 1:25p [facility] Jad I47.2 Ventricular Assoc,AMELIA Matthews tachycardia Hospitalists I25.5 Ischemic cardiomyopathy E11.9 Type 2 diabetes mellitus without complications Office Visit 11/15/2017 12:51p [facility] Minh Wahl I47.2 Ventricular Mauser, MElyD. tachycardia R55 Syncope and collapse Z95.810 Presence of automatic (implantable) cardiac defibrillator I25.10 Athscl heart disease of [place] coronary artery w/o ang pctrs Office Visit 11/14/2017 4:22p [facility] Addie S. I25.10 Athscl heart Arianna Ayala disease of [place] coronary artery w/o ang pctrs I47.2 Ventricular tachycardia Z95.810 Presence of automatic (implantable) cardiac defibrillator Office Visit 11/14/2017 1:25p [facility] Jad I47.2 Ventricular Assoc,pc AMELIA Gil tachycardia Hospitalists I25.5 Ischemic cardiomyopathy E11.9 Type 2 diabetes mellitus without complications Office Visit 11/13/2017 4:03p [facility] Eulogio Foster I47.2 Ventricular Of Alexys Arianna Richard tachycardia Z95.810 Presence of automatic (implantable) cardiac defibrillator Z51.81 Encounter for therapeutic drug level monitoring Office Visit 11/13/2017 1:24p [facility] Gisella Chatman I47.2 Ventricular Assoc,pc N.P. tachycardia Hospitalists I25.5 Ischemic cardiomyopathy E11.9 Type 2 diabetes mellitus without complications Office Visit 11/12/2017 1:20p [facility] Gisella Chatman I47.2 Ventricular Assoc,pc N.P. tachycardia Hospitalists I25.5 Ischemic cardiomyopathy E11.9 Type 2 diabetes mellitus without complications Office Visit 11/12/2017 2:45p [facility] Eulogio Foster I47.2 Ventricular Of Alexys Richard M.D. tachycardia I25.5 Ischemic cardiomyopathy Z95.818 Presence of other cardiac implants and grafts Office Visit 11/01/2017 2:10p [facility] Olga Amos I47.2 Ventricular Of Front End Software Engineer M.DEly tachycardia Z95.810 Presence of automatic (implantable) cardiac defibrillator I36.1 Nonrheumatic tricuspid (valve) insufficiency I42.8 Other cardiomyopathies Office Visit 10/26/2017 8:40a [facility] Olga Amos I47.2 Ventricular Of Front End Software Engineer AT [facility] M.D. 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 R25.2 Cramp and spasm Office Visit 03/20/2017 9:15a [facility] Olga Amos, I47.2 Ventricular Of Alexys M.DEly tachycardia Z95.810 Presence of automatic (implantable) cardiac defibrillator I42.8 Other cardiomyopathies I25.810 Atherosclerosis of CABG w/o angina pectoris R06.02 Shortness of breath Office Visit 03/07/2017 [facility] Eulogio Foster Z95.810 Presence of 11:45a Cardiology Of Arianna Richard automatic Front End Software Engineer (implantable) cardiac defibrillator I47.2 Ventricular tachycardia Office Visit 02/13/2017 [facility] Olga Amos, Z95.810 Presence of 9:15a Cardiology Of Arianna automatic Front End Software Engineer (implantable) cardiac defibrillator I47.2 Ventricular tachycardia I42.8 Other cardiomyopathies I25.810 Atherosclerosis of CABG w/o angina pectoris Office Visit 02/08/2017 [facility] Omar JaneDemond, R04.2 Hemoptysis 11:36a Assoc,pc PA Hospitalists I25.10 Athscl heart disease of [place] coronary artery w/o ang pctrs E11.8 Type 2 diabetes mellitus with unspecified complications Office Visit 02/07/2017 11:35a [facility] Nithin Soliz, R04.2 Hemoptysis Assoc,pc N.P. Hospitalists I25.10 Athscl heart disease of [place] coronary artery w/o ang pctrs E11.8 Type 2 diabetes mellitus with unspecified complications Office Visit 02/03/2017 3:31p [facility] SEly I47.2 Ventricular Cardiology Arianna Ayala tachycardia I25.810 Atherosclerosis of CABG w/o angina pectoris Office Visit 10/30/2016 1:54p [facility] Ronald R07.9 Chest pain, Assoc,pc MD Will unspecified Hospitalists R19.7 Diarrhea, unspecified R11.2 Nausea with vomiting, unspecified I25.10 Athscl heart disease of [place] coronary artery w/o ang pctrs Office Visit 10/29/2016 1:53p [facility] Ronald R07.9 Chest pain, Assoc,pc MD Will unspecified Hospitalists R11.2 Nausea with vomiting, unspecified R19.7 Diarrhea, unspecified I25.10 Athscl heart disease of [place] coronary artery w/o ang pctrs Office 10/28/2016 [facility] R07.9 Chest pain, Visit 1:52p ,AMELIA Pace unspecified Hospitalists R11.2 Nausea with vomiting, unspecified R19.7 Diarrhea, unspecified I25.10 Athscl heart disease of [place] coronary artery w/o [facility] pctrs Office Visit 04/16/2015 [facility] Olga Amos, 414.02 Coronary 10:45a Cardiology Of .DEly Atherosclerosis Front End Software Engineer Autologous Vein Bypass Graft 427.0 PSVT Paroxysmal Supraventricular Tachycardia 426.4 Right Bundle Branch Block 272.2 Hyperlipidemia Mixed 401.1 Hypertension Benign Office Visit 03/30/2014 [facility] Olga Amos 414.02 Coronary 1:15p Cardiology Of .Kristin Atherosclerosis Front End Software Engineer Autologous Vein Bypass Graft 427.0 PSVT Paroxysmal Supraventricular Tachycardia 785.1 Palpitations 272.2 Hyperlipidemia Mixed Office Visit 09/10/2013 11:15a [facility] Olga Amos 427.69 Premature Beats Of Front End Software Engineer M.DEly Other 414.02 Coronary Atherosclerosis Autologous Vein Bypass Graft 401.1 Hypertension Benign Office Visit 05/21/2013 10:00a [facility] Nurse Visit 427.69 Premature Beats Of Front End Software Engineer IC Other Office Visit 05/13/2013 3:00p [facility] Olga Amos 427.69 Premature Beats Of Front End Software Engineer M.D. Other 414.9 Ischemic Heart Disease Chronic Unspec 414.02 Coronary Atherosclerosis Autologous Vein Bypass Graft 514 Pulmonary Congestion & Hypostasis Office Visit 04/01/2013 7:30a [facility] Olga Amos 427.69 Premature Beats Of Front End Software Engineer M.DEly Other 427.69 Premature Beats Other 785.1 Palpitations 785.1 Palpitations 780.4 Dizziness & Giddiness 780.4 Dizziness & Giddiness 426.4 Right Bundle Branch Block 426.4 Right Bundle Branch Block Plan of Treatment 09/27/2018 - [facility] Amos M.D.I25.10 Atherosclerotic heart disease of [place] coronary artery withI25.5 Ischemic cardiomyopathyComments:Both ventricles a bit weak.Follow up:OV with UNBUNDLER (or ) approx January and PRN.I47.2 Ventricular tachycardiaComments:Continue ibgoliomyyY18.810 Presence of automatic ( implantable) cardiac defibrillatorComments:Good function, no dysrhythmias on recent check.Follow up:Continue downloads, due approx Drug- induced thyroiditisComments:Keep f/u with Dr Perea.Follow up:Release of records September Rachel.L02.214 Cutaneous abscess of groin
[2018-10-17 14:29] LABS: Albumin 3.9 g/dL (3.2-5.2); Albumin/Globulin Ratio 1.6 (1-3); BUN/Creatinine Ratio 22.2 (8-20); EGFR African American 73.1 (>60); EGFR Non-African American 60.4 (>60); Globulin 2.5 g/dL (2-4); Potassium 4.7 mmol/L (3.5-5.0); Total Bilirubin 0.4 mg/dL (0.2-1.0); Total Protein 6.4 g/dL (6.4-8.9)
[2018-10-17 15:04] VITALS: BP 124/67
== END 2018-10-17 15:03 | disposition home or self-care (01) ==
LOC: ED 12:52
DX: R53.81 Other malaise (principal); W19.XXXA Unspecified fall, initial encounter; I45.10 Unspecified right bundle-branch block; I45.81 Long QT syndrome; F32.9 Major depressive disorder, single episode, unspecified; K21.9 Gastro-esophageal reflux disease without esophagitis; Z85.828 Personal history of other malignant neoplasm of skin; E11.9 Type 2 diabetes mellitus without complications; Z95.810 Presence of automatic (implantable) cardiac defibrillator; I25.10 Atherosclerotic heart disease of native coronary artery without angina pectoris; Z98.61 Coronary angioplasty status; E78.00 Pure hypercholesterolemia, unspecified; I10 Essential (primary) hypertension; I25.2 Old myocardial infarction; Z86.711 Personal history of pulmonary embolism; I51.7 Cardiomegaly; Y92.9 Unspecified place or not applicable
CPT/HCPCS: 36415; 71045; 80053; 83605; 83880; 84484; 85025; 85610; 93005; 99282